=== PATIENT | male | born 1955 | race Caucasian/White ===

== ENCOUNTER 2020-06-27 06:46 | Day surgery (SDC) | payer MEDICARE, BC ==
[2020-06-27] MEDS ORDERED: Propofol 200 MG/20 ML SDV ONE (07:22)
[2020-06-27] MEDS ORDERED: fentaNYL 100 MCG/2 ML SDV ONE (07:22)
[2020-06-27] MEDS ORDERED: Midazolam 1 MG/ML 2 ML SDV ONE (07:22)
[2020-06-27] MEDS ORDERED: Dextrose 5%-Lactated Ringers 1,000 ML IV SCH (07:30)
[2020-06-27] MEDS ORDERED: Pantoprazole 40 MG Vial IVPUSH ONE (10:00)
[2020-06-27 10:57] VITALS: BP 121/66; PULSE 68
--- NOTE | 2020-07-06 11:29 | OR ---
DATE OF PROCEDURE: 06/27/2020 SURGEON: Alex Goldman MD PREOPERATIVE DIAGNOSES: Dysphagia and epigastric discomfort. POSTOPERATIVE DIAGNOSES: Dysphagia and epigastric discomfort associated with: 1. [place] stricture of esophagogastric junction with intact but loosened Darling fundoplication. 2. Diffuse gastritis and duodenitis. OPERATIVE PROCEDURE: Esophagogastroduodenoscopy with: 1. Antral biopsies for CLOtest (80849). 2. Dilation of esophageal stricture (95147). ANESTHESIA: IV sedation. INDICATIONS FOR PROCEDURE: A 65-year-old status post Darling fundoplication in 2001, presenting with some upper abdominal discomfort and dysphagia. Plan is to proceed with upper GI endoscopy with biopsies and/or dilation as indicated. Potential risks including bleeding and perforation were discussed, and the patient wishes to proceed. DETAILS OF PROCEDURE: The patient was taken to the operating room, placed in a left lateral decubitus position. IV sedation was administered, after which the upper GI endoscope was passed orally through the length of the esophagus into the stomach with retroflexion view of the fundus, thereafter through the pyloric channel to the junction of the third and fourth portions of the duodenum. Findings included normal hypopharynx, larynx, and upper esophageal sphincter. The esophageal body likewise was unremarkable and nondilated. At the EG junction, there was diffuse bland appearing ring of stricture. This was not tight enough as the scope could not easily pass through that area. Associated with this, there was an intact but somewhat loosened appearing Darling fundoplication effect. Within the stomach and duodenum to the junction of the duodenal bulb and more distal duodenum, there was diffuse gastritis and duodenitis. This appeared to probably be accounting for most of the patient's symptoms. At this point, biopsies were obtained from the antrum and sent for CLOtest for H pylori. A guidewire was then passed and placed into the stomach and gastroscope withdrawn. Over the guidewire which was left in place, a Savary dilator of 48-Spanish was then placed and held in position for 1 minute. The wire and dilator were then removed and gastroparesis was then placed back in the esophagus and the area of dilation was identified and confirmed to be satisfactory. Scope was then withdrawn and the procedure then concluded. Plan will be give the patient some Protonix 40 mg IV in the recovery room for treatment of the gastritis and duodenitis and then begin 40 mg p.o. daily. The patient has been taking quite a bit of Naprosyn and we will switch that over to Celebrex 200 mg daily, which should be somewhat less problematic with regard to his gastric and duodenal findings. We will see the patient back in 2 weeks for recheck. Alex Goldman MD /[id number]
== END 2020-06-27 11:05 | disposition home or self-care (01) ==
LOC: JP.SDS 06:46
PROVIDERS: ATTEND Surgery
DX: K95.09 Other complications of gastric band procedure (principal); K29.70 Gastritis, unspecified, without bleeding; K22.8 Other specified diseases of esophagus; K29.80 Duodenitis without bleeding; I10 Essential (primary) hypertension; K21.9 Gastro-esophageal reflux disease without esophagitis; G47.33 Obstructive sleep apnea (adult) (pediatric)
CPT/HCPCS: 43239; 43248; 87081; C9113; J2250; J2704; J3010; J7121

== ENCOUNTER 2020-08-17 08:22 | Inpatient (IN) | payer MEDICARE, BC ==
[~2020-08-17 08:22] MED LIST: Midazolam 1 MG/ML 2 ML SDV ONE; Propofol 200 MG/20 ML SDV ONE; fentaNYL 100 MCG/2 ML SDV ONE
[2020-08-17] MEDS ORDERED: Dextrose 5%-Lactated Ringers 1,000 ML IV SCH (09:15)
[2020-08-17] MEDS ORDERED: Glycopyrrolate 0.2 MG/ML 2 ML SDV IVPUSH ONE (10:00)
[2020-08-17] MEDS ORDERED: Iopamidol 612 MG/ML 500 ML Multipack Bottle IV ONE (10:07)
[2020-08-17] MEDS ORDERED: Sodium Chloride 0.9% 10 ML Syringe FLUSH ONE (10:07)
[2020-08-17] MEDS ORDERED: Sodium Chloride 0.9% 100 ML IV SCH (10:15)
--- NOTE | 2020-08-17 10:48 | CT ---
Abdomen Pelvis w Cont CLINICAL HISTORY: Ascites COMPARISON: 2013. TECHNIQUE: Axial tomographic images are obtained from the dome of the diaphragm to the pubic symphysis without IV contrast enhancement. No oral contrast was used. Auto dosage reduction and iterative reconstruction techniques employed. FINDINGS: There is a small right pleural effusion. There is minimal pleural fluid on the left. The liver is moderately heterogeneous. There is some lobulation of the margins. The gallbladder is mildly Gated, similar to prior study. The spleen has a normal size and shape. The pancreas contains multiple cystic masses in the 2 largest are in the head and body of the pancreas. The measure 4.8 x 6.5 x 6.3 cm the pancreatic head. This is loculated. The cystic mass in the body measures 4.5 x 3.8 x 5.9 cm. There is a smaller cystic focus in the pancreatic tail. There is moderate abdominal pelvic ascites. The adrenal glands appear normal bilaterally. The kidneys have a normal appearance. The ureters have a normal course and caliber. The bladder has a normal contour. There are surgical clips in the low pelvis likely related to previous prostate surgery. The aorta has a normal contour. There is no suspicious retroperitoneal adenopathy. IMPRESSION: Significant abdominal pelvic ascites Heterogeneous liver suggesting cirrhotic changes Multiple complex cystic masses involving the head body and tail of the pancreas. These may represent cysts or pseudocysts. Cystadenoma or adenocarcinoma is not excluded though felt less likely
--- NOTE | 2020-08-17 13:17 | PCM.HP.2 ---
H&P History of Present Illness - General Date of Service: 08/17/20 Admit Problem/Dx: Admission Diagnosis/Problem Admission Diagnosis/Problem Hepatic cirrhosis Source of Information: Patient, Family History Limitations: Reports: No Limitations - History of Present Illness Initial Comments - Free Text/Narative: Mr. Dubois presents to outpatient surgical for an EGD today. He has a history of dysphagia and had an EGD with diltation in June 2020. He fell a few weeks ago and was concerned that he may have 'torn something' which lead to his scheduled EGD today. He had two falls within about 2-3 days of each other. Each episode he notes that he does not remember the beginning of the fall, but saw the ground just before he hit. Since his first fall about 2 weeks ago, he has noted a significant increase in abdominal distention, pitting edema to bilateral lower extremities. He has had pain to his upper abdomen since the fall that he would rate a dull 8 at all times that intensifies with jolting movements. His bowel movements are radar mechanic in color and urine is nearly orange in color. He also notes that his urinary stream has slowed with increased frequency. In the last f ew days his notes that Mr. Dubois has slower mentation and it is more difficult for him to talk, taking longer to process and express himself. Today is the first time that he or his have noticed the jaundice. He notes an increase in shortness of breath due to the ascites and is now sleeping in recliner to relieve pressure from ascities. He also has a significant decrease in intake due to the pressure of the ascites. Up until a day or two after the initial fall, this patient was a daily drinker of approximately a pint per day of hard liquor mixed. Onset of Symptoms: Reports: Gradual Symptom Onset Date: 08/01/20 (approximate onset 2-3 weeks ago) Duration of Symptoms: Reports: Getting Worse Location: Reports: Abdomen Quality: Reports: Dull Severity: Severe Improves with: Reports: None Worsens with: Reports: Other, Movement Associated Symptoms: Reports: Confusion, Other Other HPI/Comments: night sweats Abdominal Pain Score (Numeric/FACES): 8 - Related Data Allergies/Adverse Reactions: Allergies Allergy/AdvReac Type Severity Reaction Status Date / Time megestrol acetate Allergy Other Verified 06/27/20 07:19 [From Bubbleball] Home Medications: Home Meds Metoprolol Tartrate 75 mg PO BID 08/17/13 [History] amLODIPine Besylate [Norvasc] 10 mg PO BID 08/17/13 [History] Aspirin [Aspirin EC] 325 mg PO DAILY 06/26/20 [History] Celecoxib [CeleBREX] 200 mg PO DAILY 08/15/20 [History] Magnesium Oxide [Magnesium] 400 mg PO DAILY 08/15/20 [History] Multivitamin [Multiple Vitamins] 1 tab PO DAILY 08/17/20 [History] Pantoprazole [ProTONIX] 40 mg PO DAILY 08/17/20 [History] Past Medical History HEENT History: Reports: Hard of Hearing, Impaired Vision Other HEENT History: wears glasses Cardiovascular History: Reports: Afib, Arrhythmia, Hypertension Respiratory History: Reports: None Gastrointestinal History: Reports: GERD, Hemorrhoids, Hiatal Hernia Genitourinary History: Reports: Other (See Below) Other Genitourinary History: prostate ca Musculoskeletal History: Reports: Arthritis, Fracture Neurological History: Reports: None Psychiatric History: Reports: None Endocrine/Metabolic History: Reports: None Hematologic History: Reports: None Immunologic History: Reports: None Oncologic (Cancer) History: Reports: Prostate (radical prostatectomy) Dermatologic History: Reports: None - Infectious Disease History Infectious Disease History: Reports: Chicken Pox, Measles, Mumps, Rubella - Past Surgical History HEENT Surgical History: Reports: Tonsillectomy Cardiovascular Surgical History: Reports: None Respiratory Surgical History: Reports: None GI Surgical History: Reports: EGD, Other (See Below) Other GI Surgeries/Procedures: Darling fundoplication 2001 Male Surgical History: Reports: Other (See Below) Other Male Surgeries/Procedures: radical prostectomy and lymph nodes Musculoskeletal Surgical History: Reports: None Oncologic Surgical History: Reports: Other (See Below) Other Oncologic Surgeries/Procedures: radical prostectectomy Dermatological Surgical History: Reports: None Social & Family History - Family History Family Medical History: Noncontributory - Tobacco Use Smoking Status *Q: Former Smoker Used Tobacco, but Quit: Yes Month/Year Tobacco Last Used: 1977 Second Hand Smoke Exposure: No - Caffeine Use Caffeine Use: Reports: None - Alcohol Use Days Per Week of Alcohol Use: 7 Number of Drinks Per Day: 5 (approximately 1 pint/day hard liqour) Total Drinks Per Week: 35 Alcohol Use Frequency: Daily Alcohol Use Comment: last drink about 2 weeks ago. - Recreational Drug Use Recreational Drug Use: No H&P Review of Systems - Review of Systems: Review Of Systems: See Below General: Reports: Night Sweats, Decreased Appetite. Denies: Fever, Chills, Malaise, Weakness, Fatigue, Diaphoresis HEENT: Denies: Dysphasia, Headaches, Hearing Changes, Rhinitis, Vertigo, Visual Changes Pulmonary: Reports: Shortness of Breath. Denies: Wheezing, Pleuritic Chest Pain, Cough, Sputum, Hemoptysis Cardiovascular: Reports: Edema, Other (see HPI). Denies: Palpitations, Dyspnea on Exertion, Orthopnea, PND, Lightheadedness, Syncope, Claudication, Blood Pressure Problem Gastrointestinal: Reports: Abdominal Pain, Decreased Appetite, Distension, Other (light colored stools). Denies: Black Stool, Bloody Stool, Constipation, Diarrhea, Difficulty Swallowing, Hematemesis, Hematochezia, Nausea, Vomiting Genitourinary: Reports: Frequency, Other (slower stream than normal). Denies: Dysuria, Burning, Pain, Urgency, Incontinence, Hematuria, Discharge, Retention, Flank Pain Musculoskeletal: Reports: No Symptoms Skin: Reports: Jaundice, Change in Color. Denies: Cyanosis, Mottled, Diaphoresis, Dryness, Bruising, Pruritis, Rash, Wound, Burn(s), Change in Hair/Nails, Lesions, Lumps, Urticaria Psychiatric: Denies: Confusion, Depression, Mood Lability, Anxiety, Agitation, Cravings, Hallucinations, Suicidal Ideation, Homicidal Ideation, Hallucinations (Auditory), Hallucinations (Visual) Neurological: Reports: Dizziness, Trouble Speaking, Change in Speech. Denies: Confusion, Headache, Numbness, Pre-Existing Deficit, Seizure, Syncope, Tingling, Tremors, Difficulty Walking, Weakness, Gait Disturbance Hematologic/Lymphatic: Denies: Anemia, Easy Bleeding, Easy Bruising, Swollen Glands Exam - Exam Exam: See Below - Vital Signs Vital Signs: Last Vital Signs Temp 97.7 F 08/17/20 08:55 Pulse 62 08/17/20 12:15 Resp 16 08/17/20 12:15 BP 102/65 08/17/20 12:15 Pulse Ox 99 08/17/20 12:15 Weight: 195 lb - Exam General: Alert, Oriented, Cooperative HEENT: Other (jaundice) Neck: Supple, Trachea Midline, +2 Carotid Pulse wo Bruit Lungs: Decreased Breath Sounds (decreased breath sounds to bases bilaterally). No: Crackles, Rales, Rhonchi, Rub, Stridor, Wheezing GI/Abdominal Exam: Normal Bowel Sounds, Distended, Rigid, Other (ascities) (Male) Exam: Deferred Rectal (Males) Exam: Deferred Back Exam: Normal Inspection Extremities: Pedal Edema, Other (bilateral lower extremity edema pitting. Edema up to thighs) Skin: Warm, Dry, Intact Neurological: Cranial Nerves Intact, Strength Equal Bilateral Neuro Extensive - Mental Status: Alert, Oriented x3, Normal Mood/Affect, Memory Intact, Slow Response to Commands Psychiatric: Alert, Normal Affect, Normal Mood - Patient Data Lab Results Last 24 hrs: Laboratory Results - last 24 hr 08/17/20 08/17/20 08/17/20 Range/Units 09:14 09:14 09:14 WBC 23.7 H (4.5-11.0) K/uL RBC 4.07 L (4.30-5.90) M/uL Hgb 14.0 (12.0-15.0) g/dL Hct 42.0 (40.0-54.0) % MCV 103 H (80-98) fL MCH 34 H (27-31) pg MCHC 33 (32-36) % Plt Count 409 H (150-400) K/uL PT (9.5-12.0) sec INR (0.80-1.20) Sodium 137 L (140-148) mmol/L Potassium 4.0 (3.6-5.2) mmol/L Chloride 101 (100-108) mmol/L Carbon Dioxide 24 (21-32) mmol/L Anion Gap 16.0 H (5.0-14.0) mmol/L BUN 55 H D (7-18) mg/dL Creatinine 1.7 H D (0.8-1.3) mg/dL Est Cr Clr Drug Dosing 40.50 mL/min Estimated GFR (MDRD) 41 L (>60) BUN/Creatinine Ratio Not Reportable Glucose 126 H (74-106) mg/dL Lactic Acid (0.4-2.0) mmol/L Calcium 8.2 L D (8.5-10.1) mg/dL Total Bilirubin 11.0 H (0.2-1.0) mg/dL AST 129 H (15-37) U/L ALT 57 (12-78) U/L Alkaline Phosphatase 183 H (46-116) U/L Ammonia (11-32) mmol/L C-Reactive Protein (0.0-0.3) mg/dL Total Protein 5.4 L (6.4-8.2) g/dL Albumin 1.8 L (3.4-5.0) g/dL Globulin 3.6 H (2.3-3.5) g/dL Albumin/Globulin Ratio 0.5 L (1.2-2.2) Amylase 28 (25-115) U/L Lipase 162 (73-393) U/L Urine Color (YELLOW) Urine Appearance (CLEAR) Urine pH (5.0-8.0) Ur Specific [place] (1.008-1.030) Urine Protein (NEGATIVE) mg/dL Urine Glucose (UA) (NEGATIVE) mg/dL Urine Ketones (NEGATIVE) mg/dL Urine Occult Blood (NEGATIVE) Urine Nitrite (NEGATIVE) Urine Bilirubin (NEGATIVE) Urine Urobilinogen (0.2-1.0) EU/dL Ur Leukocyte Esterase (NEGATIVE) Urine RBC (0-5) Urine WBC (0-5) Ur Epithelial Cells Amorphous Sediment Urine Bacteria Urine Mucus Urine Other 08/17/20 08/17/20 08/17/20 Range/Units 09:14 09:14 11:25 WBC (4.5-11.0) K/uL RBC (4.30-5.90) M/uL Hgb (12.0-15.0) g/dL Hct (40.0-54.0) % MCV (80-98) fL MCH (27-31) pg MCHC (32-36) % Plt Count (150-400) K/uL PT (9.5-12.0) sec INR (0.80-1.20) Sodium (140-148) mmol/L Potassium (3.6-5.2) mmol/L Chloride (100-108) mmol/L Carbon Dioxide (21-32) mmol/L Anion Gap (5.0-14.0) mmol/L BUN (7-18) mg/dL Creatinine (0.8-1.3) mg/dL Est Cr Clr Drug Dosing mL/min Estimated GFR (MDRD) (>60) BUN/Creatinine Ratio Glucose (74-106) mg/dL Lactic Acid 2.1 H (0.4-2.0) mmol/L Calcium (8.5-10.1) mg/dL Total Bilirubin (0.2-1.0) mg/dL AST (15-37) U/L ALT (12-78) U/L Alkaline Phosphatase (46-116) U/L Ammonia 13 (11-32) mmol/L C-Reactive Protein 10.52 H (0.0-0.3) mg/dL Total Protein (6.4-8.2) g/dL Albumin (3.4-5.0) g/dL Globulin (2.3-3.5) g/dL Albumin/Globulin Ratio (1.2-2.2) Amylase (25-115) U/L Lipase (73-393) U/L Urine Color (YELLOW) Urine Appearance (CLEAR) Urine pH (5.0-8.0) Ur Specific [place] (1.008-1.030) Urine Protein (NEGATIVE) mg/dL Urine Glucose (UA) (NEGATIVE) mg/dL Urine Ketones (NEGATIVE) mg/dL Urine Occult Blood (NEGATIVE) Urine Nitrite (NEGATIVE) Urine Bilirubin (NEGATIVE) Urine Urobilinogen (0.2-1.0) EU/dL Ur Leukocyte Esterase (NEGATIVE) Urine RBC (0-5) Urine WBC (0-5) Ur Epithelial Cells Amorphous Sediment Urine Bacteria Urine Mucus Urine Other 08/17/20 08/17/20 Range/Units 12:11 12:22 WBC (4.5-11.0) K/uL RBC (4.30-5.90) M/uL Hgb (12.0-15.0) g/dL Hct (40.0-54.0) % MCV (80-98) fL MCH (27-31) pg MCHC (32-36) % Plt Count (150-400) K/uL PT 49.4 H (9.5-12.0) sec INR 4.67 H* (0.80-1.20) Sodium (140-148) mmol/L Potassium (3.6-5.2) mmol/L Chloride (100-108) mmol/L Carbon Dioxide (21-32) mmol/L Anion Gap (5.0-14.0) mmol/L BUN (7-18) mg/dL Creatinine (0.8-1.3) mg/dL Est Cr Clr Drug Dosing mL/min Estimated GFR (MDRD) (>60) BUN/Creatinine Ratio Glucose (74-106) mg/dL Lactic Acid (0.4-2.0) mmol/L Calcium (8.5-10.1) mg/dL Total Bilirubin (0.2-1.0) mg/dL AST (15-37) U/L ALT (12-78) U/L Alkaline Phosphatase (46-116) U/L Ammonia (11-32) mmol/L C-Reactive Protein (0.0-0.3) mg/dL Total Protein (6.4-8.2) g/dL Albumin (3.4-5.0) g/dL Globulin (2.3-3.5) g/dL Albumin/Globulin Ratio (1.2-2.2) Amylase (25-115) U/L Lipase (73-393) U/L Urine Color [place] A (YELLOW) Urine Appearance Slightly cloudy A (CLEAR) Urine pH 6.0 (5.0-8.0) Ur Specific [place] 1.010 (1.008-1.030) Urine Protein Trace H (NEGATIVE) mg/dL Urine Glucose (UA) Negative (NEGATIVE) mg/dL Urine Ketones Negative (NEGATIVE) mg/dL Urine Occult Blood Trace-intact H (NEGATIVE) Urine Nitrite Negative (NEGATIVE) Urine Bilirubin Large H (NEGATIVE) Urine Urobilinogen 0.2 (0.2-1.0) EU/dL Ur Leukocyte Esterase Negative (NEGATIVE) Urine RBC Not seen (0-5) Urine WBC 5-10 H (0-5) Ur Epithelial Cells Rare Amorphous Sediment Moderate Urine Bacteria Few Urine Mucus Few Urine Other See note Result Diagrams: 08/17/20 09:14 08/17/20 09:14 Sepsis Event Note - Focused Exam Vital Signs: Vital Signs Temp Pulse Resp BP Pulse Ox 08/17/20 12:15 62 16 102/65 99 08/17/20 11:30 64 16 101/64 97 08/17/20 10:55 62 16 99/67 96 08/17/20 10:19 70 16 103/64 98 08/17/20 08:55 97.7 F 59 L 16 110/65 100 *Q Meaningful Use (ADM) - VTE *Q VTE Pharmacological Contraindications *Q: High INR Value - VTE Risk Assess *Q Each Risk Factor Represents 1 Point: Swollen Legs, Current, Obesity ( BMI > 25 kg/m2) Total Score 1 Point Risk Factors: 2 Each Risk Factor Represents 2 Points: Age 60 - 74 Years Total Score 2 Point Risk Factors: 2 Each Risk Factor Represents 3 Points: None Total Score 3 Point Risk Factors: 0 Each Risk Factor Represents 5 Points: None Total Score 5 Point Risk Factors: 0 Venous Thromboembolism Risk Factor Score *Q: 4 Problem List Initiated/Reviewed/Updated: Yes Orders Last 24hrs: Active Orders 24 hr Category Date Time Status Patient Status Manage Transfer [TRANSFER] Routine ADT 08/17/20 12:43 Active US Guidance Paracentesis NC [US] Routine Exams 08/17/20 12:53 Ordered Dextrose 5%-Lactated Ringers 1,000 ml Med 08/17/20 09:15 Active IV ASDIRECTED Resuscitation Status Routine Resus Stat 08/17/20 12:46 Ordered Medication Orders Dextrose/Lactated Ringer's (Dextrose 5%-Lactated Ringers) 1,000 mls @ 100 mls/hr IV ASDIRECTED CRYSTAL Last Admin: 08/17/20 09:47 Dose: 100 mls/hr Documented by: DEIDRA Assessment/Plan Comment:: HEPATIC CIRRHOSIS - has abdominal distension with apparent blood to ascites. Cirrhosis is suspected cause of ascites, however we do need to rule out possible blockage or infectious causes. His PT/INR are elevated - Vitamin K IV ordered for elevated PT/INR. Will reevaluate his PT/INR in the morning. - Diurese slowly to decrease ascites and peripheral edema, will hold off on paracentesis of large volumes due to kidney status at this time. - MRCP ordered, will do when kidney status improves - Albumin 25grams every 6 hours ACUTE ALCOHOLIC HEPATITIS - his DIOR score is >160, MELDNa score is 38 - prednisolone 40mg daily, start today ACUTE KIDNEY INJURY - possible hepatorenal syndrome - gentle IV fluids - diurese slowly - reevaluate labs in the morning - Stop the Celebrex as this LEUKOCYTOSIS - WBC ate 23.7 with current unknown etiology. - paracentesis culture pending - Urinalysis pending - Blood cultures pending - starting ceftriaxone 2grams IV every 24 hours pending results. CHRONIC ALCOHOL ABUSE - His last drink was about 2 weeks ago as reported by patient and his . Jacob and his are realistic and forthright about his drinking habits. In light of his current liver functions the need for total abstinence from alcohol was discussed and Mr. Dubois verbalizes understanding. -will watch for signs of alcohol withdrawal - Will consider CIWAA protocol if withdrawal symptoms become apparent. MAINTENANCE ISSUES DVT Prophylaxis - pharmacologic intervention contraindicated d/t elevated PT/INR GI Prophylaxis - Continue home PPI [place] - Not indicated at this time Nutrition - 2gm sodium diet Nicotine dependance - not required CODE STATUS - FULL CODE DISPOSITION - plan to discharge home with primary care provider f/u after discharge. PRIMARY CARE PROVIDER - Randolph Juárez [facility] - Mortality Measure Prognosis:: Good
[2020-08-17] MEDS ORDERED: Phytonadione 10 MG in Sodium Chloride 0.9% 50 ML IV ONE (14:30)
[2020-08-17] MEDS ORDERED: Ondansetron 4 MG/2 ML SDV IV PRN (14:40)
[2020-08-17] MEDS ORDERED: Sodium Chloride 0.9% 10 ML Syringe FLUSH PRN (14:40)
[2020-08-17] MEDS: Sodium Chloride 0.9% 1,000 ML IV SCH (16:35)
[2020-08-17] MEDS: cefTRIAXone 2 GM in Sodium Chloride 0.9% 50 ML IV SCH (17:43)
[2020-08-17] MEDS: Lactobacillus Rhamnosus GG (Probiotic) Cap PO SCH ×2 (17:48→21:08)
[2020-08-17] MEDS: prednisoLONE 15 MG/5 ML Soln UD Cup PO SCH (17:48)
[2020-08-17] MEDS: HYDROmorphone 0.5 MG/0.5 ML Syringe IVPUSH PRN (21:07)
[2020-08-17] MEDS: Metoprolol Tartrate 25 MG Tab PO SCH (21:08)
[2020-08-18] MEDS: Sodium Chloride 0.9% 1,000 ML IV SCH (03:43)
[2020-08-18] MEDS ORDERED: Pantoprazole 40 MG Delayed-Release Granules 1 Packet PO SCH (07:30)
[2020-08-18] MEDS: Pantoprazole 40 MG Tab.CR PO SCH (07:34)
[2020-08-18] MEDS: Lactobacillus Rhamnosus GG (Probiotic) Cap PO SCH ×2 (09:00→20:32)
[2020-08-18] MEDS: Magnesium Oxide 400 MG Tab PO SCH (09:00)
[2020-08-18] MEDS: Aspirin 325 MG Tab.EC PO SCH (09:01)
[2020-08-18] MEDS: Metoprolol Tartrate 25 MG Tab PO SCH ×2 (09:01→20:32)
[2020-08-18] MEDS: prednisoLONE 15 MG/5 ML Soln UD Cup PO SCH (09:01)
--- NOTE | 2020-08-18 12:47 | PCM.PN ---
- General Info Date of Service: 08/18/20 Admission Dx/Problem (Free Text): Admission Diagnosis/Problem Admission Diagnosis/Problem Hepatic cirrhosis Functional Status: Reports: Pain Controlled, Tolerating Diet, Ambulating, Urinating Pain Score: 4 (abdominal pain and fullness much improved) - Review of Systems General: Reports: No Symptoms. Denies: Fever, Weakness, Fatigue, Malaise, Chills, Night Sweats HEENT: Reports: No Symptoms. Denies: Dysphasia, Headaches, Sore Throat, Visual Changes Pulmonary: Reports: No Symptoms. Denies: Shortness of Breath, Cough, Sputum, Hemoptysis, Wheezing Cardiovascular: Reports: Edema. Denies: Chest Pain, Palpitations, Dyspnea on Exertion, Orthopnea, Lightheadedness Gastrointestinal: Reports: Abdominal Pain, Decreased Appetite. Denies: Constipation, Diarrhea, Difficulty Swallowing, Flatus, Hematochezia, Melena, Nausea, Vomiting Genitourinary: Denies: Dysuria, Frequency, Burning, Urgency, Incontinence, Hematuria, Retention, Flank Pain Musculoskeletal: Reports: No Symptoms. Denies: Back Pain, Leg Pain, Foot Pain Skin: Reports: Jaundice. Denies: Diaphoresis, Pruritis Neurological: Reports: No Symptoms. Denies: Confusion, Headache, Numbness, Syncope, Tingling, Tremors, Trouble Speaking, Difficulty Walking, Weakness, Gait Disturbance Psychiatric: Reports: No Symptoms - Patient Data Vitals - Most Recent: Last Vital Signs Temp 97.2 F 08/18/20 07:31 Pulse 60 08/18/20 09:01 Resp 16 08/18/20 07:31 BP 111/67 08/18/20 09:01 Pulse Ox 95 08/18/20 07:31 Weight - Most Recent: 195 lb 0.017 oz I&O - Last 24 Hours: Intake & Output 08/17/20 08/18/20 08/18/20 22:59 06:59 14:59 Intake Total 320 1514 Output Total 475 Balance -155 1514 Lab Results Last 24 Hours: Laboratory Results - last 24 hr 08/17/20 08/17/20 08/17/20 Range/Units 12:11 12:22 13:50 WBC (4.5-11.0) K/uL RBC (4.30-5.90) M/uL Hgb (12.0-15.0) g/dL Hct (40.0-54.0) % MCV (80-98) fL MCH (27-31) pg MCHC (32-36) % Plt Count (150-400) K/uL Neut % (Auto) (36-66) % Lymph % (Auto) (24-44) % Travis % (Auto) (2-6) % Eos % (Auto) (2-4) % Baso % (Auto) (0-1) % PT 49.4 H (9.5-12.0) sec INR 4.67 H* (0.80-1.20) Sodium (140-148) mmol/L Potassium (3.6-5.2) mmol/L Chloride (100-108) mmol/L Carbon Dioxide (21-32) mmol/L Anion Gap (5.0-14.0) mmol/L BUN (7-18) mg/dL Creatinine (0.8-1.3) mg/dL Est Cr Clr Drug Dosing mL/min Estimated GFR (MDRD) (>60) Glucose (74-106) mg/dL Calcium (8.5-10.1) mg/dL Total Bilirubin (0.2-1.0) mg/dL AST (15-37) U/L ALT (12-78) U/L Alkaline Phosphatase (46-116) U/L Total Protein (6.4-8.2) g/dL Albumin (3.4-5.0) g/dL Globulin (2.3-3.5) g/dL Albumin/Globulin Ratio (1.2-2.2) Urine Color [place] A (YELLOW) Urine Appearance Slightly cloudy A (CLEAR) Urine pH 6.0 (5.0-8.0) Ur Specific [place] 1.010 (1.008-1.030) Urine Protein Trace H (NEGATIVE) mg/dL Urine Glucose (UA) Negative (NEGATIVE) mg/dL Urine Ketones Negative (NEGATIVE) mg/dL Urine Occult Blood Trace-intact H (NEGATIVE) Urine Nitrite Negative (NEGATIVE) Urine Bilirubin Large H (NEGATIVE) Urine Urobilinogen 0.2 (0.2-1.0) EU/dL Ur Leukocyte Esterase Negative (NEGATIVE) Urine RBC Not seen (0-5) Urine WBC 5-10 H (0-5) Ur Epithelial Cells Rare Amorphous Sediment Moderate Urine Bacteria Few Urine Mucus Few Urine Other See note Fluid Type Peritoneal fluid Fluid pH Fluid Glucose 151 mg/dL Fluid Total Protein 2.1 g/dL Fluid LDH 272 IU/L 08/17/20 08/18/20 08/18/20 Range/Units 13:50 05:45 05:45 WBC 14.5 H (4.5-11.0) K/uL RBC 3.29 L (4.30-5.90) M/uL Hgb 11.2 L D (12.0-15.0) g/dL Hct 35.3 L (40.0-54.0) % MCV 107 H (80-98) fL MCH 34 H (27-31) pg MCHC 32 (32-36) % Plt Count 288 (150-400) K/uL Neut % (Auto) 93 H (36-66) % Lymph % (Auto) 3 L (24-44) % Travis % (Auto) 4 (2-6) % Eos % (Auto) 0 L (2-4) % Baso % (Auto) 0 (0-1) % PT 15.6 H (9.5-12.0) sec INR 1.44 H D (0.80-1.20) Sodium (140-148) mmol/L Potassium (3.6-5.2) mmol/L Chloride (100-108) mmol/L Carbon Dioxide (21-32) mmol/L Anion Gap (5.0-14.0) mmol/L BUN (7-18) mg/dL Creatinine (0.8-1.3) mg/dL Est Cr Clr Drug Dosing mL/min Estimated GFR (MDRD) (>60) Glucose (74-106) mg/dL Calcium (8.5-10.1) mg/dL Total Bilirubin (0.2-1.0) mg/dL AST (15-37) U/L ALT (12-78) U/L Alkaline Phosphatase (46-116) U/L Total Protein (6.4-8.2) g/dL Albumin (3.4-5.0) g/dL Globulin (2.3-3.5) g/dL Albumin/Globulin Ratio (1.2-2.2) Urine Color (YELLOW) Urine Appearance (CLEAR) Urine pH (5.0-8.0) Ur Specific [place] (1.008-1.030) Urine Protein (NEGATIVE) mg/dL Urine Glucose (UA) (NEGATIVE) mg/dL Urine Ketones (NEGATIVE) mg/dL Urine Occult Blood (NEGATIVE) Urine Nitrite (NEGATIVE) Urine Bilirubin (NEGATIVE) Urine Urobilinogen (0.2-1.0) EU/dL Ur Leukocyte Esterase (NEGATIVE) Urine RBC (0-5) Urine WBC (0-5) Ur Epithelial Cells Amorphous Sediment Urine Bacteria Urine Mucus Urine Other Fluid Type Peritoneal fluid Fluid pH 7.0 Fluid Glucose mg/dL Fluid Total Protein g/dL Fluid LDH IU/L 08/18/20 Range/Units 05:45 WBC (4.5-11.0) K/uL RBC (4.30-5.90) M/uL Hgb (12.0-15.0) g/dL Hct (40.0-54.0) % MCV (80-98) fL MCH (27-31) pg MCHC (32-36) % Plt Count (150-400) K/uL Neut % (Auto) (36-66) % Lymph % (Auto) (24-44) % Travis % (Auto) (2-6) % Eos % (Auto) (2-4) % Baso % (Auto) (0-1) % PT (9.5-12.0) sec INR (0.80-1.20) Sodium 140 (140-148) mmol/L Potassium 3.9 (3.6-5.2) mmol/L Chloride 105 (100-108) mmol/L Carbon Dioxide 26 (21-32) mmol/L Anion Gap 9.1 (5.0-14.0) mmol/L BUN 42 H (7-18) mg/dL Creatinine 1.1 (0.8-1.3) mg/dL Est Cr Clr Drug Dosing 62.59 mL/min Estimated GFR (MDRD) > 60 (>60) Glucose 166 H (74-106) mg/dL Calcium 8.0 L (8.5-10.1) mg/dL Total Bilirubin 11.3 H (0.2-1.0) mg/dL AST 91 H (15-37) U/L ALT 45 (12-78) U/L Alkaline Phosphatase 136 H (46-116) U/L Total Protein 5.3 L (6.4-8.2) g/dL Albumin 2.3 L (3.4-5.0) g/dL Globulin 3.0 (2.3-3.5) g/dL Albumin/Globulin Ratio 0.8 L (1.2-2.2) Urine Color (YELLOW) Urine Appearance (CLEAR) Urine pH (5.0-8.0) Ur Specific [place] (1.008-1.030) Urine Protein (NEGATIVE) mg/dL Urine Glucose (UA) (NEGATIVE) mg/dL Urine Ketones (NEGATIVE) mg/dL Urine Occult Blood (NEGATIVE) Urine Nitrite (NEGATIVE) Urine Bilirubin (NEGATIVE) Urine Urobilinogen (0.2-1.0) EU/dL Ur Leukocyte Esterase (NEGATIVE) Urine RBC (0-5) Urine WBC (0-5) Ur Epithelial Cells Amorphous Sediment Urine Bacteria Urine Mucus Urine Other Fluid Type Fluid pH Fluid Glucose mg/dL Fluid Total Protein g/dL Fluid LDH IU/L [place] Results Last 24 Hours: Microbiology 08/17/20 13:50 Gram Stain - Final Paracentesis Fluid Med Orders - Current: Current Medications Aspirin (Ecotrin) 325 mg PO DAILY [facility] [place] Last Admin: 08/18/20 09:01 Dose: 325 mg Documented by: Hydromorphone HCl (Dilaudid) 0.5 mg IVPUSH Q4H PRN PRN Reason: Pain Last Admin: 08/17/20 21:07 Dose: 0.5 mg Documented by: Sodium Chloride (Normal Saline) 1,000 mls @ 125 mls/hr IV ASDIRECTED [facility] [place] Last Admin: 08/18/20 03:43 Dose: 125 mls/hr Documented by: Ceftriaxone Sodium 2 gm/ (Sodium Chloride) 50 mls @ 100 mls/hr IV Q24H [facility] [place] Last Admin: 08/17/20 17:43 Dose: 100 mls/hr Documented by: Lactobacillus Rhamnosus (Culturelle) 1 cap PO BID [facility] [place] Last Admin: 08/18/20 09:00 Dose: 1 cap Documented by: Magnesium Oxide (Magnesium Oxide) 400 mg PO DAILY [facility] [place] Last Admin: 08/18/20 09:00 Dose: 400 mg Documented by: Melatonin (Melatonin) 9 mg PO BEDTIME PRN PRN Reason: Insomnia Metoprolol Tartrate (Lopressor) 75 mg PO BID [facility] [place] Last Admin: 08/18/20 09:01 Dose: 75 mg Documented by: Ondansetron HCl (Zofran) 4 mg IV Q4H PRN PRN Reason: Nausea/Vomiting Pantoprazole Sodium (Protonix) 40 mg PO DAILY@0730 [facility] [place] Last Admin: 08/18/20 07:34 Dose: 40 mg Documented by: Prednisolone (Orapred 15 Mg/5ml Soln) 40 mg PO DAILY [facility] [place] Last Admin: 08/18/20 09:01 Dose: 40 mg Documented by: Sodium Chloride (Saline Flush) 10 ml FLUSH ASDIRECTED PRN PRN Reason: Keep Vein Open Discontinued Medications Fentanyl (Sublimaze) Confirm Administered Dose 0 mcg .ROUTE .STK-MED ONE Stop: 08/17/20 07:42 Glycopyrrolate (Glycopyrrolate) 0.4 mg IVPUSH ONETIME ONE Stop: 08/17/20 10:01 Dextrose/Lactated Ringer's (Dextrose 5%-Lactated Ringers) 1,000 mls @ 100 mls/hr IV ASDIRECTED [facility] [place] Last Admin: 08/17/20 09:47 Dose: 100 mls/hr Documented by: Sodium Chloride (Normal Saline) 100 mls @ 3 mls/sec IV ASDIRECTED [facility] [place] Stop: 08/17/20 10:16 Phytonadione 10 mg/ Sodium (Chloride) 51 mls @ 100 mls/hr IV NOW ONE Stop: 08/17/20 15:00 Last Admin: 08/17/20 14:37 Dose: 100 mls/hr Documented by: Albumin Human (Albumin 25%) 25 gm in 100 mls @ 25 mls/hr IV Q6H [facility] [place] Stop: 08/18/20 09:59 Last Admin: 08/18/20 05:27 Dose: 25 mls/hr Documented by: Iopamidol (Isovue-300 (61%)) 134 ml IV ONETIME ONE Stop: 08/17/20 10:08 Midazolam HCl (Versed 1 Mg/Ml) Confirm Administered Dose 0 mg .ROUTE .STK-MED ONE Stop: 08/17/20 07:42 Propofol (Diprivan 20 Ml) Confirm Administered Dose 0 mg .ROUTE .STK-MED ONE Stop: 08/17/20 07:42 Sodium Chloride (Saline Flush) 10 ml FLUSH ONETIME ONE Stop: 08/17/20 10:08 - Exam General: Alert, Oriented, Cooperative, No Acute Distress HEENT: Pupils Equal, Pupils Reactive, Scleral Icterus Neck: Trachea Midline, No JVD, No Thyromegaly, +2 Carotid Pulse wo Bruit. No: Lymphadenopathy, Carotid Bruit, JVD, Thyromegaly Lungs: Clear to Auscultation, Normal Respiratory Effort, Decreased Breath Sounds (to bilateral bases) Cardiovascular: Regular Rate, Regular Rhythm, No Murmurs. No: Irregular Rhythm, Murmurs, Gallops, Rubs GI/Abdominal Exam: Normal Bowel Sounds, No Abnormal Bruit, Distended, Rigid, Tender, Other (positive for fluid wave, indicative of ascites.) (Male) Exam: Deferred Back Exam: Normal Inspection Extremities: Normal Range of Motion, Non-Tender (left leg is tender with pressure checking on edema.), Pedal Edema (edema continues up into thighs, however the edema is improving.) Skin: Warm, Dry, Intact, Other (jaundice) Neurological: No New Focal Deficit, Normal Speech (patient's speech patern has returned to normal baseline, he responds appropriately and does not need to search for responses. ), Normal Tone, Strength Equal Bilateral Psy/Mental Status: Alert, Normal Affect, Normal Mood Sepsis Event Note - Evaluation Sepsis Screening Result: No Definite Risk - Focused Exam Vital Signs: Vital Signs Temp Pulse Pulse Resp BP BP Pulse Ox 08/18/20 09:01 60 111/67 08/18/20 07:31 97.2 F 56 L 16 108/74 95 08/18/20 03:39 96.7 F L 53 L 18 114/73 100 - Problem List Review Problem List Initiated/Reviewed/Updated: Yes - My Orders Last 24 Hours: My Active Orders 08/19/20 05:00 CBC WITH AUTO DIFF [HEME] Routine COMPREHENSIVE METABOLIC PN,CMP [CHEM] Routine INR,PT,PROTHROMBIN TIME [COAG] Routine - Plan Plan:: HEPATIC CIRRHOSIS - has abdominal distension with apparent blood to ascites. Cirrhosis is suspected cause of ascites, however we do need to rule out possible blockage or infectious causes. His PT/INR are elevated - PT/INR improving, Will reevaluate his PT/INR in the morning. - Will hold off on paracentesis of large volumes due to kidney status at this time, will consider in the next day or two depending on kidney status - MRCP to be done today, pending results - Albumin 25grams every 12 hours ACUTE ALCOHOLIC HEPATITIS - his Maddrey score is 26 which is a significant improvement from admission. - continue prednisolone 40mg daily ACUTE KIDNEY INJURY - possible hepatorenal syndrome - saline lock IV - reevaluate labs in the morning - Celebrex DC, no NSAIDs LEUKOCYTOSIS - WBC at improving at 14.5 today with current unknown etiology. - paracentesis culture pending - Urinalysis pending - Blood cultures pending - continue ceftriaxone 2grams IV every 24 hours pending results. CHRONIC ALCOHOL ABUSE - He is not currently exhibiting withdrawal symptoms this visit. -will watch for signs of alcohol withdrawal -Will consider CIWAA protocol if withdrawal symptoms become apparent. MAINTENANCE ISSUES DVT Prophylaxis - pharmacologic intervention contraindicated d/t elevated PT/INR, start SCDs today. GI Prophylaxis - Continue home PPI Masterson - Not indicated at this time Nutrition - 2gm sodium diet Nicotine dependance - not required CODE STATUS - FULL CODE DISPOSITION - plan to discharge home with primary care provider f/u after discharge. PRIMARY CARE PROVIDER - Randolph Juárez NP
--- NOTE | 2020-08-18 14:28 | MR ---
Cholangiopancreatography CLINICAL HISTORY: Elevated bilirubin, pancreatic masses COMPARISON: CT abdomen 08/17/2020 TECHNIQUE: Multiple images of the biliary system were obtained. All images were obtained on a 1.5 Yom[employer] Siemens unit. FINDINGS: There is moderate breathing motion artifact. There is moderate diffuse ascites. Gallbladder has a normal contour. A common bile duct has a normal course and contour. Pancreatic duct is not visualized. There is a complex fluid-filled mass extending off the body of the pancreas described on CT. There is fluid level with internal debris or tissue. There is a similar complex mass in the head of the pancreas. This appears predominantly solid. IMPRESSION: Moderate ascites 2 large complex masses are identified in the head and body the pancreas. There is a fluid level or layering in the mid body mass.These could represent pseudocysts Pancreatic neoplasm is not excluded.
[2020-08-18] MEDS: HYDROmorphone 0.5 MG/0.5 ML Syringe IVPUSH PRN (17:42)
[2020-08-18] MEDS: cefTRIAXone 2 GM in Sodium Chloride 0.9% 50 ML IV SCH (18:03)
[2020-08-18] MEDS: Melatonin 3 MG Tab PO PRN (20:35)
--- NOTE | 2020-08-19 02:47 | PN ---
DATE OF SERVICE: 08/18/2020 SUBJECTIVE: Jacob is n.p.o. for an MRI today. Pain is managed with Dilaudid 0.5 mg IV every 4 hours. Labs today, white count is down to 14.5, hemoglobin is 11.2, PT 15.4, and INR 1.44. Total bilirubin is 11.3, and he reports weakness, tired when getting up. Denies any headache. Occasional dizziness. Feels unsteady. Neck negative. Heart, no chest pain. He does feel pressure under his ribs that increases when he takes a deep breath. Abdomen, no change. Continues to have ascites and pain with palpation in all 4 quadrants. Extremities revealed bilateral peripheral edema. Color, jaundice. Psychiatric, mood and affect quiet. OBJECTIVE: GENERAL: Jacob Dubois is a pleasant 65-year-old male. He is alert and orientated. VITAL SIGNS: TPR is 97.2, 56, 16, blood pressure 108/74. HEENT: Negative. NECK: Supple. HEART: Regular rate and rhythm. LUNGS: Clear. ABDOMEN: As above. EXTREMITIES: As above. ASSESSMENT: 1. Hepatic cirrhosis. 2. Acute alcoholic hepatitis. 3. Acute kidney injury. 4. Leukocytosis. 5. Chronic alcohol abuse. PLAN: 1. Continue cares with Greg Patel MD, hospitalist. 2. We will plan on paracentesis on Friday with Alex Goldman MD. 3. We will evaluate p.r.n. or in a.m. Tianna Keita PA-C /[id number]
[2020-08-19] MEDS: HYDROmorphone 0.5 MG/0.5 ML Syringe IVPUSH PRN ×4 (02:56→19:55)
[2020-08-19] MEDS: Pantoprazole 40 MG Tab.CR PO SCH (07:36)
[2020-08-19] MEDS: Lactobacillus Rhamnosus GG (Probiotic) Cap PO SCH ×2 (09:47→22:15)
[2020-08-19] MEDS: Aspirin 325 MG Tab.EC PO SCH (09:48)
[2020-08-19] MEDS: Metoprolol Tartrate 25 MG Tab PO SCH ×2 (09:49→22:14)
[2020-08-19] MEDS: Magnesium Oxide 400 MG Tab PO SCH (09:53)
[2020-08-19] MEDS: prednisoLONE 15 MG/5 ML Soln UD Cup PO SCH (09:54)
--- NOTE | 2020-08-19 10:50 | PN ---
DATE OF SERVICE: 08/19/2020 SUBJECTIVE: Jacob report he continues to have quite a bit of pain on a pain scale 1 to 10. He said it is an 8, sometimes a 9/10. He feels his abdomen is a little bit more distended today. Oral intake 543. Urine output is 645. Per nursing report, it is quite dark. Afebrile. Labs this morning; WBC 21.7, PT 15.4, and INR is 1.42. Potassium is 3.3 and bilirubin remains high at 11. OBJECTIVE: GENERAL: aJcob Dubois is a pleasant 65-year-old male. He is alert, orientated, talkative. VITAL SIGNS: TPR is 96.2, 54, 18; blood pressure 110/63. HEENT: Negative. NECK: Supple. HEART: Regular rate and rhythm. LUNGS: Clear. ABDOMEN: Appears to be more distended, increased ascites, firm. EXTREMITIES: Trace peripheral edema. NEUROLOGIC: Intact. PSYCHIATRIC: Mood and affect appropriate. ASSESSMENT: 1. Hepatic cirrhosis. 2. Acute alcoholic hepatitis. 3. Acute kidney injury. 4. Leukocytosis. 5. Chronic alcohol abuse. PLAN: Continue to monitor and plan paracentesis on Friday with Alex Goldman MD. Tianna Keita PA-C /[id number]
[2020-08-19] MEDS ORDERED: Potassium Chloride 20 MEQ Tab.ER PO ONE ×2 (13:04→17:00)
--- NOTE | 2020-08-19 13:07 | PCM.PN ---
- General Info Date of Service: 08/19/20 Subjective Update: Mr. Dubois has been stable over the last 24 hours. Continues to experience abdominal discomfort related to ascites. Renal function has essentially normalized and liver function is stable. INR is unchanged from yesterday. MRCP was obtained yesterday and showed no evidence of biliary obstruction but did document complex cysts in the pancreas consistent with pseudocysts. Functional Status: Reports: Tolerating Diet, Ambulating, Urinating - Review of Systems General: Reports: Weakness, Fatigue. Denies: Fever, Chills Pulmonary: Reports: No Symptoms Cardiovascular: Reports: No Symptoms Gastrointestinal: Reports: Abdominal Pain. Denies: Diarrhea, Difficulty Swallowing, Hematochezia, Melena, Nausea, Vomiting - Patient Data Vitals - Most Recent: Last Vital Signs Temp 97.4 F 08/19/20 11:49 Pulse 55 L 08/19/20 11:49 Resp 20 08/19/20 11:49 BP 112/68 08/19/20 11:49 Pulse Ox 93 L 08/19/20 11:49 Weight - Most Recent: 194 lb 9.6 oz I&O - Last 24 Hours: Intake & Output 08/18/20 08/19/20 08/19/20 22:59 06:59 14:59 Intake Total 110 320 Output Total 120 375 Balance -10 -55 Lab Results Last 24 Hours: Laboratory Results - last 24 hr 08/19/20 08/19/20 08/19/20 Range/Units 05:57 05:57 05:57 WBC 21.7 H (4.5-11.0) K/uL RBC 3.37 L (4.30-5.90) M/uL Hgb 11.5 L (12.0-15.0) g/dL Hct 36.4 L (40.0-54.0) % MCV 108 H (80-98) fL MCH 34 H (27-31) pg MCHC 32 (32-36) % Plt Count 304 (150-400) K/uL Neut % (Auto) 87 H (36-66) % Lymph % (Auto) 5 L (24-44) % [place] % (Auto) 8 H (2-6) % Eos % (Auto) 0 L (2-4) % Baso % (Auto) 0 (0-1) % PT 15.4 H (9.5-12.0) sec INR 1.42 H (0.80-1.20) Sodium 142 (140-148) mmol/L Potassium 3.3 L (3.6-5.2) mmol/L Chloride 106 (100-108) mmol/L Carbon Dioxide 24 (21-32) mmol/L Anion Gap 15.3 H (5.0-14.0) mmol/L BUN 34 H (7-18) mg/dL Creatinine 1.1 (0.8-1.3) mg/dL Est Cr Clr Drug Dosing 62.44 mL/min Estimated GFR (MDRD) > 60 (>60) Glucose 124 H (74-106) mg/dL Calcium 8.2 L (8.5-10.1) mg/dL Total Bilirubin 11.0 H (0.2-1.0) mg/dL AST 80 H (15-37) U/L ALT 49 (12-78) U/L Alkaline Phosphatase 133 H (46-116) U/L Total Protein 5.6 L (6.4-8.2) g/dL Albumin 2.8 L (3.4-5.0) g/dL Globulin 2.8 (2.3-3.5) g/dL Albumin/Globulin Ratio 1.0 L (1.2-2.2) [place] Results Last 24 Hours: Microbiology 08/17/20 13:50 Gram Stain - Final Paracentesis Fluid Body Fluid Culture - Preliminary NO GROWTH AFTER 1 DAY 08/17/20 20:10 Aerobic Blood Culture - Preliminary Blood - Arm, Left NO GROWTH AFTER 1 DAY Anaerobic Blood Culture - Preliminary NO GROWTH AFTER 1 DAY 08/17/20 20:05 Aerobic Blood Culture - Preliminary Blood - Arm, Left NO GROWTH AFTER 1 DAY Anaerobic Blood Culture - Preliminary NO GROWTH AFTER 1 DAY Med Orders - Current: Current Medications Aspirin (Ecotrin) 325 mg PO DAILY [facility] Last Admin: 08/19/20 09:48 Dose: 325 mg Documented by: Hydromorphone HCl (Dilaudid) 0.5 mg IVPUSH Q4H PRN PRN Reason: Pain Last Admin: 08/19/20 08:02 Dose: 0.5 mg Documented by: Ceftriaxone Sodium 2 gm/ (Sodium Chloride) 50 mls @ 100 mls/hr IV Q24H [facility] Last Admin: 08/18/20 18:03 Dose: 100 mls/hr Documented by: Albumin Human (Albumin 25%) 25 gm in 100 mls @ 25 mls/hr IV Q12H [facility] Last Admin: 08/19/20 02:53 Dose: 25 mls/hr Documented by: Lactobacillus Rhamnosus (Culturelle) 1 cap PO BID [facility] Last Admin: 08/19/20 09:47 Dose: 1 cap Documented by: Magnesium Oxide (Magnesium Oxide) 400 mg PO DAILY [facility] Last Admin: 08/19/20 09:53 Dose: 400 mg Documented by: Melatonin (Melatonin) 9 mg PO BEDTIME PRN PRN Reason: Insomnia Last Admin: 08/18/20 20:35 Dose: 9 mg Documented by: Metoprolol Tartrate (Lopressor) 75 mg PO BID [facility] Last Admin: 08/19/20 09:49 Dose: 75 mg Documented by: Ondansetron HCl (Zofran) 4 mg IV Q4H PRN PRN Reason: Nausea/Vomiting Pantoprazole Sodium (Protonix) 40 mg PO DAILY@0730 [facility] Last Admin: 08/19/20 07:36 Dose: 40 mg Documented by: Potassium Chloride (Klor-Con M20) 40 meq PO ONETIME ONE Stop: 08/19/20 13:05 Prednisolone (Orapred 15 Mg/5ml Soln) 40 mg PO DAILY [facility] Last Admin: 08/19/20 09:54 Dose: 40 mg Documented by: Sodium Chloride (Saline Flush) 10 ml FLUSH ASDIRECTED PRN PRN Reason: Keep Vein Open Discontinued Medications Fentanyl (Sublimaze) Confirm Administered Dose 0 mcg .ROUTE .STK-MED ONE Stop: 08/17/20 07:42 Glycopyrrolate (Glycopyrrolate) 0.4 mg IVPUSH ONETIME ONE Stop: 08/17/20 10:01 Last Admin: 08/18/20 19:15 Dose: Not Given Documented by: Dextrose/Lactated Ringer's (Dextrose 5%-Lactated Ringers) 1,000 mls @ 100 mls/hr IV ASDIRECTED [facility] Last Admin: 08/17/20 09:47 Dose: 100 mls/hr Documented by: Sodium Chloride (Normal Saline) 100 mls @ 3 mls/sec IV ASDIRECTED [facility] Stop: 08/17/20 10:16 Phytonadione 10 mg/ Sodium (Chloride) 51 mls @ 100 mls/hr IV NOW ONE Stop: 08/17/20 15:00 Last Admin: 08/17/20 14:37 Dose: 100 mls/hr Documented by: Sodium Chloride (Normal Saline) 1,000 mls @ 125 mls/hr IV ASDIRECTED [facility] Last Admin: 08/18/20 03:43 Dose: 125 mls/hr Documented by: Albumin Human (Albumin 25%) 25 gm in 100 mls @ 25 mls/hr IV Q6H [facility] Stop: 08/18/20 09:59 Last Admin: 08/18/20 05:27 Dose: 25 mls/hr Documented by: Iopamidol (Isovue-300 (61%)) 134 ml IV ONETIME ONE Stop: 08/17/20 10:08 Last Admin: 08/18/20 19:15 Dose: Not Given Documented by: Midazolam HCl (Versed 1 Mg/Ml) Confirm Administered Dose 0 mg .ROUTE .STK-MED ONE Stop: 08/17/20 07:42 Propofol (Diprivan 20 Ml) Confirm Administered Dose 0 mg .ROUTE .STK-MED ONE Stop: 08/17/20 07:42 Sodium Chloride (Saline Flush) 10 ml FLUSH ONETIME ONE Stop: 08/17/20 10:08 Last Admin: 08/18/20 19:14 Dose: Not Given Documented by: - Exam Quality Assessment: DVT Prophylaxis General: Alert, Oriented, Cooperative, Mild Distress Lungs: Clear to Auscultation, Normal Respiratory Effort Cardiovascular: Regular Rate, Regular Rhythm, No Murmurs GI/Abdominal Exam: Soft, No Organomegaly, Distended, Tender. No: Guarding, Rigid, Rebound Extremities: Non-Tender, Pedal Edema Skin: Warm, Dry, Intact, Other (Jaundice) Sepsis Event Note - Evaluation Sepsis Screening Result: Severe Sepsis Risk - Focused Exam Vital Signs: Vital Signs Temp Pulse Pulse Pulse Resp BP BP 08/19/20 11:49 97.4 F 55 L 20 112/68 08/19/20 09:49 64 115/75 08/19/20 07:56 96.2 F L 54 L 18 110/63 08/19/20 03:10 96.2 F L 61 18 131/79 Pulse Ox 08/19/20 11:49 93 L 08/19/20 09:49 08/19/20 07:56 10/03/20 03:10 98 - Problem List Review Problem List Initiated/Reviewed/Updated: Yes - My Orders Last 24 Hours: My Active Orders 08/19/20 10:43 Consult to Physician [CONS] Routine 08/19/20 10:44 Notify Provider Consults [RC] ASDIRECTED 08/19/20 13:04 Potassium Chloride [Klor-Con M20] 40 meq PO ONETIME ONE 08/19/20 17:00 Potassium Chloride [Klor-Con M20] 40 meq PO ONETIME ONE 08/20/20 05:00 CBC WITH AUTO DIFF [HEME] Timed COMPREHENSIVE METABOLIC PN,CMP [CHEM] Timed INR,PT,PROTHROMBIN TIME [COAG] Timed - Plan Plan:: ASSESSMENT AND PLAN HEPATIC CIRRHOSIS - has abdominal distension with ascites. Cirrhosis is leticia pected cause of ascites. MRCP obtained yesterday showing no evidence of significant obstruction -Bilirubin and INR stable over the last 24 hours -Consult Dr. Mahmood for large-volume paracentesis - Albumin 25grams every 12 hours ACUTE ALCOHOLIC HEPATITIS - his Maddrey score is 26 which is a significant improvement from admission. - continue prednisolone 40mg daily ACUTE KIDNEY INJURY -renal function has significantly improved from admission and appears to be close to baseline - saline lock IV - reevaluate labs in the morning - Celebrex DC, no NSAIDs SPONTANEOUS BACTERIAL PERITONITIS/LEUKOCYTOSIS -white blood cell count is increased from yesterday, likely secondary to glucocorticoid therapy. Diagnostic paracentesis performed on admission, cell count not available because specimen clotted. Presumed bacterial peritonitis given increase in pain and leukocytosis. - paracentesis culture pending - Urinalysis pending - Blood cultures pending - continue ceftriaxone 2grams IV every 24 hours pending results. PANCREATIC PSEUDOCYSTS-he likely has had acute and chronic pancreatitis. Lipase level was within normal range at the time of admission. -Plan for follow-up CT scan in 2 months to assess stability of pseudocyst. CHRONIC ALCOHOL ABUSE - He is not currently exhibiting withdrawal symptoms this visit. -will watch for signs of alcohol withdrawal -Will consider CIWAA protocol if withdrawal symptoms become apparent. MAINTENANCE ISSUES DVT Prophylaxis - pharmacologic intervention contraindicated d/t elevated PT/INR, SCDs GI Prophylaxis - Continue home PPI Masterson - Not indicated at this time Nutrition - 2gm sodium diet Nicotine dependance - not required CODE STATUS - FULL CODE DISPOSITION - plan to discharge home with primary care provider f/u after discharge. PRIMARY CARE PROVIDER - Randolph Juárez NP
[2020-08-19] MEDS: cefTRIAXone 2 GM in Sodium Chloride 0.9% 50 ML IV SCH (17:59)
[2020-08-19] MEDS: Melatonin 3 MG Tab PO PRN (22:15)
[2020-08-20] MEDS: HYDROmorphone 0.5 MG/0.5 ML Syringe IVPUSH PRN ×3 (02:03→17:45)
--- NOTE | 2020-08-20 08:30 | PN ---
DATE OF SERVICE: 08/20/2020 SUBJECTIVE: Jacob is n.p.o. He will be having paracentesis by Dr. Mahmood today. He continues to have pain 06/26. Bilirubin this morning was 10.4. OBJECTIVE: GENERAL: Jacob is a pleasant 65-year-old male. VITAL SIGNS: TPR is 98, 55, 18. Blood pressure 116/66. HEART: Regular rate and rhythm. LUNGS: Clear. ABDOMEN: Ascites. EXTREMITIES: 1+ peripheral edema. ASSESSMENT: 1. Hepatic cirrhosis. 2. Acute alcoholic hepatitis. 3. Acute kidney injury. 4. Leukocytosis. 5. Chronic alcohol abuse. PLAN: To proceed with paracentesis, Bang Mahmood MD. Orders to be written for Greg Patel MD and Bang Mahmood MD post procedure. We will evaluate p.r.n. or in a.m. Tianna Keita PA-C /[id number]
[2020-08-20] MEDS: Pantoprazole 40 MG Tab.CR PO SCH (08:31)
[2020-08-20] MEDS: Lactobacillus Rhamnosus GG (Probiotic) Cap PO SCH ×2 (09:50→20:40)
[2020-08-20] MEDS: Aspirin 325 MG Tab.EC PO SCH (09:51)
[2020-08-20] MEDS: Magnesium Oxide 400 MG Tab PO SCH (09:52)
[2020-08-20] MEDS: prednisoLONE 15 MG/5 ML Soln UD Cup PO SCH (09:53)
[2020-08-20] MEDS: Metoprolol Tartrate 25 MG Tab PO SCH ×2 (10:24→20:40)
--- NOTE | 2020-08-20 12:56 | PCM.PN ---
- General Info Date of Service: 08/20/20 Subjective Update: Mr. Dubois has remained stable over the last 24 hours. He continues to experience abdominal pain sensation of abdominal distention. Plan had been for large-volume paracentesis today, he was seen by Dr. Mahmood, abdominal ultrasound failed to show significant pocket of ascites for paracentesis. He reports that he has been having regular bowel movements and currently does not feel constipated. Appetite has improved somewhat but intake diminished because he feels full quickly. Functional Status: Reports: Ambulating, Urinating - Review of Systems General: Reports: Weakness, Fatigue. Denies: Fever, Chills Pulmonary: Reports: No Symptoms Cardiovascular: Reports: No Symptoms Gastrointestinal: Reports: Abdominal Pain, Decreased Appetite. Denies: Diarrhea, Difficulty Swallowing, Hematochezia, Melena, Nausea, Vomiting Genitourinary: Reports: No Symptoms - Patient Data Vitals - Most Recent: Last Vital Signs Temp 98 F 08/20/20 07:16 Pulse 62 08/20/20 10:24 Resp 18 08/20/20 07:16 BP 111/66 08/20/20 10:24 Pulse Ox 96 08/20/20 07:16 Weight - Most Recent: 197 lb 6.4 oz I&O - Last 24 Hours: Intake & Output 08/19/20 08/20/20 08/20/20 22:59 06:59 14:59 Intake Total 550 Output Total 700 500 400 Balance -150 -500 -400 Lab Results Last 24 Hours: Laboratory Results - last 24 hr 08/20/20 08/20/20 08/20/20 Range/Units 05:39 05:39 05:39 WBC 25.4 H (4.5-11.0) K/uL RBC 3.68 L (4.30-5.90) M/uL Hgb 12.3 (12.0-15.0) g/dL Hct 39.9 L (40.0-54.0) % MCV 108 H (80-98) fL MCH 33 H (27-31) pg MCHC 31 L (32-36) % Plt Count 305 (150-400) K/uL Neut % (Auto) 89 H (36-66) % Lymph % (Auto) 4 L (24-44) % [place] % (Auto) 7 H (2-6) % Eos % (Auto) 0 L (2-4) % Baso % (Auto) 0 (0-1) % PT 14.8 H (9.5-12.0) sec INR 1.37 H (0.80-1.20) Sodium 140 (140-148) mmol/L Potassium 4.5 (3.6-5.2) mmol/L Chloride 106 (100-108) mmol/L Carbon Dioxide 23 (21-32) mmol/L Anion Gap 11.4 (5.0-14.0) mmol/L BUN 28 H (7-18) mg/dL Creatinine 1.0 (0.8-1.3) mg/dL Est Cr Clr Drug Dosing 68.68 mL/min Estimated GFR (MDRD) > 60 (>60) Glucose 129 H (74-106) mg/dL Calcium 8.3 L (8.5-10.1) mg/dL Total Bilirubin 10.4 H (0.2-1.0) mg/dL AST 80 H (15-37) U/L ALT 49 (12-78) U/L Alkaline Phosphatase 140 H (46-116) U/L Total Protein 5.9 L (6.4-8.2) g/dL Albumin 3.1 L (3.4-5.0) g/dL Globulin 2.8 (2.3-3.5) g/dL Albumin/Globulin Ratio 1.1 L (1.2-2.2) [place] Results Last 24 Hours: Microbiology 08/17/20 13:50 Gram Stain - Final Paracentesis Fluid Body Fluid Culture - Preliminary NO GROWTH AFTER 2 DAYS 08/17/20 20:05 Aerobic Blood Culture - Preliminary Blood - Arm, Left NO GROWTH AFTER 2 DAYS Anaerobic Blood Culture - Preliminary NO GROWTH AFTER 2 DAYS 08/17/20 20:10 Aerobic Blood Culture - Preliminary Blood - Arm, Left NO GROWTH AFTER 2 DAYS Anaerobic Blood Culture - Preliminary NO GROWTH AFTER 2 DAYS Med Orders - Current: Current Medications Aspirin (Ecotrin) 325 mg PO DAILY [facility] Last Admin: 08/20/20 09:51 Dose: 325 mg Documented by: Furosemide (Lasix) 20 mg PO DAILY [facility] Hydromorphone HCl (Dilaudid) 0.5 mg IVPUSH Q4H PRN PRN Reason: Pain Last Admin: 08/20/20 12:31 Dose: 0.5 mg Documented by: Ceftriaxone Sodium 2 gm/ (Sodium Chloride) 50 mls @ 100 mls/hr IV Q24H [facility] Last Admin: 08/19/20 17:59 Dose: 100 mls/hr Documented by: Albumin Human (Albumin 25%) 25 gm in 100 mls @ 25 mls/hr IV Q12H [facility] Last Admin: 08/20/20 02:03 Dose: 25 mls/hr Documented by: Lactobacillus Rhamnosus (Culturelle) 1 cap PO BID [facility] Last Admin: 08/20/20 09:50 Dose: 1 cap Documented by: Magnesium Oxide (Magnesium Oxide) 400 mg PO DAILY [facility] Last Admin: 08/20/20 09:52 Dose: 400 mg Documented by: Melatonin (Melatonin) 9 mg PO BEDTIME PRN PRN Reason: Insomnia Last Admin: 08/19/20 22:15 Dose: 9 mg Documented by: Metoprolol Tartrate (Lopressor) 75 mg PO BID [facility] Last Admin: 08/20/20 10:24 Dose: 75 mg Documented by: Ondansetron HCl (Zofran) 4 mg IV Q4H PRN PRN Reason: Nausea/Vomiting Pantoprazole Sodium (Protonix) 40 mg PO DAILY@0730 [facility] Last Admin: 08/20/20 08:31 Dose: 40 mg Documented by: Prednisolone (Orapred 15 Mg/5ml Soln) 40 mg PO DAILY [facility] Last Admin: 08/20/20 09:53 Dose: 40 mg Documented by: Sodium Chloride (Saline Flush) 10 ml FLUSH ASDIRECTED PRN PRN Reason: Keep Vein Open Spironolactone (Aldactone) 25 mg PO BID [facility] Discontinued Medications Fentanyl (Sublimaze) Confirm Administered Dose 0 mcg .ROUTE .STK-MED ONE Stop: 08/17/20 07:42 Glycopyrrolate (Glycopyrrolate) 0.4 mg IVPUSH ONETIME ONE Stop: 08/17/20 10:01 Last Admin: 08/18/20 19:15 Dose: Not Given Documented by: Dextrose/Lactated Ringer's (Dextrose 5%-Lactated Ringers) 1,000 mls @ 100 mls/hr IV ASDIRECTED [facility] Last Admin: 08/17/20 09:47 Dose: 100 mls/hr Documented by: Sodium Chloride (Normal Saline) 100 mls @ 3 mls/sec IV ASDIRECTED [facility] Stop: 08/17/20 10:16 Phytonadione 10 mg/ Sodium (Chloride) 51 mls @ 100 mls/hr IV NOW ONE Stop: 08/17/20 15:00 Last Admin: 08/17/20 14:37 Dose: 100 mls/hr Documented by: Sodium Chloride (Normal Saline) 1,000 mls @ 125 mls/hr IV ASDIRECTED [facility] Last Admin: 08/18/20 03:43 Dose: 125 mls/hr Documented by: Albumin Human (Albumin 25%) 25 gm in 100 mls @ 25 mls/hr IV Q6H [facility] Stop: 08/18/20 09:59 Last Admin: 08/18/20 05:27 Dose: 25 mls/hr Documented by: Iopamidol (Isovue-300 (61%)) 134 ml IV ONETIME ONE Stop: 08/17/20 10:08 Last Admin: 08/18/20 19:15 Dose: Not Given Documented by: Midazolam HCl (Versed 1 Mg/Ml) Confirm Administered Dose 0 mg .ROUTE .STK-MED ONE Stop: 08/17/20 07:42 Potassium Chloride (Klor-Con M20) 40 meq PO ONETIME ONE Stop: 08/19/20 13:05 Last Admin: 08/19/20 14:17 Dose: 40 meq Documented by: Potassium Chloride (Klor-Con M20) 40 meq PO ONETIME ONE Stop: 08/19/20 17:01 Last Admin: 08/19/20 17:59 Dose: 40 meq Documented by: Propofol (Diprivan 20 Ml) Confirm Administered Dose 0 mg .ROUTE .STK-MED ONE Stop: 08/17/20 07:42 Sodium Chloride (Saline Flush) 10 ml FLUSH ONETIME ONE Stop: 08/17/20 10:08 Last Admin: 08/18/20 19:14 Dose: Not Given Documented by: - Exam Quality Assessment: DVT Prophylaxis General: Alert, Oriented, Cooperative, Mild Distress Lungs: Clear to Auscultation, Normal Respiratory Effort Cardiovascular: Regular Rate, Regular Rhythm, No Murmurs GI/Abdominal Exam: Soft, No Organomegaly, Distended, Tender. No: Guarding, R igid, Rebound Extremities: Non-Tender, Pedal Edema Sepsis Event Note - Evaluation Sepsis Screening Result: No Definite Risk - Focused Exam Vital Signs: Vital Signs Temp Pulse Pulse Resp BP BP BP 08/20/20 10:24 62 111/66 08/20/20 08:30 59 L 08/20/20 07:16 98 F 55 L 18 116/66 08/20/20 02:11 98.0 F 55 L 20 121/79 Pulse Ox 08/20/20 10:24 08/20/20 08:30 08/20/20 07:16 96 08/20/20 02:11 95 - Problem List Review Problem List Initiated/Reviewed/Updated: Yes - My Orders Last 24 Hours: My Active Orders 08/20/20 13:00 Furosemide [Lasix] 20 mg PO DAILY Spironolactone [Aldactone] 25 mg PO BID 08/21/20 05:00 CBC WITH AUTO DIFF [HEME] Timed COMPREHENSIVE METABOLIC PN,CMP [CHEM] Timed INR,PT,PROTHROMBIN TIME [COAG] Timed - Plan Plan:: ASSESSMENT AND PLAN HEPATIC CIRRHOSIS - has abdominal distension, thought to be secondary to asc ites. Ultrasound today showed no evidence of a significant pocket for large volume paracentesis. Cirrhosis is suspected cause of ascites. MRCP showed no evidence of significant obstruction -Follow up lab in a.m. -Furosemide 20 mg p.o. daily -Spironolactone 25 mg p.o. twice daily ACUTE ALCOHOLIC HEPATITIS -stable from admission, modest improvement in bilirubin - continue prednisolone 40mg daily ACUTE KIDNEY INJURY -resolved - saline lock IV - reevaluate labs in the morning -Hold Celebrex SPONTANEOUS BACTERIAL PERITONITIS/LEUKOCYTOSIS -white blood cell count is increased from yesterday, likely secondary to glucocorticoid therapy. Diagnostic paracentesis performed on admission, cell count not available because specimen clotted. Presumed bacterial peritonitis given increase in pain and leukocytosis. - paracentesis culture pending - Urinalysis pending - Blood cultures pending - continue ceftriaxone 2grams IV every 24 hours pending results. PANCREATIC PSEUDOCYSTS-he likely has had acute and chronic pancreatitis. Lipase level was within normal range at the time of admission. -Plan for follow-up CT scan in 2 months to assess stability of pseudocyst. CHRONIC ALCOHOL ABUSE - He is not currently exhibiting withdrawal symptoms this visit. -will watch for signs of alcohol withdrawal -Will consider CIWAA protocol if withdrawal symptoms become apparent. MAINTENANCE ISSUES DVT Prophylaxis - pharmacologic intervention contraindicated d/t elevated PT/INR, SCDs GI Prophylaxis - Continue home PPI Masterson - Not indicated at this time Nutrition - 2gm sodium diet Nicotine dependance - not required CODE STATUS - FULL CODE DISPOSITION - plan to discharge home with primary care provider f/u after discharge. PRIMARY CARE PROVIDER - Randolph Juárez NP
[2020-08-20] MEDS: Spironolactone 25 MG Tab PO SCH ×2 (13:27→20:40)
[2020-08-20] MEDS: Furosemide 20 MG Tab PO SCH (13:27)
[2020-08-20] MEDS: cefTRIAXone 2 GM in Sodium Chloride 0.9% 50 ML IV SCH (19:04)
[2020-08-20] MEDS: Melatonin 3 MG Tab PO PRN (20:40)
[2020-08-21] MEDS: HYDROmorphone 0.5 MG/0.5 ML Syringe IVPUSH PRN ×3 (01:01→21:13)
[2020-08-21] MEDS: Lactobacillus Rhamnosus GG (Probiotic) Cap PO SCH ×2 (08:04→20:28)
[2020-08-21] MEDS: Magnesium Oxide 400 MG Tab PO SCH (08:04)
[2020-08-21] MEDS: Aspirin 325 MG Tab.EC PO SCH (08:04)
[2020-08-21] MEDS: Spironolactone 25 MG Tab PO SCH ×2 (08:04→20:28)
[2020-08-21] MEDS: Furosemide 20 MG Tab PO SCH ×3 (08:04→15:03)
[2020-08-21] MEDS: Pantoprazole 40 MG Tab.CR PO SCH (08:04)
[2020-08-21] MEDS: Metoprolol Tartrate 25 MG Tab PO SCH ×2 (08:05→20:28)
[2020-08-21] MEDS: prednisoLONE 15 MG/5 ML Soln UD Cup PO SCH (08:07)
--- NOTE | 2020-08-21 10:56 | PCM.PN ---
- General Info Date of Service: 08/21/20 Subjective Update: There were no acute events overnight. Patient reports improvement in his abdominal pain. No significant nausea. Abdomen still feels distended. He feels bloated after eating anything. He is weak but has been up and moving around a little bit. Bilirubin stable. Kidney function stable and back to baseline. Still has lower extremity swelling. Early this afternoon the patient was noted to be in a rapid atrial fibrillation. He did receive a dose of IV d iltiazem but his heart rate remained elevated after slowing only temporarily. Functional Status: Reports: Pain Controlled, Tolerating Diet - Review of Systems General: Denies: Fever Gastrointestinal: Reports: Abdominal Pain, Flatus - Patient Data Vitals - Most Recent: Last Vital Signs Temp 36.3 C 08/21/20 07:00 Pulse 63 08/21/20 08:05 Resp 18 08/21/20 07:00 BP 116/73 08/21/20 08:05 Pulse Ox 97 08/21/20 07:00 Weight - Most Recent: 91.342 kg I&O - Last 24 Hours: Intake & Output 08/20/20 08/21/20 08/21/20 22:59 06:59 14:59 Intake Total 390 Output Total 650 400 Balance -260 -400 Lab Results Last 24 Hours: Laboratory Results - last 24 hr 08/21/20 08/21/20 08/21/20 Range/Units 05:57 05:57 05:57 WBC 24.9 H (4.5-11.0) K/uL RBC 3.65 L (4.30-5.90) M/uL Hgb 12.7 (12.0-15.0) g/dL Hct 39.3 L (40.0-54.0) % MCV 108 H (80-98) fL MCH 35 H (27-31) pg MCHC 32 (32-36) % Plt Count 288 (150-400) K/uL Neut % (Auto) 90 H (36-66) % Lymph % (Auto) 4 L (24-44) % [place] % (Auto) 6 (2-6) % Eos % (Auto) 0 L (2-4) % Baso % (Auto) 0 (0-1) % PT 14.7 H (9.5-12.0) sec INR 1.36 H (0.80-1.20) Sodium 140 (140-148) mmol/L Potassium 4.2 (3.6-5.2) mmol/L Chloride 107 (100-108) mmol/L Carbon Dioxide 23 (21-32) mmol/L Anion Gap 9.9 (5.0-14.0) mmol/L BUN 32 H (7-18) mg/dL Creatinine 1.0 (0.8-1.3) mg/dL Est Cr Clr Drug Dosing 68.68 mL/min Estimated GFR (MDRD) > 60 (>60) Glucose 138 H (74-106) mg/dL Calcium 8.8 (8.5-10.1) mg/dL Total Bilirubin 11.4 H (0.2-1.0) mg/dL AST 81 H (15-37) U/L ALT 56 (12-78) U/L Alkaline Phosphatase 154 H (46-116) U/L Total Protein 6.0 L (6.4-8.2) g/dL Albumin 3.1 L (3.4-5.0) g/dL Globulin 2.9 (2.3-3.5) g/dL Albumin/Globulin Ratio 1.1 L (1.2-2.2) [place] Results Last 24 Hours: Microbiology 08/17/20 13:50 Gram Stain - Final Paracentesis Fluid Body Fluid Culture - Preliminary NO GROWTH AFTER 3 DAYS 08/17/20 20:10 Aerobic Blood Culture - Preliminary Blood - Arm, Left NO GROWTH AFTER 3 DAYS Anaerobic Blood Culture - Preliminary NO GROWTH AFTER 3 DAYS 08/17/20 20:05 Aerobic Blood Culture - Preliminary Blood - Arm, Left NO GROWTH AFTER 3 DAYS Anaerobic Blood Culture - Preliminary NO GROWTH AFTER 3 DAYS Med Orders - Current: Current Medications Aspirin (Ecotrin) 325 mg PO DAILY [facility] Last Admin: 08/21/20 08:04 Dose: 325 mg Documented by: Furosemide (Lasix) 20 mg PO DAILY [facility] Last Admin: 08/21/20 08:04 Dose: 20 mg Documented by: Hydromorphone HCl (Dilaudid) 0.5 mg IVPUSH Q4H PRN PRN Reason: Pain Last Admin: 08/21/20 01:01 Dose: 0.5 mg Documented by: Ceftriaxone Sodium 2 gm/ (Sodium Chloride) 50 mls @ 100 mls/hr IV Q24H [facility] Last Admin: 08/20/20 19:04 Dose: 100 mls/hr Documented by: Albumin Human (Albumin 25%) 25 gm in 100 mls @ 25 mls/hr IV Q24H [facility] Last Admin: 08/20/20 21:12 Dose: Not Given Documented by: Lactobacillus Rhamnosus (Culturelle) 1 cap PO BID [facility] Last Admin: 08/21/20 08:04 Dose: 1 cap Documented by: Magnesium Oxide (Magnesium Oxide) 400 mg PO DAILY [facility] Last Admin: 08/21/20 08:04 Dose: 400 mg Documented by: Melatonin (Melatonin) 9 mg PO BEDTIME PRN PRN Reason: Insomnia Last Admin: 08/20/20 20:40 Dose: 9 mg Documented by: Metoprolol Tartrate (Lopressor) 75 mg PO BID [facility] Last Admin: 08/21/20 08:05 Dose: 75 mg Documented by: Ondansetron HCl (Zofran) 4 mg IV Q4H PRN PRN Reason: Nausea/Vomiting Pantoprazole Sodium (Protonix) 40 mg PO DAILY@0730 [facility] Last Admin: 08/21/20 08:04 Dose: 40 mg Documented by: Prednisolone (Orapred 15 Mg/5ml Soln) 40 mg PO DAILY [facility] Last Admin: 08/21/20 08:07 Dose: 40 mg Documented by: Sodium Chloride (Saline Flush) 10 ml FLUSH ASDIRECTED PRN PRN Reason: Keep Vein Open Spironolactone (Aldactone) 25 mg PO BID [facility] Last Admin: 08/21/20 08:04 Dose: 25 mg Documented by: Discontinued Medications Fentanyl (Sublimaze) Confirm Administered Dose 0 mcg .ROUTE .STK-MED ONE Stop: 08/17/20 07:42 Glycopyrrolate (Glycopyrrolate) 0.4 mg IVPUSH ONETIME ONE Stop: 08/17/20 10:01 Last Admin: 08/18/20 19:15 Dose: Not Given Documented by: Dextrose/Lactated Ringer's (Dextrose 5%-Lactated Ringers) 1,000 mls @ 100 mls/hr IV ASDIRECTED [facility] Last Admin: 08/17/20 09:47 Dose: 100 mls/hr Documented by: Sodium Chloride (Normal Saline) 100 mls @ 3 mls/sec IV ASDIRECTED [facility] Stop: 08/17/20 10:16 Phytonadione 10 mg/ Sodium (Chloride) 51 mls @ 100 mls/hr IV NOW ONE Stop: 08/17/20 15:00 Last Admin: 08/17/20 14:37 Dose: 100 mls/hr Documented by: Sodium Chloride (Normal Saline) 1,000 mls @ 125 mls/hr IV ASDIRECTED [facility] Last Admin: 08/18/20 03:43 Dose: 125 mls/hr Documented by: Albumin Human (Albumin 25%) 25 gm in 100 mls @ 25 mls/hr IV Q6H [facility] Stop: 08/18/20 09:59 Last Admin: 08/18/20 05:27 Dose: 25 mls/hr Documented by: Albumin Human (Albumin 25%) 25 gm in 100 mls @ 25 mls/hr IV Q12H [facility] Last Admin: 08/20/20 15:00 Dose: 25 mls/hr Documented by: Iopamidol (Isovue-300 (61%)) 134 ml IV ONETIME ONE Stop: 08/17/20 10:08 Last Admin: 08/18/20 19:15 Dose: Not Given Documented by: Midazolam HCl (Versed 1 Mg/Ml) Confirm Administered Dose 0 mg .ROUTE .STK-MED ONE Stop: 08/17/20 07:42 Potassium Chloride (Klor-Con M20) 40 meq PO ONETIME ONE Stop: 08/19/20 13:05 Last Admin: 08/19/20 14:17 Dose: 40 meq Documented by: Potassium Chloride (Klor-Con M20) 40 meq PO ONETIME ONE Stop: 08/19/20 17:01 Last Admin: 08/19/20 17:59 Dose: 40 meq Documented by: Propofol (Diprivan 20 Ml) Confirm Administered Dose 0 mg .ROUTE .STK-MED ONE Stop: 08/17/20 07:42 Sodium Chloride (Saline Flush) 10 ml FLUSH ONETIME ONE Stop: 08/17/20 10:08 Last Admin: 08/18/20 19:14 Dose: Not Given Documented by: - Exam Quality Assessment: No: Supplemental Oxygen General: Alert, Oriented, Cooperative, No Acute Distress Lungs: Normal Respiratory Effort. No: Wheezing Cardiovascular: Regular Rate, Regular Rhythm GI/Abdominal Exam: Distended, Tender. No: Soft (moderately firm ) Extremities: Pedal Edema. No: Increased Warmth Skin: Warm, Dry Psy/Mental Status: Alert, Normal Affect Sepsis Event Note - Evaluation Sepsis Screening Result: No Definite Risk - Focused Exam Vital Signs: Vital Signs Temp Pulse Pulse Resp BP BP Pulse Ox 08/21/20 08:05 63 116/73 08/21/20 07:00 36.3 C 58 L 18 116/73 97 08/21/20 04:48 36.6 C 60 18 138/75 97 - Problem List Review Problem List Initiated/Reviewed/Updated: Yes - Plan Plan:: ASSESSMENT AND PLAN - Atrial fibrillation with rapid ventricular response-sudden onset this afternoon. History of atrial fibrillation but none recently. Temporary slowing with diltiazem. I suspect some excess volume is driving the atrial fibrillation. No evidence for infection. -Transferred to the intensive care unit -Diltiazem infusion -Continue metoprolol -Cardiac monitoring HEPATIC CIRRHOSIS -ascites noted on both CAT scan and MRI testing but no large pocket identified with ultrasound. -Follow up lab in a.m. -Furosemide 20 mg twice daily (dose this afternoon will be IV) -Spironolactone 25 mg p.o. twice daily ACUTE ALCOHOLIC HEPATITIS -stable from admission and symptomatically better but not much change in laboratory studies. -continue prednisolone 40mg daily ACUTE KIDNEY INJURY -resolved -saline lock IV -Hold Celebrex SPONTANEOUS BACTERIAL PERITONITIS, SUSPECTED -white blood cell count remains elevated but probably related to steroids. Cultures have been negative from his diagnostic paracentesis. No fevers. -Follow-up cultures -Discontinue antibiotics PANCREATIC PSEUDOCYSTS-2 different complex cyst noted on the CT scan. He likely has had acute and chronic pancreatitis. Lipase level was within normal range at the time of admission. -Plan for follow-up CT scan in 2 months to assess stability of pseudocysts CHRONIC ALCOHOL ABUSE - no alcohol withdrawal so far. -will watch for signs of alcohol withdrawal -Will consider CIWAA protocol if withdrawal symptoms become apparent. MAINTENANCE ISSUES DVT Prophylaxis - SCDs, pharmacologic intervention contraindicated d/t elevated PT/INR GI Prophylaxis - PPI Nutrition - 2gm sodium diet DISPOSITION - plan to discharge home, possibly with home care Ruben Potter MD
--- NOTE | 2020-08-21 11:28 | PN ---
DATE OF SERVICE: 08/21/2020 SUBJECTIVE: Jacob reports that he walked quite a bit yesterday, so his pain did increase with walking. Vital signs have remained stable. He is afebrile. He did not have the paracentesis yesterday. His oral intake was 240. Urine output 1650. Labs this morning, white count is 24.9, hemoglobin 12.7, PT and INR were 14.7 and 1.36, bilirubin 11.4. REVIEW OF SYSTEMS: Remainder of review of systems negative for any pertinent positives and negatives. OBJECTIVE: GENERAL: Jacob Dubois is a pleasant 65-year-old male. He is alert and orientated. He does look like he is feeling better today. VITAL SIGNS: TPR is 97.4, 58, 18, blood pressure 116/73. HEENT: Negative. Eyes: Sclerae, less jaundice. NECK: Supple. HEART: Regular rate and rhythm. LUNGS: Clear. ABDOMEN: Remains to be firm, quite distended. EXTREMITIES: Trace to 1+ edema. ASSESSMENT: 1. Hepatic cirrhosis. 2. Acute alcoholic hepatitis. 3. Acute kidney injury. 4. Leukocytosis. 5. Chronic alcohol abuse. PLAN: 1. Dr. Alex Goldman and Dr. Greg Patel will consult regarding plan of care. 2. We will evaluate p.r.n. or in a.m. Tianna Keita PA-C /[phone]
[2020-08-21] MEDS ORDERED: Diltiazem 25 MG/5 ML SDV IVPUSH ONE (14:23)
[2020-08-21] MEDS ORDERED: Furosemide 20 MG/2 ML VIAL IVPUSH ONE (16:00)
--- NOTE | 2020-08-21 16:18 | PCM.PN ---
- General Info Date of Service: 08/21/20 Admission Dx/Problem (Free Text): Admission Diagnosis/Problem Admission Diagnosis/Problem Hepatic cirrhosis Subjective Update: Mr. Dubois is up 6.5 pounds since admission. He continues to have abdominal pain with a sensation of distension and fullness despite regular bowel movements. He continues with pedal edema to thighs and his abdomen is distended and firm. This afternoon he went into atrial fibrilation with rapid ventricular response after eating. Diltiazem IV push did not convert the afib. The plan had been to increase the oral Lasix to diurese. Instead we will administer the additional dose of Lasix IV push, transfer the patient to the ICU for administration of Diltiazem drip. Functional Status: Reports: Pain Controlled, Tolerating Diet, Ambulating, Urinating, New Symptoms (new afib with RVR when he can 'feel') - Review of Systems General: Reports: No Symptoms Pulmonary: Reports: Shortness of Breath (when reclined) Cardiovascular: Reports: Edema Gastrointestinal: Reports: Abdominal Pain, Decreased Appetite Skin: Reports: Jaundice Neurological: Reports: Confusion ( notes concern of patient getting a little slower mentally again today.) - Patient Data Vitals - Most Recent: Last Vital Signs Temp 98.4 F 08/21/20 14:07 Pulse 131 H 08/21/20 14:50 Resp 16 08/21/20 14:50 BP 103/74 08/21/20 14:50 Pulse Ox 94 L 08/21/20 14:50 Weight - Most Recent: 201 lb 6 oz I&O - Last 24 Hours: Intake & Output 08/21/20 08/21/20 08/21/20 06:59 14:59 22:59 Output Total 400 200 Balance -400 -200 Lab Results Last 24 Hours: Laboratory Results - last 24 hr 08/21/20 08/21/20 08/21/20 Range/Units 05:57 05:57 05:57 WBC 24.9 H (4.5-11.0) K/uL RBC 3.65 L (4.30-5.90) M/uL Hgb 12.7 (12.0-15.0) g/dL Hct 39.3 L (40.0-54.0) % MCV 108 H (80-98) fL MCH 35 H (27-31) pg MCHC 32 (32-36) % Plt Count 288 (150-400) K/uL Neut % (Auto) 90 H (36-66) % Lymph % (Auto) 4 L (24-44) % [place] % (Auto) 6 (2-6) % Eos % (Auto) 0 L (2-4) % Baso % (Auto) 0 (0-1) % PT 14.7 H (9.5-12.0) sec INR 1.36 H (0.80-1.20) Sodium 140 (140-148) mmol/L Potassium 4.2 (3.6-5.2) mmol/L Chloride 107 (100-108) mmol/L Carbon Dioxide 23 (21-32) mmol/L Anion Gap 9.9 (5.0-14.0) mmol/L BUN 32 H (7-18) mg/dL Creatinine 1.0 (0.8-1.3) mg/dL Est Cr Clr Drug Dosing 68.68 mL/min Estimated GFR (MDRD) > 60 (>60) Glucose 138 H (74-106) mg/dL Calcium 8.8 (8.5-10.1) mg/dL Magnesium (1.8-2.4) mg/dL Total Bilirubin 11.4 H (0.2-1.0) mg/dL AST 81 H (15-37) U/L ALT 56 (12-78) U/L Alkaline Phosphatase 154 H (46-116) U/L Total Protein 6.0 L (6.4-8.2) g/dL Albumin 3.1 L (3.4-5.0) g/dL Globulin 2.9 (2.3-3.5) g/dL Albumin/Globulin Ratio 1.1 L (1.2-2.2) 08/21/20 Range/Units 14:21 WBC (4.5-11.0) K/uL RBC (4.30-5.90) M/uL Hgb (12.0-15.0) g/dL Hct (40.0-54.0) % MCV (80-98) fL MCH (27-31) pg MCHC (32-36) % Plt Count (150-400) K/uL Neut % (Auto) (36-66) % Lymph % (Auto) (24-44) % [place] % (Auto) (2-6) % Eos % (Auto) (2-4) % Baso % (Auto) (0-1) % PT (9.5-12.0) sec INR (0.80-1.20) Sodium (140-148) mmol/L Potassium (3.6-5.2) mmol/L Chloride (100-108) mmol/L Carbon Dioxide (21-32) mmol/L Anion Gap (5.0-14.0) mmol/L BUN (7-18) mg/dL Creatinine (0.8-1.3) mg/dL Est Cr Clr Drug Dosing mL/min Estimated GFR (MDRD) (>60) Glucose (74-106) mg/dL Calcium (8.5-10.1) mg/dL Magnesium 2.2 (1.8-2.4) mg/dL Total Bilirubin (0.2-1.0) mg/dL AST (15-37) U/L ALT (12-78) U/L Alkaline Phosphatase (46-116) U/L Total Protein (6.4-8.2) g/dL Albumin (3.4-5.0) g/dL Globulin (2.3-3.5) g/dL Albumin/Globulin Ratio (1.2-2.2) [place] Results Last 24 Hours: Microbiology 08/17/20 13:50 Gram Stain - Final Paracentesis Fluid Body Fluid Culture - Preliminary NO GROWTH AFTER 3 DAYS 08/17/20 20:10 Aerobic Blood Culture - Preliminary Blood - Arm, Left NO GROWTH AFTER 3 DAYS Anaerobic Blood Culture - Preliminary NO GROWTH AFTER 3 DAYS 08/17/20 20:05 Aerobic Blood Culture - Preliminary Blood - Arm, Left NO GROWTH AFTER 3 DAYS Anaerobic Blood Culture - Preliminary NO GROWTH AFTER 3 DAYS Med Orders - Current: Current Medications Aspirin (Ecotrin) 325 mg PO DAILY [facility] Last Admin: 08/21/20 08:04 Dose: 325 mg Documented by: Furosemide (Lasix) 20 mg PO BIDDIURETIC [facility] Hydromorphone HCl (Dilaudid) 0.5 mg IVPUSH Q4H PRN PRN Reason: Pain Last Admin: 08/21/20 14:24 Dose: 0.5 mg Documented by: Diltiazem HCl 100 mg/ Sodium (Chloride) 100 mls @ 5 mls/hr IV TITRATE [facility]; Protocol Lactobacillus Rhamnosus (Culturelle) 1 cap PO BID [facility] Last Admin: 08/21/20 08:04 Dose: 1 cap Documented by: Magnesium Oxide (Magnesium Oxide) 400 mg PO DAILY [facility] Last Admin: 08/21/20 08:04 Dose: 400 mg Documented by: Melatonin (Melatonin) 9 mg PO BEDTIME PRN PRN Reason: Insomnia Last Admin: 08/20/20 20:40 Dose: 9 mg Documented by: Metoprolol Tartrate (Lopressor) 75 mg PO BID [facility] Last Admin: 08/21/20 08:05 Dose: 75 mg Documented by: Ondansetron HCl (Zofran) 4 mg IV Q4H PRN PRN Reason: Nausea/Vomiting Pantoprazole Sodium (Protonix) 40 mg PO DAILY@0730 [facility] Last Admin: 08/21/20 08:04 Dose: 40 mg Documented by: Prednisolone (Orapred 15 Mg/5ml Soln) 40 mg PO DAILY [facility] Last Admin: 08/21/20 08:07 Dose: 40 mg Documented by: Sodium Chloride (Saline Flush) 10 ml FLUSH ASDIRECTED PRN PRN Reason: Keep Vein Open Spironolactone (Aldactone) 25 mg PO BID [facility] Discontinued Medications Diltiazem HCl (Diltiazem) 15 mg IVPUSH ONETIME ONE Stop: 08/21/20 14:24 Last Admin: 08/21/20 14:31 Dose: 15 mg Documented by: Fentanyl (Sublimaze) Confirm Administered Dose 0 mcg .ROUTE .STK-MED ONE Stop: 08/17/20 07:42 Furosemide (Lasix) 20 mg PO DAILY [facility] Last Admin: 08/21/20 08:04 Dose: 20 mg Documented by: Furosemide (Lasix) 20 mg PO BIDDIURETIC [facility] Last Admin: 08/21/20 15:03 Dose: Not Given Documented by: Furosemide (Lasix) 20 mg IVPUSH ONETIME ONE Stop: 08/21/20 16:01 Glycopyrrolate (Glycopyrrolate) 0.4 mg IVPUSH ONETIME ONE Stop: 08/17/20 10:01 Last Admin: 08/18/20 19:15 Dose: Not Given Documented by: Dextrose/Lactated Ringer's (Dextrose 5%-Lactated Ringers) 1,000 mls @ 100 mls/hr IV ASDIRECTED [facility] Last Admin: 08/17/20 09:47 Dose: 100 mls/hr Documented by: Sodium Chloride (Normal Saline) 100 mls @ 3 mls/sec IV ASDIRECTED [facility] Stop: 08/17/20 10:16 Phytonadione 10 mg/ Sodium (Chloride) 51 mls @ 100 mls/hr IV NOW ONE Stop: 08/17/20 15:00 Last Admin: 08/17/20 14:37 Dose: 100 mls/hr Documented by: Sodium Chloride (Normal Saline) 1,000 mls @ 125 mls/hr IV ASDIRECTED [facility] Last Admin: 08/18/20 03:43 Dose: 125 mls/hr Documented by: Ceftriaxone Sodium 2 gm/ (Sodium Chloride) 50 mls @ 100 mls/hr IV Q24H [facility] Last Admin: 08/20/20 19:04 Dose: 100 mls/hr Documented by: Albumin Human (Albumin 25%) 25 gm in 100 mls @ 25 mls/hr IV Q6H [facility] Stop: 08/18/20 09:59 Last Admin: 08/18/20 05:27 Dose: 25 mls/hr Documented by: Albumin Human (Albumin 25%) 25 gm in 100 mls @ 25 mls/hr IV Q12H [facility] Last Admin: 08/20/20 15:00 Dose: 25 mls/hr Documented by: Albumin Human (Albumin 25%) 25 gm in 100 mls @ 25 mls/hr IV Q24H [facility] Last Admin: 08/20/20 21:12 Dose: Not Given Documented by: Iopamidol (Isovue-300 (61%)) 134 ml IV ONETIME ONE Stop: 08/17/20 10:08 Last Admin: 08/18/20 19:15 Dose: Not Given Documented by: Midazolam HCl (Versed 1 Mg/Ml) Confirm Administered Dose 0 mg .ROUTE .STK-MED ONE Stop: 08/17/20 07:42 Potassium Chloride (Klor-Con M20) 40 meq PO ONETIME ONE Stop: 08/19/20 13:05 Last Admin: 08/19/20 14:17 Dose: 40 meq Documented by: Potassium Chloride (Klor-Con M20) 40 meq PO ONETIME ONE Stop: 08/19/20 17:01 Last Admin: 08/19/20 17:59 Dose: 40 meq Documented by: Propofol (Diprivan 20 Ml) Confirm Administered Dose 0 mg .ROUTE .STK-MED ONE Stop: 08/17/20 07:42 Sodium Chloride (Saline Flush) 10 ml FLUSH ONETIME ONE Stop: 08/17/20 10:08 Last Admin: 08/18/20 19:14 Dose: Not Given Documented by: Spironolactone (Aldactone) 25 mg PO BID [facility] Last Admin: 08/21/20 08:04 Dose: 25 mg Documented by: - Exam HEENT: Scleral Icterus Neck: JVD Lungs: Clear to Auscultation, Decreased Breath Sounds (to right base.). No: Crackles, Rales, Rhonchi, Rub, Stridor, Wheezing Cardiovascular: No Murmurs, Irregular Rhythm, Tachycardia. No: Murmurs, Gallops, Rubs GI/Abdominal Exam: Normal Bowel Sounds, Distended, Rigid Extremities: Pedal Edema, Increased Warmth Sepsis Event Note - Evaluation Sepsis Screening Result: No Definite Risk - Focused Exam Vital Signs: Vital Signs Temp Pulse Pulse Resp BP BP Pulse Ox 08/21/20 14:50 131 H 16 103/74 94 L 08/21/20 14:45 139 H 16 101/78 93 L 08/21/20 14:40 150 H 18 152/138 H 94 L 08/21/20 14:34 157 H 18 139/101 H 95 08/21/20 14:07 98.4 F 141 H 18 105/59 L 91 L 08/21/20 10:51 98.9 F 57 L 18 106/74 93 L 08/21/20 08:05 63 116/73 08/21/20 07:00 97.4 F 58 L 18 116/73 97 08/21/20 04:48 97.9 F 60 18 138/75 97 - Problem List Review Problem List Initiated/Reviewed/Updated: Yes - My Orders Last 24 Hours: My Active Orders 08/21/20 21:00 Spironolactone [Aldactone] 25 mg PO BID 08/22/20 05:00 AMMONIA VENOUS [CHEM] Routine CBC WITH AUTO DIFF [HEME] Routine COMPREHENSIVE METABOLIC PN,CMP [CHEM] Routine - Plan Plan:: ASSESSMENT AND PLAN - HEPATIC CIRRHOSIS - has abdominal distension, thought to be secondary to ascites. Cirrhosis is suspected cause of ascites. MRCP showed no evidence of significant obstruction. Unable to drain fluid as no pocket found with ultrasound, will address pharmacologically. -Follow up lab in a.m. CBC, CMP, ammonia -Furosemide 20 mg p.o. increased to BID then changed to IV push dose now to decrease cardiovascular workload with Afib. -Spironolactone 25 mg p.o. twice daily ACUTE ALCOHOLIC HEPATITIS -stable from admission, modest improvement in bilirubin - continue prednisolone 40mg daily ACUTE KIDNEY INJURY -resolved - saline lock IV - reevaluate labs in the morning -Hold Celebrex SPONTANEOUS BACTERIAL PERITONITIS, SUSPECTED -white blood cell count is increased from yesterday, likely secondary to glucocorticoid therapy. Diagnostic paracentesis performed on admission had no growth. A cell count was not available because specimen clotted. Rule out bacterial peritonitis in light of the culture results. - paracentesis culture negative - Blood cultures negative - discontinue ceftriaxone 2grams IV PANCREATIC PSEUDOCYSTS-he likely has had acute and chronic pancreatitis. Lipase level was within normal range at the time of admission. -Plan for follow-up CT scan in 2 months to assess stability of pseudocyst. CHRONIC ALCOHOL ABUSE - no alcohol withdrawal so far. -will watch for signs of alcohol withdrawal -Will consider CIWAA protocol if withdrawal symptoms become apparent. -education provided regarding needing to abstain from alcohol permanently. ATRIAL FIBRILLATION WITH RAPID VENTRICULAR RESPONSE - He has a history of Afib with RVR, recurring this afternoon, likely due to fluid volume overload without evidence of infection. -Transfer to ICU -lasix IV -Diltiazem infusion per protocol -continuous cardiac monitoring -ICU standard of care -continue metoprolol -Labs in AM MAINTENANCE ISSUES DVT Prophylaxis - SCDs, pharmacologic intervention contraindicated d/t elevated PT/INR GI Prophylaxis - PPI Nutrition - 2gm sodium diet DISPOSITION - plan to discharge home with primary care provider f/u after discharge
[2020-08-21] MEDS: Diltiazem 100 MG in Sodium Chloride 0.9% 100 ML IV SCH (17:37)
[2020-08-21] MEDS ORDERED: Digoxin 500 MCG/2 ML Amp IVPUSH ONE (21:04)
[2020-08-21] MEDS: Melatonin 3 MG Tab PO PRN (21:13)
[2020-08-22] MEDS: Diltiazem 100 MG in Sodium Chloride 0.9% 100 ML IV SCH ×4 (00:27→20:53)
[2020-08-22] MEDS: HYDROmorphone 0.5 MG/0.5 ML Syringe IVPUSH PRN ×2 (03:10→20:10)
[2020-08-22] MEDS: Furosemide 20 MG Tab PO SCH ×2 (07:50→14:54)
[2020-08-22] MEDS: Pantoprazole 40 MG Tab.CR PO SCH (07:50)
[2020-08-22] MEDS: Aspirin 325 MG Tab.EC PO SCH (09:12)
[2020-08-22] MEDS: prednisoLONE 15 MG/5 ML Soln UD Cup PO SCH (09:12)
[2020-08-22] MEDS: Metoprolol Tartrate 50 MG Tab PO SCH ×2 (09:12→20:10)
[2020-08-22] MEDS: Spironolactone 25 MG Tab PO SCH ×2 (09:12→20:10)
[2020-08-22] MEDS: Magnesium Oxide 400 MG Tab PO SCH (09:12)
[2020-08-22] MEDS: Lactobacillus Rhamnosus GG (Probiotic) Cap PO SCH ×2 (09:12→20:11)
[2020-08-22] MEDS ORDERED: Digoxin 500 MCG/2 ML Amp IVPUSH ONE (10:02)
--- NOTE | 2020-08-22 10:04 | PCM.PN ---
- General Info Date of Service: 08/22/20 Subjective Update: No acute events overnight. Symptomatically he feels a little better today with less abdominal pain. He did have some pain overnight but this is much better this morning. He did have a bowel movement this morning. He has not had any fevers. No significant nausea. White blood cell count is higher today at more than 30,000. He is still in atrial fibrillation and rate control has improved but is still somewhat suboptimal despite metoprolol and diltiazem and digoxin. Ultrasound evaluation of his ascites revealed a large pocket that is amenable to paracentesis. Functional Status: Reports: Pain Controlled, Tolerating Diet - Review of Systems General: Denies: Fever Gastrointestinal: Reports: Abdominal Pain - Patient Data Vitals - Most Recent: Last Vital Signs Temp 36.3 C 08/22/20 08:00 Pulse 127 H 08/22/20 09:12 Resp 16 08/22/20 09:00 BP 116/84 08/22/20 09:12 Pulse Ox 97 08/22/20 09:00 Weight - Most Recent: 91.898 kg I&O - Last 24 Hours: Intake & Output 08/21/20 08/22/20 08/22/20 22:59 06:59 14:59 Intake Total 571 Output Total 450 950 175 Balance -450 379 -175 Lab Results Last 24 Hours: Laboratory Results - last 24 hr 08/21/20 08/22/20 08/22/20 Range/Units 14:21 04:40 04:40 WBC 34.7 H* (4.5-11.0) K/uL RBC 4.13 L (4.30-5.90) M/uL Hgb 14.0 (12.0-15.0) g/dL Hct 44.6 (40.0-54.0) % MCV 108 H (80-98) fL MCH 34 H (27-31) pg MCHC 31 L (32-36) % Plt Count 350 (150-400) K/uL Add Manual Diff Yes Neutrophils % (Manual) 83 H (36-66) % Band Neutrophils % 5 (5-11) % Lymphocytes % (Manual) 4 L (24-44) % Monocytes % (Manual) 7 H (2-6) % Eosinophils % (Manual) 1 L (2-4) % Target Cells Moderate H Sodium 140 (140-148) mmol/L Potassium 4.1 (3.6-5.2) mmol/L Chloride 106 (100-108) mmol/L Carbon Dioxide 25 (21-32) mmol/L Anion Gap 9.2 (5.0-14.0) mmol/L BUN 35 H (7-18) mg/dL Creatinine 1.0 (0.8-1.3) mg/dL Est Cr Clr Drug Dosing 68.68 mL/min Estimated GFR (MDRD) > 60 (>60) Glucose 133 H (74-106) mg/dL Calcium 8.6 (8.5-10.1) mg/dL Magnesium 2.2 (1.8-2.4) mg/dL Total Bilirubin 12.3 H (0.2-1.0) mg/dL AST 73 H (15-37) U/L ALT 51 (12-78) U/L Alkaline Phosphatase 174 H (46-116) U/L Ammonia (11-32) mmol/L Total Protein 5.7 L (6.4-8.2) g/dL Albumin 2.8 L (3.4-5.0) g/dL Globulin 2.9 (2.3-3.5) g/dL Albumin/Globulin Ratio 1.0 L (1.2-2.2) 08/22/20 Range/Units 04:40 WBC (4.5-11.0) K/uL RBC (4.30-5.90) M/uL Hgb (12.0-15.0) g/dL Hct (40.0-54.0) % MCV (80-98) fL MCH (27-31) pg MCHC (32-36) % Plt Count (150-400) K/uL Add Manual Diff Neutrophils % (Manual) (36-66) % Band Neutrophils % (5-11) % Lymphocytes % (Manual) (24-44) % Monocytes % (Manual) (2-6) % Eosinophils % (Manual) (2-4) % Target Cells Sodium (140-148) mmol/L Potassium (3.6-5.2) mmol/L Chloride (100-108) mmol/L Carbon Dioxide (21-32) mmol/L Anion Gap (5.0-14.0) mmol/L BUN (7-18) mg/dL Creatinine (0.8-1.3) mg/dL Est Cr Clr Drug Dosing mL/min Estimated GFR (MDRD) (>60) Glucose (74-106) mg/dL Calcium (8.5-10.1) mg/dL Magnesium (1.8-2.4) mg/dL Total Bilirubin (0.2-1.0) mg/dL AST (15-37) U/L ALT (12-78) U/L Alkaline Phosphatase (46-116) U/L Ammonia 22 (11-32) mmol/L Total Protein (6.4-8.2) g/dL Albumin (3.4-5.0) g/dL Globulin (2.3-3.5) g/dL Albumin/Globulin Ratio (1.2-2.2) [place] Results Last 24 Hours: Microbiology 08/17/20 13:50 Gram Stain - Final Paracentesis Fluid Body Fluid Culture - Preliminary NO GROWTH AFTER 3 DAYS 08/17/20 20:10 Aerobic Blood Culture - Preliminary Blood - Arm, Left NO GROWTH AFTER 4 DAYS Anaerobic Blood Culture - Preliminary NO GROWTH AFTER 4 DAYS 08/17/20 20:05 Aerobic Blood Culture - Preliminary Blood - Arm, Left NO GROWTH AFTER 4 DAYS Anaerobic Blood Culture - Preliminary NO GROWTH AFTER 4 DAYS Med Orders - Current: Current Medications Aspirin (Ecotrin) 325 mg PO DAILY [facility] Last Admin: 08/22/20 09:12 Dose: 325 mg Documented by: Digoxin (Lanoxin) 125 mcg IVPUSH ONETIME ONE Stop: 08/22/20 10:03 Furosemide (Lasix) 20 mg PO BIDDIURETIC [facility] Last Admin: 08/22/20 07:50 Dose: 20 mg Documented by: Hydromorphone HCl (Dilaudid) 0.5 mg IVPUSH Q4H PRN PRN Reason: Pain Last Admin: 08/22/20 03:10 Dose: 0.5 mg Documented by: Diltiazem HCl 100 mg/ Sodium (Chloride) 100 mls @ 5 mls/hr IV TITRATE [facility]; Protocol Last Admin: 08/22/20 07:08 Dose: 15 mg/hr, 15 mls/hr Documented by: Lactobacillus Rhamnosus (Culturelle) 1 cap PO BID [facility] Last Admin: 08/22/20 09:12 Dose: 1 cap Documented by: Magnesium Oxide (Magnesium Oxide) 400 mg PO DAILY [facility] Last Admin: 08/22/20 09:12 Dose: 400 mg Documented by: Melatonin (Melatonin) 9 mg PO BEDTIME PRN PRN Reason: Insomnia Last Admin: 08/21/20 21:13 Dose: 9 mg Documented by: Metoprolol Tartrate (Lopressor) 100 mg PO BID [facility] Last Admin: 08/22/20 09:12 Dose: 100 mg Documented by: Ondansetron HCl (Zofran) 4 mg IV Q4H PRN PRN Reason: Nausea/Vomiting Pantoprazole Sodium (Protonix) 40 mg PO DAILY@0730 [facility] Last Admin: 08/22/20 07:50 Dose: 40 mg Documented by: Prednisolone (Orapred 15 Mg/5ml Soln) 32 mg PO DAILY [facility] Sodium Chloride (Saline Flush) 10 ml FLUSH ASDIRECTED PRN PRN Reason: Keep Vein Open Spironolactone (Aldactone) 25 mg PO BID [facility] Last Admin: 08/22/20 09:12 Dose: 25 mg Documented by: Discontinued Medications Digoxin (Lanoxin) 250 mcg IVPUSH ONETIME ONE Stop: 08/21/20 21:05 Last Admin: 08/21/20 21:34 Dose: 250 mcg Documented by: Diltiazem HCl (Diltiazem) 15 mg IVPUSH ONETIME ONE Stop: 08/21/20 14:24 Last Admin: 08/21/20 14:31 Dose: 15 mg Documented by: Fentanyl (Sublimaze) Confirm Administered Dose 0 mcg .ROUTE .STK-MED ONE Stop: 08/17/20 07:42 Furosemide (Lasix) 20 mg PO DAILY [facility] Last Admin: 08/21/20 08:04 Dose: 20 mg Documented by: Furosemide (Lasix) 20 mg PO BIDDIURETIC [facility] Last Admin: 08/21/20 15:03 Dose: Not Given Documented by: Furosemide (Lasix) 20 mg IVPUSH ONETIME ONE Stop: 08/21/20 16:01 Last Admin: 08/21/20 17:27 Dose: 20 mg Documented by: Glycopyrrolate (Glycopyrrolate) 0.4 mg IVPUSH ONETIME ONE Stop: 08/17/20 10:01 Last Admin: 08/18/20 19:15 Dose: Not Given Documented by: Dextrose/Lactated Ringer's (Dextrose 5%-Lactated Ringers) 1,000 mls @ 100 mls/hr IV ASDIRECTED [facility] Last Admin: 08/17/20 09:47 Dose: 100 mls/hr Documented by: Sodium Chloride (Normal Saline) 100 mls @ 3 mls/sec IV ASDIRECTED [facility] Stop: 08/17/20 10:16 Phytonadione 10 mg/ Sodium (Chloride) 51 mls @ 100 mls/hr IV NOW ONE Stop: 08/17/20 15:00 Last Admin: 08/17/20 14:37 Dose: 100 mls/hr Documented by: Sodium Chloride (Normal Saline) 1,000 mls @ 125 mls/hr IV ASDIRECTED [facility] Last Admin: 08/18/20 03:43 Dose: 125 mls/hr Documented by: Ceftriaxone Sodium 2 gm/ (Sodium Chloride) 50 mls @ 100 mls/hr IV Q24H [facility] Last Admin: 08/20/20 19:04 Dose: 100 mls/hr Documented by: Albumin Human (Albumin 25%) 25 gm in 100 mls @ 25 mls/hr IV Q6H [facility] Stop: 08/18/20 09:59 Last Admin: 08/18/20 05:27 Dose: 25 mls/hr Documented by: Albumin Human (Albumin 25%) 25 gm in 100 mls @ 25 mls/hr IV Q12H [facility] Last Admin: 08/20/20 15:00 Dose: 25 mls/hr Documented by: Albumin Human (Albumin 25%) 25 gm in 100 mls @ 25 mls/hr IV Q24H [facility] Last Admin: 08/20/20 21:12 Dose: Not Given Documented by: Iopamidol (Isovue-300 (61%)) 134 ml IV ONETIME ONE Stop: 08/17/20 10:08 Last Admin: 08/18/20 19:15 Dose: Not Given Documented by: Metoprolol Tartrate (Lopressor) 75 mg PO BID [facility] Last Admin: 08/21/20 20:28 Dose: 75 mg Documented by: Midazolam HCl (Versed 1 Mg/Ml) Confirm Administered Dose 0 mg .ROUTE .STK-MED ONE Stop: 08/17/20 07:42 Potassium Chloride (Klor-Con M20) 40 meq PO ONETIME ONE Stop: 08/19/20 13:05 Last Admin: 10/03/20 14:17 Dose: 40 meq Documented by: Potassium Chloride (Klor-Con M20) 40 meq PO ONETIME ONE Stop: 08/19/20 17:01 Last Admin: 08/19/20 17:59 Dose: 40 meq Documented by: Prednisolone (Orapred 15 Mg/5ml Soln) 40 mg PO DAILY [facility] Last Admin: 08/22/20 09:12 Dose: 40 mg Documented by: Propofol (Diprivan 20 Ml) Confirm Administered Dose 0 mg .ROUTE .STK-MED ONE Stop: 08/17/20 07:42 Sodium Chloride (Saline Flush) 10 ml FLUSH ONETIME ONE Stop: 08/17/20 10:08 Last Admin: 08/18/20 19:14 Dose: Not Given Documented by: Spironolactone (Aldactone) 25 mg PO BID [facility] Last Admin: 08/21/20 08:04 Dose: 25 mg Documented by: - Exam Quality Assessment: No: Supplemental Oxygen General: Alert, Oriented, Cooperative, No Acute Distress HEENT: Scleral Icterus Lungs: Clear to Auscultation, Normal Respiratory Effort Cardiovascular: Irregular Rhythm, Tachycardia GI/Abdominal Exam: Distended, Tender, Abnormal Bowel Sounds (hypoactive ). No: Soft (firm) Extremities: Pedal Edema. No: Increased Warmth Skin: Warm, Dry Psy/Mental Status: Alert, Normal Affect Sepsis Event Note - Evaluation Sepsis Screening Result: Severe Sepsis Risk - Focused Exam Vital Signs: Vital Signs Temp Pulse Resp BP BP Pulse Ox 08/22/20 09:12 127 H 116/84 08/22/20 09:00 16 116/84 97 08/22/20 08:00 36.3 C 19 116/76 95 08/22/20 07:00 17 105/68 95 08/22/20 06:00 16 106/74 95 08/22/20 05:00 20 105/80 96 08/22/20 04:00 36.5 C 19 116/81 96 08/22/20 03:00 18 115/82 96 08/22/20 02:00 18 113/73 96 08/22/20 01:00 19 87/63 L 94 L 08/22/20 00:00 36.8 C 16 85/66 L 94 L 08/21/20 23:00 16 99/71 93 L - Problem List Review Problem List Initiated/Reviewed/Updated: Yes - My Orders Last 24 Hours: My Active Orders 08/21/20 14:24 Cardiac Monitoring [RC] CONTINUOUS 08/21/20 16:01 Transfer Patient (Change bed) [ADT] Routine 08/21/20 16:15 Diltiazem [Cardizem] 100 mg Sodium Chloride 0.9% [Normal Saline] 100 ml IV TITRATE 08/22/20 08:00 Furosemide [Lasix] 20 mg PO BIDDIURETIC 08/22/20 09:00 Metoprolol Tartrate [Lopressor] 100 mg PO BID 08/22/20 10:01 US Guidance Paracentesis NC [US] Routine 08/22/20 10:02 PT Evaluation and Treatment [CONS] Routine Digoxin [Lanoxin] 125 mcg IVPUSH ONETIME ONE 08/22/20 10:03 LIPASE [CHEM] Urgent 08/23/20 05:00 CBC W/O DIFF,HEMOGRAM [HEME] Timed (1) COMPREHENSIVE METABOLIC PN,CMP [CHEM] Timed 08/23/20 09:00 prednisoLONE [OraPred 15 MG/5ML Soln] 32 mg PO DAILY - Plan Plan:: ASSESSMENT AND PLAN - HEPATIC CIRRHOSIS -increasing distention and discomfort. Ultrasound did reveal a large pocket that is amenable to paracentesis. Initially there was some concern for SBP but initial cultures were unremarkable. He is not having fevers but white count is slightly higher again today. -Follow up lab in a.m. CBC, CMP, ammonia -Furosemide 20 mg p.o. twice daily -Spironolactone 25 mg p.o. twice daily -Paracentesis with Dr. Goldman this afternoon (diagnostic and therapeutic) ACUTE ALCOHOLIC HEPATITIS -stable from admission, modest improvement in bilirubin - continue prednisolone 32 mg daily ACUTE KIDNEY INJURY -resolved - saline lock IV - reevaluate labs in the morning -Hold Celebrex PANCREATIC PSEUDOCYSTS-he likely has had acute and chronic pancreatitis. Lipase level was within normal range at the time of admission. No fevers or strong suspicion for infection at this time. -Plan for follow-up CT scan in 2 months to assess stability of pseudocyst. CHRONIC ALCOHOL ABUSE - no alcohol withdrawal so far. -will watch for signs of alcohol withdrawal -Will consider [facility] protocol if withdrawal symptoms become apparent -education provided regarding needing to abstain from alcohol permanently ATRIAL FIBRILLATION WITH RAPID VENTRICULAR RESPONSE -still needed fib and rate control has improved but is still suboptimal. -Continue diltiazem infusion -continuous cardiac monitoring -Increase metoprolol to 100 mg twice a day -one-time dose of digoxin -Optimize electrolytes MAINTENANCE ISSUES DVT Prophylaxis - SCDs, pharmacologic intervention contraindicated d/t elevated PT/INR GI Prophylaxis - PPI Nutrition - 2gm sodium diet DISPOSITION - plan to discharge home with primary care provider f/u after dis charge Ruben Potter MD
[2020-08-22] MEDS ORDERED: LORazepam 2 MG/ML SDV IVPUSH ONE ×2 (12:18→15:00)
[2020-08-22] MEDS: Melatonin 3 MG Tab PO PRN (20:10)
[2020-08-23] MEDS: Diltiazem 100 MG in Sodium Chloride 0.9% 100 ML IV SCH (04:34)
[2020-08-23] MEDS ORDERED: Diltiazem 180 MG Cap.CD PO ONE (08:58)
[2020-08-23] MEDS ORDERED: prednisoLONE 15 MG/5 ML Soln UD Cup PO SCH (09:00)
[2020-08-23] MEDS: Furosemide 20 MG Tab PO SCH ×2 (09:15→14:22)
[2020-08-23] MEDS: Pantoprazole 40 MG Tab.CR PO SCH (09:15)
[2020-08-23] MEDS: Magnesium Oxide 400 MG Tab PO SCH (09:16)
[2020-08-23] MEDS: Lactobacillus Rhamnosus GG (Probiotic) Cap PO SCH (09:16)
[2020-08-23] MEDS: Metoprolol Tartrate 50 MG Tab PO SCH (09:16)
[2020-08-23] MEDS: Spironolactone 25 MG Tab PO SCH (09:16)
[2020-08-23] MEDS: Aspirin 325 MG Tab.EC PO SCH (09:16)
[2020-08-23 11:15] VITALS: PULSE 60
[2020-08-23 13:17] VITALS: BP 94/56
--- NOTE | 2020-08-23 13:26 | PCM.DCSUM1 ---
Discharge Summary - Hospital Course Brief History: 65-year-old male with history of alcohol dependence, paroxysmal atrial fibrillation and hypertension who presented with early satiety and the plan was to have an EGD. He was directly admitted after he was noted to be jaundiced and appeared quite ill. Diagnosis: Stroke: No - Discharge Data Discharge Date: 08/23/20 Discharge Disposition: Home, Self-Care 01 Condition: Good - Referral to Home Health Primary Care Physician: PCP None - Discharge Diagnosis/Problem(s) (1) Alcoholic hepatitis with ascites SNOMED Code(s): 3220685134001249 ICD Code: K70.11 - ALCOHOLIC HEPATITIS WITH ASCITES Status: Acute Current Visit: Yes (2) Acute kidney injury SNOMED Code(s): 09030432, 56640156 ICD Code: N17.9 - ACUTE KIDNEY FAILURE, UNSPECIFIED Status: Acute Current Visit: Yes (3) Hepatic cirrhosis SNOMED Code(s): 42529276 ICD Code: K74.60 - UNSPECIFIED CIRRHOSIS OF LIVER Status: Acute Current Visit: Yes Qualifiers: Hepatic cirrhosis type: alcoholic cirrhosis Ascites presence: with ascites Qualified Code(s): K70.31 - Alcoholic cirrhosis of liver with ascites (4) Hypokalemia SNOMED Code(s): 49921591 ICD Code: E87.6 - HYPOKALEMIA Status: Acute Current Visit: Yes (5) Atrial fibrillation with rapid ventricular response SNOMED Code(s): 131581617579249 ICD Code: I48.91 - UNSPECIFIED ATRIAL FIBRILLATION Status: Acute Current Visit: Yes (6) Alcohol dependence SNOMED Code(s): 86747750 ICD Code: F10.20 - ALCOHOL DEPENDENCE, UNCOMPLICATED Status: Chronic Current Visit: Yes Qualifiers: Substance use status: unspecified alcohol-induced disorder Qualified Code(s): F10.29 - Alcohol dependence with unspecified alcohol-induced disorder - Patient Summary/Data Consults: Consultations 08/19/20 10:43 Consult to Physician [CONS] Routine Consulting Provider: Bang Mahmood Call Completed to Consulting Physician: Yes Reason for Consult: Ascites, please see for large volume paracentesis 08/22/20 10:02 PT Evaluation and Treatment [CONS] Routine Please Evaluate and Treat. PT Reason for Consult: Strengthening This query below is only for informational purposes and is not editable. Admission Diagnosis/Problem: Hepatic cirrhosis Hospital Course: Orestes presented initially to the outpatient area for an EGD. He had been struggling with increasing abdominal distention and abdominal pain over the past few weeks. He did have a history of a stricture and an EGD was being considered to help evaluate this. On arrival to the outpatient area he was noted to be jaundiced and confused and very weak. 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 He was sent to the hospital for direct admission. He was noted to have a leukocytosis with a white blood cell count of 23,000 but no fever. His creatinine was 1.7 with a baseline of closer to 1. A diagnostic paracentesis was performed and empiric antibiotics for spontaneous bacterial peritonitis were initiated. He received some gentle fluids because of concern for intravascular volume depletion. His bilirubin was quite elevated at more than 11 and his INR was greater than 4. His initial Maddrey discriminant function was extremely elevated at more than 100. Empiric prednisolone was initiated as well. He received IV albumin. Over the next couple of days we did see some clinical improvement. He did not have any fevers and his cultures from the diagnostic paracentesis did not grow out any bacteria. His INR improved with some vitamin K but his bilirubin remained quite elevated. His kidney function steadily improved and returned to baseline. His strength seem to be improving. His mental status did seem to be improving though he was still a little bit lethargic. His ammonia level was normal. An MRCP was performed and showed the 2 cysts which are presumed to be a pseudocyst on the pancreas but no other concerning findings other than the ascites. After several days of negative cultures we elected to discontinue the antibiotics. We did not see any fevers. His bilirubin level has remained essentially stable throughout the course of the hospital stay. Clinically he has made a fair amount of improvement. On August 22 a repeat ultrasound of the abdomen did reveal a large pocket of fluid and a large volume paracentesis was completed with 4 L of fluid removed. An ultrasound had been done on August 20 but no pocket of fluid was identified at that time. Symptomatically felt much better after the fluid was removed with a significant improvement in his abdominal pain. Initial studies on the fluid did not reveal evidence for infection and he had a low white blood cell count and no organisms were seen. Cultures have been negative. On August 21 he went into atrial fibrillation with a rapid ventricular response. He did not respond to attempts to slow down his heart rate on the general floor so he was transferred to the intensive care unit and a diltiazem infusion was initiated. Initially we had some difficulty with rate control but eventually with increased metoprolol, maximum diltiazem and digoxin we were able to slow him down to an acceptable level. He did remain in atrial fibrillation until the morning of discharge when he converted to a normal sinus rhythm. He has been transitioned to oral medications and has remained in a sinus rhythm. At this point he is feeling fairly well. I believe he is safe for outpatient management. He is in a normal sinus rhythm and his vital signs have all been stable. His bilirubin has remained elevated at around 11. I stressed on multiple occasions the importance and absolute necessity of cessation from alcohol. I did raise my concern that if he drinks any alcohol that there is a high chance that he is going to damage his liver further and potentially from liver failure. I did offer him outpatient services such as Alcoholics [facility] nonym[facility] and outpatient counseling. He was not interested in these at this time and thinks that he can do it on his own. He reports previous periods of sobriety. We have been managing his ascites and edema with twice daily furosemide and spironolactone. We will manage his atrial fibrillation with a combination of metoprolol and diltiazem. He is going to be on prednisolone for 3 more weeks and will complete 28 days of steroid therapy. He will have close follow-up with his primary care and would benefit from recheck of his white count as well as his bilirubin. Referral to gastroenterology could be considered. Clinically he seems to be doing okay but with his persistent elevation of the bilirubin he has not out of the thomas as far as potential for his liver to fail. - Patient Instructions Diet: Low Sodium Activity: As Tolerated Showering/Bathing: May Shower Notify Provider of: Fever, Increased Pain, Nausea and/or Vomiting Other/Special Instructions: 1. You were in the hospital for management of alcoholic hepatitis and cirrhosis (permanent scarring of your liver) related to long-term alcohol use. Your condition has stabilized with care is provided in the hospital. You do still have an elevation of the bilirubin but your other laboratory values are improving. Symptomatically things seem to be improving. You did require a large volume paracentesis to remove fluid from your abdomen. There is no evidence for infection at this time. Because of the severity of your alcoholic hepatitis (inflammation of your liver) I recommend that you take prednisolone 30 mg once daily for 21 more days. This medication helps to reduce the inflammation in the liver and will hopefully help the liver heal up and avoid liver failure. It is extremely important that you do not consume any alcohol from this point forward. Any alcohol consumption would very likely lead to complete liver failure and . You may safely use acetaminophen but I would recommend that you keep your total daily dose below 2000 mg. For example, you could take 3 doses of 650 mg over the course of 24 hours. 2. During the hospital stay you had an episode of atrial fibrillation with a rapid ventricular response. Your heart is now back in a sinus rhythm. I recommend that you continue taking the metoprolol at your previous dose of 75 mg twice daily. I recommend that you stop taking the amlodipine and that we replace this with diltiazem 180 mg taken once daily. This medication will help to keep your heart in a normal rhythm and if you do return to atrial fibrillation it will help control the rate. 3. Medication changes: --stop taking amlodipine -this me dication has been replaced by diltiazem. --start taking diltiazem -this medication helps to slow down your heart rate as well as lower your blood pressure. --start taking furosemide - this is a diuretic use to help reduce the swelling of your legs as well as reduced fluid in your abdomen. --start taking spironolactone - this is a diuretic use to help reduce the swelling of your legs as well as reduced fluid in your abdomen. --start taking prednisolone - this is an anti-inflammatory medication use to help reduce the swelling and inflammation of your liver. 4. There are no activity restrictions but you will likely be weak following your prolonged hospital stay. I would recommend that you slowly increase your activity towards normal. If you are fatigued or become short of breath you should take a break and return to activity after you have rested. 5. Follow up with your primary care provider as scheduled next week. You should have blood work to check a CBC and CMP at that time. This will recheck your white blood cell count as well as your kidney and liver function. - Discharge Plan *PRESCRIPTION DRUG MONITORING PROGRAM REVIEWED*: Not Applicable *COPY OF PRESCRIPTION DRUG MONITORING REPORT IN PATIENT JHONY: Not Applicable Prescriptions/Med Rec: Spironolactone [Aldactone] 25 mg PO BID #60 tablet Diltiazem HCl [Diltiazem 24Hr Cd] 180 mg PO DAILY #30 cap.er.24h Furosemide [Lasix] 20 mg PO BIDDIURETIC #60 tablet prednisoLONE [Prednisolone] 30 mg PO DAILY #210 ml Home Medications: Home Meds Metoprolol Tartrate 75 mg PO BID 08/17/13 [History] Aspirin [Aspirin EC] 325 mg PO DAILY 06/26/20 [History] Celecoxib [CeleBREX] 200 mg PO DAILY 08/15/20 [History] Magnesium Oxide [Magnesium] 400 mg PO DAILY 08/15/20 [History] Multivitamin [Multiple Vitamins] 1 tab PO DAILY 08/17/20 [History] Pantoprazole [ProTONIX] 40 mg PO DAILY 08/17/20 [History] Diltiazem HCl [Diltiazem 24Hr Cd] 180 mg PO DAILY #30 cap.er.24h 08/23/20 [Rx] Furosemide [Lasix] 20 mg PO BIDDIURETIC #60 tablet 08/23/20 [Rx] Spironolactone [Aldactone] 25 mg PO BID #60 tablet 08/23/20 [Rx] prednisoLONE [Prednisolone] 30 mg PO DAILY #210 ml 08/23/20 [Rx] Oxygen Therapy Mode: Room Air Patient Handouts: Alcoholic Liver Disease, Cirrhosis, Prednisolone oral suspension Referrals: Randolph Juárez [employer]PERATOR HELPER [Nurse Practitioner] - 08/29/20 1:00 pm (Please arrive 15 minutes early to register for your appointment.) - Discharge Summary/Plan Comment DC Time >30 min.: Yes (45-extensive counseling about med changes and sobriety ) - Patient Data Vitals - Most Recent: Last Vital Signs Temp 37.2 C 08/23/20 07:00 Pulse 60 08/23/20 11:00 Resp 17 08/23/20 13:00 BP 94/56 L 08/23/20 13:00 Pulse Ox 96 08/23/20 08:00 Weight - Most Recent: 88.904 kg I&O - Last 24 hours: Intake & Output 08/22/20 08/23/20 08/23/20 22:59 06:59 14:59 Intake Total 240 1376 Balance 240 1376 Lab Results - Last 24 hrs: Laboratory Results - last 24 hr 08/22/20 08/22/20 08/22/20 Range/Units 16:11 16:11 16:11 Lactate Dehydrogenase 87 (85-227) U/L Fluid Type Oth Oth Fluid pH 7 Fluid WBC /ul Fluid RBC /ul Fluid Diff Comment Fluid Mononuclear Cell % Fl Polymorphonucl Cell % Fluid Glucose 196 mg/dL Fluid Total Protein 2.5 g/dL Fluid Tot Bilirubin 5.38 mg/dL 08/22/20 Range/Units 16:11 Lactate Dehydrogenase (85-227) U/L Fluid Type Oth Fluid pH Fluid WBC 45 /ul Fluid RBC 3447 /ul Fluid Diff Comment Peritoneal Fluid Mononuclear Cell 83 % Fl Polymorphonucl Cell 17 % Fluid Glucose mg/dL Fluid Total Protein g/dL Fluid Tot Bilirubin mg/dL BLAIR Results - Last 24 hrs: Microbiology 08/17/20 13:50 Gram Stain - Final Paracentesis Fluid Body Fluid Culture - Final NO GROWTH AFTER 3 DAYS 08/17/20 20:10 Aerobic Blood Culture - Final Blood - Arm, Left NO GROWTH AFTER 5 DAYS Anaerobic Blood Culture - Final NO GROWTH AFTER 5 DAYS 08/17/20 20:05 Aerobic Blood Culture - Final Blood - Arm, Left NO GROWTH AFTER 5 DAYS Anaerobic Blood Culture - Final NO GROWTH AFTER 5 DAYS 08/22/20 15:47 Gram Stain - Final Paracentesis Fluid Med Orders - Current: Current Medications Aspirin (Ecotrin) 325 mg PO DAILY [facility] Last Admin: 08/23/20 09:16 Dose: 325 mg Documented by: Furosemide (Lasix) 20 mg PO BIDDIURETIC [facility] Last Admin: 08/23/20 09:15 Dose: 20 mg Documented by: Hydromorphone HCl (Dilaudid) 0.5 mg IVPUSH Q4H PRN PRN Reason: Pain Last Admin: 08/22/20 20:10 Dose: 0.5 mg Documented by: Lactobacillus Rhamnosus (Culturelle) 1 cap PO BID [facility] Last Admin: 08/23/20 09:16 Dose: 1 cap Documented by: Magnesium Oxide (Magnesium Oxide) 400 mg PO DAILY [facility] Last Admin: 08/23/20 09:16 Dose: 400 mg Documented by: Melatonin (Melatonin) 9 mg PO BEDTIME PRN PRN Reason: Insomnia Last Admin: 08/22/20 20:10 Dose: 9 mg Documented by: Metoprolol Tartrate (Lopressor) 100 mg PO BID [facility] Last Admin: 08/23/20 09:16 Dose: 100 mg Documented by: Ondansetron HCl (Zofran) 4 mg IV Q4H PRN PRN Reason: Nausea/Vomiting Pantoprazole Sodium (Protonix) 40 mg PO DAILY@0730 [facility] Last Admin: 08/23/20 09:15 Dose: 40 mg Documented by: Prednisolone (Orapred 15 Mg/5ml Soln) 32 mg PO DAILY [facility] Last Admin: 08/23/20 09:17 Dose: 32 mg Documented by: Sodium Chloride (Saline Flush) 10 ml FLUSH ASDIRECTED PRN PRN Reason: Keep Vein Open Spironolactone (Aldactone) 25 mg PO BID [facility] Last Admin: 08/23/20 09:16 Dose: 25 mg Documented by: Discontinued Medications Digoxin (Lanoxin) 250 mcg IVPUSH ONETIME ONE Stop: 08/21/20 21:05 Last Admin: 08/21/20 21:34 Dose: 250 mcg Documented by: Digoxin (Lanoxin) 125 mcg IVPUSH ONETIME ONE Stop: 08/22/20 10:03 Last Admin: 08/22/20 11:05 Dose: 125 mcg Documented by: Diltiazem HCl (Diltiazem) 15 mg IVPUSH ONETIME ONE Stop: 08/21/20 14:24 Last Admin: 08/21/20 14:31 Dose: 15 mg Documented by: Diltiazem HCl (Cardizem Cd) 360 mg PO ONETIME ONE Stop: 08/23/20 08:59 Last Admin: 08/23/20 09:15 Dose: 360 mg Documented by: Fentanyl (Sublimaze) Confirm Administered Dose 0 mcg .ROUTE .STK-MED ONE Stop: 08/17/20 07:42 Furosemide (Lasix) 20 mg PO DAILY [facility] Last Admin: 08/21/20 08:04 Dose: 20 mg Documented by: Furosemide (Lasix) 20 mg PO BIDDIURETIC [facility] Last Admin: 08/21/20 15:03 Dose: Not Given Documented by: Furosemide (Lasix) 20 mg IVPUSH ONETIME ONE Stop: 08/21/20 16:01 Last Admin: 08/21/20 17:27 Dose: 20 mg Documented by: Glycopyrrolate (Glycopyrrolate) 0.4 mg IVPUSH ONETIME ONE Stop: 08/17/20 10:01 Last Admin: 08/18/20 19:15 Dose: Not Given Documented by: Dextrose/Lactated Ringer's (Dextrose 5%-Lactated Ringers) 1,000 mls @ 100 mls/hr IV ASDIRECTED [facility] Last Admin: 08/17/20 09:47 Dose: 100 mls/hr Documented by: Sodium Chloride (Normal Saline) 100 mls @ 3 mls/sec IV ASDIRECTED [facility] Stop: 08/17/20 10:16 Phytonadione 10 mg/ Sodium (Chloride) 51 mls @ 100 mls/hr IV NOW ONE Stop: 08/17/20 15:00 Last Admin: 08/17/20 14:37 Dose: 100 mls/hr Documented by: Sodium Chloride (Normal Saline) 1,000 mls @ 125 mls/hr IV ASDIRECTED [facility] Last Admin: 08/18/20 03:43 Dose: 125 mls/hr Documented by: Ceftriaxone Sodium 2 gm/ (Sodium Chloride) 50 mls @ 100 mls/hr IV Q24H [facility] Last Admin: 08/20/20 19:04 Dose: 100 mls/hr Documented by: Albumin Human (Albumin 25%) 25 gm in 100 mls @ 25 mls/hr IV Q6H [facility] Stop: 08/18/20 09:59 Last Admin: 08/18/20 05:27 Dose: 25 mls/hr Documented by: Albumin Human (Albumin 25%) 25 gm in 100 mls @ 25 mls/hr IV Q12H [facility] Last Admin: 08/20/20 15:00 Dose: 25 mls/hr Documented by: Albumin Human (Albumin 25%) 25 gm in 100 mls @ 25 mls/hr IV Q24H [facility] Last Admin: 08/20/20 21:12 Dose: Not Given Documented by: Diltiazem HCl 100 mg/ Sodium (Chloride) 100 mls @ 5 mls/hr IV TITRATE [facility]; Protocol Stop: 08/23/20 10:15 Last Admin: 08/23/20 04:34 Dose: 15 mg/hr, 15 mls/hr Documented by: Iopamidol (Isovue-300 (61%)) 134 ml IV ONETIME ONE Stop: 08/17/20 10:08 Last Admin: 08/18/20 19:15 Dose: Not Given Documented by: Lorazepam (Ativan) 0.5 mg IVPUSH ONETIME ONE Stop: 08/22/20 12:19 Last Admin: 08/22/20 14:54 Dose: Not Given Documented by: Lorazepam (Ativan) 0.5 mg IVPUSH ONETIME ONE Stop: 08/22/20 15:01 Last Admin: 08/22/20 14:54 Dose: 0.5 mg Documented by: Metoprolol Tartrate (Lopressor) 75 mg PO BID [facility] Last Admin: 08/21/20 20:28 Dose: 75 mg Documented by: Midazolam HCl (Versed 1 Mg/Ml) Confirm Administered Dose 0 mg .ROUTE .STK-MED ONE Stop: 08/17/20 07:42 Potassium Chloride (Klor-Con M20) 40 meq PO ONETIME ONE Stop: 08/19/20 13:05 Last Admin: 08/19/20 14:17 Dose: 40 meq Documented by: Potassium Chloride (Klor-Con M20) 40 meq PO ONETIME ONE Stop: 08/19/20 17:01 Last Admin: 08/19/20 17:59 Dose: 40 meq Documented by: Prednisolone (Orapred 15 Mg/5ml Soln) 40 mg PO DAILY [facility] Last Admin: 08/22/20 09:12 Dose: 40 mg Documented by: Propofol (Diprivan 20 Ml) Confirm Administered Dose 0 mg .ROUTE .STK-MED ONE Stop: 08/17/20 07:42 Sodium Chloride (Saline Flush) 10 ml FLUSH ONETIME ONE Stop: 08/17/20 10:08 Last Admin: 08/18/20 19:14 Dose: Not Given Documented by: Spironolactone (Aldactone) 25 mg PO BID [facility] Last Admin: 08/21/20 08:04 Dose: 25 mg Documented by: - Exam Quality Assessment: Denies: Supplemental Oxygen General: Reports: Alert, Oriented, Cooperative, No Acute Distress HEENT: Reports: Scleral Icterus Lungs: Reports: Normal Respiratory Effort Cardiovascular: Reports: Regular Rate, Regular Rhythm GI/Abdominal Exam: Soft, No Distention. No: Tender Extremities: Pedal Edema Psy/Mental Status: Reports: Alert, Normal Affect *Q Meaningful Use (DIS) - VTE *Q VTE Pharmacological Contraindications *Q: High INR Value
--- NOTE | 2020-08-25 15:15 | OR ---
DATE OF PROCEDURE: 08/22/2020 SURGEON: Alex Goldman MD PREOPERATIVE DIAGNOSIS: Tense ascites secondary to hepatic cirrhosis. POSTOPERATIVE DIAGNOSIS: Tense ascites secondary to hepatic cirrhosis. OPERATIVE PROCEDURE: Ultrasound-guided paracentesis (78642). ANESTHESIA: Local. INDICATIONS FOR PROCEDURE: A 65-year-old suffering from progressively worsening hepatic cirrhosis and now tense ascites. Plan is to proceed with a paracentesis. The potential risks including bleeding, infection, injury to the underlying viscera were reviewed, and the patient wishes to proceed. DETAILS OF PROCEDURE: The patient was placed in the ICU bed and a location for the paracentesis was identified in the right subcostal area. The area was then prepped and draped, anesthetized with 1% lidocaine, and a paracentesis catheter placed without difficulty. 4 L of bile-stained preperitoneal fluid was evacuated. This was sent for full workup, and at that point, the catheter was withdrawn 2-0 Prolene stitch was placed along the catheter which was after it was removed to prevent postprocedure leakage. The patient tolerated the procedure well. Alex Goldman MD /[id number]
--- NOTE | 2020-10-01 13:35 | OR ---
DATE OF PROCEDURE: 08/17/2020 SURGEON: Alxe Goldman MD PREOPERATIVE DIAGNOSES: Tense ascites with worsening hepatic cirrhosis. POSTOPERATIVE DIAGNOSES: Tense ascites with worsening hepatic cirrhosis. OPERATIVE PROCEDURE: Ultrasound-guided paracentesis. INDICATIONS FOR PROCEDURE: This is a 65-year-old male presenting for an upper endoscopy for evaluation of some worsening GI symptoms. He is noted to be markedly jaundiced and has tense ascites today, and it is felt at this point, he needs to be admitted for further evaluation of those issues. After discussion of the patient with Dr. Patel, the plan will be to proceed with a paracentesis to obtain some cultures of the peritoneal fluid in the event that the patient has some ongoing underlying sepsis. Potential risks were reviewed with the patient and , and they wished to proceed. DETAILS OF PROCEDURE: In the ACU procedure room, the right subcostal area was interrogated with ultrasound and location marked for paracentesis. That area was anesthetized with 1% lidocaine, and the paracentesis catheter placed. Only about 500 mL of fluid was removed so as to avoid worsening of his renal function. Two sets of blood cultures were obtained from the paracentesis fluid, as well as routine Gram stain, C and S of the peritoneal fluid as well. Suture was applied at the paracentesis site and catheter removed. The patient tolerated the procedure well. Alex Goldman MD /[id number]
--- NOTE | 2020-10-15 12:51 | OR ---
DATE OF PROCEDURE: 08/20/2020 SURGEON: Bang Mahmood MD PROCEDURE: Paracentesis. FINDINGS: Approximately 900 mL of straw-colored fluid. COMPLICATIONS: None. HANDLE BENDER: None. ANESTHESIA: Local. RISKS: Risks, benefits, alternatives, and limitations including, but not limited to infection, bleeding, and injury to abdominal structures were explained to the patient who wished to proceed. PREOPERATIVE DIAGNOSIS: Alcoholic hepatitis. POSTOPERATIVE DIAGNOSIS: Alcoholic hepatitis. PROCEDURE IN DETAIL: The patient was placed in supine position. The area on the left side had been marked with ultrasound by the cogeneration technician. He was prepped and draped. A single bonifacio was created in the skin after anesthetized with lidocaine. The sheath was introduced as the needle was withdrawn. Approximately 1000 mL of fluid was removed. This was sent for culture and other evaluations. Dressing was applied. The patient tolerated the procedure well. Bang Mahmood MD /[id number]
== END 2020-08-23 14:50 | disposition home or self-care (01) | DRG 432 ==
LOC: JP.SDS 08:22 → JP.MS 12:43 → JP.ICU 08-21 17:15
PROVIDERS: ADMIT Hospitalist; ATTEND Internal Medicine
PROC: 0W9G3ZX Drainage of Peritoneal Cavity, Percutaneous Approach, Diagnostic (ICD-10-PCS; principal; 2020-08-22)
DX: K70.31 Alcoholic cirrhosis of liver with ascites (principal); K65.9 Peritonitis, unspecified; N17.9 Acute kidney failure, unspecified; F10.288 Alcohol dependence with other alcohol-induced disorder; K86.3 Pseudocyst of pancreas; K70.11 Alcoholic hepatitis with ascites; E87.6 Hypokalemia; I48.91 Unspecified atrial fibrillation; B96.89 Other specified bacterial agents as the cause of diseases classified elsewhere; H91.90 Unspecified hearing loss, unspecified ear; H54.7 Unspecified visual loss; I10 Essential (primary) hypertension; K21.9 Gastro-esophageal reflux disease without esophagitis; K44.9 Diaphragmatic hernia without obstruction or gangrene; M19.90 Unspecified osteoarthritis, unspecified site; Z87.891 Personal history of nicotine dependence; Z88.8 Allergy status to other drugs, medicaments and biological substances; Z79.82 Long term (current) use of aspirin; Z79.899 Other long term (current) drug therapy; Z85.46 Personal history of malignant neoplasm of prostate; Z98.890 Other specified postprocedural states; R10.9 Unspecified abdominal pain
CPT/HCPCS: 36415; 74177 ×2; 80053; 81001; 82140; 82150; 83605; 83690; 85027; 85610; 86140; J7121; 74181; 74181-26; 82945; 83615; 83735; 83986; 84157; 85025; 86316; 87015; 87040; 87070; 87102; 87116; 87205; 87206; 88112; 88305; 89050; 97161-GP; 99232; 99239; A9270-GY; J0696; J1160; J1170; J1940; J2060; J2250; J2704; J3010; J3430; J3490; J7030; J7050; P9047

== ENCOUNTER 2020-09-05 16:21 | Inpatient (IN) | payer MEDICARE, BC ==
[2020-09-05] MEDS ORDERED: Ondansetron 4 MG Tab.DIS PO PRN (16:54)
[2020-09-05] MEDS ORDERED: LORazepam 2 MG/ML SDV IVPUSH PRN (16:54)
[2020-09-05] MEDS ORDERED: Acetaminophen 325 MG Tab PO PRN (16:54)
[2020-09-05] MEDS ORDERED: Ondansetron 4 MG/2 ML SDV IV PRN (16:54)
--- NOTE | 2020-09-05 17:01 | PCM.HP.2 ---
H&P History of Present Illness - General Date of Service: 09/05/20 Admit Problem/Dx: Admission Diagnosis/Problem Admission Diagnosis/Problem Alcoholic hepatitis with ascites Source of Information: Patient, Family, Provider History Limitations: Reports: No Limitations - History of Present Illness Initial Comments - Free Text/Narative: CC: My fluid has built up again HPI: Jacob initially presented to the clinic for follow-up of his liver disease. There was concerns about hypotension, his reaccumulation of ascites as well as profound weakness that prompted a direct admission. Orestes reports that initially after his most recent hospital discharge she was feeling somewhat better. Over the past 4 days or so he has had a steady decline. He has lost his appetite as well as his strength. He has had very poor oral intake. He has had increasing abdominal pain as well as abdominal distention. He describes 2 different types of abdominal pain. One is a severe pain in the epigastric area that happens after he tries to eat or drink anything more than just a very small quantity. This pain does not radiate. It last for several minutes after trying to swallow and then slowly dissipates. The pain is not there if he is fasting. He also describes a moderate 6-7 out of 10 pain that radiates throughout his abdomen. This is a constant dull ache that he describes as a chronic pain. This started about 4 days ago and has been slowly worsening. He has not taken anything at home to try to make it better. Laying down does seem to help a little bit. Any sort of movement makes the pain worse. He does not think he has had any fevers but did feel warm 1 day. He has nausea but has not had any vomiting. He does not feel short of breath. He has been having bowel movements. His urine is orange but he does not have dysuria. He says he has been taking his diuretics and steroids as prescribed. Work-up in the clinic revealed persistent leukocytosis with a white blood cell count of 27,000. Bilirubin is still elevated at 13 but this is a little better than a week ago. His creatinine was up to 1.7 with a baseline of about 1.3. His blood pressures in the clinic were in the 80s systolic. He was weak and confused so he was sent for admission. With the hypotension he was admitted to the intensive care unit. Back Pain Score (Numeric/FACES): 7 - Related Data Allergies/Adverse Reactions: Allergies Allergy/AdvReac Type Severity Reaction Status Date / Time megestrol acetate Allergy Mild Other Verified 09/05/20 16:53 [From [employer] Home Medications: Home Meds Metoprolol Tartrate 75 mg PO BID 08/17/13 [History] Aspirin [Aspirin EC] 325 mg PO DAILY 06/26/20 [History] Magnesium Oxide [Magnesium] 400 mg PO DAILY 08/15/20 [History] Multivitamin [Multiple Vitamins] 1 tab PO DAILY 08/17/20 [History] Pantoprazole [ProTONIX] 40 mg PO DAILY 08/17/20 [History] Diltiazem HCl [Diltiazem 24Hr Cd] 180 mg PO DAILY #30 cap.er.24h 08/23/20 [Rx] Furosemide [Lasix] 20 mg PO BIDDIURETIC #60 tablet 08/23/20 [Rx] Spironolactone [Aldactone] 25 mg PO BID #60 tablet 08/23/20 [Rx] prednisoLONE [Prednisolone] 30 mg PO DAILY #210 ml 08/23/20 [Rx] Past Medical History HEENT History: Reports: Hard of Hearing, Impaired Vision Other HEENT History: wears glasses Cardiovascular History: Reports: Afib, Arrhythmia, Hypertension Respiratory History: Reports: None Gastrointestinal History: Reports: GERD, Hemorrhoids, Hiatal Hernia Genitourinary History: Reports: Other (See Below) Other Genitourinary History: prostate ca Musculoskeletal History: Reports: Arthritis, Fracture Neurological History: Reports: None Psychiatric History: Reports: None Endocrine/Metabolic History: Reports: None Hematologic History: Reports: None Immunologic History: Reports: None Oncologic (Cancer) History: Reports: Prostate (radical prostatectomy) Dermatologic History: Reports: None - Infectious Disease History Infectious Disease History: Reports: Chicken Pox, Measles, Mumps, Rubella - Past Surgical History HEENT Surgical History: Reports: Tonsillectomy Cardiovascular Surgical History: Reports: None Respiratory Surgical History: Reports: None GI Surgical History: Reports: EGD, Other (See Below) Other GI Surgeries/Procedures: Darling fundoplication 2002 Male Surgical History: Reports: Other (See Below) Other Male Surgeries/Procedures: radical prostectomy and lymph nodes Musculoskeletal Surgical History: Reports: None Oncologic Surgical History: Reports: Other (See Below) Other Oncologic Surgeries/Procedures: radical prostectectomy Dermatological Surgical History: Reports: None Social & Family History - Family History Family Medical History: Noncontributory - Tobacco Use Tobacco Use Within Last Twelve Months: No - Caffeine Use Caffeine Use: Reports: None - Alcohol Use Alcohol Use History: Yes Alcohol Use in Last Twelve Months: Yes Alcohol Use Frequency: Daily H&P Review of Systems - Review of Systems: Review Of Systems: See Below Free Text/Narrative: A complete 12 point review of systems was obtained. Pertinent positives and negatives are noted in the history of present illness. All other systems were reviewed and were negative except as noted. Exam - Exam Exam: See Below - Vital Signs Vital Signs: Last Vital Signs Temp 36.4 C 09/05/20 16:35 Pulse 67 09/05/20 16:35 Resp 20 09/05/20 16:35 BP 112/62 09/05/20 16:35 Pulse Ox 98 09/05/20 16:35 - Exam Quality Assessment: No: Supplemental Oxygen General: Alert, Oriented, Cooperative. No: Mild Distress HEENT: Scleral Icterus. No: Mucosa Moist & [place] (dry) Neck: Supple, Trachea Midline. No: Lymphadenopathy Lungs: Clear to Auscultation, Normal Respiratory Effort Cardiovascular: Regular Rate, Regular Rhythm. No: Systolic Murmur GI/Abdominal Exam: Normal Bowel Sounds, Distended, Tender (Moderate diffuse), Hepatomegaly. No: Soft Extremities: Pedal Edema (Left leg all the way up to the groin. Right leg only to mid bryant). No: Increased Warmth Skin: Warm, Dry Neuro Extensive - Mental Status: Alert, Oriented x3, Nl Response to Commands Neuro Extensive - Motor, Sensory, Reflexes: No: Dysarthria, Abnormal Motor, Tremor Psychiatric: Alert, Normal Affect - Patient Data Lab Results Last 24 hrs: Creatinine 1.7 Potassium 4.6 White blood cell count 27,000 Imaging Impressions Last 24 hrs: CT scan of the abdomen and pelvis-images personally reviewed-there is moderate ascites. There is evidence for persistent lesions in the head and the body of the pancreas. These appear to be cystic masses that are most likely pancreatic pseudocyst. No evidence for necrosis at this time. No other acute findings. No evidence for bowel obstruction. No evidence for pancreatitis. Sepsis Event Note - Focused Exam Vital Signs: Vital Signs Temp Pulse Resp BP Pulse Ox 09/05/20 16:35 36.4 C 67 20 112/62 98 *Q Meaningful Use (ADM) - VTE Risk Assess *Q Each Risk Factor Represents 1 Point: Swollen Legs, Current, Obesity ( BMI > 25 kg/m2) Total Score 1 Point Risk Factors: 2 Each Risk Factor Represents 2 Points: Age 60 - 74 Years, Malignancy (present or previous) Total Score 2 Point Risk Factors: 4 Each Risk Factor Represents 3 Points: None Total Score 3 Point Risk Factors: 0 Each Risk Factor Represents 5 Points: None Total Score 5 Point Risk Factors: 0 Venous Thromboembolism Risk Factor Score *Q: 6 - Problem List (1) Abdominal pain, acute, generalized SNOMED Code(s): 266180179, 619046394 ICD Code: R10.84 - GENERALIZED ABDOMINAL PAIN Status: Acute Current Visit: Yes (2) Stage III chronic kidney disease SNOMED Code(s): 388310063 ICD Code: N18.30 - CHRONIC KIDNEY DISEASE, STAGE 3 UNSPECIFIED Status: Acute Current Visit: Yes (3) Alcoholic hepatitis with ascites SNOMED Code(s): 7762034085267996 ICD Code: K70.11 - ALCOHOLIC HEPATITIS WITH ASCITES Status: Acute Current Visit: No (4) Hepatic cirrhosis SNOMED Code(s): 95413226 ICD Code: K74.60 - UNSPECIFIED CIRRHOSIS OF LIVER Status: Acute Current Visit: No Qualifiers: Hepatic cirrhosis type: alcoholic cirrhosis Ascites presence: with ascites Qualified Code(s): K70.31 - Alcoholic cirrhosis of liver with ascites Problem List Initiated/Reviewed/Updated: Yes Orders Last 24hrs: Active Orders 24 hr Category Date Time Status Patient Status [ADT] Routine ADT 09/05/20 16:54 Ordered Blood Glucose Check, Bedside [RC] QIDACANDBED Care 09/05/20 16:54 Ordered Cardiac Monitoring [RC] CONTINUOUS Care 09/05/20 16:55 Ordered Communication Order [RC] PRN Care 09/05/20 16:54 Ordered Communication Order [RC] PRN Care 09/05/20 16:54 Ordered Diabetes Education [RC] Click to Edit Care 09/05/20 16:54 Ordered Height and Weight [RC] DAILY Care 09/05/20 16:54 Ordered Intake and Output [RC] QSHIFT Care 09/05/20 16:54 Ordered Notify Provider Vital Signs [RC] ASDIRECTED Care 09/05/20 16:54 Ordered Notify Provider [RC] PRN Care 09/05/20 16:57 Ordered Oxygen Therapy [RC] PRN Care 09/05/20 16:54 Ordered Pulse Oximetry [RC] CONTINUOUS Care 09/05/20 16:55 Ordered Up With Assistance [RC] ASDIRECTED Care 09/05/20 16:54 Ordered VTE/DVT Education [RC] Per Unit Routine Care 09/05/20 16:54 Ordered Vital Signs [RC] Q2HR Care 09/05/20 16:54 Ordered Nothing per Oral Now Diet [DIET] Diet 09/05/20 Dinner Ordered Abdomen Pelvis wo Cont [CT] Routine Exams 09/05/20 16:59 Ordered AMMONIA VENOUS [CHEM] Urgent Lab 09/05/20 16:58 Ordered C-REACTIVE PROTEIN [CHEM] Urgent Lab 09/05/20 16:54 Ordered CULTURE BLOOD [BC] Urgent Lab 09/05/20 16:57 Ordered CULTURE BLOOD [BC] Urgent Lab 09/05/20 16:57 Ordered INR,PT,PROTHROMBIN TIME [COAG] Urgent Lab 09/05/20 16:58 Ordered LIPASE [CHEM] Urgent Lab 09/05/20 17:00 Ordered MAGNESIUM [CHEM] Urgent Lab 09/05/20 16:58 Ordered PROCALCITONIN [CHEM] Urgent Lab 09/05/20 16:58 Ordered UA W/MICROSCOPIC [URIN] Routine Lab 09/05/20 17:00 Ordered Acetaminophen [TylenoL] Med 09/05/20 16:54 Ordered 650 mg PO Q4H PRN Cefepime [Maxipime] 1 gm Med 09/05/20 17:00 Ordered Sodium Chloride 0.9% [Normal Saline] 50 ml IV Q8H Insulin Lispro [HumaLOG] Med 09/05/20 17:00 Ordered See Protocol SUBCUT QIDACANDBED LORazepam [Ativan] Med 09/05/20 16:54 Ordered 0.5 mg IVPUSH Q4H PRN Lactobacillus Rhamnosus GG [Culturelle] Med 09/05/20 21:00 Ordered 1 cap PO BID Melatonin Med 09/05/20 21:00 Ordered 9 mg PO BEDTIME Morphine Med 09/05/20 16:54 Ordered 2 mg IVPUSH Q2H PRN Ondansetron [Zofran ODT] Med 09/05/20 16:54 Ordered 4 mg PO Q6H PRN Ondansetron [Zofran] Med 09/05/20 16:54 Ordered 4 mg IV Q6H PRN Pantoprazole [ProTONIX IV] Med 09/05/20 17:00 Ordered 40 mg IV Q12H Sodium Chloride 0.9% [Normal Saline] 1,000 ml Med 09/05/20 17:00 Ordered IV ASDIRECTED Antiembolic Hose [OM.PC] Routine Oth 09/05/20 16:56 Ordered Blood Culture x2 Reflex Set [OM.PC] Urgent Oth 09/05/20 16:57 Ordered Resuscitation Status Routine Resus Stat 09/05/20 16:54 Ordered Medication Orders Acetaminophen (Tylenol) 650 mg PO Q4H PRN PRN Reason: Pain (Mild 1-3)/fever Sodium Chloride (Normal Saline) 1,000 mls @ 75 mls/hr IV ASDIRECTED CRYSTAL Cefepime HCl 1 gm/ Sodium (Chloride) 50 mls @ 100 mls/hr IV Q8H CRYSTAL Insulin Human Lispro (Humalog) 0 unit SUBCUT QIDACANDBED CRYSTAL; Protocol Lactobacillus Rhamnosus (Culturelle) 1 cap PO BID CRYSTAL Lorazepam (Ativan) 0.5 mg IVPUSH Q4H PRN PRN Reason: Nausea/Vomiting Melatonin (Melatonin) 9 mg PO BEDTIME CRYSTAL Morphine Sulfate (Morphine) 2 mg IVPUSH Q2H PRN PRN Reason: Pain (severe 7-10) Ondansetron HCl (Zofran Odt) 4 mg PO Q6H PRN PRN Reason: Nausea able to take PO Ondansetron HCl (Zofran) 4 mg IV Q6H PRN PRN Reason: Nausea/Vomiting Pantoprazole Sodium (Protonix Iv) 40 mg IV Q12H [facility] Assessment/Plan Comment:: ASSESSMENT AND PLAN - Alcoholic hepatitis with ascites-he does have increasing abdominal pain and distention over the past few days after doing well for a short while after his most recent hospital stay. There is concern for underlying infection with SBP versus infected pseudocyst the most likely causes. White count remains elevated. Procalcitonin is elevated moderately. Not currently febrile. Bilirubin is stable but not dramatically improved despite outpatient steroids. Travis DF is currently 29. MELD-Na is 29. He has a high risk (20%) of mortality based on this calculation. CT scan showed some ascites as well as probable pancreatic pseudocysts which were known. -Gentle fluids for hydration -Albumin every 6 hours -Symptomatic management of pain -Cefepime for empiric antibiotic coverage -Diagnostic and therapeutic paracentesis in the morning with Dr. Goldman -Evaluation of paracentesis fluid in the morning -Follow-up blood cultures -Hold prednisolone at this time -Gastroenterology consultation in the morning Postprandial and generalized abdominal pain-seem to be 2 different components. Postprandial pain may be related to significant ascites versus infection versus his pseudocysts. Generalized pain I suppose could be related to the same but seem to be [address] scan did show the pseudocyst but no other acute issues. -Paracentesis in the morning -Consider EGD if postprandial pain is not improving -Consult with gastroenterology regarding the pseudocysts Stage III chronic kidney disease-creatinine slightly higher than baseline. Probably related to intravascular volume depletion. -Gentle fluids as above along with albumin -Hold diuretics Hepatic cirrhosis-secondary to longstanding alcohol use. He does have some weakness and confusion but his ammonia level was normal. Maintenance issues - - DVT prophylaxis -mechanical - GI prophylaxis -PPI - Nutrition -nothing by mouth - Masterson catheter -not indicated CODE STATUS -full code Admission justification -this patient will be admitted for inpatient services and is medically appropriate meeting medical necessity for inpatient admission as outlined in my documentation. I reasonably expect the patient will require inpatient services that span a period time over 2 midnights. I reasonably expect this patient to be discharged or transferred within 96 hours [facility]. Disposition - I would anticipate discharge home unless he requires transfer to a higher level of care Primary care physician -Randolph Potter M.D. - Mortality Measure Prognosis:: Poor
[2020-09-05] MEDS: Insulin Lispro 100 Unit/ML 3 ML KwikPen SUBCUT SCH ×2 (17:39→20:29)
[2020-09-05] MEDS: Sodium Chloride 0.9% 1,000 ML IV SCH (17:48)
[2020-09-05] MEDS: Cefepime 1 GM in Sodium Chloride 0.9% 50 ML IV SCH (17:51)
[2020-09-05] MEDS: Pantoprazole 40 MG Vial IV SCH (17:56)
[2020-09-05] MEDS: Morphine 2 MG/ML SYRINGE IVPUSH PRN ×2 (18:06→21:25)
--- NOTE | 2020-09-05 18:42 | CRLCT ---
INDICATION: Generalized abdominal pain, leukocytosis, ascites TECHNIQUE: CT Abdomen and pelvis without i.v. contrast. Coronal and sagittal reformats were obtained. COMPARISON: 08/17/2020 FINDINGS: Lower chest: Small right pleural effusion is present with minimal bibasilar atelectasis, unchanged from prior exam. Liver: Patchy areas of decreased density are present within the right lobe of the liver, likely due to inhomogeneous fatty infiltration. Spleen: Unremarkable. Pancreas: There is a low-density lesion within the pancreatic head measuring 3.6 x 2.1 cm and a 2nd lesion in the pancreatic body measuring 3.5 x 2.8 cm, extending into the lesser sac. Gallbladder: Unremarkable. Kidney: Two nonobstructing punctate stones are present in the lower pole of the right kidney. There is a punctate cortical dystrophic calcification in the left renal midzone. Adrenal: Unremarkable. Bowel: Mild diverticulosis and gaseous distention of the sigmoid colon is seen. The appendix cannot be identified. Vascular: Unremarkable. Lymph: Mild stable left inguinal adenopathy is seen within nodes measuring up to 1 cm. Calcified gastrohepatic lymph nodes present without interval change. Peritoneum: Unremarkable. No pneumoperitoneum is seen. Moderate abdominal ascites is present without interval change. Pelvis: The patient is status post prostatectomy. Soft tissue: Unremarkable. Bone: Compression deformity in the central superior endplate of L4 is noted without interval change. IMPRESSION: 1. There is a low-density lesion within the pancreatic head measuring 3.6 x 2.1 cm and a 2nd lesion in the pancreatic body measuring 3.5 x 2.8 cm, extending into the lesser sac. The lesion in the pancreatic head has decreased in size since prior examination. Clinical correlation is recommended to exclude pancreatic pseudocyst. Dictated by Cole Almazan MD @ 09/05/2020 6:40:57 PM Please note that all CT scans at this facility use dose modulation, iterative reconstruction, and/or weight-based dosing when appropriate to reduce radiation dose to as low as reasonably achievable. Dictated by: Cole Almazan MD @ 09/05/2020 18:41:24 (Electronically Signed)
[2020-09-05] MEDS: Melatonin 3 MG Tab PO SCH (20:31)
[2020-09-05] MEDS: Lactobacillus Rhamnosus GG (Probiotic) Cap PO SCH (20:31)
[2020-09-06] MEDS: Cefepime 1 GM in Sodium Chloride 0.9% 50 ML IV SCH ×3 (00:06→17:09)
[2020-09-06] MEDS: Morphine 2 MG/ML SYRINGE IVPUSH PRN ×2 (04:05→23:18)
[2020-09-06] MEDS: Pantoprazole 40 MG Vial IV SCH (05:29)
[2020-09-06] MEDS: Sodium Chloride 0.9% 1,000 ML IV SCH (07:15)
--- NOTE | 2020-09-06 09:15 | PCM.PN ---
- General Info Date of Service: 09/06/20 Subjective Update: No acute events overnight. He did have a paracentesis this morning with removal of about 3 L of fluid. His abdominal pain is much better after the fluid was removed. No nausea at this time. He did not have any fevers overnight. Blood pressures have improved with the fluids and albumin. His bilirubin is now down to 9. His white blood cell count is down to around 18,000. No complaints of shortness of breath. No evidence for confusion. Functional Status: Reports: Pain Controlled - Review of Systems General: Denies: Fever Gastrointestinal: Reports: Abdominal Pain - Patient Data Vitals - Most Recent: Last Vital Signs Temp 36.2 C 09/06/20 07:54 Pulse 72 09/06/20 07:54 Resp 11 L 09/06/20 07:54 BP 98/55 L 09/06/20 07:54 Pulse Ox 97 09/06/20 07:54 Weight - Most Recent: 81.102 kg I&O - Last 24 Hours: Intake & Output 09/05/20 09/06/20 09/06/20 22:59 06:59 14:59 Intake Total 150 1054 Output Total 250 700 Balance -100 -700 1054 Lab Results Last 24 Hours: Laboratory Results - last 24 hr 09/05/20 09/05/20 09/05/20 Range/Units 17:10 17:10 17:10 WBC (4.5-11.0) K/uL RBC (4.30-5.90) M/uL Hgb (12.0-15.0) g/dL Hct (40.0-54.0) % MCV (80-98) fL MCH (27-31) pg MCHC (32-36) % Plt Count (150-400) K/uL PT 15.4 H (9.5-12.0) sec INR 1.42 H (0.80-1.20) Sodium (140-148) mmol/L Potassium (3.6-5.2) mmol/L Chloride (100-108) mmol/L Carbon Dioxide (21-32) mmol/L Anion Gap (5.0-14.0) mmol/L BUN (7-18) mg/dL Creatinine (0.8-1.3) mg/dL Est Cr Clr Drug Dosing mL/min Estimated GFR (MDRD) (>60) Glucose (74-106) mg/dL Calcium (8.5-10.1) mg/dL Magnesium 2.4 (1.8-2.4) mg/dL Total Bilirubin (0.2-1.0) mg/dL AST (15-37) U/L ALT (12-78) U/L Alkaline Phosphatase (46-116) U/L Ammonia (11-32) mmol/L C-Reactive Protein 5.21 H (0.0-0.3) mg/dL Total Protein (6.4-8.2) g/dL Albumin (3.4-5.0) g/dL Globulin (2.3-3.5) g/dL Albumin/Globulin Ratio (1.2-2.2) Lipase (73-393) U/L Procalcitonin ng/mL Urine Color (YELLOW) Urine Appearance (CLEAR) Urine pH (5.0-8.0) Ur Specific Chilo (1.008-1.030) Urine Protein (NEGATIVE) mg/dL Urine Glucose (UA) (NEGATIVE) mg/dL Urine Ketones (NEGATIVE) mg/dL Urine Occult Blood (NEGATIVE) Urine Nitrite (NEGATIVE) Urine Bilirubin (NEGATIVE) Urine Urobilinogen (0.2-1.0) EU/dL Ur Leukocyte Esterase (NEGATIVE) Urine RBC (0-5) Urine WBC (0-5) Ur Epithelial Cells Amorphous Sediment Urine Bacteria Urine Mucus 09/05/20 09/05/20 09/05/20 Range/Units 17:10 17:10 17:10 WBC (4.5-11.0) K/uL RBC (4.30-5.90) M/uL Hgb (12.0-15.0) g/dL Hct (40.0-54.0) % MCV (80-98) fL MCH (27-31) pg MCHC (32-36) % Plt Count (150-400) K/uL PT (9.5-12.0) sec INR (0.80-1.20) Sodium (140-148) mmol/L Potassium (3.6-5.2) mmol/L Chloride (100-108) mmol/L Carbon Dioxide (21-32) mmol/L Anion Gap (5.0-14.0) mmol/L BUN (7-18) mg/dL Creatinine (0.8-1.3) mg/dL Est Cr Clr Drug Dosing mL/min Estimated GFR (MDRD) (>60) Glucose (74-106) mg/dL Calcium (8.5-10.1) mg/dL Magnesium (1.8-2.4) mg/dL Total Bilirubin (0.2-1.0) mg/dL AST (15-37) U/L ALT (12-78) U/L Alkaline Phosphatase (46-116) U/L Ammonia 10 L (11-32) mmol/L C-Reactive Protein (0.0-0.3) mg/dL Total Protein (6.4-8.2) g/dL Albumin (3.4-5.0) g/dL Globulin (2.3-3.5) g/dL Albumin/Globulin Ratio (1.2-2.2) Lipase 86 (73-393) U/L Procalcitonin 1.66 ng/mL Urine Color (YELLOW) Urine Appearance (CLEAR) Urine pH (5.0-8.0) Ur Specific Chilo (1.008-1.030) Urine Protein (NEGATIVE) mg/dL Urine Glucose (UA) (NEGATIVE) mg/dL Urine Ketones (NEGATIVE) mg/dL Urine Occult Blood (NEGATIVE) Urine Nitrite (NEGATIVE) Urine Bilirubin (NEGATIVE) Urine Urobilinogen (0.2-1.0) EU/dL Ur Leukocyte Esterase (NEGATIVE) Urine RBC (0-5) Urine WBC (0-5) Ur Epithelial Cells Amorphous Sediment Urine Bacteria Urine Mucus 09/05/20 09/06/20 09/06/20 Range/Units 18:40 04:45 04:45 WBC 18.7 H (4.5-11.0) K/uL RBC 3.20 L (4.30-5.90) M/uL Hgb 11.1 L D (12.0-15.0) g/dL Hct 34.2 L (40.0-54.0) % MCV 107 H (80-98) fL MCH 35 H (27-31) pg MCHC 33 (32-36) % Plt Count 236 (150-400) K/uL PT (9.5-12.0) sec INR (0.80-1.20) Sodium 139 L (140-148) mmol/L Potassium 4.4 (3.6-5.2) mmol/L Chloride 106 (100-108) mmol/L Carbon Dioxide 22 (21-32) mmol/L Anion Gap 15.4 H (5.0-14.0) mmol/L BUN 54 H D (7-18) mg/dL Creatinine 1.6 H D (0.8-1.3) mg/dL Est Cr Clr Drug Dosing 42.29 mL/min Estimated GFR (MDRD) 44 L (>60) Glucose 117 H (74-106) mg/dL Calcium 8.1 L (8.5-10.1) mg/dL Magnesium (1.8-2.4) mg/dL Total Bilirubin 9.7 H (0.2-1.0) mg/dL AST 59 H (15-37) U/L ALT 54 (12-78) U/L Alkaline Phosphatase 141 H (46-116) U/L Ammonia (11-32) mmol/L C-Reactive Protein (0.0-0.3) mg/dL Total Protein 4.8 L (6.4-8.2) g/dL Albumin 2.5 L (3.4-5.0) g/dL Globulin 2.3 (2.3-3.5) g/dL Albumin/Globulin Ratio 1.1 L (1.2-2.2) Lipase (73-393) U/L Procalcitonin ng/mL Urine Color Evans A (YELLOW) Urine Appearance Clear (CLEAR) Urine pH 5.5 (5.0-8.0) Ur Specific Chilo 1.025 (1.008-1.030) Urine Protein Trace H (NEGATIVE) mg/dL Urine Glucose (UA) Negative (NEGATIVE) mg/dL Urine Ketones Negative (NEGATIVE) mg/dL Urine Occult Blood Negative (NEGATIVE) Urine Nitrite Negative (NEGATIVE) Urine Bilirubin Moderate H (NEGATIVE) Urine Urobilinogen 0.2 (0.2-1.0) EU/dL Ur Leukocyte Esterase Negative (NEGATIVE) Urine RBC Not seen (0-5) Urine WBC Not seen (0-5) Ur Epithelial Cells Rare Amorphous Sediment Many Urine Bacteria Not seen Urine Mucus Not seen Med Orders - Current: Current Medications Acetaminophen (Tylenol) 650 mg PO Q4H PRN PRN Reason: Pain (Mild 1-3)/fever Aspirin (Ecotrin) 325 mg PO DAILY [facility] Diltiazem HCl (Cardizem Cd) 180 mg PO DAILY COUNTS INCLUDE 234 BEDS AT THE [facility] Cefepime HCl 1 gm/ Sodium (Chloride) 50 mls @ 100 mls/hr IV Q8H COUNTS INCLUDE 234 BEDS AT THE [facility] Last Admin: 09/06/20 00:06 Dose: 100 mls/hr Documented by: Albumin Human (Albumin 25%) 25 gm in 100 mls @ 25 mls/hr IV Q6H COUNTS INCLUDE 234 BEDS AT THE [facility] Stop: 09/06/20 15:59 Last Admin: 09/06/20 05:50 Dose: 25 mls/hr Documented by: Influenza Virus Vaccine (Fluzone High-Dose Quad ) 240 mcg IM .ONCE ONE Stop: 09/07/20 09:01 Insulin Human Lispro (Humalog) 0 unit SUBCUT QIDACANDBED COUNTS INCLUDE 234 BEDS AT THE [facility]; Protocol Last Admin: 09/05/20 20:29 Dose: 2 units Documented by: Lactobacillus Rhamnosus (Culturelle) 1 cap PO BID COUNTS INCLUDE 234 BEDS AT THE [facility] Last Admin: 09/05/20 20:31 Dose: 1 cap Documented by: Lorazepam (Ativan) 0.5 mg IVPUSH Q4H PRN PRN Reason: Nausea/Vomiting Melatonin (Melatonin) 9 mg PO BEDTIME COUNTS INCLUDE 234 BEDS AT THE [facility] Last Admin: 09/05/20 20:31 Dose: 9 mg Documented by: Metoprolol Tartrate (Lopressor) 75 mg PO BID COUNTS INCLUDE 234 BEDS AT THE [facility] Morphine Sulfate (Morphine) 2 mg IVPUSH Q2H PRN PRN Reason: Pain (severe 7-10) Last Admin: 09/06/20 04:05 Dose: 2 mg Documented by: Morphine Sulfate (Morphine) 15 mg PO Q4H PRN PRN Reason: Pain (moderate 4-6) Non-Formulary Medication (Prednisolone [Prednisolone]) 15 mg PO DAILY COUNTS INCLUDE 234 BEDS AT THE [facility] Ondansetron HCl (Zofran Odt) 4 mg PO Q6H PRN PRN Reason: Nausea able to take PO Ondansetron HCl (Zofran) 4 mg IV Q6H PRN PRN Reason: Nausea/Vomiting Pantoprazole Sodium (Protonix) 40 mg PO BIDAC COUNTS INCLUDE 234 BEDS AT THE [facility] Discontinued Medications Sodium Chloride (Normal Saline) 1,000 mls @ 75 mls/hr IV ASDIRECTED COUNTS INCLUDE 234 BEDS AT THE [facility] Last Admin: 09/06/20 07:15 Dose: 75 mls/hr Documented by: Pantoprazole Sodium (Protonix Iv) 40 mg IV Q12H COUNTS INCLUDE 234 BEDS AT THE [facility] Last Admin: 09/06/20 05:29 Dose: 40 mg Documented by: - Exam Quality Assessment: No: Supplemental Oxygen General: Alert, Oriented, Cooperative, No Acute Distress HEENT: Scleral Icterus Lungs: Clear to Auscultation, Normal Respiratory Effort, Decreased Breath Sounds (mild right lung base ) Cardiovascular: Irregular Rhythm, Tachycardia GI/Abdominal Exam: Normal Bowel Sounds, Soft, Non-Tender, No Distention, Hepatomegaly Extremities: Pedal Edema (trace bilateral lower leg edema ). No: Increased Warmth Skin: Warm, Dry Psy/Mental Status: Alert, Normal Affect Sepsis Event Note - Evaluation Sepsis Screening Result: No Definite Risk - Focused Exam Vital Signs: Vital Signs Temp Pulse Pulse Resp BP BP Pulse Ox 09/06/20 07:54 36.2 C 72 11 L 98/55 L 97 09/06/20 06:00 70 13 115/53 L 96 09/06/20 04:00 35.9 C L 69 11 L 104/62 94 L 09/06/20 02:00 66 12 106/56 L 96 09/06/20 00:00 57 L 59 L 12 98/61 98/61 96 09/05/20 22:00 60 11 L 95/55 L 96 09/05/20 21:47 96 - Problem List & Annotations (1) Abdominal pain, acute, generalized SNOMED Code(s): 371600076, 023315799 Code(s): R10.84 - GENERALIZED ABDOMINAL PAIN Status: Acute Current Visit: Yes (2) Stage III chronic kidney disease SNOMED Code(s): 440478632 Code(s): N18.30 - CHRONIC KIDNEY DISEASE, STAGE 3 UNSPECIFIED Status: Acute Current Visit: Yes (3) Alcoholic hepatitis with ascites SNOMED Code(s): 9910626332488518 Code(s): K70.11 - ALCOHOLIC HEPATITIS WITH ASCITES Status: Acute Current Visit: No (4) Hepatic cirrhosis SNOMED Code(s): 87932159 Code(s): K74.60 - UNSPECIFIED CIRRHOSIS OF LIVER Status: Acute Current Visit: No Qualifiers: Hepatic cirrhosis type: alcoholic cirrhosis Ascites presence: with ascites Qualified Code(s): K70.31 - Alcoholic cirrhosis of liver with ascites - Problem List Review Problem List Initiated/Reviewed/Updated: Yes - My Orders Last 24 Hours: My Active Orders 09/05/20 16:54 Patient Status [ADT] Routine Blood Glucose Check, Bedside [RC] QIDACANDBED Communication Order [RC] PRN Communication Order [RC] PRN Diabetes Education [RC] Click to Edit Height and Weight [RC] DAILY Intake and Output [RC] Q12H Notify Provider Vital Signs [RC] ASDIRECTED Oxygen Therapy [RC] PRN Up With Assistance [RC] ASDIRECTED VTE/DVT Education [RC] Per Unit Routine Vital Signs [RC] Q2HR Acetaminophen [TylenoL] 650 mg PO Q4H PRN LORazepam [Ativan] 0.5 mg IVPUSH Q4H PRN Morphine 2 mg IVPUSH Q2H PRN Ondansetron [Zofran ODT] 4 mg PO Q6H PRN Ondansetron [Zofran] 4 mg IV Q6H PRN Resuscitation Status Routine 09/05/20 16:55 Cardiac Monitoring [RC] CONTINUOUS Pulse Oximetry [RC] CONTINUOUS 09/05/20 16:56 Antiembolic Hose [OM.PC] Routine 09/05/20 16:57 Notify Provider [RC] PRN Blood Culture x2 Reflex Set [OM.PC] Urgent 09/05/20 17:00 Cefepime [Maxipime] 1 gm Sodium Chloride 0.9% [Normal Saline] 50 ml IV Q8H Insulin Lispro [HumaLOG] See Protocol SUBCUT QIDACANDBED 09/05/20 17:09 Influenza Vaccine Charge [RC] .DISCHARGE 09/05/20 17:10 CULTURE BLOOD [BC] Urgent 09/05/20 17:20 CULTURE BLOOD [BC] Urgent 09/05/20 18:00 Albumin Human [Albumin 25%] 25 gm in 100 ml IV Q6H 09/05/20 18:22 Notify Provider Consults [RC] ASDIRECTED Consult to Physician [CONS] Routine 09/05/20 21:00 Lactobacillus Rhamnosus GG [Culturelle] 1 cap PO BID Melatonin 9 mg PO BEDTIME 09/06/20 06:00 US Guidance Paracentesis NC [US] Routine 09/06/20 Breakfast Low Sodium [Sodium Restricted Diet] [DIET] 09/06/20 09:11 Morphine 15 mg PO Q4H PRN Convert IV to Saline Lock [OM.PC] Routine 09/06/20 09:15 Aspirin [Ecotrin] 325 mg PO DAILY Diltiazem [Cardizem CD] 180 mg PO DAILY Metoprolol Tartrate [Lopressor] 75 mg PO BID prednisoLONE [Prednisolone] 15 mg PO DAILY 09/06/20 16:30 Pantoprazole [ProTONIX] 40 mg PO BIDAC 09/07/20 05:00 CBC W/O DIFF,HEMOGRAM [HEME] Timed (1) COMPREHENSIVE METABOLIC PN,CMP [CHEM] Timed 09/07/20 09:00 FLU Vacc [id number](65YR UP)/PF [Fluzone High-Dose Quad ] 240 mcg IM .ONCE ONE - Plan Plan:: ASSESSMENT AND PLAN - Alcoholic hepatitis with ascites-bilirubin has improved since yesterday and white blood cell count is now trending down. Feeling better after paracentesis. Lower extremity edema is better today. -Saline lock IV -Albumin every 6 hours for 1 more dose -Symptomatic management of pain -Start to taper prednisolone -Gastroenterology consultation today Postprandial and generalized abdominal pain-seem to be 2 different components. Generalized pain is much better today. He has not yet had anything to eat. His white count is better and his pain is better with antibiotics so this could be peritonitis versus possibly an infected pseudocyst or pseudocyst. -Continue cefepime -Follow-up cultures -Pain control -Consider EGD if postprandial pain is not improving -Consult with gastroenterology regarding the pseudocysts Stage III chronic kidney disease-creatinine slightly better today with hydration. -Gentle fluids as above along with albumin -Hold diuretics, plan to restart tomorrow Hepatic cirrhosis-secondary to longstanding alcohol use. Still little weak but mental status seems much better today. Maintenance issues - - DVT prophylaxis -mechanical - GI prophylaxis -PPI - Nutrition -low-sodium Disposition - I would anticipate discharge home unless he requires transfer to a higher level of care Primary care physician -Randolph Potter M.D.
[2020-09-06] MEDS: Insulin Lispro 100 Unit/ML 3 ML KwikPen SUBCUT SCH ×4 (09:28→21:16)
[2020-09-06] MEDS: prednisoLONE 15 MG/5 ML Soln UD Cup PO SCH (09:40)
[2020-09-06] MEDS: Aspirin 325 MG Tab.EC PO SCH (09:40)
[2020-09-06] MEDS: Metoprolol Tartrate 25 MG Tab PO SCH ×2 (09:40→21:17)
[2020-09-06] MEDS: Lactobacillus Rhamnosus GG (Probiotic) Cap PO SCH ×2 (09:41→21:17)
[2020-09-06] MEDS: Diltiazem 180 MG Cap.CD PO SCH (09:41)
[2020-09-06] MEDS: Pantoprazole 40 MG Tab.CR PO SCH (17:15)
[2020-09-06] MEDS: Melatonin 3 MG Tab PO SCH (21:17)
[2020-09-07] MEDS: Cefepime 1 GM in Sodium Chloride 0.9% 50 ML IV SCH ×3 (00:53→18:10)
[2020-09-07] MEDS: Morphine 2 MG/ML SYRINGE IVPUSH PRN ×3 (01:35→23:28)
[2020-09-07] MEDS: Metoprolol Tartrate 25 MG Tab PO SCH ×2 (08:05→21:12)
[2020-09-07] MEDS: Diltiazem 180 MG Cap.CD PO SCH (08:05)
[2020-09-07] MEDS: Lactobacillus Rhamnosus GG (Probiotic) Cap PO SCH ×2 (08:05→21:12)
[2020-09-07] MEDS: prednisoLONE 15 MG/5 ML Soln UD Cup PO SCH (08:06)
[2020-09-07] MEDS: Pantoprazole 40 MG Tab.CR PO SCH ×2 (08:06→18:07)
[2020-09-07] MEDS: Aspirin 325 MG Tab.EC PO SCH (08:06)
[2020-09-07] MEDS: Insulin Lispro 100 Unit/ML 3 ML KwikPen SUBCUT SCH ×4 (08:08→21:08)
[2020-09-07] MEDS ORDERED: FLU Vacc QV2020-21(65YR UP)/PF 240 MCG/0.7 ML Syringe IM ONE (09:00)
[2020-09-07] MEDS ORDERED: Diltiazem 120 MG Cap.CD PO ONE (09:42)
--- NOTE | 2020-09-07 09:45 | PCM.PN ---
- General Info Date of Service: 09/07/20 Subjective Update: No acute events overnight. Patient remains in atrial fibrillation with slightly suboptimal rate control. No palpitations. No shortness of breath. Abdominal pain is only mild today. No post prandial pain like he had been experiencing. Cultures are all negative so far. White blood cell count is stable since admission. Bilirubin is 2 points better than admission. No nausea. Functional Status: Reports: Pain Controlled, Tolerating Diet - Review of Systems General: Denies: Fever Cardiovascular: Reports: Edema (much improved) Gastrointestinal: Reports: Abdominal Pain (mild) - Patient Data Vitals - Most Recent: Last Vital Signs Temp 36.1 C 09/07/20 08:00 Pulse 120 H 09/07/20 08:05 Resp 17 09/07/20 08:00 BP 100/67 09/07/20 08:05 Pulse Ox 97 09/07/20 08:00 Weight - Most Recent: 81.102 kg I&O - Last 24 Hours: Intake & Output 09/06/20 09/07/20 09/07/20 22:59 06:59 14:59 Intake Total 630 290 Output Total 865 600 Balance -235 -310 Lab Results Last 24 Hours: Laboratory Results - last 24 hr 09/07/20 09/07/20 Range/Units 05:12 05:12 WBC 27.3 H (4.5-11.0) K/uL RBC 3.83 L (4.30-5.90) M/uL Hgb 13.4 D (12.0-15.0) g/dL Hct 40.1 (40.0-54.0) % MCV 105 H (80-98) fL MCH 35 H (27-31) pg MCHC 33 (32-36) % Plt Count 275 (150-400) K/uL Sodium 141 (140-148) mmol/L Potassium 4.1 (3.6-5.2) mmol/L Chloride 107 (100-108) mmol/L Carbon Dioxide 21 (21-32) mmol/L Anion Gap 13.5 (5.0-14.0) mmol/L BUN 39 H (7-18) mg/dL Creatinine 1.4 H (0.8-1.3) mg/dL Est Cr Clr Drug Dosing 48.39 mL/min Estimated GFR (MDRD) 51 L (>60) Glucose 141 H (74-106) mg/dL Calcium 8.5 (8.5-10.1) mg/dL Total Bilirubin 11.7 H (0.2-1.0) mg/dL AST 76 H (15-37) U/L ALT 67 (12-78) U/L Alkaline Phosphatase 161 H (46-116) U/L Total Protein 5.3 L (6.4-8.2) g/dL Albumin 2.8 L (3.4-5.0) g/dL Globulin 2.5 (2.3-3.5) g/dL Albumin/Globulin Ratio 1.1 L (1.2-2.2) [place] Results Last 24 Hours: Microbiology 09/06/20 07:19 Gram Stain - Final Ascities Fluid Body Fluid Culture - Preliminary NO GROWTH AFTER 1 DAY 09/05/20 17:10 Aerobic Blood Culture - Preliminary Blood - Arm, Left NO GROWTH AFTER 1 DAY Anaerobic Blood Culture - Preliminary NO GROWTH AFTER 1 DAY 09/05/20 17:20 Aerobic Blood Culture - Preliminary Blood - Arm, Left NO GROWTH AFTER 1 DAY Anaerobic Blood Culture - Preliminary NO GROWTH AFTER 1 DAY Med Orders - Current: Current Medications Acetaminophen (Tylenol) 650 mg PO Q4H PRN PRN Reason: Pain (Mild 1-3)/fever Aspirin (Ecotrin) 325 mg PO DAILY [facility] Last Admin: 09/07/20 08:06 Dose: 325 mg Documented by: Diltiazem HCl (Cardizem Cd) 180 mg PO DAILY [facility] Last Admin: 09/07/20 08:05 Dose: 180 mg Documented by: Diltiazem HCl (Cardizem Cd) 120 mg PO ONETIME ONE Stop: 09/07/20 09:43 Cefepime HCl 1 gm/ Sodium (Chloride) 50 mls @ 100 mls/hr IV Q8H [facility] Last Admin: 09/07/20 08:06 Dose: 100 mls/hr Documented by: Insulin Human Lispro (Humalog) 0 unit SUBCUT QIDACANDBED [facility]; Protocol Last Admin: 09/07/20 08:08 Dose: Not Given Documented by: Lactobacillus Rhamnosus (Culturelle) 1 cap PO BID [facility] Last Admin: 09/07/20 08:05 Dose: 1 cap Documented by: Lorazepam (Ativan) 0.5 mg IVPUSH Q4H PRN PRN Reason: Nausea/Vomiting Melatonin (Melatonin) 9 mg PO BEDTIME [facility] Last Admin: 09/06/20 21:17 Dose: 9 mg Documented by: Metoprolol Tartrate (Lopressor) 75 mg PO BID [facility] Last Admin: 09/07/20 08:05 Dose: 75 mg Documented by: Morphine Sulfate (Morphine) 2 mg IVPUSH Q2H PRN PRN Reason: Pain (severe 7-10) Last Admin: 09/07/20 01:35 Dose: 2 mg Documented by: Morphine Sulfate (Morphine) 15 mg PO Q4H PRN PRN Reason: Pain (moderate 4-6) Ondansetron HCl (Zofran Odt) 4 mg PO Q6H PRN PRN Reason: Nausea able to take PO Ondansetron HCl (Zofran) 4 mg IV Q6H PRN PRN Reason: Nausea/Vomiting Pantoprazole Sodium (Protonix) 40 mg PO BIDAC [facility] Last Admin: 09/07/20 08:06 Dose: 40 mg Documented by: Prednisolone (Orapred 15 Mg/5ml Soln) 15 mg PO DAILY [facility] Last Admin: 09/07/20 08:06 Dose: 15 mg Documented by: Discontinued Medications Sodium Chloride (Normal Saline) 1,000 mls @ 75 mls/hr IV ASDIRECTED [facility] Last Admin: 09/06/20 07:15 Dose: 75 mls/hr Documented by: Albumin Human (Albumin 25%) 25 gm in 100 mls @ 25 mls/hr IV Q6H [facility] Stop: 09/06/20 15:59 Last Admin: 09/06/20 11:49 Dose: 25 mls/hr Documented by: Influenza Virus Vaccine (Fluzone High-Dose Quad ) 240 mcg IM .ONCE ONE Stop: 09/07/20 09:01 Pantoprazole Sodium (Protonix Iv) 40 mg IV Q12H [facility] Last Admin: 09/06/20 05:29 Dose: 40 mg Documented by: - Exam Quality Assessment: No: Supplemental Oxygen General: Alert, Oriented, Cooperative, No Acute Distress Lungs: Clear to Auscultation, Normal Respiratory Effort Cardiovascular: Irregular Rhythm, Tachycardia GI/Abdominal Exam: Normal Bowel Sounds, Soft, Distended, Tender (mild epigastric ) Extremities: Pedal Edema (trace right ankle, mild/mod left ankle ) Skin: Warm, Dry Psy/Mental Status: Alert, Normal Affect Sepsis Event Note - Evaluation Sepsis Screening Result: Sepsis Risk - Focused Exam Vital Signs: Vital Signs Temp Pulse Pulse Resp BP BP Pulse Ox 09/07/20 08:05 120 H 100/67 09/07/20 08:00 36.1 C 17 100/67 97 09/07/20 06:00 116 H 15 111/72 96 09/07/20 04:00 36.7 C 118 H 13 107/67 96 09/07/20 02:00 117 H 12 98/66 95 09/07/20 00:00 36.9 C 115 H 13 87/67 L 95 09/06/20 22:00 107 H 14 99/69 95 - Problem List & Annotations (1) Abdominal pain, acute, generalized SNOMED Code(s): 940615728, 939488004 Code(s): R10.84 - GENERALIZED ABDOMINAL PAIN Status: Acute Current Visit: Yes (2) Stage III chronic kidney disease SNOMED Code(s): 615624271 Code(s): N18.30 - CHRONIC KIDNEY DISEASE, STAGE 3 UNSPECIFIED Status: Acute Current Visit: Yes Qualifiers: Chronic kidney disease stage 3 subtype: stage 3a (GFR 45-59) Qualified Code(s): N18.31 - Chronic kidney disease, stage 3a (3) Alcoholic hepatitis with ascites SNOMED Code(s): 6074987415425649 Code(s): K70.11 - ALCOHOLIC HEPATITIS WITH ASCITES Status: Acute Current Visit: No (4) Hepatic cirrhosis SNOMED Code(s): 70968537 Code(s): K74.60 - UNSPECIFIED CIRRHOSIS OF LIVER Status: Acute Current Visit: No Qualifiers: Hepatic cirrhosis type: alcoholic cirrhosis Ascites presence: with ascites Qualified Code(s): K70.31 - Alcoholic cirrhosis of liver with ascites - Problem List Review Problem List Initiated/Reviewed/Updated: Yes - My Orders Last 24 Hours: My Active Orders 09/06/20 09:11 Morphine 15 mg PO Q4H PRN Convert IV to Saline Lock [OM.PC] Routine 09/06/20 09:15 Aspirin [Ecotrin] 325 mg PO DAILY Diltiazem [Cardizem CD] 180 mg PO DAILY Metoprolol Tartrate [Lopressor] 75 mg PO BID 09/06/20 09:30 prednisoLONE [OraPred 15 MG/5ML Soln] 15 mg PO DAILY 09/06/20 16:30 Pantoprazole [ProTONIX] 40 mg PO BIDAC 09/07/20 09:42 Diltiazem [Cardizem CD] 120 mg PO ONETIME ONE 09/07/20 09:43 HEMATOPATH CONSULTATION, SMEAR Routine 09/08/20 05:00 CBC W/O DIFF,HEMOGRAM [HEME] Timed (1) COMPREHENSIVE METABOLIC PN,CMP [CHEM] Timed MAGNESIUM [CHEM] Timed - Plan Plan:: ASSESSMENT AND PLAN - Alcoholic hepatitis with ascites-bilirubin has improved since since admission. Symptomatically feeling better. Seems to be tolerating the taper of his steroids so far. -Saline lock IV -Symptomatic management of pain and/or nausea -Continue to taper prednisolone -Absolute abstinence from alcohol Postprandial and generalized abdominal pain-seem to be 2 different components. Generalized pain is much better again today. No postprandial abdominal pain. Cultures negative so far. Differential for pain includes infected pseudocyst versus bacterial peritonitis. -Continue cefepime today, anticipate transition to oral medications tomorrow -Follow-up cultures -Pain control Stage III chronic kidney disease-creatinine slightly better again today -Restart diuretics tomorrow morning Hepatic cirrhosis-secondary to longstanding alcohol use. Complicated by coagulopathy and ascites. Maintenance issues - - DVT prophylaxis -mechanical - GI prophylaxis -PPI - Nutrition -low-sodium Disposition - I would anticipate discharge home unless he requires transfer to a higher level of care Primary care physician -Randolph Potter M.D.
[2020-09-07] MEDS: Melatonin 3 MG Tab PO SCH (21:12)
[2020-09-08] MEDS: Cefepime 1 GM in Sodium Chloride 0.9% 50 ML IV SCH ×2 (01:06→08:35)
[2020-09-08] MEDS: Pantoprazole 40 MG Tab.CR PO SCH ×2 (07:48→16:17)
[2020-09-08] MEDS: Insulin Lispro 100 Unit/ML 3 ML KwikPen SUBCUT SCH ×4 (07:49→20:06)
[2020-09-08] MEDS: Spironolactone 25 MG Tab PO SCH ×2 (08:01→13:41)
[2020-09-08] MEDS: Furosemide 20 MG Tab PO SCH ×2 (08:01→13:41)
[2020-09-08] MEDS: Diltiazem 180 MG Cap.CD PO SCH (08:01)
[2020-09-08] MEDS: Aspirin 325 MG Tab.EC PO SCH (08:01)
[2020-09-08] MEDS: Metoprolol Tartrate 25 MG Tab PO SCH ×2 (08:01→21:06)
[2020-09-08] MEDS: Lactobacillus Rhamnosus GG (Probiotic) Cap PO SCH ×2 (08:01→21:06)
[2020-09-08] MEDS: prednisoLONE 15 MG/5 ML Soln UD Cup PO SCH (08:03)
--- NOTE | 2020-09-08 08:51 | PCM.PN ---
- General Info Date of Service: 09/08/20 Subjective Update: No acute events overnight. He did convert to a normal sinus rhythm overnight but then went back into atrial fibrillation this morning. He is asymptomatic with the atrial fibrillation. Abdominal pain is pretty good today but still having some epigastric pain. He did have an episode of difficulty swallowing liquids this morning but later was able to eat a normal breakfast without difficulty. Bilirubin is essentially stable. White count is a little better today. Cultures from the paracentesis are all negative. Functional Status: Reports: Pain Controlled, Tolerating Diet - Review of Systems General: Denies: Fever Gastrointestinal: Reports: Abdominal Pain, Difficulty Swallowing - Patient Data Vitals - Most Recent: Last Vital Signs Temp 36.4 C 09/08/20 08:00 Pulse 68 09/08/20 08:01 Resp 17 09/08/20 08:00 BP 92/59 L 09/08/20 08:01 Pulse Ox 98 09/08/20 08:00 Weight - Most Recent: 81.102 kg I&O - Last 24 Hours: Intake & Output 09/07/20 09/08/20 09/08/20 22:59 06:59 14:59 Intake Total 500 240 Output Total 700 Balance -200 240 Lab Results Last 24 Hours: Laboratory Results - last 24 hr 09/08/20 09/08/20 Range/Units 05:51 05:51 WBC 24.3 H (4.5-11.0) K/uL RBC 3.91 L (4.30-5.90) M/uL Hgb 13.4 (12.0-15.0) g/dL Hct 41.8 (40.0-54.0) % MCV 107 H (80-98) fL MCH 34 H (27-31) pg MCHC 32 (32-36) % Plt Count 245 (150-400) K/uL Sodium 137 L (140-148) mmol/L Potassium 4.1 (3.6-5.2) mmol/L Chloride 104 (100-108) mmol/L Carbon Dioxide 21 (21-32) mmol/L Anion Gap 16.1 H (5.0-14.0) mmol/L BUN 35 H (7-18) mg/dL Creatinine 1.4 H (0.8-1.3) mg/dL Est Cr Clr Drug Dosing 48.39 mL/min Estimated GFR (MDRD) 51 L (>60) Glucose 130 H (74-106) mg/dL Calcium 8.3 L (8.5-10.1) mg/dL Magnesium 2.1 (1.8-2.4) mg/dL Total Bilirubin 12.0 H (0.2-1.0) mg/dL AST 65 H (15-37) U/L ALT 68 (12-78) U/L Alkaline Phosphatase 162 H (46-116) U/L Total Protein 5.1 L (6.4-8.2) g/dL Albumin 2.4 L (3.4-5.0) g/dL Globulin 2.7 (2.3-3.5) g/dL Albumin/Globulin Ratio 0.9 L (1.2-2.2) [facility] Results Last 24 Hours: Microbiology 09/06/20 07:19 Gram Stain - Final Ascities Fluid Body Fluid Culture - Preliminary NO GROWTH AFTER 2 DAYS 09/05/20 17:10 Aerobic Blood Culture - Preliminary Blood - Arm, Left NO GROWTH AFTER 2 DAYS Anaerobic Blood Culture - Preliminary NO GROWTH AFTER 2 DAYS 09/05/20 17:20 Aerobic Blood Culture - Preliminary Blood - Arm, Left NO GROWTH AFTER 2 DAYS Anaerobic Blood Culture - Preliminary NO GROWTH AFTER 2 DAYS Med Orders - Current: Current Medications Acetaminophen (Tylenol) 650 mg PO Q4H PRN PRN Reason: Pain (Mild 1-3)/fever Aspirin (Ecotrin) 325 mg PO DAILY [facility] Last Admin: 09/08/20 08:01 Dose: 325 mg Documented by: Ciprofloxacin (Ciprofloxacin Hcl) 500 mg PO BID [facility] Furosemide (Lasix) 20 mg PO BIDDIURETIC [facility] Last Admin: 09/08/20 08:01 Dose: 20 mg Documented by: Cefepime HCl 1 gm/ Sodium (Chloride) 50 mls @ 100 mls/hr IV Q8H [facility] Stop: 09/08/20 10:00 Last Admin: 09/08/20 08:35 Dose: 100 mls/hr Documented by: Insulin Human Lispro (Humalog) 0 unit SUBCUT QIDACANDBED [facility]; Protocol Last Admin: 09/08/20 07:49 Dose: 2 units Documented by: Lactobacillus Rhamnosus (Culturelle) 1 cap PO BID [facility] Last Admin: 09/08/20 08:01 Dose: 1 cap Documented by: Lorazepam (Ativan) 0.5 mg IVPUSH Q4H PRN PRN Reason: Nausea/Vomiting Melatonin (Melatonin) 9 mg PO BEDTIME [facility] Last Admin: 09/07/20 21:12 Dose: 9 mg Documented by: Metoprolol Tartrate (Lopressor) 75 mg PO BID [facility] Last Admin: 09/08/20 08:01 Dose: 75 mg Documented by: Metronidazole (Metronidazole) 500 mg PO Q8H [facility] Morphine Sulfate (Morphine) 2 mg IVPUSH Q2H PRN PRN Reason: Pain (severe 7-10) Last Admin: 09/07/20 23:28 Dose: 2 mg Documented by: Morphine Sulfate (Morphine) 15 mg PO Q4H PRN PRN Reason: Pain (moderate 4-6) Ondansetron HCl (Zofran Odt) 4 mg PO Q6H PRN PRN Reason: Nausea able to take PO Ondansetron HCl (Zofran) 4 mg IV Q6H PRN PRN Reason: Nausea/Vomiting Pantoprazole Sodium (Protonix) 40 mg PO BIDAC [facility] Last Admin: 09/08/20 07:48 Dose: 40 mg Documented by: Prednisolone (Orapred 15 Mg/5ml Soln) 15 mg PO DAILY [facility] Last Admin: 09/08/20 08:03 Dose: 15 mg Documented by: Spironolactone (Aldactone) 25 mg PO BIDDIURETIC [facility] Last Admin: 09/08/20 08:01 Dose: 25 mg Documented by: Discontinued Medications Diltiazem HCl (Cardizem Cd) 180 mg PO DAILY [facility] Last Admin: 09/08/20 08:01 Dose: 180 mg Documented by: Diltiazem HCl (Cardizem Cd) 120 mg PO ONETIME ONE Stop: 09/07/20 09:43 Last Admin: 09/07/20 10:27 Dose: 120 mg Documented by: Sodium Chloride (Normal Saline) 1,000 mls @ 75 mls/hr IV ASDIRECTED [facility] Last Admin: 09/06/20 07:15 Dose: 75 mls/hr Documented by: Albumin Human (Albumin 25%) 25 gm in 100 mls @ 25 mls/hr IV Q6H [facility] Stop: 09/06/20 15:59 Last Admin: 09/06/20 11:49 Dose: 25 mls/hr Documented by: Influenza Virus Vaccine (Fluzone High-Dose Quad ) 240 mcg IM .ONCE ONE Stop: 09/07/20 09:01 Last Admin: 09/07/20 10:51 Dose: 240 mcg Documented by: Pantoprazole Sodium (Protonix Iv) 40 mg IV Q12H [facility] Last Admin: 09/06/20 05:29 Dose: 40 mg Documented by: - Exam Quality Assessment: No: Supplemental Oxygen General: Alert, Oriented, Cooperative, No Acute Distress HEENT: Scleral Icterus Lungs: Normal Respiratory Effort. No: Wheezing Cardiovascular: Regular Rate, Regular Rhythm GI/Abdominal Exam: Soft, Distended Extremities: Pedal Edema (mild bilateral ankle edema ). No: Increased Warmth Skin: Warm, Dry Psy/Mental Status: Alert, Normal Affect Sepsis Event Note - Evaluation Sepsis Screening Result: No Definite Risk - Focused Exam Vital Signs: Vital Signs Temp Pulse Pulse Resp BP BP Pulse Ox 09/08/20 08:01 68 92/59 L 09/08/20 08:00 36.4 C 17 92/59 L 98 09/08/20 06:00 62 14 95/59 L 97 09/08/20 04:00 36.2 C 59 L 13 83/53 L 95 09/08/20 02:00 56 L 13 92/51 L 94 L 09/08/20 01:09 36.0 C L 09/08/20 00:00 56 L 12 84/48 L 97 09/07/20 22:00 60 15 96/60 99 09/07/20 21:12 69 99/61 - Problem List & Annotations (1) Abdominal pain, acute, generalized SNOMED Code(s): 479781698, 329388625 Code(s): R10.84 - GENERALIZED ABDOMINAL PAIN Status: Acute Current Visit: Yes (2) Stage III chronic kidney disease SNOMED Code(s): 230910631 Code(s): N18.30 - CHRONIC KIDNEY DISEASE, STAGE 3 UNSPECIFIED Status: Acute Current Visit: Yes Qualifiers: Chronic kidney disease stage 3 subtype: stage 3a (GFR 45-59) Qualified Code(s): N18.31 - Chronic kidney disease, stage 3a (3) Alcoholic hepatitis with ascites SNOMED Code(s): 7139950955322307 Code(s): K70.11 - ALCOHOLIC HEPATITIS WITH ASCITES Status: Acute Current Visit: No (4) Hepatic cirrhosis SNOMED Code(s): 80454994 Code(s): K74.60 - UNSPECIFIED CIRRHOSIS OF LIVER Status: Acute Current Visit: No Qualifiers: Hepatic cirrhosis type: alcoholic cirrhosis Ascites presence: with ascites Qualified Code(s): K70.31 - Alcoholic cirrhosis of liver with ascites - Problem List Review Problem List Initiated/Reviewed/Updated: Yes - My Orders Last 24 Hours: My Active Orders 09/07/20 09:52 HEMATOPATH CONSULTATION, SMEAR Routine 09/08/20 08:00 Furosemide [Lasix] 20 mg PO BIDDIURETIC Spironolactone [Aldactone] 25 mg PO BIDDIURETIC 09/08/20 08:49 PT Evaluation and Treatment [CONS] Routine 09/08/20 14:00 metroNIDAZOLE 500 mg PO Q8H 09/08/20 Dinner NPO After Midnight [Nothing per Oral After Midnight Diet] [DIET] 09/08/20 21:00 Ciprofloxacin [Ciprofloxacin HCl] 500 mg PO BID 09/09/20 05:00 CBC W/O DIFF,HEMOGRAM [HEME] Timed (1) COMPREHENSIVE METABOLIC PN,CMP [CHEM] Timed MAGNESIUM [CHEM] Timed 09/09/20 09:00 Diltiazem [Cardizem CD] 240 mg PO DAILY - Plan Plan:: ASSESSMENT AND PLAN - Alcoholic hepatitis with ascites-bilirubin stable. Symptomatically feeling better. Seems to be tolerating the taper of his steroids so far. -Saline lock IV -Symptomatic management of pain and/or nausea -Continue to taper prednisolone -Absolute abstinence from alcohol Postprandial and generalized abdominal pain-seem to be 2 different components. Generalized pain is much better again today. Mild postprandial abdominal pain and also some difficulty with swallowing. Cultures are negative. -EGD in the morning -Transition to ciprofloxacin and metronidazole -Follow-up cultures -Pain control Stage III chronic kidney disease-creatinine stable. -Continue diuretics Hepatic cirrhosis-secondary to longstanding alcohol use. Complicated by coagu lopathy and ascites. Volume status appears appropriate at this time and no significant lower extremity edema. Maintenance issues - - DVT prophylaxis -mechanical - GI prophylaxis -PPI - Nutrition -low-sodium, nothing by mouth after midnight Disposition - I would anticipate discharge home unless he requires transfer to a higher level of care Primary care physician -Randolph Potter M.D.
[2020-09-08] MEDS: metroNIDAZOLE 250 MG Tab PO SCH ×2 (13:42→21:07)
[2020-09-08 17:08] LABS: BASOS 0 % (Not Estab.); EOS 2 % (Not Estab.); EOS (ABSOLUTE) 0.6 x10E3/uL (0.0-0.4); HEMOGLOBIN 13.3 g/dL (13.0-17.7); IMMATURE GRANS (ABS) 0.3 x10E3/uL (0.0-0.1); IMMATURE GRANULOCYTES 1 % (Not Estab.); LYMPHS 5 % (Not Estab.); LYMPHS (ABSOLUTE) 1.4 x10E3/uL (0.7-3.1); MCH 35.6 pg (26.6-33.0); MCV 102 fL (79-97); MONOCYTES 6 % (Not Estab.); MONOCYTES(ABSOLUTE) 1.6 x10E3/uL (0.1-0.9); NEUTROPHILS 86 % (Not Estab.); NEUTROPHILS (ABSOLUTE) 22.3 x10E3/uL (1.4-7.0); PLATELETS 253 x10E3/uL (150-450); PLTS Appear normal. (.); RBC 3.74 x10E6/uL (4.14-5.80); RDW 13.4 % (11.6-15.4); WBC 26.3 x10E3/uL (3.4-10.8)
[2020-09-08] MEDS: Morphine 2 MG/ML SYRINGE IVPUSH PRN ×2 (20:08→22:25)
[2020-09-08] MEDS: Ciprofloxacin 500 MG Tab PO SCH (21:06)
[2020-09-08] MEDS: Melatonin 3 MG Tab PO SCH (21:06)
[2020-09-09] MEDS: Morphine 2 MG/ML SYRINGE IVPUSH PRN ×2 (00:26→21:09)
[2020-09-09] MEDS: metroNIDAZOLE 250 MG Tab PO SCH ×3 (05:49→21:09)
[2020-09-09] MEDS ORDERED: fentaNYL 100 MCG/2 ML SDV ONE (07:20)
[2020-09-09] MEDS ORDERED: Propofol 200 MG/20 ML SDV ONE (07:20)
[2020-09-09] MEDS: Insulin Lispro 100 Unit/ML 3 ML KwikPen SUBCUT SCH ×4 (08:22→20:26)
[2020-09-09] MEDS: Pantoprazole 40 MG Tab.CR PO SCH ×2 (09:06→16:27)
[2020-09-09] MEDS: Spironolactone 25 MG Tab PO SCH ×2 (09:07→14:32)
[2020-09-09] MEDS: Furosemide 20 MG Tab PO SCH ×2 (09:07→14:32)
[2020-09-09] MEDS: Diltiazem 120 MG Cap.CD PO SCH (09:08)
[2020-09-09] MEDS: Ciprofloxacin 500 MG Tab PO SCH ×2 (09:09→20:16)
[2020-09-09] MEDS: Lactobacillus Rhamnosus GG (Probiotic) Cap PO SCH ×2 (09:09→20:16)
[2020-09-09] MEDS: Aspirin 325 MG Tab.EC PO SCH (09:09)
[2020-09-09] MEDS: prednisoLONE 15 MG/5 ML Soln UD Cup PO SCH (09:10)
[2020-09-09] MEDS: Metoprolol Tartrate 25 MG Tab PO SCH ×2 (09:11→20:16)
[2020-09-09] MEDS: Azithromycin 250 MG Tab PO SCH (10:43)
--- NOTE | 2020-09-09 15:52 | PCM.PN ---
- General Info Date of Service: 09/09/20 Subjective Update: No acute issues overnight. Still in atrial fibrillation with borderline rate control. No significant abdominal pain. No nausea. No fevers. White count is slightly better. Bilirubin slightly better today. He did have an EGD this morning that showed a bezoar which was pushed into the intestine. Overall feeling pretty well. Functional Status: Reports: Pain Controlled, Tolerating Diet - Patient Data Vitals - Most Recent: Last Vital Signs Temp 37.0 C 09/09/20 08:00 Pulse 80 09/09/20 14:00 Resp 13 09/09/20 14:00 BP 83/54 L 09/09/20 14:00 Pulse Ox 96 09/09/20 14:00 Weight - Most Recent: 78.562 kg Lab Results Last 24 Hours: Laboratory Results - last 24 hr 09/07/20 09/09/20 09/09/20 Range/Units 09:52 04:30 04:40 WBC 23.3 H (4.5-11.0) K/uL WBC (Send Out) 26.3 H (3.4-10.8) x10E3/uL RBC 3.98 L (4.30-5.90) M/uL RBC (Send Out) 3.74 L (4.14-5.80) x10E6/uL Hgb 13.5 (12.0-15.0) g/dL Hgb (Send Out) 13.3 (13.0-17.7) g/dL Hct 42.7 (40.0-54.0) % Hct (Send Out) 38.0 (37.5-51.0) % MCV 107 H (80-98) fL MCV (Send Out) 102 H (79-97) fL MCH 34 H (27-31) pg MCH (Send Out) 35.6 H (26.6-33.0) pg MCHC 32 (32-36) % MCHC (Send Out) 35.0 (31.5-35.7) g/dL Red Cell Dist (Send Out) 13.4 (11.6-15.4) % Plt Count 237 (150-400) K/uL Plt Count (Send Out) 253 (150-450) x10E3/uL Diff Scan Comment H (.) Immature Gran % 1 (Not Estab.) % Neutrophils % Send Out 86 (Not Estab.) % Lymphocytes % (Send Out) 5 (Not Estab.) % Monocytes % (Send Out) 6 (Not Estab.) % Eosinophils % Send Out 2 (Not Estab.) % Basophils % (Send Out) 0 (Not Estab.) % Immature Gran # 0.3 H (0.0-0.1) x10E3/uL Neutrophils # (Send Out) 22.3 H (1.4-7.0) x10E3/uL Lymphocytes # (Send Out) 1.4 (0.7-3.1) x10E3/uL Monocytes #(Send Out) 1.6 H (0.1-0.9) x10E3/uL Eosinophils # Send Out 0.6 H (0.0-0.4) x10E3/uL Basophils # (Send Out) 0.0 (0.0-0.2) x10E3/uL Nucleated RBCs Send Out TNP Immature Cells Send Out TNP Platelet Morphology Appear normal. (.) RBC Morphology Comment H (.) Peripher Smr Path Cons TNP Smear Path Review Comment (.) Hematology Comments TNP Sodium (140-148) mmol/L Potassium (3.6-5.2) mmol/L Chloride (100-108) mmol/L Carbon Dioxide (21-32) mmol/L Anion Gap (5.0-14.0) mmol/L BUN (7-18) mg/dL Creatinine (0.8-1.3) mg/dL Est Cr Clr Drug Dosing mL/min Estimated GFR (MDRD) (>60) Glucose (74-106) mg/dL Calcium (8.5-10.1) mg/dL Magnesium (1.8-2.4) mg/dL Total Bilirubin (0.2-1.0) mg/dL AST (15-37) U/L ALT (12-78) U/L Alkaline Phosphatase (46-116) U/L Total Protein (6.4-8.2) g/dL Albumin (3.4-5.0) g/dL Globulin (2.3-3.5) g/dL Albumin/Globulin Ratio (1.2-2.2) SARS-CoV-2 RNA ([facility]) Negative (NEGATIVE) 09/09/20 Range/Units 04:40 WBC (4.5-11.0) K/uL WBC (Send Out) (3.4-10.8) x10E3/uL RBC (4.30-5.90) M/uL RBC (Send Out) (4.14-5.80) x10E6/uL Hgb (12.0-15.0) g/dL Hgb (Send Out) (13.0-17.7) g/dL Hct (40.0-54.0) % Hct (Send Out) (37.5-51.0) % MCV (80-98) fL MCV (Send Out) (79-97) fL MCH (27-31) pg MCH (Send Out) (26.6-33.0) pg MCHC (32-36) % MCHC (Send Out) (31.5-35.7) g/dL Red Cell Dist (Send Out) (11.6-15.4) % Plt Count (150-400) K/uL Plt Count (Send Out) (150-450) x10E3/uL Diff Scan (.) Immature Gran % (Not Estab.) % Neutrophils % Send Out (Not Estab.) % Lymphocytes % (Send Out) (Not Estab.) % Monocytes % (Send Out) (Not Estab.) % Eosinophils % Send Out (Not Estab.) % Basophils % (Send Out) (Not Estab.) % Immature Gran # (0.0-0.1) x10E3/uL Neutrophils # (Send Out) (1.4-7.0) x10E3/uL Lymphocytes # (Send Out) (0.7-3.1) x10E3/uL Monocytes #(Send Out) (0.1-0.9) x10E3/uL Eosinophils # Send Out (0.0-0.4) x10E3/uL Basophils # (Send Out) (0.0-0.2) x10E3/uL Nucleated RBCs Send Out Immature Cells Send Out Platelet Morphology (.) RBC Morphology (.) Peripher Smr Path Cons Smear Path Review (.) Hematology Comments Sodium 137 L (140-148) mmol/L Potassium 4.1 (3.6-5.2) mmol/L Chloride 103 (100-108) mmol/L Carbon Dioxide 19 L (21-32) mmol/L Anion Gap 19.1 H (5.0-14.0) mmol/L BUN 37 H (7-18) mg/dL Creatinine 1.6 H (0.8-1.3) mg/dL Est Cr Clr Drug Dosing 42.34 mL/min Estimated GFR (MDRD) 44 L (>60) Glucose 112 H (74-106) mg/dL Calcium 8.1 L (8.5-10.1) mg/dL Magnesium 2.0 (1.8-2.4) mg/dL Total Bilirubin 11.1 H (0.2-1.0) mg/dL AST 65 H (15-37) U/L ALT 66 (12-78) U/L Alkaline Phosphatase 169 H (46-116) U/L Total Protein 5.0 L (6.4-8.2) g/dL Albumin 2.2 L (3.4-5.0) g/dL Globulin 2.8 (2.3-3.5) g/dL Albumin/Globulin Ratio 0.8 L (1.2-2.2) SARS-CoV-2 RNA ([facility]) (NEGATIVE) [facility] Results Last 24 Hours: Microbiology 09/06/20 07:19 Gram Stain - Final Ascities Fluid Body Fluid Culture - Preliminary NO GROWTH AFTER 3 DAYS 09/05/20 17:10 Aerobic Blood Culture - Preliminary Blood - Arm, Left NO GROWTH AFTER 3 DAYS Anaerobic Blood Culture - Preliminary NO GROWTH AFTER 3 DAYS 09/05/20 17:20 Aerobic Blood Culture - Preliminary Blood - Arm, Left NO GROWTH AFTER 3 DAYS Anaerobic Blood Culture - Preliminary NO GROWTH AFTER 3 DAYS Med Orders - Current: Current Medications Acetaminophen (Tylenol) 650 mg PO Q4H PRN PRN Reason: Pain (Mild 1-3)/fever Aspirin (Ecotrin) 325 mg PO DAILY [facility] Last Admin: 09/09/20 09:09 Dose: 325 mg Documented by: Azithromycin (Zithromax) 125 mg PO DAILY [facility] Last Admin: 09/09/20 10:43 Dose: 125 mg Documented by: Ciprofloxacin (Ciprofloxacin Hcl) 500 mg PO BID [facility] Last Admin: 09/09/20 09:09 Dose: 500 mg Documented by: Diltiazem HCl (Cardizem Cd) 240 mg PO DAILY [facility] Last Admin: 09/09/20 09:08 Dose: 240 mg Documented by: Furosemide (Lasix) 20 mg PO BIDDIURETIC [facility] Last Admin: 09/09/20 14:32 Dose: 20 mg Documented by: Insulin Human Lispro (Humalog) 0 unit SUBCUT QIDACANDBED [facility]; Protocol Last Admin: 09/09/20 10:51 Dose: Not Given Documented by: Lactobacillus Rhamnosus (Culturelle) 1 cap PO BID [facility] Last Admin: 09/09/20 09:09 Dose: 1 cap Documented by: Lorazepam (Ativan) 0.5 mg IVPUSH Q4H PRN PRN Reason: Nausea/Vomiting Melatonin (Melatonin) 9 mg PO BEDTIME [facility] Last Admin: 09/08/20 21:06 Dose: 9 mg Documented by: Metoprolol Tartrate (Lopressor) 75 mg PO BID [facility] Last Admin: 09/09/20 09:11 Dose: 75 mg Documented by: Metronidazole (Metronidazole) 500 mg PO Q8H [facility] Last Admin: 09/09/20 14:32 Dose: 500 mg Documented by: Morphine Sulfate (Morphine) 2 mg IVPUSH Q2H PRN PRN Reason: Pain (severe 7-10) Last Admin: 09/09/20 00:26 Dose: 2 mg Documented by: Morphine Sulfate (Morphine) 15 mg PO Q4H PRN PRN Reason: Pain (moderate 4-6) Ondansetron HCl (Zofran Odt) 4 mg PO Q6H PRN PRN Reason: Nausea able to take PO Ondansetron HCl (Zofran) 4 mg IV Q6H PRN PRN Reason: Nausea/Vomiting Pantoprazole Sodium (Protonix) 40 mg PO BIDAC [facility] Last Admin: 09/09/20 09:06 Dose: 40 mg Documented by: Prednisolone (Orapred 15 Mg/5ml Soln) 15 mg PO DAILY [facility] Last Admin: 09/09/20 09:10 Dose: 15 mg Documented by: Spironolactone (Aldactone) 25 mg PO BIDDIURETIC [facility] Last Admin: 09/09/20 14:32 Dose: 25 mg Documented by: Discontinued Medications Diltiazem HCl (Cardizem Cd) 180 mg PO DAILY [facility] Last Admin: 09/08/20 08:01 Dose: 180 mg Documented by: Diltiazem HCl (Cardizem Cd) 120 mg PO ONETIME ONE Stop: 09/07/20 09:43 Last Admin: 09/07/20 10:27 Dose: 120 mg Documented by: Fentanyl (Sublimaze) Confirm Administered Dose 100 mcg .ROUTE .STK-MED ONE Stop: 09/09/20 07:21 Sodium Chloride (Normal Saline) 1,000 mls @ 75 mls/hr IV ASDIRECTED [facility] Last Admin: 09/06/20 07:15 Dose: 75 mls/hr Documented by: Cefepime HCl 1 gm/ Sodium (Chloride) 50 mls @ 100 mls/hr IV Q8H [facility] Stop: 09/08/20 10:00 Last Admin: 09/08/20 08:35 Dose: 100 mls/hr Documented by: Albumin Human (Albumin 25%) 25 gm in 100 mls @ 25 mls/hr IV Q6H [facility] Stop: 09/06/20 15:59 Last Admin: 09/06/20 11:49 Dose: 25 mls/hr Documented by: Influenza Virus Vaccine (Fluzone High-Dose Quad ) 240 mcg IM .ONCE [facility] Stop: 09/07/20 09:01 Last Admin: 09/07/20 10:51 Dose: 240 mcg Documented by: Pantoprazole Sodium (Protonix Iv) 40 mg IV Q12H [facility] Last Admin: 09/06/20 05:29 Dose: 40 mg Documented by: Propofol (Diprivan 20 Ml) Confirm Administered Dose 200 mg .ROUTE .STK-MED ONE Stop: 09/09/20 07:21 - Exam Quality Assessment: No: Supplemental Oxygen General: Alert, Oriented, Cooperative, No Acute Distress HEENT: Scleral Icterus Lungs: Normal Respiratory Effort Cardiovascular: Irregular Rhythm, Tachycardia GI/Abdominal Exam: Soft, Distended Extremities: Pedal Edema. No: Increased Warmth Skin: Warm, Dry Psy/Mental Status: Alert, Normal Affect Sepsis Event Note - Evaluation Sepsis Screening Result: No Definite Risk - Focused Exam Vital Signs: Vital Signs Temp Temp Pulse Pulse Resp BP BP 09/09/20 14:00 80 13 09/09/20 12:00 120 H 15 09/09/20 10:00 125 H 09/09/20 09:11 129 H 90/71 09/09/20 09:08 126 H 90/71 09/09/20 08:00 37.0 C 136 H 18 90/71 09/09/20 07:50 36.5 C 130 H 14 09/09/20 07:45 132 H 14 09/09/20 07:40 119 H 12 09/09/20 07:35 120 H 12 09/09/20 07:30 36.6 C 131 H 12 09/09/20 06:00 129 H 14 90/61 09/09/20 04:00 36.7 C 141 H 14 93/64 BP Pulse Ox 09/09/20 14:00 83/54 L 96 09/09/20 12:00 77/52 L 96 09/09/20 10:00 98/60 09/09/20 09:11 09/09/20 09:08 09/09/20 08:00 96 09/09/20 07:50 75/53 L 95 09/09/20 07:45 60/41 L 96 09/09/20 07:40 61/41 L 96 09/09/20 07:35 62/44 L 96 09/09/20 07:30 70/42 L 96 09/09/20 06:00 97 09/09/20 04:00 99 - Problem List & Annotations (1) Abdominal pain, acute, generalized SNOMED Code(s): 193397862, 478646596 Code(s): R10.84 - GENERALIZED ABDOMINAL PAIN Status: Acute Current Visit: Yes (2) Stage III chronic kidney disease SNOMED Code(s): 789441897 Code(s): N18.30 - CHRONIC KIDNEY DISEASE, STAGE 3 UNSPECIFIED Status: Acute Current Visit: Yes Qualifiers: Chronic kidney disease stage 3 subtype: stage 3a (GFR 45-59) Qualified Code(s): N18.31 - Chronic kidney disease, stage 3a (3) Alcoholic hepatitis with ascites SNOMED Code(s): 2093249622043064 Code(s): K70.11 - ALCOHOLIC HEPATITIS WITH ASCITES Status: Acute Current Visit: No (4) Hepatic cirrhosis SNOMED Code(s): 37573997 Code(s): K74.60 - UNSPECIFIED CIRRHOSIS OF LIVER Status: Acute Current Visit: No Qualifiers: Hepatic cirrhosis type: alcoholic cirrhosis Ascites presence: with ascites Qualified Code(s): K70.31 - Alcoholic cirrhosis of liver with ascites - Problem List Review Problem List Initiated/Reviewed/Updated: Yes - My Orders Last 24 Hours: My Active Orders 09/08/20 21:00 Ciprofloxacin [Ciprofloxacin HCl] 500 mg PO BID 09/09/20 09:00 Diltiazem [Cardizem CD] 240 mg PO DAILY 09/10/20 05:00 CBC W/O DIFF,HEMOGRAM [HEME] Timed (1) COMPREHENSIVE METABOLIC PN,CMP [CHEM] Timed - Plan Plan:: ASSESSMENT AND PLAN - Alcoholic hepatitis with ascites-bilirubin stable to slightly improved. Symptomatically he is slowly improving. Tolerating steroid taper. -Saline lock IV -Symptomatic management of pain and/or nausea -Continue to taper prednisolone -Absolute abstinence from alcohol Postprandial and generalized abdominal pain-seem to be 2 different components. Generalized pain resolved after paracentesis. EGD today revealed a gastric bezoar. This was pushed into the stomach. No fevers. -Low residue diet -Continue ciprofloxacin and metronidazole -Follow-up cultures -Pain control Atrial fibrillation with rapid ventricular response-he has been in and out of atrial fibrillation/flutter. He has been in the dysrhythmia for the past 24 ho urs. No symptoms. -Increase diltiazem to 240 mg today -Continue metoprolol -Hold diuretics with lower blood pressures Stage III chronic kidney disease-creatinine stable. -Continue diuretics Hepatic cirrhosis-secondary to longstanding alcohol use. Complicated by coagulopathy and ascites. Volume status appears appropriate at this time and only minimal lower extremity edema. -Holding diuretics with low normal blood pressures. Maintenance issues - - DVT prophylaxis -mechanical - GI prophylaxis -PPI - Nutrition -low residue Disposition - I would anticipate discharge home in the next couple of days Primary care physician -Randolph Potter M.D.
[2020-09-09] MEDS: Melatonin 3 MG Tab PO SCH (20:16)
[2020-09-10] MEDS: metroNIDAZOLE 250 MG Tab PO SCH (06:15)
[2020-09-10] MEDS: Insulin Lispro 100 Unit/ML 3 ML KwikPen SUBCUT SCH ×4 (09:16→20:19)
[2020-09-10] MEDS: Lactobacillus Rhamnosus GG (Probiotic) Cap PO SCH ×2 (09:19→20:21)
[2020-09-10] MEDS: Ciprofloxacin 500 MG Tab PO SCH (09:19)
[2020-09-10] MEDS: prednisoLONE 15 MG/5 ML Soln UD Cup PO SCH (09:19)
[2020-09-10] MEDS: Diltiazem 120 MG Cap.CD PO SCH (09:20)
[2020-09-10] MEDS: Pantoprazole 40 MG Tab.CR PO SCH ×2 (09:20→17:10)
[2020-09-10] MEDS: Azithromycin 250 MG Tab PO SCH (09:21)
[2020-09-10] MEDS: Metoprolol Tartrate 25 MG Tab PO SCH ×2 (09:21→20:21)
[2020-09-10] MEDS: Aspirin 325 MG Tab.EC PO SCH (09:21)
--- NOTE | 2020-09-10 10:16 | PCM.PN ---
- General Info Date of Service: 09/10/20 Subjective Update: No acute events overnight. No significant abdominal pain. No fevers. Patient has not had a bowel movement in several days. He feels that his abdomen is a little more distended than it has been. He has been urinating normally. Bilirubin and white count are stable from yesterday. Minimal lower extremity edema. All of his cultures are still negative. Functional Status: Reports: Pain Controlled, Tolerating Diet - Review of Systems General: Denies: Fever - Patient Data Vitals - Most Recent: Last Vital Signs Temp 36.2 C 09/10/20 08:00 Pulse 71 09/10/20 09:21 Resp 14 09/10/20 08:00 BP 85/51 L 09/10/20 09:21 Pulse Ox 98 09/10/20 08:00 Weight - Most Recent: 78.562 kg I&O - Last 24 Hours: Intake & Output 09/09/20 09/10/20 09/10/20 22:59 06:59 14:59 Intake Total 1000 Output Total 300 Balance 700 Lab Results Last 24 Hours: Laboratory Results - last 24 hr 09/10/20 09/10/20 Range/Units 04:20 04:20 WBC 25.3 H (4.5-11.0) K/uL RBC 3.74 L (4.30-5.90) M/uL Hgb 13.1 (12.0-15.0) g/dL Hct 39.1 L (40.0-54.0) % MCV 105 H (80-98) fL MCH 35 H (27-31) pg MCHC 34 (32-36) % Plt Count 245 (150-400) K/uL Sodium 135 L (140-148) mmol/L Potassium 4.1 (3.6-5.2) mmol/L Chloride 104 (100-108) mmol/L Carbon Dioxide 18 L (21-32) mmol/L Anion Gap 17.1 H (5.0-14.0) mmol/L BUN 45 H (7-18) mg/dL Creatinine 2.0 H (0.8-1.3) mg/dL Est Cr Clr Drug Dosing 33.87 mL/min Estimated GFR (MDRD) 34 L (>60) Glucose 143 H (74-106) mg/dL Calcium 7.9 L (8.5-10.1) mg/dL Total Bilirubin 11.9 H (0.2-1.0) mg/dL AST 51 H (15-37) U/L ALT 66 (12-78) U/L Alkaline Phosphatase 157 H (46-116) U/L Total Protein 4.6 L (6.4-8.2) g/dL Albumin 2.1 L (3.4-5.0) g/dL Globulin 2.5 (2.3-3.5) g/dL Albumin/Globulin Ratio 0.8 L (1.2-2.2) [facility] Results Last 24 Hours: Microbiology 09/09/20 07:29 CLOtest - Final Stomach NEGATIVE CLOTEST REFERENCE RANGE: NEGATIVE 09/05/20 17:20 Aerobic Blood Culture - Preliminary Blood - Arm, Left NO GROWTH AFTER 4 DAYS Anaerobic Blood Culture - Preliminary NO GROWTH AFTER 4 DAYS 09/05/20 17:10 Aerobic Blood Culture - Preliminary Blood - Arm, Left NO GROWTH AFTER 4 DAYS Anaerobic Blood Culture - Preliminary NO GROWTH AFTER 4 DAYS 09/06/20 07:19 Gram Stain - Final Ascities Fluid Body Fluid Culture - Preliminary NO GROWTH AFTER 3 DAYS Med Orders - Current: Current Medications Acetaminophen (Tylenol) 650 mg PO Q4H PRN PRN Reason: Pain (Mild 1-3)/fever Aspirin (Ecotrin) 325 mg PO DAILY [facility] [place] Last Admin: 09/10/20 09:21 Dose: 325 mg Documented by: Azithromycin (Zithromax) 125 mg PO DAILY [facility] [place] Last Admin: 09/10/20 09:21 Dose: 125 mg Documented by: Diltiazem HCl (Cardizem Cd) 240 mg PO DAILY [facility] [place] Last Admin: 09/10/20 09:20 Dose: 240 mg Documented by: Insulin Human Lispro (Humalog) 0 unit SUBCUT QIDACANDBED [facility] [place]; Protocol Last Admin: 09/10/20 09:16 Dose: Not Given Documented by: Lactobacillus Rhamnosus (Culturelle) 1 cap PO BID [facility] [place] Last Admin: 09/10/20 09:19 Dose: 1 cap Documented by: Lorazepam (Ativan) 0.5 mg IVPUSH Q4H PRN PRN Reason: Nausea/Vomiting Melatonin (Melatonin) 9 mg PO BEDTIME [facility] [place] Last Admin: 09/09/20 20:16 Dose: 9 mg Documented by: Metoprolol Tartrate (Lopressor) 75 mg PO BID [facility] [place] Last Admin: 09/10/20 09:21 Dose: 75 mg Documented by: Morphine Sulfate (Morphine) 2 mg IVPUSH Q2H PRN PRN Reason: Pain (severe 7-10) Last Admin: 09/09/20 21:09 Dose: 2 mg Documented by: Morphine Sulfate (Morphine) 15 mg PO Q4H PRN PRN Reason: Pain (moderate 4-6) Ondansetron HCl (Zofran Odt) 4 mg PO Q6H PRN PRN Reason: Nausea able to take PO Ondansetron HCl (Zofran) 4 mg IV Q6H PRN PRN Reason: Nausea/Vomiting Pantoprazole Sodium (Protonix) 40 mg PO BIDAC [facility] [place] Last Admin: 09/10/20 09:20 Dose: 40 mg Documented by: Discontinued Medications Ciprofloxacin (Ciprofloxacin Hcl) 500 mg PO BID [facility] [place] Last Admin: 09/10/20 09:19 Dose: 500 mg Documented by: Diltiazem HCl (Cardizem Cd) 180 mg PO DAILY [facility] [place] Last Admin: 09/08/20 08:01 Dose: 180 mg Documented by: Diltiazem HCl (Cardizem Cd) 120 mg PO ONETIME ONE Stop: 09/07/20 09:43 Last Admin: 09/07/20 10:27 Dose: 120 mg Documented by: Fentanyl (Sublimaze) Confirm Administered Dose 100 mcg .ROUTE .STK-MED ONE Stop: 09/09/20 07:21 Furosemide (Lasix) 20 mg PO BIDDIURETIC [facility] [place] Last Admin: 09/09/20 14:32 Dose: 20 mg Documented by: Sodium Chloride (Normal Saline) 1,000 mls @ 75 mls/hr IV ASDIRECTED [facility] [place] Last Admin: 09/06/20 07:15 Dose: 75 mls/hr Documented by: Cefepime HCl 1 gm/ Sodium (Chloride) 50 mls @ 100 mls/hr IV Q8H [facility] [place] Stop: 09/08/20 10:00 Last Admin: 09/08/20 08:35 Dose: 100 mls/hr Documented by: Albumin Human (Albumin 25%) 25 gm in 100 mls @ 25 mls/hr IV Q6H [facility] [place] Stop: 09/06/20 15:59 Last Admin: 09/06/20 11:49 Dose: 25 mls/hr Documented by: Influenza Virus Vaccine (Fluzone High-Dose Quad ) 240 mcg IM .ONCE ONE Stop: 09/07/20 09:01 Last Admin: 09/07/20 10:51 Dose: 240 mcg Documented by: Metronidazole (Metronidazole) 500 mg PO Q8H [facility] [place] Last Admin: 09/10/20 06:15 Dose: 500 mg Documented by: Pantoprazole Sodium (Protonix Iv) 40 mg IV Q12H [facility] [place] Last Admin: 09/06/20 05:29 Dose: 40 mg Documented by: Prednisolone (Orapred 15 Mg/5ml Soln) 15 mg PO DAILY [facility] [place] Last Admin: 09/10/20 09:19 Dose: 15 mg Documented by: Propofol (Diprivan 20 Ml) Confirm Administered Dose 200 mg .ROUTE .STK-MED ONE Stop: 09/09/20 07:21 Spironolactone (Aldactone) 25 mg PO BIDDIURETIC [facility] [place] Last Admin: 09/09/20 14:32 Dose: 25 mg Documented by: - Exam Quality Assessment: No: Supplemental Oxygen General: Alert, Oriented, Cooperative, No Acute Distress Lungs: Normal Respiratory Effort. No: Wheezing Cardiovascular: Regular Rate, Regular Rhythm GI/Abdominal Exam: Soft, Non-Tender (epigastric ), Distended Extremities: Pedal Edema (L>R). No: Increased Warmth Skin: Warm, Dry Psy/Mental Status: Alert, Normal Affect Sepsis Event Note - Evaluation Sepsis Screening Result: No Definite Risk - Focused Exam Vital Signs: Vital Signs Temp Temp Pulse Pulse Resp BP BP 09/10/20 09:21 71 85/51 L 09/10/20 09:20 70 85/51 L 09/10/20 08:00 36.2 C 70 14 89/51 L 09/10/20 06:00 65 14 93/54 L 09/10/20 04:00 36.5 C 138 H 14 101/62 09/10/20 03:03 130 H 15 94/64 09/10/20 02:00 127 H 17 83/59 L 09/10/20 00:40 108 H 12 82/46 L 09/09/20 23:10 36.6 C 99 11 L 78/53 L Pulse Ox 09/10/20 09:21 09/10/20 09:20 09/10/20 08:00 98 09/10/20 06:00 97 09/10/20 04:00 98 09/10/20 03:03 98 09/10/20 02:00 97 09/10/20 00:40 99 09/09/20 23:10 97 - Problem List & Annotations (1) Abdominal pain, acute, generalized SNOMED Code(s): 830723505, 154864228 Code(s): R10.84 - GENERALIZED ABDOMINAL PAIN Status: Acute Current Visit: Yes (2) Stage III chronic kidney disease SNOMED Code(s): 475379273 Code(s): N18.30 - CHRONIC KIDNEY DISEASE, STAGE 3 UNSPECIFIED Status: Acute Current Visit: Yes Qualifiers: Chronic kidney disease stage 3 subtype: stage 3a (GFR 45-59) Qualified Code(s): N18.31 - Chronic kidney disease, stage 3a (3) Alcoholic hepatitis with ascites SNOMED Code(s): 9691697267867066 Code(s): K70.11 - ALCOHOLIC HEPATITIS WITH ASCITES Status: Acute Current Visit: No (4) Hepatic cirrhosis SNOMED Code(s): 85889782 Code(s): K74.60 - UNSPECIFIED CIRRHOSIS OF LIVER Status: Acute Current Visit: No Qualifiers: Hepatic cirrhosis type: alcoholic cirrhosis Ascites presence: with ascites Qualified Code(s): K70.31 - Alcoholic cirrhosis of liver with ascites - Problem List Review Problem List Initiated/Reviewed/Updated: Yes - My Orders Last 24 Hours: My Active Orders 09/10/20 10:14 Lactulose [Chronulac] 10 gm PO ONETIME ONE 09/10/20 10:15 Albumin Human [Albumin 25%] 25 gm in 100 ml IV Q8H 09/11/20 05:00 CBC W/O DIFF,HEMOGRAM [HEME] Timed (1) COMPREHENSIVE METABOLIC PN,CMP [CHEM] Timed INR,PT,PROTHROMBIN TIME [COAG] Timed - Plan Plan:: ASSESSMENT AND PLAN - Alcoholic hepatitis with ascites-bilirubin stable but not improving much. Symptomatically he is slowly improving. Tolerating steroid taper. -Saline lock IV -Symptomatic management of pain and/or nausea -Discontinue steroids with no significant improvement after more than 2 weeks -Absolute abstinence from alcohol Postprandial and generalized abdominal pain-seemed to be 2 different components. Generalized pain resolved after paracentesis. EGD 09/09 revealed a gastric bezoar That was pushed into the stomach. No fevers. No strong evidence to support active infection -Low residue diet -Discontinue antibiotics -Follow-up cultures -Pain control Atrial fibrillation with rapid ventricular response-he is now back in a sinus rhythm with a normal rate. -Increase diltiazem to 240 mg -Continue metoprolol -Hold diuretics with lower blood pressures Stage III chronic kidney disease-creatinine slowly rising over the past 2 days. -Hold diuretics -Albumin as below Hepatic cirrhosis-secondary to longstanding alcohol use. Complicated by coagulopathy and ascites. Volume status appears appropriate at this time and only minimal lower extremity edema. -Albumin every 8 hours for 3 doses and reassess tomorrow -Holding diuretics with low normal blood pressures. Maintenance issues - - DVT prophylaxis -mechanical - GI prophylaxis -PPI - Nutrition -low residue Disposition - I would anticipate discharge home in the next couple of days Primary care physician -Randolph Potter M.D.
[2020-09-10] MEDS ORDERED: Lactulose Soln 10 GM/15 ML 15 ML UD Cup PO ONE (10:45)
--- NOTE | 2020-09-10 11:22 | PN ---
DATE OF SERVICE: 09/09/2020 The patient has been afebrile with stable vital signs. Feeling a little bit full again and may need a paracentesis in the next day or two. Otherwise, the patient underwent an upper endoscopy for some dysphagia and dyspepsia. He was found to have some moderate-sized esophageal varices as expected with minimal esophageal inflammation and no stricturing. Did have a quite large gastric bezoar. We will put him on a low-residue diet and begin some Zithromax to help with that. Otherwise, continue management with Dr. Potter. Of note, on one of the recent paracentesis, an alpha-fetoprotein level was drawn on the peritoneal fluid which was mildly elevated and put him at statistically somewhat higher risk for hepatocellular carcinoma. Recent imaging has not shown any evidence of that, but subsequent paracentesis will probably begin getting routine fetoprotein levels along with cytology. Alex Goldman MD /[id number]
[2020-09-10] MEDS: Melatonin 3 MG Tab PO SCH (20:21)
[2020-09-10] MEDS: Morphine 2 MG/ML SYRINGE IVPUSH PRN ×2 (20:42→22:58)
[2020-09-11] MEDS: Pantoprazole 40 MG Tab.CR PO SCH ×2 (07:44→16:18)
[2020-09-11] MEDS: Insulin Lispro 100 Unit/ML 3 ML KwikPen SUBCUT SCH ×4 (07:45→20:09)
[2020-09-11] MEDS: Lactobacillus Rhamnosus GG (Probiotic) Cap PO SCH ×2 (09:37→21:16)
[2020-09-11] MEDS: Azithromycin 250 MG Tab PO SCH (09:37)
[2020-09-11] MEDS: Aspirin 325 MG Tab.EC PO SCH (09:37)
[2020-09-11] MEDS: Norepinephrine 4 MG in Dextrose 5% in Water 246 ML IV SCH ×2 (10:16)
[2020-09-11] MEDS: Metoprolol Tartrate 25 MG Tab PO SCH ×2 (10:17→21:16)
[2020-09-11] MEDS: Morphine 15 MG Tab PO PRN (11:32)
--- NOTE | 2020-09-11 12:30 | PCM.PN ---
- General Info Date of Service: 09/11/20 Subjective Update: Mr. Berg has experienced a further increase in his creatinine over the last 24 hours. He reports that he feels somewhat better today with more energy and strength. He was able to sleep fairly well last night. Pressures were noted to be low during the night and he has been given an additional dose of albumin this morning and will be started on norepinephrine because of his progressive renal failure and hypotension. Functional Status: Reports: Tolerating Diet, Ambulating, Urinating - Review of Systems General: Reports: Weakness, Fatigue. Denies: Fever, Chills Pulmonary: Reports: No Symptoms Cardiovascular: Reports: No Symptoms Gastrointestinal: Reports: No Symptoms - Patient Data Vitals - Most Recent: Last Vital Signs Temp 95.6 F L 09/11/20 07:53 Pulse 54 L 09/11/20 11:06 Resp 12 09/11/20 10:00 BP 91/53 L 09/11/20 11:06 Pulse Ox 98 09/11/20 10:00 Weight - Most Recent: 179 lb 4.8 oz I&O - Last 24 Hours: Intake & Output 09/10/20 09/11/20 09/11/20 22:59 06:59 14:59 Intake Total 100 320 Output Total 75 Balance 25 320 Lab Results Last 24 Hours: Laboratory Results - last 24 hr 09/11/20 09/11/20 09/11/20 Range/Units 04:20 04:20 04:20 WBC 18.6 H (4.5-11.0) K/uL RBC 3.01 L (4.30-5.90) M/uL Hgb 10.4 L D (12.0-15.0) g/dL Hct 32.4 L (40.0-54.0) % MCV 108 H (80-98) fL MCH 35 H (27-31) pg MCHC 32 (32-36) % Plt Count 183 (150-400) K/uL PT 19.1 H (9.5-12.0) sec INR 1.77 H (0.80-1.20) Sodium 132 L (140-148) mmol/L Potassium 4.4 (3.6-5.2) mmol/L Chloride 102 (100-108) mmol/L Carbon Dioxide 19 L (21-32) mmol/L Anion Gap 15.4 H (5.0-14.0) mmol/L BUN 55 H (7-18) mg/dL Creatinine 2.3 H (0.8-1.3) mg/dL Est Cr Clr Drug Dosing 29.45 mL/min Estimated GFR (MDRD) 29 L (>60) Glucose 131 H (74-106) mg/dL Calcium 8.0 L (8.5-10.1) mg/dL Total Bilirubin 11.2 H (0.2-1.0) mg/dL AST 40 H (15-37) U/L ALT 52 (12-78) U/L Alkaline Phosphatase 124 H (46-116) U/L Total Protein 4.7 L (6.4-8.2) g/dL Albumin 2.7 L (3.4-5.0) g/dL Globulin 2.0 L (2.3-3.5) g/dL Albumin/Globulin Ratio 1.4 (1.2-2.2) [place] Results Last 24 Hours: Microbiology 09/05/20 17:20 Aerobic Blood Culture - Final Blood - Arm, Left NO GROWTH AFTER 5 DAYS Anaerobic Blood Culture - Final NO GROWTH AFTER 5 DAYS 09/05/20 17:10 Aerobic Blood Culture - Final Blood - Arm, Left NO GROWTH AFTER 5 DAYS Anaerobic Blood Culture - Final NO GROWTH AFTER 5 DAYS 09/09/20 07:29 CLOtest - Final Stomach NEGATIVE CLOTEST REFERENCE RANGE: NEGATIVE Med Orders - Current: Current Medications Acetaminophen (Tylenol) 650 mg PO Q4H PRN PRN Reason: Pain (Mild 1-3)/fever Aspirin (Ecotrin) 325 mg PO DAILY [facility] Last Admin: 09/11/20 09:37 Dose: 325 mg Documented by: Azithromycin (Zithromax) 125 mg PO DAILY [facility] Last Admin: 09/11/20 09:37 Dose: 125 mg Documented by: Albumin Human (Albumin 25%) 25 gm in 100 mls @ 25 mls/hr IV ONETIME ONE Stop: 09/11/20 12:59 Last Admin: 09/11/20 09:34 Dose: 25 mls/hr Documented by: Norepinephrine Bitartrate 4 mg (/ Dextrose/Water) 250 mls @ 7.5 mls/hr IV TITRATE [facility]; Protocol Last Titration: 09/11/20 10:34 Dose: 3 mcg/min, 11.25 mls/hr Documented by: Albumin Human (Albumin 25%) 25 gm in 100 mls @ 25 mls/hr IV Q8H [facility] Stop: 09/13/20 11:59 Insulin Human Lispro (Humalog) 0 unit SUBCUT QIDACANDBED [facility]; Protocol Last Admin: 09/11/20 11:32 Dose: 2 units Documented by: Lactobacillus Rhamnosus (Culturelle) 1 cap PO BID [facility] Last Admin: 09/11/20 09:37 Dose: 1 cap Documented by: Lorazepam (Ativan) 0.5 mg IVPUSH Q4H PRN PRN Reason: Nausea/Vomiting Melatonin (Melatonin) 9 mg PO BEDTIME [facility] Last Admin: 09/10/20 20:21 Dose: 9 mg Documented by: Metoprolol Tartrate (Lopressor) 75 mg PO BID [facility] Last Admin: 09/11/20 10:17 Dose: 75 mg Documented by: Morphine Sulfate (Morphine) 2 mg IVPUSH Q2H PRN PRN Reason: Pain (severe 7-10) Last Admin: 09/10/20 22:58 Dose: 2 mg Documented by: Morphine Sulfate (Morphine) 15 mg PO Q4H PRN PRN Reason: Pain (moderate 4-6) Last Admin: 09/11/20 11:32 Dose: 15 mg Documented by: Ondansetron HCl (Zofran Odt) 4 mg PO Q6H PRN PRN Reason: Nausea able to take PO Ondansetron HCl (Zofran) 4 mg IV Q6H PRN PRN Reason: Nausea/Vomiting [facility] Admin: 09/11/20 07:44 Dose: 40 mg Documented by: Discontinued Medications Ciprofloxacin (Ciprofloxacin Hcl) 500 mg PO BID [facility] Last Admin: 09/10/20 09:19 Dose: 500 mg Documented by: Diltiazem HCl (Cardizem Cd) 180 mg PO DAILY [facility] Last Admin: 09/08/20 08:01 Dose: 180 mg Documented by: Diltiazem HCl (Cardizem Cd) 120 mg PO ONETIME ONE Stop: 09/07/20 09:43 Last Admin: 09/07/20 10:27 Dose: 120 mg Documented by: Diltiazem HCl (Cardizem Cd) 240 mg PO DAILY [facility] Last Admin: 09/10/20 09:20 Dose: 240 mg Documented by: Fentanyl (Sublimaze) Confirm Administered Dose 100 mcg .ROUTE .STK-MED ONE Stop: 09/09/20 07:21 Furosemide (Lasix) 20 mg PO BIDDIURETIC [facility] Last Admin: 09/09/20 14:32 Dose: 20 mg Documented by: Sodium Chloride (Normal Saline) 1,000 mls @ 75 mls/hr IV ASDIRECTED [facility] Last Admin: 09/06/20 07:15 Dose: 75 mls/hr Documented by: Cefepime HCl 1 gm/ Sodium (Chloride) 50 mls @ 100 mls/hr IV Q8H [facility] Stop: 09/08/20 10:00 Last Admin: 09/08/20 08:35 Dose: 100 mls/hr Documented by: Albumin Human (Albumin 25%) 25 gm in 100 mls @ 25 mls/hr IV Q6H [facility] Stop: 09/06/20 15:59 Last Admin: 09/06/20 11:49 Dose: 25 mls/hr Documented by: Albumin Human (Albumin 25%) 25 gm in 100 mls @ 25 mls/hr IV Q8H [facility] Stop: 09/11/20 06:59 Last Admin: 09/11/20 02:32 Dose: 25 mls/hr Documented by: Influenza Virus Vaccine (Fluzone High-Dose Quad ) 240 mcg IM .ONCE ONE Stop: 09/07/20 09:01 Last Admin: 09/07/20 10:51 Dose: 240 mcg Documented by: Lactulose (Chronulac) 10 gm PO ONETIME ONE Stop: 09/10/20 10:46 Last Admin: 09/10/20 10:53 Dose: 10 gm Documented by: Metronidazole (Metronidazole) 500 mg PO Q8H [facility] Last Admin: 09/10/20 06:15 Dose: 500 mg Documented by: Pantoprazole Sodium (Protonix Iv) 40 mg IV Q12H [facility] Last Admin: 09/06/20 05:29 Dose: 40 mg Documented by: Prednisolone (Orapred 15 Mg/5ml Soln) 15 mg PO DAILY [facility] Last Admin: 09/10/20 09:19 Dose: 15 mg Documented by: Propofol (Diprivan 20 Ml) Confirm Administered Dose 200 mg .ROUTE .STK-MED ONE Stop: 09/09/20 07:21 Spironolactone (Aldactone) 25 mg PO BIDDIURETIC [facility] Last Admin: 09/09/20 14:32 Dose: 25 mg Documented by: - Exam General: Alert, Oriented, Cooperative, Mild Distress Lungs: Clear to Auscultation, Normal Respiratory Effort Cardiovascular: Regular Rate, Regular Rhythm, No Murmurs GI/Abdominal Exam: Soft, Non-Tender, No Organomegaly, No Distention Extremities: Non-Tender, Pedal Edema Sepsis Event Note - Evaluation Sepsis Screening Result: Severe Sepsis Risk - Focused Exam Vital Signs: Vital Signs Temp Pulse Pulse Resp BP BP Pulse Ox 09/11/20 11:06 54 L 91/53 L 09/11/20 10:43 52 L 88/53 L 09/11/20 10:33 52 L 90/53 L 09/11/20 10:17 56 L 85/50 L 09/11/20 10:00 53 L 12 89/51 L 98 09/11/20 07:53 95.6 F L 57 L 10 L 82/49 L 99 09/11/20 06:00 51 L 12 70/43 L 95 09/11/20 04:00 96.8 F L 51 L 10 L 81/50 L 96 09/11/20 02:00 50 L 11 L 70/37 L 96 - Problem List Review Problem List Initiated/Reviewed/Updated: Yes - My Orders Last 24 Hours: My Active Orders 09/11/20 08:30 Norepinephrine [Levophed] 4 mg Dextrose 5% in Water 246 ml IV TITRATE 09/11/20 09:00 Albumin Human [Albumin 25%] 25 gm in 100 ml IV ONETIME 09/11/20 10:26 Central Venous Line Insertion [OM.PC] Routine 09/11/20 12:30 Albumin Human [Albumin 25%] 25 gm in 100 ml IV Q8H 09/12/20 05:00 CBC WITH AUTO DIFF [HEME] Timed COMPREHENSIVE METABOLIC PN,CMP [CHEM] Timed INR,PT,PROTHROMBIN TIME [COAG] Timed - Plan Plan:: ASSESSMENT AND PLAN - Alcoholic hepatitis/hepatic cirrhosis with ascites-bilirubin stable but not improving much. Symptomatically he is slowly improving. Tolerating steroid taper. -Saline lock IV -Symptomatic management of pain and/or nausea -Discontinue steroids with no significant improvement after more than 2 weeks -Absolute abstinence from alcohol Postprandial and generalized abdominal pain-seemed to be 2 different components. Generalized pain resolved after paracentesis. EGD 09/09 revealed a gastric bezoar That was pushed into the stomach. No fevers. No strong evidence to support active infection -Low residue diet -Discontinue antibiotics -Follow-up cultures -Pain control Atrial fibrillation with rapid ventricular response-he is now back in a sinus rhythm with a normal rate. -Hold diltiazem because of hypotension -Continue metoprolol -Hold diuretics with lower blood pressures Acute kidney injury-concern for developing hepatorenal syndrome. He has had ongoing difficulty with hypotension likely related to medication effect for control of his atrial fibrillation. -Hold diuretics -Hold diltiazem as above -Albumin 25 g IV every 8 hours for 2 days -Norepinephrine to maintain adequate blood pressure for kidney perfusion -Albumin as below Hepatic cirrhosis-secondary to longstanding alcohol use. Complicated by coag ulopathy and ascites. Volume status appears appropriate at this time and only minimal lower extremity edema. -Albumin every 8 hours for 3 doses and reassess tomorrow -Holding diuretics with low normal blood pressures. Maintenance issues - - DVT prophylaxis -mechanical - GI prophylaxis -PPI - Nutrition -low residue Disposition - I would anticipate discharge home in the next couple of days Primary care physician -Randolph Juárez NP
--- NOTE | 2020-09-11 15:26 | OR ---
DATE OF PROCEDURE: 09/05/2020 SURGEON: Alex Goldman MD PREOPERATIVE DIAGNOSIS: Recurrent tense ascites. POSTOPERATIVE DIAGNOSIS: Recurrent tense ascites. OPERATIVE PROCEDURE: Ultrasound-guided paracentesis. ANESTHESIA: Local. INDICATIONS FOR PROCEDURE: The patient presents with hepatic cirrhosis related ascites, which has become quite tense. Plan is to proceed with a paracentesis. This will be partly diagnostic in terms of we will obtain some additional blood cultures as well as therapeutic. His creatinine is somewhat up, so we will be somewhat modest in terms of the amount of fluid to be taken out from the system, planning something around 3 L. Potential risks of the procedure otherwise including bleeding, infection, injury to underlying viscera were reviewed, and the patient wishes to proceed. DETAILS OF PROCEDURE: In the intensive care unit, the patient's right subcostal area was anesthetized with 1% lidocaine mixed with Marcaine after being premarked with ultrasound. That area was then cannulated with a paracentesis catheter. 3 L of bilious containing fluid was then removed and this was sent for both blood cultures, both Gram strain and routine C and S. The procedure then concluded with placement of a pursestring stitch of 2-0 Prolene stitch around the catheter site to avoid postoperative leakage. The patient tolerated the procedure well. Alex Goldman MD /[id number]
[2020-09-11] MEDS: Melatonin 3 MG Tab PO SCH (21:16)
[2020-09-12] MEDS: Pantoprazole 40 MG Tab.CR PO SCH ×2 (07:38→16:39)
[2020-09-12] MEDS: Insulin Lispro 100 Unit/ML 3 ML KwikPen SUBCUT SCH ×4 (07:41→21:25)
[2020-09-12] MEDS: Norepinephrine 4 MG in Dextrose 5% in Water 246 ML IV SCH ×2 (07:45)
[2020-09-12] MEDS: Metoprolol Tartrate 25 MG Tab PO SCH (11:11)
[2020-09-12] MEDS: Lactobacillus Rhamnosus GG (Probiotic) Cap PO SCH ×2 (11:13→21:41)
[2020-09-12] MEDS: Aspirin 325 MG Tab.EC PO SCH (11:13)
[2020-09-12] MEDS: Azithromycin 250 MG Tab PO SCH (11:13)
--- NOTE | 2020-09-12 14:18 | PCM.PN ---
- General Info Date of Service: 09/12/20 Subjective Update: Mr. Dubois presents to improve blood pressures over the last 24 hours with use of norepinephrine and albumin infusion. Unfortunately despite these interventions creatinine did increase again from 2.3-2.6. He denies significant shortness of breath and has been somewhat more alert and interactive. Appetite seems to be improved over the past few days and he has been taking in some nutritional supplements. Functional Status: Reports: Ambulating, Urinating - Review of Systems General: Reports: Weakness, Fatigue. Denies: Fever, Chills Pulmonary: Reports: No Symptoms Cardiovascular: Reports: No Symptoms Gastrointestinal: Reports: No Symptoms - Patient Data Vitals - Most Recent: Last Vital Signs Temp 97.9 F 09/12/20 07:54 Pulse 67 09/12/20 12:00 Resp 18 09/12/20 12:00 BP 105/65 09/12/20 12:00 Pulse Ox 98 09/12/20 12:00 Weight - Most Recent: 182 lb 3.2 oz I&O - Last 24 Hours: Intake & Output 09/11/20 09/12/20 09/12/20 22:59 06:59 14:59 Intake Total 193 403 Output Total 275 175 200 Balance -82 228 -200 Lab Results Last 24 Hours: Laboratory Results - last 24 hr 09/12/20 09/12/20 09/12/20 Range/Units 04:10 04:10 04:10 WBC 17.2 H (4.5-11.0) K/uL RBC 3.05 L (4.30-5.90) M/uL Hgb 10.6 L (12.0-15.0) g/dL Hct 32.8 L (40.0-54.0) % MCV 108 H (80-98) fL MCH 35 H (27-31) pg MCHC 32 (32-36) % Plt Count 179 (150-400) K/uL Neut % (Auto) 86 H (36-66) % Lymph % (Auto) 4 L (24-44) % [place] % (Auto) 9 H (2-6) % Eos % (Auto) 2 (2-4) % Baso % (Auto) 0 (0-1) % PT 18.2 H (9.5-12.0) sec INR 1.69 H (0.80-1.20) Sodium 134 L (140-148) mmol/L Potassium 4.0 (3.6-5.2) mmol/L Chloride 102 (100-108) mmol/L Carbon Dioxide 18 L (21-32) mmol/L Anion Gap 18.0 H (5.0-14.0) mmol/L BUN 60 H (7-18) mg/dL Creatinine 2.6 H (0.8-1.3) mg/dL Est Cr Clr Drug Dosing 26.05 mL/min Estimated GFR (MDRD) 25 L (>60) Glucose 152 H (74-106) mg/dL Calcium 8.3 L (8.5-10.1) mg/dL Total Bilirubin 11.3 H (0.2-1.0) mg/dL AST 114 H D (15-37) U/L ALT 56 (12-78) U/L Alkaline Phosphatase 112 (46-116) U/L Total Protein 5.3 L (6.4-8.2) g/dL Albumin 3.5 (3.4-5.0) g/dL Globulin 1.8 L (2.3-3.5) g/dL Albumin/Globulin Ratio 1.9 (1.2-2.2) [place] Results Last 24 Hours: Microbiology 09/06/20 07:19 Gram Stain - Final Ascities Fluid Body Fluid Culture - Final Med Orders - Current: Current Medications Acetaminophen (Tylenol) 650 mg PO Q4H PRN PRN Reason: Pain (Mild 1-3)/fever Aspirin (Ecotrin) 325 mg PO DAILY [facility] Last Admin: 09/12/20 11:13 Dose: 325 mg Documented by: Azithromycin (Zithromax) 125 mg PO DAILY [facility] Last Admin: 09/12/20 11:13 Dose: 125 mg Documented by: Norepinephrine Bitartrate 4 mg (/ Dextrose/Water) 250 mls @ 7.5 mls/hr IV TITRATE [facility]; Protocol Last Titration: 09/12/20 11:11 Dose: 2 mcg/min, 7.5 mls/hr Documented by: Albumin Human (Albumin 25%) 25 gm in 100 mls @ 25 mls/hr IV Q8H [facility] Stop: 09/13/20 11:59 Last Admin: 09/12/20 07:38 Dose: 25 mls/hr Documented by: Insulin Human Lispro (Humalog) 0 unit SUBCUT QIDACANDBED [facility]; Protocol Last Admin: 09/12/20 11:16 Dose: Not Given Documented by: Lactobacillus Rhamnosus (Culturelle) 1 cap PO BID [facility] Last Admin: 09/12/20 11:13 Dose: 1 cap Documented by: Lorazepam (Ativan) 0.5 mg IVPUSH Q4H PRN PRN Reason: Nausea/Vomiting Melatonin (Melatonin) 9 mg PO BEDTIME [facility] Last Admin: 09/11/20 21:16 Dose: 9 mg Documented by: Metoprolol Tartrate (Lopressor) 50 mg PO BID [facility] Morphine Sulfate (Morphine) 2 mg IVPUSH Q2H PRN PRN Reason: Pain (severe 7-10) Last Admin: 09/10/20 22:58 Dose: 2 mg Documented by: Morphine Sulfate (Morphine) 15 mg PO Q4H PRN PRN Reason: Pain (moderate 4-6) Last Admin: 09/11/20 11:32 Dose: 15 mg Documented by: Ondansetron HCl (Zofran Odt) 4 mg PO Q6H PRN PRN Reason: Nausea able to take PO Ondansetron HCl (Zofran) 4 mg IV Q6H PRN PRN Reason: Nausea/Vomiting [facility] Last Admin: 09/12/20 07:38 Dose: 40 mg Documented by: Discontinued Medications Ciprofloxacin (Ciprofloxacin Hcl) 500 mg PO BID [facility] Last Admin: 09/10/20 09:19 Dose: 500 mg Documented by: Diltiazem HCl (Cardizem Cd) 180 mg PO DAILY [facility] Last Admin: 09/08/20 08:01 Dose: 180 mg Documented by: Diltiazem HCl (Cardizem Cd) 120 mg PO ONETIME ONE Stop: 09/07/20 09:43 Last Admin: 09/07/20 10:27 Dose: 120 mg Documented by: Diltiazem HCl (Cardizem Cd) 240 mg PO DAILY [facility] Last Admin: 09/10/20 09:20 Dose: 240 mg Documented by: Fentanyl (Sublimaze) Confirm Administered Dose 100 mcg .ROUTE .STK-MED ONE Stop: 09/09/20 07:21 Furosemide (Lasix) 20 mg PO BIDDIURETIC [facility] Last Admin: 09/09/20 14:32 Dose: 20 mg Documented by: Sodium Chloride (Normal Saline) 1,000 mls @ 75 mls/hr IV ASDIRECTED [facility] Last Admin: 09/06/20 07:15 Dose: 75 mls/hr Documented by: Cefepime HCl 1 gm/ Sodium (Chloride) 50 mls @ 100 mls/hr IV Q8H [facility] Stop: 09/08/20 10:00 Last Admin: 09/08/20 08:35 Dose: 100 mls/hr Documented by: Albumin Human (Albumin 25%) 25 gm in 100 mls @ 25 mls/hr IV Q6H [facility] Stop: 09/06/20 15:59 Last Admin: 09/06/20 11:49 Dose: 25 mls/hr Documented by: Albumin Human (Albumin 25%) 25 gm in 100 mls @ 25 mls/hr IV Q8H [facility] Stop: 09/11/20 06:59 Last Admin: 09/11/20 02:32 Dose: 25 mls/hr Documented by: Albumin Human (Albumin 25%) 25 gm in 100 mls @ 25 mls/hr IV ONETIME ONE Stop: 09/11/20 12:59 Last Admin: 09/11/20 09:34 Dose: 25 mls/hr Documented by: Influenza Virus Vaccine (Fluzone High-Dose Quad ) 240 mcg IM .ONCE ONE Stop: 09/07/20 09:01 Last Admin: 09/07/20 10:51 Dose: 240 mcg Documented by: Lactulose (Chronulac) 10 gm PO ONETIME ONE Stop: 09/10/20 10:46 Last Admin: 09/10/20 10:53 Dose: 10 gm Documented by: Metoprolol Tartrate (Lopressor) 75 mg PO BID [facility] Last Admin: 09/12/20 11:11 Dose: Not Given Documented by: Metronidazole (Metronidazole) 500 mg PO Q8H [facility] Last Admin: 09/10/20 06:15 Dose: 500 mg Documented by: Pantoprazole Sodium (Protonix Iv) 40 mg IV Q12H [facility] Last Admin: 09/06/20 05:29 Dose: 40 mg Documented by: Prednisolone (Orapred 15 Mg/5ml Soln) 15 mg PO DAILY [facility] Last Admin: 09/10/20 09:19 Dose: 15 mg Documented by: Propofol (Diprivan 20 Ml) Confirm Administered Dose 200 mg .ROUTE .STK-MED ONE Stop: 09/09/20 07:21 Spironolactone (Aldactone) 25 mg PO BIDDIURETIC [facility] Last Admin: 09/09/20 14:32 Dose: 25 mg Documented by: - Exam Quality Assessment: DVT Prophylaxis General: Alert, Oriented, Cooperative, Moderate Distress Lungs: Clear to Auscultation, Normal Respiratory Effort Cardiovascular: Regular Rate, Regular Rhythm, Murmurs GI/Abdominal Exam: Soft, Non-Tender, No Organomegaly, Distended Extremities: Non-Tender, Pedal Edema Sepsis Event Note - Evaluation Sepsis Screening Result: No Definite Risk - Focused Exam Vital Signs: Vital Signs Temp Temp Pulse Resp BP Pulse Ox 09/12/20 12:00 67 18 105/65 98 09/12/20 10:00 73 15 103/61 98 09/12/20 07:54 97.9 F 63 11 L 98/58 L 96 09/12/20 06:00 61 12 90/55 L 97 09/12/20 05:00 97.3 F 60 12 95/59 L 96 09/12/20 04:00 62 15 99/56 L 93 L 09/12/20 03:00 65 14 98/61 97 - Problem List Review Problem List Initiated/Reviewed/Updated: Yes - My Orders Last 24 Hours: My Active Orders 09/11/20 16:00 Albumin Human [Albumin 25%] 25 gm in 100 ml IV Q8H 09/12/20 21:00 Metoprolol Tartrate [Lopressor] 50 mg PO BID 09/13/20 05:00 CBC WITH AUTO DIFF [HEME] Timed COMPREHENSIVE METABOLIC PN,CMP [CHEM] Timed INR,PT,PROTHROMBIN TIME [COAG] Timed MAGNESIUM [CHEM] Timed - Plan Plan:: ASSESSMENT AND PLAN - Alcoholic hepatitis/hepatic cirrhosis with ascites-bilirubin stable but not improving much. Symptomatically he is slowly improving. -Saline lock IV -Symptomatic management of pain and/or nausea -Absolute abstinence from alcohol -Hold diuretics with worsening renal function and hypotension Postprandial and generalized abdominal pain-resolved -Low residue diet -Pain control Atrial fibrillation with rapid ventricular response-he is now back in a sinus rhythm with a normal rate. -Hold diltiazem because of hypotension -Continue metoprolol -Hold diuretics with lower blood pressures Acute kidney injury-concern for developing hepatorenal syndrome. He has had ongoing difficulty with hypotension likely related to medication effect for control of his atrial fibrillation. -Hold diuretics -Hold diltiazem as above -Albumin 25 g IV every 8 hours for 2 days -Norepinephrine to maintain adequate blood pressure for kidney perfusion Maintenance issues - - DVT prophylaxis -mechanical - GI prophylaxis -PPI - Nutrition -low residue Disposition - I would anticipate discharge home after his hospital stay Primary care physician -Randolph Juárez [employer]
[2020-09-12] MEDS ORDERED: Diltiazem 25 MG/5 ML SDV IVPUSH ONE (17:00)
[2020-09-12] MEDS ORDERED: Diltiazem 100 MG in Sodium Chloride 0.9% 100 ML IV SCH (17:00)
[2020-09-12] MEDS: Metoprolol Tartrate 50 MG Tab PO SCH (21:41)
[2020-09-12] MEDS: Melatonin 3 MG Tab PO SCH (21:42)
[2020-09-13] MEDS: Morphine 2 MG/ML SYRINGE IVPUSH PRN ×3 (06:19→23:05)
[2020-09-13] MEDS: Insulin Lispro 100 Unit/ML 3 ML KwikPen SUBCUT SCH ×4 (08:47→20:59)
[2020-09-13] MEDS: Norepinephrine 4 MG in Dextrose 5% in Water 246 ML IV SCH ×2 (09:38)
[2020-09-13] MEDS: Aspirin 325 MG Tab.EC PO SCH (09:45)
[2020-09-13] MEDS: Azithromycin 250 MG Tab PO SCH (09:45)
[2020-09-13] MEDS: Lactobacillus Rhamnosus GG (Probiotic) Cap PO SCH ×2 (09:45→21:01)
[2020-09-13] MEDS: Pantoprazole 40 MG Tab.CR PO SCH ×2 (09:45→18:02)
[2020-09-13] MEDS: Metoprolol Tartrate 50 MG Tab PO SCH (09:45)
[2020-09-13] MEDS: Diltiazem IR 30 MG Tab PO SCH ×2 (11:30→18:02)
--- NOTE | 2020-09-13 18:45 | PCM.PN ---
- General Info Date of Service: 09/13/20 Subjective Update: Mr. Dubois is very weak and lethargic. He is remained in atrial fibrillation with rapid ventricular response. Use of IV diltiazem did result in good control, followed by episodes of pauses of up to 6 seconds. IV diltiazem was discontinued and he has been started on a lower dose of oral diltiazem, heart rate remains elevated. He is not a candidate for use of amiodarone because of his severe liver dysfunction. Renal function appears to have stabilized over the last 24 hours. He is experiencing increased abdominal pain secondary to increased ascites. Functional Status: Reports: Tolerating Diet, Ambulating, Urinating - Review of Systems General: Reports: Weakness, Fatigue. Denies: Fever, Chills Pulmonary: Reports: No Symptoms Cardiovascular: Reports: No Symptoms Gastrointestinal: Reports: Abdominal Pain, Decreased Appetite. Denies: Diarrhea, Difficulty Swallowing, Nausea, Vomiting Genitourinary: Reports: No Symptoms - Patient Data Vitals - Most Recent: Last Vital Signs Temp 97.6 F 09/13/20 09:00 Pulse 122 H 09/13/20 18:00 Resp 11 L 09/13/20 18:00 BP 122/76 09/13/20 18:00 Pulse Ox 96 09/13/20 13:00 Weight - Most Recent: 180 lb 8 oz I&O - Last 24 Hours: Intake & Output 09/13/20 09/13/20 09/13/20 06:59 14:59 22:59 Intake Total 324 100 216 Output Total 150 300 Balance 174 100 -84 Lab Results Last 24 Hours: Laboratory Results - last 24 hr 09/13/20 09/13/20 09/13/20 Range/Units 05:56 05:56 05:56 WBC 12.7 H (4.5-11.0) K/uL RBC 3.30 L (4.30-5.90) M/uL Hgb 11.3 L (12.0-15.0) g/dL Hct 35.1 L (40.0-54.0) % MCV 106 H (80-98) fL MCH 34 H (27-31) pg MCHC 32 (32-36) % Plt Count 167 (150-400) K/uL Neut % (Auto) 81 H (36-66) % Lymph % (Auto) 6 L (24-44) % [place] % (Auto) 10 H (2-6) % Eos % (Auto) 2 (2-4) % Baso % (Auto) 0 (0-1) % PT 20.7 H (9.5-12.0) sec INR 1.92 H (0.80-1.20) Sodium 135 L (140-148) mmol/L Potassium 3.9 (3.6-5.2) mmol/L Chloride 104 (100-108) mmol/L Carbon Dioxide 17 L (21-32) mmol/L Anion Gap 17.9 H (5.0-14.0) mmol/L BUN 61 H (7-18) mg/dL Creatinine 2.6 H (0.8-1.3) mg/dL Est Cr Clr Drug Dosing 26.05 mL/min Estimated GFR (MDRD) 25 L (>60) Glucose 168 H (74-106) mg/dL Calcium 8.2 L (8.5-10.1) mg/dL Magnesium 2.3 (1.8-2.4) mg/dL Total Bilirubin 11.7 H (0.2-1.0) mg/dL AST 101 H (15-37) U/L ALT 65 (12-78) U/L Alkaline Phosphatase 117 H (46-116) U/L Total Protein 5.2 L (6.4-8.2) g/dL Albumin 3.6 (3.4-5.0) g/dL Globulin 1.6 L (2.3-3.5) g/dL Albumin/Globulin Ratio 2.3 H (1.2-2.2) Med Orders - Current: Current Medications Acetaminophen (Tylenol) 650 mg PO Q4H PRN PRN Reason: Pain (Mild 1-3)/fever Aspirin (Ecotrin) 325 mg PO DAILY [facility] Last Admin: 09/13/20 09:45 Dose: 325 mg Documented by: Azithromycin (Zithromax) 125 mg PO DAILY [facility] Last Admin: 09/13/20 09:45 Dose: 125 mg Documented by: Diltiazem HCl (Cardizem) 60 mg PO Q6H [facility] Norepinephrine Bitartrate 4 mg (/ Dextrose/Water) 250 mls @ 7.5 mls/hr IV TITRATE [facility]; Protocol Last Admin: 09/13/20 09:38 Dose: 3 mcg/min, 11.25 mls/hr Documented by: Diltiazem HCl 100 mg/ Sodium (Chloride) 100 mls @ 5 mls/hr IV TITRATE [facility]; Protocol Last Titration: 09/13/20 01:19 Dose: 0 mg/hr, 0 mls/hr Documented by: Albumin Human (Albumin 25%) 25 gm in 100 mls @ 25 mls/hr IV ONETIME ONE Stop: 09/13/20 20:59 Last Admin: 09/13/20 17:12 Dose: 25 mls/hr Documented by: Albumin Human (Albumin 25%) 25 gm in 100 mls @ 25 mls/hr IV ONETIME ONE Stop: 09/14/20 07:59 Insulin Human Lispro (Humalog) 0 unit SUBCUT QIDACANDBED [facility]; Protocol Last Admin: 09/13/20 18:02 Dose: Not Given Documented by: Lactobacillus Rhamnosus (Culturelle) 1 cap PO BID [facility] Last Admin: 09/13/20 09:45 Dose: 1 cap Documented by: Lorazepam (Ativan) 0.5 mg IVPUSH Q4H PRN PRN Reason: Nausea/Vomiting Melatonin (Melatonin) 9 mg PO BEDTIME [facility] Last Admin: 09/12/20 21:42 Dose: 9 mg Documented by: Metoprolol Tartrate (Lopressor) 75 mg PO BID [facility] Morphine Sulfate (Morphine) 2 mg IVPUSH Q2H PRN PRN Reason: Pain (severe 7-10) Last Admin: 09/13/20 15:59 Dose: 2 mg Documented by: Morphine Sulfate (Morphine) 15 mg PO Q4H PRN PRN Reason: Pain (moderate 4-6) Last Admin: 09/11/20 11:32 Dose: 15 mg Documented by: Ondansetron HCl (Zofran Odt) 4 mg PO Q6H PRN PRN Reason: Nausea able to take PO Ondansetron HCl (Zofran) 4 mg IV Q6H PRN PRN Reason: Nausea/Vomiting Pantoprazole Sodium (Protonix) 40 mg PO BIDAC [facility] Last Admin: 09/13/20 18:02 Dose: 40 mg Documented by: Discontinued Medications Ciprofloxacin (Ciprofloxacin Hcl) 500 mg PO BID [facility] Last Admin: 09/10/20 09:19 Dose: 500 mg Documented by: Diltiazem HCl (Cardizem Cd) 180 mg PO DAILY [facility] Last Admin: 09/08/20 08:01 Dose: 180 mg Documented by: Diltiazem HCl (Cardizem Cd) 120 mg PO ONETIME ONE Stop: 09/07/20 09:43 Last Admin: 09/07/20 10:27 Dose: 120 mg Documented by: Diltiazem HCl (Cardizem Cd) 240 mg PO DAILY [facility] Last Admin: 09/10/20 09:20 Dose: 240 mg Documented by: Diltiazem HCl (Diltiazem) 10 mg IVPUSH ONETIME ONE Stop: 09/12/20 17:01 Last Admin: 09/12/20 16:59 Dose: 10 mg Documented by: Diltiazem HCl (Cardizem) 30 mg PO Q6H [facility] Last Admin: 09/13/20 18:02 Dose: 30 mg Documented by: Fentanyl (Sublimaze) Confirm Administered Dose 100 mcg .ROUTE .STK-MED ONE Stop: 09/09/20 07:21 Furosemide (Lasix) 20 mg PO BIDDIURETIC [facility] Last Admin: 09/09/20 14:32 Dose: 20 mg Documented by: Sodium Chloride (Normal Saline) 1,000 mls @ 75 mls/hr IV ASDIRECTED [facility] Last Admin: 09/06/20 07:15 Dose: 75 mls/hr Documented by: Cefepime HCl 1 gm/ Sodium (Chloride) 50 mls @ 100 mls/hr IV Q8H [facility] Stop: 09/08/20 10:00 Last Admin: 09/08/20 08:35 Dose: 100 mls/hr Documented by: Albumin Human (Albumin 25%) 25 gm in 100 mls @ 25 mls/hr IV Q6H [facility] Stop: 09/06/20 15:59 Last Admin: 09/06/20 11:49 Dose: 25 mls/hr Documented by: Albumin Human (Albumin 25%) 25 gm in 100 mls @ 25 mls/hr IV Q8H [facility] Stop: 09/11/20 06:59 Last Admin: 09/11/20 02:32 Dose: 25 mls/hr Documented by: Albumin Human (Albumin 25%) 25 gm in 100 mls @ 25 mls/hr IV ONETIME ONE Stop: 09/11/20 12:59 Last Admin: 09/11/20 09:34 Dose: 25 mls/hr Documented by: Albumin Human (Albumin 25%) 25 gm in 100 mls @ 25 mls/hr IV Q8H [facility] Stop: 09/13/20 11:59 Last Admin: 09/13/20 09:41 Dose: 25 mls/hr Documented by: Influenza Virus Vaccine (Fluzone High-Dose Quad ) 240 mcg IM .ONCE [facility] Stop: 09/07/20 09:01 Last Admin: 09/07/20 10:51 Dose: 240 mcg Documented by: Lactulose (Chronulac) 10 gm PO ONETIME ONE Stop: 09/10/20 10:46 Last Admin: 09/10/20 10:53 Dose: 10 gm Documented by: Metoprolol Tartrate (Lopressor) 75 mg PO BID [facility] Last Admin: 09/12/20 11:11 Dose: Not Given Documented by: Metoprolol Tartrate (Lopressor) 50 mg PO BID [facility] Last Admin: 09/13/20 09:45 Dose: 50 mg Documented by: Metronidazole (Metronidazole) 500 mg PO Q8H [facility] Last Admin: 09/10/20 06:15 Dose: 500 mg Documented by: Pantoprazole Sodium (Protonix Iv) 40 mg IV Q12H [facility] Last Admin: 09/06/20 05:29 Dose: 40 mg Documented by: Prednisolone (Orapred 15 Mg/5ml Soln) 15 mg PO DAILY [facility] Last Admin: 09/10/20 09:19 Dose: 15 mg Documented by: Propofol (Diprivan 20 Ml) Confirm Administered Dose 200 mg .ROUTE .STK-MED ONE Stop: 09/09/20 07:21 Spironolactone (Aldactone) 25 mg PO BIDDIURETIC [facility] Last Admin: 09/09/20 14:32 Dose: 25 mg Documented by: - Exam Quality Assessment: DVT Prophylaxis General: Oriented, Cooperative, Moderate Distress, Lethargic Lungs: Clear to Auscultation, Normal Respiratory Effort Cardiovascular: No Murmurs, Irregular Rhythm, Tachycardia GI/Abdominal Exam: Soft, No Organomegaly, Distended, Tender. No: Guarding, Rigid, Rebound Extremities: Non-Tender, Pedal Edema Sepsis Event Note - Evaluation Sepsis Screening Result: Severe Sepsis Risk - Focused Exam Vital Signs: Vital Signs Temp Pulse Pulse Resp BP BP Pulse Ox 09/13/20 18:00 122 H 11 L 122/76 09/13/20 17:00 138 H 11 L 122/76 09/13/20 16:00 121 H 15 122/78 09/13/20 15:00 125 H 17 111/78 09/13/20 14:00 104 H 13 107/68 09/13/20 13:00 123 H 13 111/76 96 09/13/20 12:00 124 H 11 L 113/75 95 09/13/20 11:00 120 H 16 115/78 97 09/13/20 10:00 138 H 24 H 116/79 98 09/13/20 09:45 119 H 104/78 09/13/20 09:00 97.6 F 141 H 16 104/78 97 09/13/20 07:00 126 H 105/73 - Problem List Review Problem List Initiated/Reviewed/Updated: Yes - My Orders Last 24 Hours: My Active Orders 09/13/20 17:00 Albumin Human [Albumin 25%] 25 gm in 100 ml IV ONETIME 09/13/20 21:00 Metoprolol Tartrate [Lopressor] 75 mg PO BID 09/14/20 00:00 Diltiazem IR [Cardizem] 60 mg PO Q6H 09/14/20 04:00 Albumin Human [Albumin 25%] 25 gm in 100 ml IV ONETIME 09/14/20 05:00 CBC WITH AUTO DIFF [HEME] Timed COMPREHENSIVE METABOLIC PN,CMP [CHEM] Timed INR,PT,PROTHROMBIN TIME [COAG] Timed - Plan Plan:: ASSESSMENT AND PLAN - Alcoholic hepatitis/hepatic cirrhosis with ascites-bilirubin stable but not improving much. Recent abdominal pain secondary to abdominal distention and increase in ascites -Consult Dr. Goldman for paracentesis -Saline lock IV -Symptomatic management of pain and/or nausea -Absolute abstinence from alcohol -Hold diuretics with worsening renal function and hypotension Atrial fibrillation with rapid ventricular response-is redeveloped atrial fibrillation with rapid ventricular response. IV diltiazem did result in good rate control without significant hypotension because of ongoing use of norepinephrine. Unfortunately he did develop pauses of up to 6 seconds so IV diltiazem has been held. -Diltiazem 30 mg p.o. every 6 hours -Continue metoprolol -Hold diuretics with lower blood pressures Acute kidney injury-concern for developing hepatorenal syndrome. He has had ongoing difficulty with hypotension likely related to medication effect for control of his atrial fibrillation. He has completed a course of IV albumin 1 g/kg daily over 2 days. -Hold diuretics -Norepinephrine to maintain adequate blood pressure for kidney perfusion Maintenance issues - - DVT prophylaxis -mechanical - GI prophylaxis -PPI - Nutrition -low residue Disposition - I would anticipate discharge home after his hospital stay Primary care physician -Randolph Juárez [employer]
[2020-09-13] MEDS: Metoprolol Tartrate 25 MG Tab PO SCH (21:01)
[2020-09-13] MEDS: Melatonin 3 MG Tab PO SCH (21:01)
[2020-09-14] MEDS: Diltiazem IR 30 MG Tab PO SCH ×5 (00:37→23:16)
[2020-09-14] MEDS: Norepinephrine 4 MG in Dextrose 5% in Water 246 ML IV SCH ×2 (08:47)
[2020-09-14] MEDS: Metoprolol Tartrate 25 MG Tab PO SCH ×2 (08:50→21:31)
[2020-09-14] MEDS: Insulin Lispro 100 Unit/ML 3 ML KwikPen SUBCUT SCH ×4 (08:51→19:38)
[2020-09-14] MEDS: Lactobacillus Rhamnosus GG (Probiotic) Cap PO SCH ×2 (08:52→21:30)
[2020-09-14] MEDS: Pantoprazole 40 MG Tab.CR PO SCH ×2 (08:53→19:15)
[2020-09-14] MEDS: Azithromycin 250 MG Tab PO SCH (08:53)
[2020-09-14] MEDS: Aspirin 325 MG Tab.EC PO SCH (08:53)
[2020-09-14] MEDS: Morphine 2 MG/ML SYRINGE IVPUSH PRN (15:55)
[2020-09-14] MEDS: Melatonin 3 MG Tab PO SCH (21:30)
--- NOTE | 2020-09-14 23:39 | PCM.PN ---
- General Info Date of Service: 09/14/20 Subjective Update: Mr. Dubois has felt somewhat improved today following 2 L paracentesis earlier this morning. Renal function stable since yesterday but not significantly improved. Rate control has been somewhat better with ongoing oral diltiazem. Appetite remains fairly poor and he is generally very weak. Bilirubin increased modestly from yesterday, INR stable Functional Status: Reports: Urinating. Denies: Tolerating Diet - Review of Systems General: Reports: Weakness, Fatigue. Denies: Fever, Chills Pulmonary: Reports: No Symptoms Cardiovascular: Reports: No Symptoms Gastrointestinal: Reports: No Symptoms - Patient Data Vitals - Most Recent: Last Vital Signs Temp 97.0 F 09/14/20 19:00 Pulse 112 H 09/14/20 22:00 Resp 14 09/14/20 22:00 BP 109/68 09/14/20 22:00 Pulse Ox 97 09/14/20 22:00 Weight - Most Recent: 173 lb 8 oz I&O - Last 24 Hours: Intake & Output 09/14/20 09/14/20 09/15/20 14:59 22:59 06:59 Intake Total 802 Output Total 275 Balance 527 Lab Results Last 24 Hours: Laboratory Results - last 24 hr 09/14/20 09/14/20 09/14/20 Range/Units 05:23 05:23 05:23 WBC 13.9 H (4.5-11.0) K/uL RBC 3.44 L (4.30-5.90) M/uL Hgb 11.7 L (12.0-15.0) g/dL Hct 37.0 L (40.0-54.0) % MCV 108 H (80-98) fL MCH 34 H (27-31) pg MCHC 32 (32-36) % Plt Count 165 (150-400) K/uL Neut % (Auto) 84 H (36-66) % Lymph % (Auto) 6 L (24-44) % [place] % (Auto) 9 H (2-6) % Eos % (Auto) 2 (2-4) % Baso % (Auto) 0 (0-1) % PT 20.2 H (9.5-12.0) sec INR 1.88 H (0.80-1.20) Sodium 139 L (140-148) mmol/L Potassium 3.9 (3.6-5.2) mmol/L Chloride 106 (100-108) mmol/L Carbon Dioxide 17 L (21-32) mmol/L Anion Gap 19.9 H (5.0-14.0) mmol/L BUN 60 H (7-18) mg/dL Creatinine 2.5 H (0.8-1.3) mg/dL Est Cr Clr Drug Dosing 27.10 mL/min Estimated GFR (MDRD) 26 L (>60) Glucose 143 H (74-106) mg/dL Calcium 8.4 L (8.5-10.1) mg/dL Total Bilirubin 12.4 H (0.2-1.0) mg/dL AST 82 H (15-37) U/L ALT 62 (12-78) U/L Alkaline Phosphatase 122 H (46-116) U/L Total Protein 5.2 L (6.4-8.2) g/dL Albumin 3.6 (3.4-5.0) g/dL Globulin 1.6 L (2.3-3.5) g/dL Albumin/Globulin Ratio 2.3 H (1.2-2.2) [place] Results Last 24 Hours: Microbiology 09/14/20 07:00 JOHANN Preparation - Final Other - Peritoneal 09/14/20 07:07 Gram Stain - Final Peritoneal Fluid Med Orders - Current: Current Medications Acetaminophen (Tylenol) 650 mg PO Q4H PRN PRN Reason: Pain (Mild 1-3)/fever Aspirin (Ecotrin) 325 mg PO DAILY COUNTS INCLUDE 234 BEDS AT THE [facility] Last Admin: 09/14/20 08:53 Dose: 325 mg Documented by: Azithromycin (Zithromax) 125 mg PO DAILY COUNTS INCLUDE 234 BEDS AT THE [facility] Last Admin: 09/14/20 08:53 Dose: 125 mg Documented by: Diltiazem HCl (Cardizem) 60 mg PO Q6H COUNTS INCLUDE 234 BEDS AT THE [facility] Last Admin: 09/14/20 23:16 Dose: 60 mg Documented by: Norepinephrine Bitartrate 4 mg (/ Dextrose/Water) 250 mls @ 7.5 mls/hr IV TITRATE COUNTS INCLUDE 234 BEDS AT THE [facility]; Protocol Last Admin: 09/14/20 08:47 Dose: 3 mcg/min, 11.25 mls/hr Documented by: Insulin Human Lispro (Humalog) 0 unit SUBCUT QIDACANDBED COUNTS INCLUDE 234 BEDS AT THE [facility]; Protocol Last Admin: 09/14/20 19:38 Dose: Not Given Documented by: Lactobacillus Rhamnosus (Culturelle) 1 cap PO BID COUNTS INCLUDE 234 BEDS AT THE [facility] Last Admin: 09/14/20 21:30 Dose: 1 cap Documented by: Lorazepam (Ativan) 0.5 mg IVPUSH Q4H PRN PRN Reason: Nausea/Vomiting Melatonin (Melatonin) 9 mg PO BEDTIME COUNTS INCLUDE 234 BEDS AT THE [facility] Last Admin: 09/14/20 21:30 Dose: 9 mg Documented by: Metoprolol Tartrate (Lopressor) 75 mg PO BID COUNTS INCLUDE 234 BEDS AT THE [facility] Last Admin: 09/14/20 21:31 Dose: 75 mg Documented by: Morphine Sulfate (Morphine) 2 mg IVPUSH Q2H PRN PRN Reason: Pain (severe 7-10) Last Admin: 09/14/20 15:55 Dose: 2 mg Documented by: Morphine Sulfate (Morphine) 15 mg PO Q4H PRN PRN Reason: Pain (moderate 4-6) Last Admin: 09/11/20 11:32 Dose: 15 mg Documented by: Ondansetron HCl (Zofran Odt) 4 mg PO Q6H PRN PRN Reason: Nausea able to take PO Ondansetron HCl (Zofran) 4 mg IV Q6H PRN PRN Reason: Nausea/Vomiting [facility]op[facility]) [facility] Last Admin: 09/14/20 19:15 Dose: Not Given Documented by: Discontinued Medications Ciprofloxacin (Ciprofloxacin Hcl) 500 mg PO BID COUNTS INCLUDE 234 BEDS AT THE [facility] Last Admin: 09/10/20 09:19 Dose: 500 mg Documented by: Diltiazem HCl (Cardizem Cd) 180 mg PO DAILY COUNTS INCLUDE 234 BEDS AT THE [facility] Last Admin: 09/08/20 08:01 Dose: 180 mg Documented by: Diltiazem HCl (Cardizem Cd) 120 mg PO ONETIME ONE Stop: 09/07/20 09:43 Last Admin: 09/07/20 10:27 Dose: 120 mg Documented by: Diltiazem HCl (Cardizem Cd) 240 mg PO DAILY COUNTS INCLUDE 234 BEDS AT THE [facility] Last Admin: 09/10/20 09:20 Dose: 240 mg Documented by: Diltiazem HCl (Diltiazem) 10 mg IVPUSH ONETIME ONE Stop: 09/12/20 17:01 Last Admin: 09/12/20 16:59 Dose: 10 mg Documented by: Diltiazem HCl (Cardizem) 30 mg PO Q6H [facility] Last Admin: 09/13/20 18:02 Dose: 30 mg Documented by: Fentanyl (Sublimaze) Confirm Administered Dose 100 mcg .ROUTE .STK-MED ONE Stop: 09/09/20 07:21 Furosemide (Lasix) 20 mg PO BIDDIURETIC COUNTS INCLUDE 234 BEDS AT THE [facility] Last Admin: 09/09/20 14:32 Dose: 20 mg Documented by: Sodium Chloride (Normal Saline) 1,000 mls @ 75 mls/hr IV ASDIRECTED COUNTS INCLUDE 234 BEDS AT THE [facility] Last Admin: 09/06/20 07:15 Dose: 75 mls/hr Documented by: Cefepime HCl 1 gm/ Sodium (Chloride) 50 mls @ 100 mls/hr IV Q8H COUNTS INCLUDE 234 BEDS AT THE [facility] Stop: 09/08/20 10:00 Last Admin: 09/08/20 08:35 Dose: 100 mls/hr Documented by: Albumin Human (Albumin 25%) 25 gm in 100 mls @ 25 mls/hr IV Q6H COUNTS INCLUDE 234 BEDS AT THE [facility] Stop: 09/06/20 15:59 Last Admin: 09/06/20 11:49 Dose: 25 mls/hr Documented by: Albumin Human (Albumin 25%) 25 gm in 100 mls @ 25 mls/hr IV Q8H COUNTS INCLUDE 234 BEDS AT THE [facility] Stop: 09/11/20 06:59 Last Admin: 09/11/20 02:32 Dose: 25 mls/hr Documented by: Albumin Human (Albumin 25%) 25 gm in 100 mls @ 25 mls/hr IV ONETIME ONE Stop: 09/11/20 12:59 Last Admin: 09/11/20 09:34 Dose: 25 mls/hr Documented by: Albumin Human (Albumin 25%) 25 gm in 100 mls @ 25 mls/hr IV Q8H COUNTS INCLUDE 234 BEDS AT THE [facility] Stop: 09/13/20 11:59 Last Admin: 09/13/20 09:41 Dose: 25 mls/hr Documented by: Diltiazem HCl 100 mg/ Sodium (Chloride) 100 mls @ 5 mls/hr IV TITRATE COUNTS INCLUDE 234 BEDS AT THE [facility]; Protocol Last Titration: 09/13/20 01:19 Dose: 0 mg/hr, 0 mls/hr Documented by: Albumin Human (Albumin 25%) 25 gm in 100 mls @ 25 mls/hr IV ONETIME ONE Stop: 09/13/20 20:59 Last Admin: 09/13/20 17:12 Dose: 25 mls/hr Documented by: Albumin Human (Albumin 25%) 25 gm in 100 mls @ 25 mls/hr IV ONETIME ONE Stop: 09/14/20 07:59 Last Admin: 09/14/20 03:42 Dose: 25 mls/hr Documented by: Influenza Virus Vaccine (Fluzone High-Dose Quad ) 240 mcg IM .ONCE ONE Stop: 09/07/20 09:01 Last Admin: 09/07/20 10:51 Dose: 240 mcg Documented by: Lactulose (Chronulac) 10 gm PO ONETIME ONE Stop: 09/10/20 10:46 Last Admin: 09/10/20 10:53 Dose: 10 gm Documented by: Metoprolol Tartrate (Lopressor) 75 mg PO BID COUNTS INCLUDE 234 BEDS AT THE [facility] Last Admin: 09/12/20 11:11 Dose: Not Given Documented by: Metoprolol Tartrate (Lopressor) 50 mg PO BID COUNTS INCLUDE 234 BEDS AT [facility] Last Admin: 09/13/20 09:45 Dose: 50 mg Documented by: Metronidazole (Metronidazole) 500 mg PO Q8H COUNTS INCLUDE 234 BEDS AT [facility] Last Admin: 09/10/20 06:15 Dose: 500 mg Documented by: Pantoprazole Sodium (Protonix Iv) 40 mg IV Q12H COUNTS INCLUDE 234 BEDS AT [facility] Last Admin: 09/06/20 05:29 Dose: 40 mg Documented by: Prednisolone (Orapred 15 Mg/5ml Soln) 15 mg PO DAILY COUNTS INCLUDE 234 BEDS AT [facility] Last Admin: 09/10/20 09:19 Dose: 15 mg Documented by: Propofol (Diprivan 20 Ml) Confirm Administered Dose 200 mg .ROUTE .STK-MED ONE Stop: 09/09/20 07:21 Spironolactone (Aldactone) 25 mg PO BIDDIURETIC COUNTS INCLUDE 234 BEDS AT [facility] Last Admin: 09/09/20 14:32 Dose: 25 mg Documented by: - Exam Quality Assessment: DVT Prophylaxis General: Alert, Oriented, Cooperative, Moderate Distress Lungs: Clear to Auscultation, Normal Respiratory Effort Cardiovascular: No Murmurs, Irregular Rhythm, Tachycardia GI/Abdominal Exam: Soft, No Organomegaly, Distended, Tender. No: Guarding, Rigid, Rebound Extremities: Non-Tender, Pedal Edema Sepsis Event Note - Evaluation Sepsis Screening Result: Severe Sepsis Risk - Focused Exam Vital Signs: Vital Signs Temp Temp Pulse Pulse Resp BP BP 09/14/20 22:00 112 H 14 109/68 09/14/20 21:31 103 H 109/68 09/14/20 21:00 124 H 13 105/82 09/14/20 20:00 135 H 20 105/82 09/14/20 19:00 97.0 F 113 H 12 107/75 09/14/20 18:00 16 108/78 09/14/20 17:00 122 H 15 101/61 09/14/20 15:59 111 H 14 102/81 09/14/20 15:00 93 17 120/81 09/14/20 14:00 97.3 F 90 15 104/71 09/14/20 13:00 92 16 110/55 L 09/14/20 12:00 90 15 109/73 Pulse Ox 09/14/20 22:00 97 09/14/20 21:31 09/14/20 21:00 96 09/14/20 20:00 99 09/14/20 19:00 99 09/14/20 18:00 95 09/14/20 17:00 94 L 09/14/20 15:59 96 09/14/20 15:00 95 09/14/20 14:00 96 09/14/20 13:00 96 09/14/20 12:00 94 L - Problem List Review Problem List Initiated/Reviewed/Updated: Yes - My Orders Last 24 Hours: My Active Orders 09/14/20 00:00 Diltiazem IR [Cardizem] 60 mg PO Q6H 09/14/20 07:00 AFB ID+SUSCEPTIBILITIES Routine CULTURE FUNGAL [MYC] Routine 09/14/20 07:07 CULTURE BODY FLUID + SMEAR [RM] Routine 09/15/20 05:00 CBC WITH AUTO DIFF [HEME] Timed COMPREHENSIVE METABOLIC PN,CMP [CHEM] Timed INR,PT,PROTHROMBIN TIME [COAG] Timed - Plan Plan:: ASSESSMENT AND PLAN - Alcoholic hepatitis/hepatic cirrhosis with ascites-bilirubin mildly increased from yesterday. No pain improved following paracentesis earlier today. -Saline lock IV -Symptomatic management of pain and/or nausea -Absolute abstinence from alcohol -Hold diuretics with worsening renal function and hypotension Atrial fibrillation with rapid ventricular response- redeveloped atrial fibrillation with rapid ventricular response. Control has improved but not yet within desired range. -Diltiazem 60 mg p.o. every 6 hours -Continue metoprolol -Hold diuretics with lower blood pressures Acute kidney injury-concern for developing hepatorenal syndrome. He has had ongoing difficulty with hypotension likely related to medication effect for control of his atrial fibrillation. -Hold diuretics -Norepinephrine to maintain adequate blood pressure for kidney perfusion Maintenance issues - - DVT prophylaxis -mechanical - GI prophylaxis -PPI - Nutrition -low residue Disposition - I would anticipate discharge home after his hospital stay Primary care physician -Randolph Juárez [employer]
[2020-09-15] MEDS: Norepinephrine 4 MG in Dextrose 5% in Water 246 ML IV SCH ×2 (07:06)
[2020-09-15] MEDS: Insulin Lispro 100 Unit/ML 3 ML KwikPen SUBCUT SCH ×4 (08:36→21:39)
[2020-09-15] MEDS: Diltiazem IR 30 MG Tab PO SCH ×4 (08:36→23:34)
[2020-09-15] MEDS: Pantoprazole 40 MG Tab.CR PO SCH ×2 (08:37→16:11)
[2020-09-15] MEDS: Azithromycin 250 MG Tab PO SCH (08:37)
[2020-09-15] MEDS: Metoprolol Tartrate 25 MG Tab PO SCH ×2 (08:37→21:28)
[2020-09-15] MEDS: Aspirin 325 MG Tab.EC PO SCH (08:37)
[2020-09-15] MEDS: Lactobacillus Rhamnosus GG (Probiotic) Cap PO SCH ×2 (08:37→21:27)
--- NOTE | 2020-09-15 13:59 | PCM.PN ---
- General Info Date of Service: 09/15/20 Subjective Update: Mr Dubois is essentially unchanged over the past 24 hours. Continues to require IV norepinephrine to maintain adequate blood pressures. Renal function is stable over the past few days, but not improving. Bilirubin and INR not substantially changed over the past few days. He remains very weak with poor appetite. Heart rate controlled modestly improved, at rest he is 90-100. Functional Status: Reports: Tolerating Diet, Ambulating, Urinating - Review of Systems General: Reports: Weakness, Fatigue. Denies: Fever, Chills Pulmonary: Reports: No Symptoms Cardiovascular: Reports: No Symptoms Gastrointestinal: Reports: No Symptoms - Patient Data Vitals - Most Recent: Last Vital Signs Temp 97 F 09/15/20 12:00 Pulse 110 H 09/15/20 13:00 Resp 15 09/15/20 13:00 BP 88/55 L 09/15/20 13:00 Pulse Ox 98 09/15/20 13:00 Weight - Most Recent: 176 lb I&O - Last 24 Hours: Intake & Output 09/14/20 09/15/20 09/15/20 22:59 06:59 14:59 Intake Total 802 136 Output Total 275 125 100 Balance 527 11 -100 Lab Results Last 24 Hours: Laboratory Results - last 24 hr 09/15/20 09/15/20 09/15/20 Range/Units 04:25 04:25 04:25 WBC 14.4 H (4.5-11.0) K/uL RBC 3.42 L (4.30-5.90) M/uL Hgb 12.0 (12.0-15.0) g/dL Hct 36.3 L (40.0-54.0) % MCV 106 H (80-98) fL MCH 35 H (27-31) pg MCHC 33 (32-36) % Plt Count 162 (150-400) K/uL Neut % (Auto) 82 H (36-66) % Lymph % (Auto) 6 L (24-44) % [place] % (Auto) 9 H (2-6) % Eos % (Auto) 3 (2-4) % Baso % (Auto) 0 (0-1) % PT 20.6 H (9.5-12.0) sec INR 1.91 H (0.80-1.20) Sodium 142 (140-148) mmol/L Potassium 3.9 (3.6-5.2) mmol/L Chloride 109 H (100-108) mmol/L Carbon Dioxide 16 L (21-32) mmol/L Anion Gap 20.9 H (5.0-14.0) mmol/L BUN 60 H (7-18) mg/dL Creatinine 2.6 H (0.8-1.3) mg/dL Est Cr Clr Drug Dosing 26.05 mL/min Estimated GFR (MDRD) 25 L (>60) Glucose 145 H (74-106) mg/dL Calcium 8.3 L (8.5-10.1) mg/dL Total Bilirubin 12.1 H (0.2-1.0) mg/dL AST 68 H (15-37) U/L ALT 58 (12-78) U/L Alkaline Phosphatase 119 H (46-116) U/L Total Protein 4.8 L (6.4-8.2) g/dL Albumin 3.1 L (3.4-5.0) g/dL Globulin 1.7 L (2.3-3.5) g/dL Albumin/Globulin Ratio 1.8 (1.2-2.2) [place] Results Last 24 Hours: Microbiology 09/14/20 07:07 Gram Stain - Final Peritoneal Fluid Body Fluid Culture - Preliminary NO GROWTH AFTER 1 DAY Med Orders - Current: Current Medications Acetaminophen (Tylenol) 650 mg PO Q4H PRN PRN Reason: Pain (Mild 1-3)/fever Aspirin (Ecotrin) 325 mg PO DAILY [facility] Last Admin: 09/15/20 08:37 Dose: 325 mg Documented by: Azithromycin (Zithromax) 125 mg PO DAILY [facility] Last Admin: 09/15/20 08:37 Dose: 125 mg Documented by: Diltiazem HCl (Cardizem) 60 mg PO Q6H [facility] Last Admin: 09/15/20 08:36 Dose: 60 mg Documented by: Hydrocortisone (Hydrocortisone 1% Crm) 0 gm TOP TID [facility] Norepinephrine Bitartrate 4 mg (/ Dextrose/Water) 250 mls @ 7.5 mls/hr IV TITRATE [facility]; Protocol Last Titration: 09/15/20 10:22 Dose: 3 mcg/min, 11.25 mls/hr Documented by: Insulin Human Lispro (Humalog) 0 unit SUBCUT QIDACANDBED [facility]; Protocol Last Admin: 09/15/20 08:36 Dose: Not Given Documented by: Lactobacillus Rhamnosus (Culturelle) 1 cap PO BID [facility] Last Admin: 09/15/20 08:37 Dose: 1 cap Documented by: Lorazepam (Ativan) 0.5 mg IVPUSH Q4H PRN PRN Reason: Nausea/Vomiting Melatonin (Melatonin) 9 mg PO BEDTIME [facility] Last Admin: 09/14/20 21:30 Dose: 9 mg Documented by: Metoprolol Tartrate (Lopressor) 75 mg PO BID [facility] Last Admin: 09/15/20 08:37 Dose: 75 mg Documented by: Morphine Sulfate (Morphine) 2 mg IVPUSH Q2H PRN PRN Reason: Pain (severe 7-10) Last Admin: 09/14/20 15:55 Dose: 2 mg Documented by: Morphine Sulfate (Morphine) 15 mg PO Q4H PRN PRN Reason: Pain (moderate 4-6) Last Admin: 09/11/20 11:32 Dose: 15 mg Documented by: Ondansetron HCl (Zofran Odt) 4 mg PO Q6H PRN PRN Reason: Nausea able to take PO Ondansetron HCl (Zofran) 4 mg IV Q6H PRN PRN Reason: Nausea/Vomiting [facility]op[facility]) [facility] Last Admin: 09/15/20 08:37 Dose: 40 mg Documented by: Discontinued Medications Ciprofloxacin (Ciprofloxacin Hcl) 500 mg PO BID [facility] Last Admin: 09/10/20 09:19 Dose: 500 mg Documented by: Diltiazem HCl (Cardizem Cd) 180 mg PO DAILY [facility] Last Admin: 09/08/20 08:01 Dose: 180 mg Documented by: Diltiazem HCl (Cardizem Cd) 120 mg PO ONETIME ONE Stop: 09/07/20 09:43 Last Admin: 09/07/20 10:27 Dose: 120 mg Documented by: Diltiazem HCl (Cardizem Cd) 240 mg PO DAILY [facility] Last Admin: 09/10/20 09:20 Dose: 240 mg Documented by: Diltiazem HCl (Diltiazem) 10 mg IVPUSH ONETIME ONE Stop: 09/12/20 17:01 Last Admin: 10/27/20 16:59 Dose: 10 mg Documented by: Diltiazem HCl (Cardizem) 30 mg PO Q6H [facility] Last Admin: 09/13/20 18:02 Dose: 30 mg Documented by: Fentanyl (Sublimaze) Confirm Administered Dose 100 mcg .ROUTE .STK-MED ONE Stop: 09/09/20 07:21 Furosemide (Lasix) 20 mg PO BIDDIURETIC [facility] Last Admin: 09/09/20 14:32 Dose: 20 mg Documented by: Sodium Chloride (Normal Saline) 1,000 mls @ 75 mls/hr IV ASDIRECTED [facility] Last Admin: 09/06/20 07:15 Dose: 75 mls/hr Documented by: Cefepime HCl 1 gm/ Sodium (Chloride) 50 mls @ 100 mls/hr IV Q8H [facility] Stop: 09/08/20 10:00 Last Admin: 09/08/20 08:35 Dose: 100 mls/hr Documented by: Albumin Human (Albumin 25%) 25 gm in 100 mls @ 25 mls/hr IV Q6H [facility] Stop: 09/06/20 15:59 Last Admin: 09/06/20 11:49 Dose: 25 mls/hr Documented by: Albumin Human (Albumin 25%) 25 gm in 100 mls @ 25 mls/hr IV Q8H [facility] Stop: 09/11/20 06:59 Last Admin: 09/11/20 02:32 Dose: 25 mls/hr Documented by: Albumin Human (Albumin 25%) 25 gm in 100 mls @ 25 mls/hr IV ONETIME ONE Stop: 09/11/20 12:59 Last Admin: 09/11/20 09:34 Dose: 25 mls/hr Documented by: Albumin Human (Albumin 25%) 25 gm in 100 mls @ 25 mls/hr IV Q8H [facility] Stop: 09/13/20 11:59 Last Admin: 09/13/20 09:41 Dose: 25 mls/hr Documented by: Diltiazem HCl 100 mg/ Sodium (Chloride) 100 mls @ 5 mls/hr IV TITRATE [facility]; Protocol Last Titration: 09/13/20 01:19 Dose: 0 mg/hr, 0 mls/hr Documented by: Albumin Human (Albumin 25%) 25 gm in 100 mls @ 25 mls/hr IV ONETIME ONE Stop: 09/13/20 20:59 Last Admin: 09/13/20 17:12 Dose: 25 mls/hr Documented by: Albumin Human (Albumin 25%) 25 gm in 100 mls @ 25 mls/hr IV ONETIME ONE Stop: 09/14/20 07:59 Last Admin: 09/14/20 03:42 Dose: 25 mls/hr Documented by: Influenza Virus Vaccine (Fluzone High-Dose Quad ) 240 mcg IM .ONCE ONE Stop: 09/07/20 09:01 Last Admin: 09/07/20 10:51 Dose: 240 mcg Documented by: Lactulose (Chronulac) 10 gm PO ONETIME ONE Stop: 09/10/20 10:46 Last Admin: 09/10/20 10:53 Dose: 10 gm Documented by: Metoprolol Tartrate (Lopressor) 75 mg PO BID [facility] Last Admin: 09/12/20 11:11 Dose: Not Given Documented by: Metoprolol Tartrate (Lopressor) 50 mg PO BID [facility] Last Admin: 09/13/20 09:45 Dose: 50 mg Documented by: Metronidazole (Metronidazole) 500 mg PO Q8H [facility] Last Admin: 09/10/20 06:15 Dose: 500 mg Documented by: Pantoprazole Sodium (Protonix Iv) 40 mg IV Q12H [facility] Last Admin: 09/06/20 05:29 Dose: 40 mg Documented by: Prednisolone (Orapred 15 Mg/5ml Soln) 15 mg PO DAILY [facility] Last Admin: 09/10/20 09:19 Dose: 15 mg Documented by: Propofol (Diprivan 20 Ml) Confirm Administered Dose 200 mg .ROUTE .STK-MED ONE Stop: 09/09/20 07:21 Spironolactone (Aldactone) 25 mg PO BIDDIURETIC [facility] Last Admin: 09/09/20 14:32 Dose: 25 mg Documented by: - Exam Quality Assessment: DVT Prophylaxis General: Alert, Oriented, Cooperative, Moderate Distress Lungs: Clear to Auscultation, Normal Respiratory Effort Cardiovascular: Regular Rate, Regular Rhythm, No Murmurs GI/Abdominal Exam: Soft, No Organomegaly, Distended, Tender. No: Guarding, Rigid, Rebound Extremities: Non-Tender, Pedal Edema Sepsis Event Note - Evaluation Sepsis Screening Result: Severe Sepsis Risk - Focused Exam Vital Signs: Vital Signs Temp Pulse Pulse Resp BP BP Pulse Ox 10/30/20 13:00 110 H 15 88/55 L 98 09/15/20 12:00 97 F 112 H 16 87/58 L 97 09/15/20 11:00 111 H 15 90/64 95 09/15/20 10:00 110 H 18 79/61 L 97 09/15/20 09:00 115 H 83/58 L 09/15/20 08:37 122 H 111/75 09/15/20 08:00 122 H 15 111/75 09/15/20 07:00 134 H 15 103/79 99 09/15/20 06:00 120 H 19 102/72 97 09/15/20 05:00 107 H 16 105/73 94 L 09/15/20 04:00 82 12 115/97 H 97 09/15/20 03:00 89 17 102/65 95 09/15/20 02:00 88 14 84/52 L 97 - Problem List Review Problem List Initiated/Reviewed/Updated: Yes - My Orders Last 24 Hours: My Active Orders 09/15/20 14:00 Hydrocortisone [Hydrocortisone 1% Crm] See Dose Instructions TOP TID - Plan Plan:: ASSESSMENT AND PLAN Alcoholic hepatitis/hepatic cirrhosis with ascites-bilirubin stable from yesterday. Pain improved following paracentesis. -Saline lock IV -Symptomatic management of pain and/or nausea -Absolute abstinence from alcohol -Hold diuretics with worsening renal function and hypotension Atrial fibrillation with rapid ventricular response- redeveloped atrial fibrillation with rapid ventricular response. Control has improved but not yet within desired range. -Diltiazem 60 mg p.o. every 6 hours -Continue metoprolol -Hold diuretics with lower blood pressures Acute kidney injury-concern for developing hepatorenal syndrome. He has had ongoing difficulty with hypotension likely related to medication effect for control of his atrial fibrillation. Renal function elevated but stable over the past few days, no significant improvement yet. -Hold diuretics -Norepinephrine to maintain adequate blood pressure for kidney perfusion Maintenance issues - - DVT prophylaxis -mechanical - GI prophylaxis -PPI - Nutrition -low residue Disposition - I would anticipate discharge home after his hospital stay Primary care physician -Randolph Juárez [employer]
[2020-09-15] MEDS: Hydrocortisone 1% Crm 30 GM Tube TOP SCH ×2 (15:11→21:27)
[2020-09-15] MEDS: Melatonin 3 MG Tab PO SCH (21:28)
[2020-09-15] MEDS: Morphine 2 MG/ML SYRINGE IVPUSH PRN (21:30)
[2020-09-16] MEDS: Diltiazem IR 30 MG Tab PO SCH ×4 (05:24→23:32)
[2020-09-16] MEDS: Norepinephrine 4 MG in Dextrose 5% in Water 246 ML IV SCH ×4 (05:55→22:51)
[2020-09-16] MEDS: Pantoprazole 40 MG Tab.CR PO SCH ×2 (09:30→16:25)
[2020-09-16] MEDS: Aspirin 325 MG Tab.EC PO SCH (09:30)
[2020-09-16] MEDS: Lactobacillus Rhamnosus GG (Probiotic) Cap PO SCH ×2 (09:33→20:14)
[2020-09-16] MEDS: Azithromycin 250 MG Tab PO SCH (09:33)
[2020-09-16] MEDS: Insulin Lispro 100 Unit/ML 3 ML KwikPen SUBCUT SCH ×4 (09:41→20:12)
[2020-09-16] MEDS: Metoprolol Tartrate 25 MG Tab PO SCH ×2 (10:16→20:14)
[2020-09-16] MEDS: Hydrocortisone 1% Crm 30 GM Tube TOP SCH ×3 (10:20→20:14)
[2020-09-16] MEDS ORDERED: Vancomycin 1 GM SDV IV SCH (11:00)
[2020-09-16] MEDS: cefTRIAXone 1 GM in Sodium Chloride 0.9% 50 ML IV SCH (11:06)
[2020-09-16] MEDS ORDERED: Vancomycin 1.6 GM in Sodium Chloride 0.9% 250 ML IV ONE (11:30)
[2020-09-16] MEDS ORDERED: prednisoLONE 15 MG/5 ML Soln UD Cup PO SCH (15:45)
--- NOTE | 2020-09-16 15:45 | PCM.PN ---
- General Info Date of Service: 09/16/20 Subjective Update: Mr. Dubois has unfortunately shown evidence of further deterioration over the last 24 hours. Bilirubin level is increased from yesterday and creatinine has also increased with some decrease in urine output. Remains in atrial fibrillation rate control has been variable. Typically rate is fairly well controlled when he is at rest but increases with activity. He has become more confused consistent with hepatic encephalopathy White blood cell count is increa sed and his procalcitonin is significantly elevated suggesting underlying bacterial infection. All cultures from peritoneal fluid have remained negative. I have had further discussions with his concerning his current state and not only lack of improvement but evidence of worsening. They have been interested over the past few days in transfer to the [facility] in [place] for another opinion concerning this. I have now contacted the [facility] twice and they have no bed availability at this time or in the foreseeable future. I have also discussed the current situation with the wardrobe stylist on-call in [place], she did not feel it would be of benefit to transfer there as there is really no additional interventions that would be available and helpful. She did recommend that we consider any transfer to a tertiary care center with the ability to do liver transplants. She also stated that it is unlikely that he would be a candidate for transplant because he has only been abstinent from alcohol for 1 month. He is confused at this time and likely experiencing hepatic encephalopathy, ammonia level is pending. He is unable to provide a meaningful history concerning symptoms or review of systems. Functional Status: Reports: Urinating - Patient Data Vitals - Most Recent: Last Vital Signs Temp 96.9 F 09/16/20 12:00 Pulse 96 09/16/20 15:00 Resp 12 09/16/20 14:00 BP 107/58 L 09/16/20 15:00 Pulse Ox 97 09/16/20 14:00 Weight - Most Recent: 176 lb I&O - Last 24 Hours: Intake & Output 09/16/20 09/16/20 09/16/20 06:59 14:59 22:59 Intake Total 50 Output Total 150 Balance -150 50 Lab Results Last 24 Hours: Laboratory Results - last 24 hr 09/16/20 09/16/20 09/16/20 Range/Units 08:30 08:38 08:38 WBC 19.7 H (4.5-11.0) K/uL RBC 4.08 L (4.30-5.90) M/uL Hgb 14.1 D (12.0-15.0) g/dL Hct 43.6 (40.0-54.0) % MCV 107 H (80-98) fL MCH 35 H (27-31) pg MCHC 32 (32-36) % Plt Count 206 (150-400) K/uL Neut % (Auto) 79 H (36-66) % Lymph % (Auto) 8 L (24-44) % Hart % (Auto) 10 H (2-6) % Eos % (Auto) 3 (2-4) % Baso % (Auto) 0 (0-1) % PT (9.5-12.0) sec INR (0.80-1.20) Sodium 142 (140-148) mmol/L Potassium 3.9 (3.6-5.2) mmol/L Chloride 108 (100-108) mmol/L Carbon Dioxide 17 L (21-32) mmol/L Anion Gap 20.9 H (5.0-14.0) mmol/L BUN 63 H (7-18) mg/dL Creatinine 2.8 H (0.8-1.3) mg/dL Est Cr Clr Drug Dosing 24.19 mL/min Estimated GFR (MDRD) 23 L (>60) Glucose 151 H (74-106) mg/dL Lactic Acid (0.4-2.0) mmol/L Calcium 8.9 (8.5-10.1) mg/dL Total Bilirubin 13.5 H (0.2-1.0) mg/dL AST 72 H (15-37) U/L ALT 69 (12-78) U/L Alkaline Phosphatase 167 H (46-116) U/L Ammonia 77 H (11-32) mmol/L C-Reactive Protein (0.0-0.3) mg/dL Total Protein 5.5 L (6.4-8.2) g/dL Albumin 3.3 L (3.4-5.0) g/dL Globulin 2.2 L (2.3-3.5) g/dL Albumin/Globulin Ratio 1.5 (1.2-2.2) Procalcitonin ng/mL Urine Color (YELLOW) Urine Appearance (CLEAR) Urine pH (5.0-8.0) Ur Specific Truxton (1.008-1.030) Urine Protein (NEGATIVE) mg/dL Urine Glucose (UA) (NEGATIVE) mg/dL Urine Ketones (NEGATIVE) mg/dL Urine Occult Blood (NEGATIVE) Urine Nitrite (NEGATIVE) Urine Bilirubin (NEGATIVE) Urine Urobilinogen (0.2-1.0) EU/dL Ur Leukocyte Esterase (NEGATIVE) Urine RBC (0-5) Urine WBC (0-5) Ur Epithelial Cells Amorphous Sediment Urine Bacteria Urine Mucus Urine Other 09/16/20 09/16/20 09/16/20 Range/Units 08:38 10:27 10:34 WBC (4.5-11.0) K/uL RBC (4.30-5.90) M/uL Hgb (12.0-15.0) g/dL Hct (40.0-54.0) % MCV (80-98) fL MCH (27-31) pg MCHC (32-36) % Plt Count (150-400) K/uL Neut % (Auto) (36-66) % Lymph % (Auto) (24-44) % Hart % (Auto) (2-6) % Eos % (Auto) (2-4) % Baso % (Auto) (0-1) % PT 18.6 H (9.5-12.0) sec INR 1.72 H (0.80-1.20) Sodium (140-148) mmol/L Potassium (3.6-5.2) mmol/L Chloride (100-108) mmol/L Carbon Dioxide (21-32) mmol/L Anion Gap (5.0-14.0) mmol/L BUN (7-18) mg/dL Creatinine (0.8-1.3) mg/dL Est Cr Clr Drug Dosing mL/min Estimated GFR (MDRD) (>60) Glucose (74-106) mg/dL Lactic Acid 2.8 H (0.4-2.0) mmol/L Calcium (8.5-10.1) mg/dL Total Bilirubin (0.2-1.0) mg/dL AST (15-37) U/L ALT (12-78) U/L Alkaline Phosphatase (46-116) U/L Ammonia (11-32) mmol/L C-Reactive Protein (0.0-0.3) mg/dL Total Protein (6.4-8.2) g/dL Albumin (3.4-5.0) g/dL Globulin (2.3-3.5) g/dL Albumin/Globulin Ratio (1.2-2.2) Procalcitonin ng/mL Urine Color Brown A (YELLOW) Urine Appearance Slightly cloudy A (CLEAR) Urine pH 5.5 (5.0-8.0) Ur Specific Truxton 1.020 (1.008-1.030) Urine Protein 30 H (NEGATIVE) mg/dL Urine Glucose (UA) Negative (NEGATIVE) mg/dL Urine Ketones Negative (NEGATIVE) mg/dL Urine Occult Blood Negative (NEGATIVE) Urine Nitrite Negative (NEGATIVE) Urine Bilirubin Moderate H (NEGATIVE) Urine Urobilinogen 0.2 (0.2-1.0) EU/dL Ur Leukocyte Esterase Negative (NEGATIVE) Urine RBC Not seen (0-5) Urine WBC 0-5 (0-5) Ur Epithelial Cells Not seen Amorphous Sediment Many Urine Bacteria Not seen Urine Mucus Not seen Urine Other See note 09/16/20 09/16/20 Range/Units 10:34 10:34 WBC (4.5-11.0) K/uL RBC (4.30-5.90) M/uL Hgb (12.0-15.0) g/dL Hct (40.0-54.0) % MCV (80-98) fL MCH (27-31) pg MCHC (32-36) % Plt Count (150-400) K/uL Neut % (Auto) (36-66) % Lymph % (Auto) (24-44) % Hart % (Auto) (2-6) % Eos % (Auto) (2-4) % Baso % (Auto) (0-1) % PT (9.5-12.0) sec INR (0.80-1.20) Sodium (140-148) mmol/L Potassium (3.6-5.2) mmol/L Chloride (100-108) mmol/L Carbon Dioxide (21-32) mmol/L Anion Gap (5.0-14.0) mmol/L BUN (7-18) mg/dL Creatinine (0.8-1.3) mg/dL Est Cr Clr Drug Dosing mL/min Estimated GFR (MDRD) (>60) Glucose (74-106) mg/dL Lactic Acid (0.4-2.0) mmol/L Calcium (8.5-10.1) mg/dL Total Bilirubin (0.2-1.0) mg/dL AST (15-37) U/L ALT (12-78) U/L Alkaline Phosphatase (46-116) U/L Ammonia (11-32) mmol/L C-Reactive Protein 6.76 H (0.0-0.3) mg/dL Total Protein (6.4-8.2) g/dL Albumin (3.4-5.0) g/dL Globulin (2.3-3.5) g/dL Albumin/Globulin Ratio (1.2-2.2) Procalcitonin 2.42 H* ng/mL Urine Color (YELLOW) Urine Appearance (CLEAR) Urine pH (5.0-8.0) Ur Specific Truxton (1.008-1.030) Urine Protein (NEGATIVE) mg/dL Urine Glucose (UA) (NEGATIVE) mg/dL Urine Ketones (NEGATIVE) mg/dL Urine Occult Blood (NEGATIVE) Urine Nitrite (NEGATIVE) Urine Bilirubin (NEGATIVE) Urine Urobilinogen (0.2-1.0) EU/dL Ur Leukocyte Esterase (NEGATIVE) Urine RBC (0-5) Urine WBC (0-5) Ur Epithelial Cells Amorphous Sediment Urine Bacteria Urine Mucus Urine Other [place] Results Last 24 Hours: Microbiology 09/14/20 07:07 Gram Stain - Final Peritoneal Fluid Body Fluid Culture - Preliminary NO GROWTH AFTER 2 DAYS Med Orders - Current: Current Medications Acetaminophen (Tylenol) 650 mg PO Q4H PRN PRN Reason: Pain (Mild 1-3)/fever Aspirin (Ecotrin) 325 mg PO DAILY [facility] Last Admin: 09/16/20 09:30 Dose: 325 mg Documented by: Azithromycin (Zithromax) 125 mg PO DAILY [facility] Last Admin: 09/16/20 09:33 Dose: 125 mg Documented by: Diltiazem HCl (Cardizem) 60 mg PO Q6H [facility] Last Admin: 09/16/20 12:33 Dose: 60 mg Documented by: Hydrocortisone (Hydrocortisone 1% Crm) 0 gm TOP TID [facility] Last Admin: 09/16/20 10:20 Dose: 1 applic Documented by: Norepinephrine Bitartrate 4 mg (/ Dextrose/Water) 250 mls @ 7.5 mls/hr IV TITRATE [facility]; Protocol Last Titration: 09/16/20 07:36 Dose: 4 mcg/min, 15 mls/hr Documented by: Ceftriaxone Sodium 1 gm/ (Sodium Chloride) 50 mls @ 100 mls/hr IV Q24H [facility] Last Admin: 09/16/20 11:06 Dose: 100 mls/hr Documented by: Vancomycin HCl 1.2 gm/ Sodium (Chloride) 250 mls @ 167 mls/hr IV Q24H [facility] Sodium Chloride (Normal Saline) 1,000 mls @ 100 mls/hr IV ASDIRECTED [facility] Insulin Human Lispro (Humalog) 0 unit SUBCUT QIDACANDBED [facility]; Protocol Last Admin: 09/16/20 11:50 Dose: Not Given Documented by: Lactobacillus Rhamnosus (Culturelle) 1 cap PO BID [facility] Last Admin: 09/16/20 09:33 Dose: 1 cap Documented by: Lactulose (Chronulac) 10 gm PO TID [facility] Lorazepam (Ativan) 0.5 mg IVPUSH Q4H PRN PRN Reason: Nausea/Vomiting Melatonin (Melatonin) 9 mg PO BEDTIME [facility] Last Admin: 09/15/20 21:28 Dose: 9 mg Documented by: Metoprolol Tartrate (Lopressor) 75 mg PO BID [facility] Last Admin: 09/16/20 10:16 Dose: 75 mg Documented by: Morphine Sulfate (Morphine) 2 mg IVPUSH Q2H PRN PRN Reason: Pain (severe 7-10) Last Admin: 09/15/20 21:30 Dose: 2 mg Documented by: Morphine Sulfate (Morphine) 15 mg PO Q4H PRN PRN Reason: Pain (moderate 4-6) Last Admin: 09/11/20 11:32 Dose: 15 mg Documented by: Ondansetron HCl (Zofran Odt) 4 mg PO Q6H PRN PRN Reason: Nausea able to take PO Ondansetron HCl (Zofran) 4 mg IV Q6H PRN PRN Reason: Nausea/Vomiting Pantoprazole Sodium (Protonix) 40 mg PO BIDAC [facility] Last Admin: 09/16/20 09:30 Dose: 40 mg Documented by: Pentoxifylline (Trental) 400 mg PO TIDMEALS [facility] Prednisolone (Orapred 15 Mg/5ml Soln) 40 mg PO DAILY [facility] Discontinued Medications Ciprofloxacin (Ciprofloxacin Hcl) 500 mg PO BID [facility] Last Admin: 09/10/20 09:19 Dose: 500 mg Documented by: Diltiazem HCl (Cardizem Cd) 180 mg PO DAILY [facility] Last Admin: 09/08/20 08:01 Dose: 180 mg Documented by: Diltiazem HCl (Cardizem Cd) 120 mg PO ONETIME ONE Stop: 09/07/20 09:43 Last Admin: 09/07/20 10:27 Dose: 120 mg Documented by: Diltiazem HCl (Cardizem Cd) 240 mg PO DAILY [facility] Last Admin: 09/10/20 09:20 Dose: 240 mg Documented by: Diltiazem HCl (Diltiazem) 10 mg IVPUSH ONETIME ONE Stop: 09/12/20 17:01 Last Admin: 09/12/20 16:59 Dose: 10 mg Documented by: Diltiazem HCl (Cardizem) 30 mg PO Q6H [facility] Last Admin: 09/13/20 18:02 Dose: 30 mg Documented by: Fentanyl (Sublimaze) Confirm Administered Dose 100 mcg .ROUTE .STK-MED ONE Stop: 09/09/20 07:21 Furosemide (Lasix) 20 mg PO BIDDIURETIC [facility] Last Admin: 09/09/20 14:32 Dose: 20 mg Documented by: Sodium Chloride (Normal Saline) 1,000 mls @ 75 mls/hr IV ASDIRECTED [facility] Last Admin: 09/06/20 07:15 Dose: 75 mls/hr Documented by: Cefepime HCl 1 gm/ Sodium (Chloride) 50 mls @ 100 mls/hr IV Q8H [facility] Stop: 09/08/20 10:00 Last Admin: 09/08/20 08:35 Dose: 100 mls/hr Documented by: Albumin Human (Albumin 25%) 25 gm in 100 mls @ 25 mls/hr IV Q6H [facility] Stop: 09/06/20 15:59 Last Admin: 09/06/20 11:49 Dose: 25 mls/hr Documented by: Albumin Human (Albumin 25%) 25 gm in 100 mls @ 25 mls/hr IV Q8H [facility] Stop: 09/11/20 06:59 Last Admin: 09/11/20 02:32 Dose: 25 mls/hr Documented by: Albumin Human (Albumin 25%) 25 gm in 100 mls @ 25 mls/hr IV ONETIME ONE Stop: 09/11/20 12:59 Last Admin: 09/11/20 09:34 Dose: 25 mls/hr Documented by: Albumin Human (Albumin 25%) 25 gm in 100 mls @ 25 mls/hr IV Q8H [facility] Stop: 09/13/20 11:59 Last Admin: 09/13/20 09:41 Dose: 25 mls/hr Documented by: Diltiazem HCl 100 mg/ Sodium (Chloride) 100 mls @ 5 mls/hr IV TITRATE [facility]; Protocol Last Titration: 09/13/20 01:19 Dose: 0 mg/hr, 0 mls/hr Documented by: Albumin Human (Albumin 25%) 25 gm in 100 mls @ 25 mls/hr IV ONETIME ONE Stop: 09/13/20 20:59 Last Admin: 09/13/20 17:12 Dose: 25 mls/hr Documented by: Albumin Human (Albumin 25%) 25 gm in 100 mls @ 25 mls/hr IV ONETIME ONE Stop: 09/14/20 07:59 Last Admin: 09/14/20 03:42 Dose: 25 mls/hr Documented by: Albumin Human (Albumin 25%) 25 gm in 100 mls @ 25 mls/hr IV ONETIME ONE Stop: 09/16/20 14:59 Last Admin: 09/16/20 11:10 Dose: 25 mls/hr Documented by: Vancomycin HCl 1.6 gm/ Sodium (Chloride) 250 mls @ 167 mls/hr IV ONETIME ONE Stop: 09/16/20 12:59 Last Admin: 09/16/20 12:33 Dose: 167 mls/hr Documented by: Influenza Virus Vaccine (Fluzone High-Dose Quad 2020-) 240 mcg IM .ONCE ONE Stop: 09/07/20 09:01 Last Admin: 09/07/20 10:51 Dose: 240 mcg Documented by: Lactulose (Chronulac) 10 gm PO ONETIME ONE Stop: 09/10/20 10:46 Last Admin: 09/10/20 10:53 Dose: 10 gm Documented by: Metoprolol Tartrate (Lopressor) 75 mg PO BID [facility] Last Admin: 09/12/20 11:11 Dose: Not Given Documented by: Metoprolol Tartrate (Lopressor) 50 mg PO BID [facility] Last Admin: 09/13/20 09:45 Dose: 50 mg Documented by: Metronidazole (Metronidazole) 500 mg PO Q8H [facility] Last Admin: 09/10/20 06:15 Dose: 500 mg Documented by: Pantoprazole Sodium (Protonix Iv) 40 mg IV Q12H [facility] Last Admin: 09/06/20 05:29 Dose: 40 mg Documented by: Prednisolone (Orapred 15 Mg/5ml Soln) 15 mg PO DAILY [facility] Last Admin: 09/10/20 09:19 Dose: 15 mg Documented by: Propofol (Diprivan 20 Ml) Confirm Administered Dose 200 mg .ROUTE .STK-MED ONE Stop: 09/09/20 07:21 Spironolactone (Aldactone) 25 mg PO BIDDIURETIC [facility] Last Admin: 09/09/20 14:32 Dose: 25 mg Documented by: - Exam Quality Assessment: DVT Prophylaxis General: Mild Distress, Lethargic Lungs: Clear to Auscultation, Normal Respiratory Effort Cardiovascular: No Murmurs, Irregular Rhythm, Tachycardia GI/Abdominal Exam: Soft, Non-Tender, No Organomegaly, Distended Extremities: Non-Tender, Pedal Edema Skin: Other (Jaundice) Sepsis Event Note - Evaluation Sepsis Screening Result: Severe Sepsis Risk - Focused Exam Vital Signs: Vital Signs Temp Temp Pulse Pulse Resp BP BP 09/16/20 15:00 96 107/58 L 09/16/20 14:00 93 12 95/53 L 09/16/20 13:00 107 H 16 116/84 09/16/20 12:00 96.9 F 98 14 89/50 L 09/16/20 11:00 95 12 105/72 09/16/20 10:16 98 109/69 09/16/20 10:00 59 L 13 99/75 09/16/20 09:30 95.7 F L 121 H 16 97/76 09/16/20 08:00 113 H 93/67 09/16/20 07:00 85 86/54 L 09/16/20 06:00 77 92/62 09/16/20 05:00 116 H 13 131/107 H 09/16/20 04:00 123 H 14 109/60 Pulse Ox 09/16/20 15:00 09/16/20 14:00 97 09/16/20 13:00 97 09/16/20 12:00 98 09/16/20 11:00 09/16/20 10:16 09/16/20 10:00 99 09/16/20 09:30 97 09/16/20 08:00 09/16/20 07:00 09/16/20 06:00 09/16/20 05:00 94 L 09/16/20 04:00 95 - Problem List Review Problem List Initiated/Reviewed/Updated: Yes - My Orders Last 24 Hours: My Active Orders 09/16/20 10:26 Chest 1V Frontal [CR] Stat Blood Culture x2 Reflex Set [OM.PC] Urgent 09/16/20 10:42 CULTURE BLOOD [BC] Stat 09/16/20 10:44 CULTURE BLOOD [BC] Stat 09/16/20 11:00 cefTRIAXone [Rocephin] 1 gm Sodium Chloride 0.9% [Normal Saline] 50 ml IV Q24H 09/16/20 14:25 UA W/MICROSCOPIC [URIN] Routine 09/16/20 15:45 Sodium Chloride 0.9% [Normal Saline] 1,000 ml IV ASDIRECTED prednisoLONE [OraPred 15 MG/5ML Soln] 40 mg PO DAILY 09/16/20 16:00 Lactulose [Chronulac] 10 gm PO TID 09/16/20 17:00 Pentoxifylline [TRENtal] 400 mg PO TIDMEALS 09/17/20 05:00 CBC WITH AUTO DIFF [HEME] Timed COMPREHENSIVE METABOLIC PN,CMP [CHEM] Timed INR,PT,PROTHROMBIN TIME [COAG] Timed MAGNESIUM [CHEM] Timed 09/17/20 05:11 AMMONIA VENOUS [CHEM] AM 09/17/20 11:30 Vancomycin 1.2 gm Sodium Chloride 0.9% [Normal Saline] 250 ml IV Q24H - Plan Plan:: ASSESSMENT AND PLAN Alcoholic hepatitis/hepatic cirrhosis with ascites-bilirubin increased over the last 24 hours. Developed probable hepatic encephalopathy and likely underlying infection. Viewed current management with gastroenterology on-call in [place]. Transfer to [facility] in [place] is not an option because of their very limited bed status. Marketer communications superintendent suggested a trial of pentoxifylline and to reinstitute prednisolone. -Saline lock IV -Pentoxifylline 400 mg p.o. 3 times daily -Prednisolone 40 mg p.o. daily -Symptomatic management of pain and/or nausea -Absolute abstinence from alcohol -Hold diuretics with worsening renal function and hypotension Hepatic encephalopathy -Ammonia level pending now and in a.m. -Lactulose 10 mg p.o. 3 times daily Infection-no significant temperature elevation, but white blood cell count is significantly increased over the past 24 hours and he has become encephalopathic. There has been some worsening of his liver and renal function over the last 24 hours. Chest x-ray shows no obvious infiltrates and urinalysis is clear. No obvious skin infections identified on examination. To this point there is been no evidence of peritonitis, all cultures have been negative -Repeat blood cultures -Empiric IV antibiotic therapy vancomycin and ceftriaxone Atrial fibrillation with rapid ventricular response- redeveloped atrial fibrillation with rapid ventricular response. Control has improved but not yet within desired range. -Diltiazem 60 mg p.o. every 6 hours -Continue metoprolol -Hold diuretics with lower blood pressures Acute kidney injury-concern for developing hepatorenal syndrome. He has had ongoing difficulty with hypotension likely related to medication effect for control of his atrial fibrillation. Renal function worse over the last 24 hours -Albumin 25 g IV today -Short trial of IV fluids normal saline 100 cc/h, reassess in a.m. -Hold diuretics -Norepinephrine to maintain adequate blood pressure for kidney perfusion Maintenance issues - - DVT prophylaxis -mechanical - GI prophylaxis -PPI - Nutrition -low residue Disposition - I would anticipate discharge home after his hospital stay Primary care physician -Randolph Juárez NP
[2020-09-16] MEDS: Pentoxifylline 400 MG Tab.ER PO SCH (16:25)
[2020-09-16] MEDS: Lactulose Soln 10 GM/15 ML 15 ML UD Cup PO SCH ×2 (16:26→20:17)
[2020-09-16] MEDS: Sodium Chloride 0.9% 1,000 ML IV SCH (18:18)
[2020-09-16] MEDS: Melatonin 3 MG Tab PO SCH (20:14)
[2020-09-17] MEDS: Morphine 2 MG/ML SYRINGE IVPUSH PRN (03:13)
[2020-09-17] MEDS: Sodium Chloride 0.9% 1,000 ML IV SCH ×2 (05:10→17:25)
[2020-09-17] MEDS: Diltiazem IR 30 MG Tab PO SCH ×4 (05:10→21:21)
[2020-09-17] MEDS: Insulin Lispro 100 Unit/ML 3 ML KwikPen SUBCUT SCH ×4 (08:03→21:16)
[2020-09-17] MEDS: Azithromycin 250 MG Tab PO SCH (08:06)
[2020-09-17] MEDS: Pantoprazole 40 MG Tab.CR PO SCH ×2 (08:07→17:44)
[2020-09-17] MEDS: Aspirin 325 MG Tab.EC PO SCH (08:08)
[2020-09-17] MEDS: Metoprolol Tartrate 25 MG Tab PO SCH ×2 (08:08→21:21)
[2020-09-17] MEDS: Lactobacillus Rhamnosus GG (Probiotic) Cap PO SCH ×2 (08:08→21:22)
[2020-09-17] MEDS: Pentoxifylline 400 MG Tab.ER PO SCH ×3 (08:21→17:44)
[2020-09-17] MEDS: prednisoLONE 15 MG/5 ML Soln UD Cup PO SCH (08:21)
[2020-09-17] MEDS: Lactulose Soln 10 GM/15 ML 15 ML UD Cup PO SCH ×3 (09:47→21:22)
[2020-09-17] MEDS: Hydrocortisone 1% Crm 30 GM Tube TOP SCH ×3 (09:49→21:22)
[2020-09-17] MEDS: cefTRIAXone 1 GM in Sodium Chloride 0.9% 50 ML IV SCH (11:18)
[2020-09-17] MEDS: Vancomycin 1.2 GM in Sodium Chloride 0.9% 250 ML IV SCH (11:57)
[2020-09-17] MEDS: Morphine 15 MG Tab PO PRN (13:36)
[2020-09-17] MEDS: Norepinephrine 4 MG in Dextrose 5% in Water 246 ML IV SCH ×2 (14:14)
--- NOTE | 2020-09-17 18:40 | PCM.PN ---
- General Info Date of Service: 09/17/20 Subjective Update: Mr. Dubois has experienced some improvement over the last 24 hours. Renal function and liver function are modestly improved and he is less confused. Earlier today he converted to sinus rhythm and has remained in sinus rhythm over the past several hours. Blood pressures have been more stable and they are in the process of working on tapering off of the norepinephrine. Functional Status: Reports: Urinating - Review of Systems General: Reports: Weakness, Fatigue. Denies: Fever, Chills Pulmonary: Reports: No Symptoms Cardiovascular: Reports: No Symptoms Gastrointestinal: Reports: Abdominal Pain (Distention). Denies: Constipation, Diarrhea, Difficulty Swallowing, Nausea, Vomiting Genitourinary: Reports: No Symptoms - Patient Data Vitals - Most Recent: Last Vital Signs Temp 96.5 F L 09/17/20 11:00 Pulse 63 09/17/20 17:00 Resp 9 L 09/17/20 17:00 BP 119/77 09/17/20 17:00 Pulse Ox 97 09/17/20 17:00 Weight - Most Recent: 179 lb 11.2 oz I&O - Last 24 Hours: Intake & Output 09/17/20 09/17/20 09/17/20 06:59 14:59 22:59 Intake Total 1000 1700 Output Total 100 Balance 1000 1600 Lab Results Last 24 Hours: Laboratory Results - last 24 hr 09/17/20 09/17/20 09/17/20 Range/Units 04:10 04:10 04:10 WBC 16.1 H (4.5-11.0) K/uL RBC 3.75 L (4.30-5.90) M/uL Hgb 12.9 (12.0-15.0) g/dL Hct 40.2 (40.0-54.0) % MCV 107 H (80-98) fL MCH 34 H (27-31) pg MCHC 32 (32-36) % Plt Count 180 (150-400) K/uL Neut % (Auto) 92 H (36-66) % Lymph % (Auto) 3 L (24-44) % [place] % (Auto) 5 (2-6) % Eos % (Auto) 0 L (2-4) % Baso % (Auto) 0 (0-1) % PT 21.6 H (9.5-12.0) sec INR 2.01 H (0.80-1.20) Sodium 141 (140-148) mmol/L Potassium 4.0 (3.6-5.2) mmol/L Chloride 109 H (100-108) mmol/L Carbon Dioxide 15 L (21-32) mmol/L Anion Gap 21.0 H (5.0-14.0) mmol/L BUN 58 H (7-18) mg/dL Creatinine 2.5 H (0.8-1.3) mg/dL Est Cr Clr Drug Dosing 27.10 mL/min Estimated GFR (MDRD) 26 L (>60) Glucose 188 H (74-106) mg/dL Calcium 8.0 L (8.5-10.1) mg/dL Magnesium 2.2 (1.8-2.4) mg/dL Total Bilirubin 10.9 H (0.2-1.0) mg/dL AST 48 H (15-37) U/L ALT 55 (12-78) U/L Alkaline Phosphatase 143 H (46-116) U/L Ammonia (11-32) mmol/L Total Protein 5.0 L (6.4-8.2) g/dL Albumin 3.0 L (3.4-5.0) g/dL Globulin 2.0 L (2.3-3.5) g/dL Albumin/Globulin Ratio 1.5 (1.2-2.2) 09/17/20 Range/Units 04:10 WBC (4.5-11.0) K/uL RBC (4.30-5.90) M/uL Hgb (12.0-15.0) g/dL Hct (40.0-54.0) % MCV (80-98) fL MCH (27-31) pg MCHC (32-36) % Plt Count (150-400) K/uL Neut % (Auto) (36-66) % Lymph % (Auto) (24-44) % [place] % (Auto) (2-6) % Eos % (Auto) (2-4) % Baso % (Auto) (0-1) % PT (9.5-12.0) sec INR (0.80-1.20) Sodium (140-148) mmol/L Potassium (3.6-5.2) mmol/L Chloride (100-108) mmol/L Carbon Dioxide (21-32) mmol/L Anion Gap (5.0-14.0) mmol/L BUN (7-18) mg/dL Creatinine (0.8-1.3) mg/dL Est Cr Clr Drug Dosing mL/min Estimated GFR (MDRD) (>60) Glucose (74-106) mg/dL Calcium (8.5-10.1) mg/dL Magnesium (1.8-2.4) mg/dL Total Bilirubin (0.2-1.0) mg/dL AST (15-37) U/L ALT (12-78) U/L Alkaline Phosphatase (46-116) U/L Ammonia < 10 L (11-32) mmol/L Total Protein (6.4-8.2) g/dL Albumin (3.4-5.0) g/dL Globulin (2.3-3.5) g/dL Albumin/Globulin Ratio (1.2-2.2) [place] Results Last 24 Hours: Microbiology 09/16/20 10:44 Aerobic Blood Culture - Preliminary Blood NO GROWTH AFTER 1 DAY Anaerobic Blood Culture - Preliminary NO GROWTH AFTER 1 DAY 09/16/20 10:42 Aerobic Blood Culture - Preliminary Blood - Arm, Left NO GROWTH AFTER 1 DAY Anaerobic Blood Culture - Preliminary NO GROWTH AFTER 1 DAY Med Orders - Current: Current Medications Acetaminophen (Tylenol) 650 mg PO Q4H PRN PRN Reason: Pain (Mild 1-3)/fever Aspirin (Ecotrin) 325 mg PO DAILY [facility] Last Admin: 09/17/20 08:08 Dose: 325 mg Documented by: Azithromycin (Zithromax) 125 mg PO DAILY [facility] Last Admin: 09/17/20 08:06 Dose: 125 mg Documented by: Diltiazem HCl (Cardizem Cd) 180 mg PO DAILY [facility] Hydrocortisone (Hydrocortisone 1% Crm) 0 gm TOP TID [facility] Last Admin: 09/17/20 14:19 Dose: Not Given Documented by: Norepinephrine Bitartrate 4 mg (/ Dextrose/Water) 250 mls @ 7.5 mls/hr IV TITRATE [facility]; Protocol Last Titration: 09/17/20 18:14 Dose: 2 mcg/min, 7.5 mls/hr Documented by: Ceftriaxone Sodium 1 gm/ (Sodium Chloride) 50 mls @ 100 mls/hr IV Q24H [facility] Last Admin: 09/17/20 11:18 Dose: 100 mls/hr Documented by: Vancomycin HCl 1.2 gm/ Sodium (Chloride) 250 mls @ 167 mls/hr IV Q24H [facility] Last Admin: 09/17/20 11:57 Dose: 167 mls/hr Documented by: Albumin Human (Albumin 25%) 25 gm in 100 mls @ 25 mls/hr IV ONETIME ONE Stop: 09/17/20 22:24 Insulin Human Lispro (Humalog) 0 unit SUBCUT QIDACANDBED [facility]; Protocol Last Admin: 09/17/20 17:42 Dose: 2 units Documented by: Lactobacillus Rhamnosus (Culturelle) 1 cap PO BID [facility] Last Admin: 09/17/20 08:08 Dose: 1 cap Documented by: Lactulose (Chronulac) 10 gm PO TID [facility] Last Admin: 09/17/20 13:33 Dose: 10 gm Documented by: Lorazepam (Ativan) 0.5 mg IVPUSH Q4H PRN PRN Reason: Nausea/Vomiting Melatonin (Melatonin) 9 mg PO BEDTIME [facility] Last Admin: 09/16/20 20:14 Dose: 9 mg Documented by: Metoprolol Tartrate (Lopressor) 50 mg PO BID [facility] Morphine Sulfate (Morphine) 2 mg IVPUSH Q2H PRN PRN Reason: Pain (severe 7-10) Last Admin: 09/17/20 03:13 Dose: 2 mg Documented by: Morphine Sulfate (Morphine) 15 mg PO Q4H PRN PRN Reason: Pain (moderate 4-6) Last Admin: 09/17/20 13:36 Dose: 15 mg Documented by: Ondansetron HCl (Zofran Odt) 4 mg PO Q6H PRN PRN Reason: Nausea able to take PO Ondansetron HCl (Zofran) 4 mg IV Q6H PRN PRN Reason: Nausea/Vomiting Pantoprazole Sodium (Protonix) 40 mg PO BIDAC [facility] Last Admin: 09/17/20 17:44 Dose: 40 mg Documented by: Pentoxifylline (Trental) 400 mg PO TIDMEALS [facility] Last Admin: 09/17/20 17:44 Dose: 400 mg Documented by: Prednisolone (Orapred 15 Mg/5ml Soln) 40 mg PO DAILY [facility] Last Admin: 09/17/20 08:21 Dose: 40 mg Documented by: Discontinued Medications Ciprofloxacin (Ciprofloxacin Hcl) 500 mg PO BID [facility] Last Admin: 09/10/20 09:19 Dose: 500 mg Documented by: Diltiazem HCl (Cardizem Cd) 180 mg PO DAILY [facility] Last Admin: 09/08/20 08:01 Dose: 180 mg Documented by: Diltiazem HCl (Cardizem Cd) 120 mg PO ONETIME ONE Stop: 09/07/20 09:43 Last Admin: 09/07/20 10:27 Dose: 120 mg Documented by: Diltiazem HCl (Cardizem Cd) 240 mg PO DAILY [facility] Last Admin: 09/10/20 09:20 Dose: 240 mg Documented by: Diltiazem HCl (Diltiazem) 10 mg IVPUSH ONETIME ONE Stop: 09/12/20 17:01 Last Admin: 09/12/20 16:59 Dose: 10 mg Documented by: Diltiazem HCl (Cardizem) 30 mg PO Q6H [facility] Last Admin: 09/13/20 18:02 Dose: 30 mg Documented by: Diltiazem HCl (Cardizem) 60 mg PO Q6H [facility] Last Admin: 09/17/20 17:44 Dose: 60 mg Documented by: Fentanyl (Sublimaze) Confirm Administered Dose 100 mcg .ROUTE .STK-MED ONE Stop: 09/09/20 07:21 Furosemide (Lasix) 20 mg PO BIDDIURETIC [facility] Last Admin: 09/09/20 14:32 Dose: 20 mg Documented by: Sodium Chloride (Normal Saline) 1,000 mls @ 75 mls/hr IV ASDIRECTED [facility] Last Admin: 09/06/20 07:15 Dose: 75 mls/hr Documented by: Cefepime HCl 1 gm/ Sodium (Chloride) 50 mls @ 100 mls/hr IV Q8H [facility] Stop: 09/08/20 10:00 Last Admin: 09/08/20 08:35 Dose: 100 mls/hr Documented by: Albumin Human (Albumin 25%) 25 gm in 100 mls @ 25 mls/hr IV Q6H [facility] Stop: 09/06/20 15:59 Last Admin: 09/06/20 11:49 Dose: 25 mls/hr Documented by: Albumin Human (Albumin 25%) 25 gm in 100 mls @ 25 mls/hr IV Q8H [facility] Stop: 09/11/20 06:59 Last Admin: 09/11/20 02:32 Dose: 25 mls/hr Documented by: Albumin Human (Albumin 25%) 25 gm in 100 mls @ 25 mls/hr IV ONETIME ONE Stop: 09/11/20 12:59 Last Admin: 09/11/20 09:34 Dose: 25 mls/hr Documented by: Albumin Human (Albumin 25%) 25 gm in 100 mls @ 25 mls/hr IV Q8H [facility] Stop: 09/13/20 11:59 Last Admin: 09/13/20 09:41 Dose: 25 mls/hr Documented by: Diltiazem HCl 100 mg/ Sodium (Chloride) 100 mls @ 5 mls/hr IV TITRATE [facility]; Protocol Last Titration: 09/13/20 01:19 Dose: 0 mg/hr, 0 mls/hr Documented by: Albumin Human (Albumin 25%) 25 gm in 100 mls @ 25 mls/hr IV ONETIME ONE Stop: 09/13/20 20:59 Last Admin: 09/13/20 17:12 Dose: 25 mls/hr Documented by: Albumin Human (Albumin 25%) 25 gm in 100 mls @ 25 mls/hr IV ONETIME ONE Stop: 09/14/20 07:59 Last Admin: 09/14/20 03:42 Dose: 25 mls/hr Documented by: Albumin Human (Albumin 25%) 25 gm in 100 mls @ 25 mls/hr IV ONETIME ONE Stop: 09/16/20 14:59 Last Admin: 09/16/20 11:10 Dose: 25 mls/hr Documented by: Vancomycin HCl 1.6 gm/ Sodium (Chloride) 250 mls @ 167 mls/hr IV ONETIME ONE Stop: 09/16/20 12:59 Last Admin: 09/16/20 12:33 Dose: 167 mls/hr Documented by: Sodium Chloride (Normal Saline) 1,000 mls @ 100 mls/hr IV ASDIRECTED [facility] Last Admin: 09/17/20 17:25 Dose: 100 mls/hr Documented by: Influenza Virus Vaccine (Fluzone High-Dose Quad 2019-) 240 mcg IM .ONCE ONE Stop: 09/07/20 09:01 Last Admin: 09/07/20 10:51 Dose: 240 mcg Documented by: Lactulose (Chronulac) 10 gm PO ONETIME ONE Stop: 09/10/20 10:46 Last Admin: 09/10/20 10:53 Dose: 10 gm Documented by: Metoprolol Tartrate (Lopressor) 75 mg PO BID [facility] Last Admin: 09/12/20 11:11 Dose: Not Given Documented by: Metoprolol Tartrate (Lopressor) 50 mg PO BID [facility] Last Admin: 09/13/20 09:45 Dose: 50 mg Documented by: Metoprolol Tartrate (Lopressor) 75 mg PO BID [facility] Last Admin: 09/17/20 08:08 Dose: 75 mg Documented by: Metronidazole (Metronidazole) 500 mg PO Q8H [facility] Last Admin: 09/10/20 06:15 Dose: 500 mg Documented by: Pantoprazole Sodium (Protonix Iv) 40 mg IV Q12H [facility] Last Admin: 09/06/20 05:29 Dose: 40 mg Documented by: Prednisolone (Orapred 15 Mg/5ml Soln) 15 mg PO DAILY [facility] Last Admin: 09/10/20 09:19 Dose: 15 mg Documented by: Prednisolone (Orapred 15 Mg/5ml Soln) 40 mg PO DAILY [facility] Last Admin: 09/16/20 16:26 Dose: 40 mg Documented by: Propofol (Diprivan 20 Ml) Confirm Administered Dose 200 mg .ROUTE .STK-MED ONE Stop: 09/09/20 07:21 Spironolactone (Aldactone) 25 mg PO BIDDIURETIC [facility] Last Admin: 09/09/20 14:32 Dose: 25 mg Documented by: - Exam Quality Assessment: DVT Prophylaxis General: Moderate Distress, Other (Intermittently confused) Lungs: Clear to Auscultation, Normal Respiratory Effort Cardiovascular: Regular Rate, Regular Rhythm, No Murmurs GI/Abdominal Exam: Soft, No Organomegaly, Distended, Tender. No: Guarding, Rigid, Rebound Extremities: Non-Tender, Pedal Edema Skin: Warm, Dry Sepsis Event Note - Evaluation Sepsis Screening Result: Severe Sepsis Risk - Focused Exam Vital Signs: Vital Signs Temp Pulse Pulse Resp BP BP Pulse Ox 09/17/20 17:00 63 9 L 119/77 97 09/17/20 16:00 59 L 13 90/49 L 97 09/17/20 15:15 60 12 115/83 97 09/17/20 14:00 126 H 13 122/89 98 09/17/20 13:00 115 H 11 L 116/77 98 09/17/20 12:00 123 H 12 107/84 99 09/17/20 11:00 96.5 F L 93 15 105/75 99 09/17/20 10:00 108 H 11 L 114/74 99 09/17/20 09:00 127 H 11 L 108/86 100 09/17/20 08:08 145 H 124/77 09/17/20 08:00 96.2 F L 144 H 15 124/77 99 09/17/20 07:00 111 H 17 114/78 98 - Problem List Review Problem List Initiated/Reviewed/Updated: Yes - My Orders Last 24 Hours: My Active Orders 09/17/20 09:00 prednisoLONE [OraPred 15 MG/5ML Soln] 40 mg PO DAILY 09/17/20 11:30 Vancomycin 1.2 gm Sodium Chloride 0.9% [Normal Saline] 250 ml IV Q24H 09/17/20 17:54 Convert IV to Saline Lock [OM.PC] Routine 09/17/20 18:25 Albumin 25 GM/100 ML IVPB @ 25 MLS/HR Albumin Human [Albumin 25%] 25 gm in 100 ml IV ONETIME 09/17/20 21:00 Metoprolol Tartrate [Lopressor] 50 mg PO BID 09/18/20 05:00 CBC WITH AUTO DIFF [HEME] Timed COMPREHENSIVE METABOLIC PN,CMP [CHEM] Timed INR,PT,PROTHROMBIN TIME [COAG] Timed 09/18/20 09:00 Diltiazem [Cardizem CD] 180 mg PO DAILY - Plan Plan:: ASSESSMENT AND PLAN Alcoholic hepatitis/hepatic cirrhosis with ascites-modest improvement in bilirubin over the last 24 hours. I have had several discussions with the patient and his about very poor prognosis given the lack of improvement. I have reviewed current levels and findings with gastroenterology on-call in [place]. They recommended that if he were to be transferred he should be transferred to a tertiary care center with liver transplant capability, but then added that he is likely not a candidate for liver transplant as he is not been off of alcohol long enough. I have contacted both the [facility] in [place] and the [facility] in [place], they currently do not have available bed to accept him in transfer -Saline lock IV -Pentoxifylline 400 mg p.o. 3 times daily -Prednisolone 40 mg p.o. daily -Symptomatic management of pain and/or nausea -Absolute abstinence from alcohol -Hold diuretics with worsening renal function and hypotension Hepatic encephalopathy-still intermittently confused, ammonia level now within normal range -Lactulose 10 mg p.o. 3 times daily -Ammonia level in a.m. Elevated anion gap metabolic acidosis-likely secondary to acute kidney injury Infection-evaluation is negative for source of possible infection. White blood cell count has improved over the last 24 hours and he has remained afebrile. -Repeat blood cultures pending -Empiric IV antibiotic therapy vancomycin and ceftriaxone Atrial fibrillation with rapid ventricular response-he is now converted to sinus rhythm earlier today -Diltiazem CD milligrams p.o. daily -Continue metoprolol 50 mg p.o. twice daily -Hold diuretics with lower blood pressures Acute kidney injury-concern for developing hepatorenal syndrome. Last improvement in creatinine over the last 24 hours -Albumin 25 g IV today -Saline lock IV -Hold diuretics -Norepinephrine to maintain adequate blood pressure for kidney perfusion, attempt to taper off overnight Maintenance issues - - DVT prophylaxis -mechanical - GI prophylaxis -PPI - Nutrition -low residue Disposition - I would anticipate discharge home after his hospital stay Primary care physician -Randolph Juárez NP
[2020-09-17] MEDS ORDERED: Metoprolol Tartrate 25 MG Tab PO SCH (21:00)
[2020-09-17] MEDS: Melatonin 3 MG Tab PO SCH (21:21)
[2020-09-18] MEDS: Diltiazem IR 30 MG Tab PO SCH ×4 (04:19→16:00)
[2020-09-18] MEDS: Insulin Lispro 100 Unit/ML 3 ML KwikPen SUBCUT SCH ×4 (07:59→20:34)
[2020-09-18] MEDS: Pantoprazole 40 MG Tab.CR PO SCH ×2 (08:08→17:17)
[2020-09-18] MEDS: Aspirin 325 MG Tab.EC PO SCH (08:08)
[2020-09-18] MEDS: Pentoxifylline 400 MG Tab.ER PO SCH ×3 (08:09→17:17)
[2020-09-18] MEDS: Metoprolol Tartrate 25 MG Tab PO SCH (08:09)
[2020-09-18] MEDS: Lactulose Soln 10 GM/15 ML 15 ML UD Cup PO SCH ×3 (08:10→20:11)
[2020-09-18] MEDS: Hydrocortisone 1% Crm 30 GM Tube TOP SCH ×3 (08:10→22:03)
[2020-09-18] MEDS: Lactobacillus Rhamnosus GG (Probiotic) Cap PO SCH ×2 (08:10→20:00)
[2020-09-18] MEDS: Azithromycin 250 MG Tab PO SCH (08:11)
[2020-09-18] MEDS: prednisoLONE 15 MG/5 ML Soln UD Cup PO SCH (08:11)
[2020-09-18] MEDS ORDERED: Diltiazem 180 MG Cap.CD PO SCH (09:00)
--- NOTE | 2020-09-18 09:47 | CR ---
CHEST: Portable 09/16/2020 11:07 AM CLINICAL HISTORY:Leukocytosis COMPARISON:2014 FINDINGS: There is less than optimal inspiration which exaggerates the lung markings. The heart size, pulmonary vascularity and hilar structures are normal. No infiltrate effusion or pneumothorax is seen. There is some streaky density in the right upper lobe likely scarring. IMPRESSION: Limited study with less than optimal inspiration Right upper lobe scarring No acute cardiopulmonary process.
--- NOTE | 2020-09-18 10:41 | PCM.PN ---
- General Info Date of Service: 09/18/20 Admission Dx/Problem (Free Text): 1. Severe ascites 2. Atrial fibrillation with rapid ventricular response 3. Severe alcoholic hepatitis/cirrhosis Subjective Update: Patient seen with in the room. Patient somewhat lethargic this AM. Refusing AM meds until he "gets dinner". The patient and family are still hoping to get the patient down to [facility]. However, the bed situation in [place] is quite tight right now due to COVID 19. As a result the patient is not able to transfer down to [place]. We will explore beds in the [facility], [place], and/or [place]. Functional Status: Reports: New Symptoms (Lethargy, continued confusion) - Review of Systems General: Reports: Malaise HEENT: Reports: No Symptoms Pulmonary: Reports: No Symptoms Cardiovascular: Reports: No Symptoms Gastrointestinal: Reports: Other (Increasing ascites) Musculoskeletal: Reports: No Symptoms Skin: Reports: No Symptoms Neurological: Reports: No Symptoms Psychiatric: Reports: Confusion - Patient Data Vitals - Most Recent: Last Vital Signs Temp 97.1 F 09/18/20 07:00 Pulse 137 H 09/18/20 10:00 Resp 8 L 09/18/20 10:00 BP 111/62 09/18/20 10:00 Pulse Ox 98 09/18/20 10:00 Weight - Most Recent: 179 lb 11.2 oz I&O - Last 24 Hours: Intake & Output 09/17/20 09/18/20 09/18/20 22:59 06:59 14:59 Intake Total 2152 369 Output Total 100 50 Balance 2052 319 Lab Results Last 24 Hours: Laboratory Results - last 24 hr 09/18/20 09/18/20 09/18/20 Range/Units 05:00 05:00 05:00 WBC 22.9 H (4.5-11.0) K/uL RBC 3.74 L (4.30-5.90) M/uL Hgb 12.8 (12.0-15.0) g/dL Hct 40.6 (40.0-54.0) % MCV 109 H (80-98) fL MCH 34 H (27-31) pg MCHC 32 (32-36) % Plt Count 204 (150-400) K/uL Neut % (Auto) 88 H (36-66) % Lymph % (Auto) 4 L (24-44) % [place] % (Auto) 8 H (2-6) % Eos % (Auto) 0 L (2-4) % Baso % (Auto) 0 (0-1) % PT 22.1 H (9.5-12.0) sec INR 2.06 H (0.80-1.20) Sodium 142 (140-148) mmol/L Potassium 3.7 (3.6-5.2) mmol/L Chloride 111 H (100-108) mmol/L Carbon Dioxide 13 L (21-32) mmol/L Anion Gap 21.7 H (5.0-14.0) mmol/L BUN 59 H (7-18) mg/dL Creatinine 2.6 H (0.8-1.3) mg/dL Est Cr Clr Drug Dosing 26.05 mL/min Estimated GFR (MDRD) 25 L (>60) Glucose 158 H (74-106) mg/dL Calcium 8.1 L (8.5-10.1) mg/dL Total Bilirubin 10.0 H (0.2-1.0) mg/dL AST 45 H (15-37) U/L ALT 57 (12-78) U/L Alkaline Phosphatase 146 H (46-116) U/L Ammonia (11-32) mmol/L Total Protein 5.6 L (6.4-8.2) g/dL Albumin 3.4 (3.4-5.0) g/dL Globulin 2.2 L (2.3-3.5) g/dL Albumin/Globulin Ratio 1.6 (1.2-2.2) 09/18/20 Range/Units 05:00 WBC (4.5-11.0) K/uL RBC (4.30-5.90) M/uL Hgb (12.0-15.0) g/dL Hct (40.0-54.0) % MCV (80-98) fL MCH (27-31) pg MCHC (32-36) % Plt Count (150-400) K/uL Neut % (Auto) (36-66) % Lymph % (Auto) (24-44) % [place] % (Auto) (2-6) % Eos % (Auto) (2-4) % Baso % (Auto) (0-1) % PT (9.5-12.0) sec INR (0.80-1.20) Sodium (140-148) mmol/L Potassium (3.6-5.2) mmol/L Chloride (100-108) mmol/L Carbon Dioxide (21-32) mmol/L Anion Gap (5.0-14.0) mmol/L BUN (7-18) mg/dL Creatinine (0.8-1.3) mg/dL Est Cr Clr Drug Dosing mL/min Estimated GFR (MDRD) (>60) Glucose (74-106) mg/dL Calcium (8.5-10.1) mg/dL Total Bilirubin (0.2-1.0) mg/dL AST (15-37) U/L ALT (12-78) U/L Alkaline Phosphatase (46-116) U/L Ammonia 25 (11-32) mmol/L Total Protein (6.4-8.2) g/dL Albumin (3.4-5.0) g/dL Globulin (2.3-3.5) g/dL Albumin/Globulin Ratio (1.2-2.2) [place] Results Last 24 Hours: Microbiology 09/14/20 07:00 Fungal Culture - Preliminary Peritoneal NO FUNGAL GROWTH AT 1 WEEK 09/16/20 10:44 Aerobic Blood Culture - Preliminary Blood NO GROWTH AFTER 1 DAY Anaerobic Blood Culture - Preliminary NO GROWTH AFTER 1 DAY 09/16/20 10:42 Aerobic Blood Culture - Preliminary Blood - Arm, Left NO GROWTH AFTER 1 DAY Anaerobic Blood Culture - Preliminary NO GROWTH AFTER 1 DAY Med Orders - Current: Current Medications Acetaminophen (Tylenol) 650 mg PO Q4H PRN PRN Reason: Pain (Mild 1-3)/fever Aspirin (Ecotrin) 325 mg PO DAILY [facility] Last Admin: 09/18/20 08:08 Dose: 325 mg Documented by: Azithromycin (Zithromax) 125 mg PO DAILY [facility] Last Admin: 09/18/20 08:11 Dose: 125 mg Documented by: Diltiazem HCl (Cardizem) 60 mg PO Q6H [facility] Last Admin: 09/18/20 10:14 Dose: 60 mg Documented by: Hydrocortisone (Hydrocortisone 1% Crm) 0 gm TOP TID [facility] Last Admin: 09/18/20 08:10 Dose: Not Given Documented by: Norepinephrine Bitartrate 4 mg (/ Dextrose/Water) 250 mls @ 7.5 mls/hr IV TITRATE [facility]; Protocol Last Titration: 09/17/20 19:26 Dose: 1 mcg/min, 3.75 mls/hr Documented by: Ceftriaxone Sodium 1 gm/ (Sodium Chloride) 50 mls @ 100 mls/hr IV Q24H [facility] Last Admin: 09/17/20 11:18 Dose: 100 mls/hr Documented by: Vancomycin HCl 1.2 gm/ Sodium (Chloride) 250 mls @ 167 mls/hr IV Q24H [facility] Last Admin: 09/17/20 11:57 Dose: 167 mls/hr Documented by: Insulin Human Lispro (Humalog) 0 unit SUBCUT QIDACANDBED [facility]; Protocol Last Admin: 09/18/20 07:59 Dose: Not Given Documented by: Lactobacillus Rhamnosus (Culturelle) 1 cap PO BID [facility] Last Admin: 09/18/20 08:10 Dose: 1 cap Documented by: Lactulose (Chronulac) 10 gm PO TID [facility] Last Admin: 09/18/20 08:10 Dose: 10 gm Documented by: Lorazepam (Ativan) 0.5 mg IVPUSH Q4H PRN PRN Reason: Nausea/Vomiting Melatonin (Melatonin) 9 mg PO BEDTIME [facility] Last Admin: 09/17/20 21:21 Dose: 9 mg Documented by: Metoprolol Tartrate (Lopressor) 75 mg PO Q12H [facility] Last Admin: 09/18/20 08:09 Dose: 75 mg Documented by: Morphine Sulfate (Morphine) 2 mg IVPUSH Q2H PRN PRN Reason: Pain (severe 7-10) Last Admin: 09/17/20 03:13 Dose: 2 mg Documented by: Morphine Sulfate (Morphine) 15 mg PO Q4H PRN PRN Reason: Pain (moderate 4-6) Last Admin: 09/17/20 13:36 Dose: 15 mg Documented by: Ondansetron HCl (Zofran Odt) 4 mg PO Q6H PRN PRN Reason: Nausea able to take PO Ondansetron HCl (Zofran) 4 mg IV Q6H PRN PRN Reason: Nausea/Vomiting Last Admin: 09/18/20 10:14 Dose: 4 mg Documented by: Pantoprazole Sodium (Protonix) 40 mg PO BIDAC [facility] Last Admin: 09/18/20 08:08 Dose: 40 mg Documented by: Pentoxifylline (Trental) 400 mg PO TIDMEALS [facility] Last Admin: 09/18/20 08:09 Dose: 400 mg Documented by: Prednisolone (Orapred 15 Mg/5ml Soln) 40 mg PO DAILY [facility] Last Admin: 09/18/20 08:11 Dose: 40 mg Documented by: Discontinued Medications Ciprofloxacin (Ciprofloxacin Hcl) 500 mg PO BID [facility] Last Admin: 09/10/20 09:19 Dose: 500 mg Documented by: Diltiazem HCl (Cardizem Cd) 180 mg PO DAILY [facility] Last Admin: 09/08/20 08:01 Dose: 180 mg Documented by: Diltiazem HCl (Cardizem Cd) 120 mg PO ONETIME ONE Stop: 09/07/20 09:43 Last Admin: 09/07/20 10:27 Dose: 120 mg Documented by: Diltiazem HCl (Cardizem Cd) 240 mg PO DAILY [facility] Last Admin: 09/10/20 09:20 Dose: 240 mg Documented by: Diltiazem HCl (Diltiazem) 10 mg IVPUSH ONETIME ONE Stop: 09/12/20 17:01 Last Admin: 09/12/20 16:59 Dose: 10 mg Documented by: Diltiazem HCl (Cardizem) 30 mg PO Q6H [facility] Last Admin: 09/13/20 18:02 Dose: 30 mg Documented by: Diltiazem HCl (Cardizem) 60 mg PO Q6H [facility] Last Admin: 09/17/20 17:44 Dose: 60 mg Documented by: Diltiazem HCl (Cardizem Cd) 180 mg PO DAILY [facility] Fentanyl (Sublimaze) Confirm Administered Dose 100 mcg .ROUTE .STK-MED ONE Stop: 09/09/20 07:21 Furosemide (Lasix) 20 mg PO BIDDIURETIC [facility] Last Admin: 09/09/20 14:32 Dose: 20 mg Documented by: Sodium Chloride (Normal Saline) 1,000 mls @ 75 mls/hr IV ASDIRECTED [facility] Last Admin: 09/06/20 07:15 Dose: 75 mls/hr Documented by: Cefepime HCl 1 gm/ Sodium (Chloride) 50 mls @ 100 mls/hr IV Q8H [facility] Stop: 09/08/20 10:00 Last Admin: 09/08/20 08:35 Dose: 100 mls/hr Documented by: Albumin Human (Albumin 25%) 25 gm in 100 mls @ 25 mls/hr IV Q6H [facility] Stop: 09/06/20 15:59 Last Admin: 09/06/20 11:49 Dose: 25 mls/hr Documented by: Albumin Human (Albumin 25%) 25 gm in 100 mls @ 25 mls/hr IV Q8H [facility] Stop: 09/11/20 06:59 Last Admin: 09/11/20 02:32 Dose: 25 mls/hr Documented by: Albumin Human (Albumin 25%) 25 gm in 100 mls @ 25 mls/hr IV ONETIME ONE Stop: 09/11/20 12:59 Last Admin: 09/11/20 09:34 Dose: 25 mls/hr Documented by: Albumin Human (Albumin 25%) 25 gm in 100 mls @ 25 mls/hr IV Q8H [facility] Stop: 09/13/20 11:59 Last Admin: 09/13/20 09:41 Dose: 25 mls/hr Documented by: Diltiazem HCl 100 mg/ Sodium (Chloride) 100 mls @ 5 mls/hr IV TITRATE [facility]; Protocol Last Titration: 09/13/20 01:19 Dose: 0 mg/hr, 0 mls/hr Documented by: Albumin Human (Albumin 25%) 25 gm in 100 mls @ 25 mls/hr IV ONETIME ONE Stop: 09/13/20 20:59 Last Admin: 09/13/20 17:12 Dose: 25 mls/hr Documented by: Albumin Human (Albumin 25%) 25 gm in 100 mls @ 25 mls/hr IV ONETIME ONE Stop: 09/14/20 07:59 Last Admin: 09/14/20 03:42 Dose: 25 mls/hr Documented by: Albumin Human (Albumin 25%) 25 gm in 100 mls @ 25 mls/hr IV ONETIME ONE Stop: 09/16/20 14:59 Last Admin: 09/16/20 11:10 Dose: 25 mls/hr Documented by: Vancomycin HCl 1.6 gm/ Sodium (Chloride) 250 mls @ 167 mls/hr IV ONETIME ONE Stop: 09/16/20 12:59 Last Admin: 09/16/20 12:33 Dose: 167 mls/hr Documented by: Sodium Chloride (Normal Saline) 1,000 mls @ 100 mls/hr IV ASDIRECTED [facility] Last Admin: 09/17/20 17:25 Dose: 100 mls/hr Documented by: Albumin Human (Albumin 25%) 25 gm in 100 mls @ 25 mls/hr IV ONETIME ONE Stop: 09/17/20 22:24 Last Admin: 09/17/20 19:25 Dose: 25 mls/hr Documented by: Influenza Virus Vaccine (Fluzone High-Dose Quad ) 240 mcg IM .ONCE ONE Stop: 09/07/20 09:01 Last Admin: 09/07/20 10:51 Dose: 240 mcg Documented by: Lactulose (Chronulac) 10 gm PO ONETIME ONE Stop: 09/10/20 10:46 Last Admin: 09/10/20 10:53 Dose: 10 gm Documented by: Metoprolol Tartrate (Lopressor) 75 mg PO BID [facility] Last Admin: 09/12/20 11:11 Dose: Not Given Documented by: Metoprolol Tartrate (Lopressor) 50 mg PO BID [facility] Last Admin: 09/13/20 09:45 Dose: 50 mg Documented by: Metoprolol Tartrate (Lopressor) 75 mg PO BID [facility] Last Admin: 09/17/20 08:08 Dose: 75 mg Documented by: Metoprolol Tartrate (Lopressor) 50 mg PO BID [facility] Metronidazole (Metronidazole) 500 mg PO Q8H [facility] Last Admin: 09/10/20 06:15 Dose: 500 mg Documented by: Pantoprazole Sodium (Protonix Iv) 40 mg IV Q12H [facility] Last Admin: 09/06/20 05:29 Dose: 40 mg Documented by: Prednisolone (Orapred 15 Mg/5ml Soln) 15 mg PO DAILY [facility] Last Admin: 09/10/20 09:19 Dose: 15 mg Documented by: Prednisolone (Orapred 15 Mg/5ml Soln) 40 mg PO DAILY [facility] Last Admin: 09/16/20 16:26 Dose: 40 mg Documented by: Propofol (Diprivan 20 Ml) Confirm Administered Dose 200 mg .ROUTE .STK-MED ONE Stop: 09/09/20 07:21 Spironolactone (Aldactone) 25 mg PO BIDDIURETIC [facility] Last Admin: 09/09/20 14:32 Dose: 25 mg Documented by: - Exam General: Cooperative, No Acute Distress, Lethargic HEENT: Scleral Icterus Lungs: Crackles Cardiovascular: Irregular Rhythm. No: Regular Rate, Regular Rhythm GI/Abdominal Exam: Normal Bowel Sounds, Distended, Tender, Hepatomegaly, Splenomegaly Sepsis Event Note - Evaluation Sepsis Screening Result: Severe Sepsis Risk - Focused Exam Vital Signs: Vital Signs Temp Temp Pulse Pulse Resp BP BP 09/18/20 10:00 137 H 8 L 111/62 09/18/20 09:00 129 H 11 L 108/71 09/18/20 08:09 150 H 111/70 09/18/20 08:00 138 H 13 104/79 09/18/20 07:00 97.1 F 145 H 11 L 111/70 09/18/20 06:00 8 L 111/68 09/18/20 05:00 97 F 9 L 112/86 09/18/20 04:00 8 L 93/67 09/18/20 03:00 8 L 96/73 09/18/20 02:00 9 L 95/75 09/18/20 01:00 10 L 107/83 09/18/20 00:00 12 112/78 09/17/20 23:00 12 104/80 Pulse Ox 09/18/20 10:00 98 09/18/20 09:00 98 09/18/20 08:09 09/18/20 08:00 98 09/18/20 07:00 97 09/18/20 06:00 96 09/18/20 05:00 09/18/20 04:00 09/18/20 03:00 09/18/20 02:00 95 09/18/20 01:00 95 09/18/20 00:00 98 09/17/20 23:00 98 - Problem List Review Problem List Initiated/Reviewed/Updated: Yes - My Orders Last 24 Hours: My Active Orders 09/19/20 05:00 CBC WITH AUTO DIFF [HEME] DAILY COMPREHENSIVE METABOLIC PN,CMP [CHEM] DAILY INR,PT,PROTHROMBIN TIME [COAG] DAILY 09/20/20 05:00 CBC WITH AUTO DIFF [HEME] DAILY COMPREHENSIVE METABOLIC PN,CMP [CHEM] DAILY INR,PT,PROTHROMBIN TIME [COAG] DAILY 09/21/20 05:00 CBC WITH AUTO DIFF [HEME] DAILY COMPREHENSIVE METABOLIC PN,CMP [CHEM] DAILY INR,PT,PROTHROMBIN TIME [COAG] DAILY 09/22/20 05:00 CBC WITH AUTO DIFF [HEME] DAILY COMPREHENSIVE METABOLIC PN,CMP [CHEM] DAILY INR,PT,PROTHROMBIN TIME [COAG] DAILY 09/23/20 05:00 CBC WITH AUTO DIFF [HEME] DAILY COMPREHENSIVE METABOLIC PN,CMP [CHEM] DAILY INR,PT,PROTHROMBIN TIME [COAG] DAILY 09/24/20 05:00 COMPREHENSIVE METABOLIC PN,CMP [CHEM] DAILY - Plan Plan:: ASSESSMENT AND PLAN Alcoholic hepatitis/hepatic cirrhosis with ascites-modest improvement in bilirubin over the last 24 hours. I have had several discussions with the patient and his about very poor prognosis given the lack of improvement. I have reviewed current levels and findings with gastroenterology on-call in [place]. They recommended that if he were to be transferred he should be transferred to a tertiary care center with liver transplant capability, but then added that he is likely not a candidate for liver transplant as he is not been off of alcohol long enough. I have contacted both the [facility] in [place] and the [facility] in [place], they currently do not have available bed to accept him in transfer -Saline lock IV -Pentoxifylline 400 mg p.o. 3 times daily -Prednisolone 40 mg p.o. daily -Symptomatic management of pain and/or nausea -Absolute abstinence from alcohol -Hold diuretics with worsening renal function and hypotension - Would hold diuretics - I suspect they may have pulled a fair bit out during the paracentesis Hepatic encephalopathy-still intermittently confused, ammonia level now within normal range -Lactulose 10 mg p.o. 3 times daily -Ammonia level in a.m. Elevated anion gap metabolic acidosis-likely secondary to acute kidney injury Infection-evaluation is negative for source of possible infection. White blood cell count has improved over the last 24 hours and he has remained afebrile. -Repeat blood cultures pending -Empiric IV antibiotic therapy vancomycin and ceftriaxone - Continue Atbx - Follow WBC but suspect is d/t prednisolone as above Atrial fibrillation with rapid ventricular response-he is now converted to sinus rhythm earlier today -Diltiazem CD milligrams p.o. daily -Increase metoprolol from 75 mg po bid to 100 mg po bid - Discussed with Cardiology in [place] - Could consider digoxin or amiodarone -Hold diuretics with lower blood pressures Acute kidney injury-concern for developing hepatorenal syndrome. Last improvement in creatinine over the last 24 hours -Albumin 25 g IV today -Saline lock IV -Hold diuretics -Norepinephrine to maintain adequate blood pressure for kidney perfusion, attempt to taper off overnight Maintenance issues - - DVT prophylaxis -mechanical - GI prophylaxis -PPI - Nutrition -low residue Disposition - Looking for transfer to higher level of care with Hepatology, interventionalist for TIPS as stopgap to hepatic transplant. Primary care physician -Randolph Juárez [employer]
[2020-09-18] MEDS: cefTRIAXone 1 GM in Sodium Chloride 0.9% 50 ML IV SCH (10:46)
[2020-09-18] MEDS: Vancomycin 1.2 GM in Sodium Chloride 0.9% 250 ML IV SCH (11:18)
[2020-09-18] MEDS: Melatonin 3 MG Tab PO SCH (20:00)
[2020-09-18] MEDS: Metoprolol Tartrate 50 MG Tab PO SCH (20:12)
[2020-09-18] MEDS: LORazepam 2 MG/ML SDV IVPUSH SCH (21:55)
[2020-09-19] MEDS: Diltiazem IR 30 MG Tab PO SCH ×5 (01:16→21:15)
[2020-09-19] MEDS: LORazepam 2 MG/ML SDV IVPUSH PRN ×4 (02:02→20:29)
[2020-09-19] MEDS: Insulin Lispro 100 Unit/ML 3 ML KwikPen SUBCUT SCH ×4 (08:35→20:06)
[2020-09-19] MEDS: Azithromycin 250 MG Tab PO SCH (09:00)
[2020-09-19] MEDS: Metoprolol Tartrate 50 MG Tab PO SCH ×2 (09:38→20:34)
[2020-09-19] MEDS: Pentoxifylline 400 MG Tab.ER PO SCH ×3 (09:41→17:34)
[2020-09-19] MEDS: prednisoLONE 15 MG/5 ML Soln UD Cup PO SCH (09:50)
[2020-09-19] MEDS: Lactulose Soln 10 GM/15 ML 15 ML UD Cup PO SCH ×3 (09:50→20:33)
[2020-09-19] MEDS: Pantoprazole 40 MG Tab.CR PO SCH ×2 (09:50→17:34)
[2020-09-19] MEDS: Aspirin 325 MG Tab.EC PO SCH (09:50)
[2020-09-19] MEDS: Morphine 2 MG/ML SYRINGE IVPUSH PRN ×3 (09:53→21:52)
[2020-09-19] MEDS: cefTRIAXone 1 GM in Sodium Chloride 0.9% 50 ML IV SCH (10:01)
[2020-09-19] MEDS: LORazepam 2 MG/ML SDV IVPUSH SCH (10:44)
--- NOTE | 2020-09-19 11:08 | PCM.PN ---
- General Info Date of Service: 09/19/20 Admission Dx/Problem (Free Text): 1. End stage hepatic failure 2. Metabolic Hepatic Encephalopathy 3. Refractory atrial fibrillation with rapid ventricular response Subjective Update: Patient cycling between lethargy and agitation. He is quite fidgety in bed. patient is not coherent at this time. Discussed with , patient sister. [facility] has declined patient due to capacity issues. Otherwise tenuous/stable Functional Status: Reports: Pain Controlled - Review of Systems General: Reports: Weakness, Fatigue, Malaise HEENT: Reports: No Symptoms Pulmonary: Reports: No Symptoms Cardiovascular: Reports: No Symptoms Gastrointestinal: Reports: Abdominal Pain, Nausea Neurological: Reports: Confusion Psychiatric: Reports: Confusion, Agitation - Patient Data Vitals - Most Recent: Last Vital Signs Temp 97 F 09/19/20 07:12 Pulse 120 H 09/19/20 09:38 Resp 15 09/19/20 10:00 BP 132/71 09/19/20 10:00 Pulse Ox 96 09/19/20 10:00 Weight - Most Recent: 180 lb I&O - Last 24 Hours: Intake & Output 09/18/20 09/19/20 09/19/20 22:59 06:59 14:59 Intake Total 100 Output Total 100 175 Balance -100 -75 Lab Results Last 24 Hours: Laboratory Results - last 24 hr 09/19/20 09/19/20 09/19/20 Range/Units 04:55 04:55 04:55 WBC 20.2 H (4.5-11.0) K/uL RBC 3.56 L (4.30-5.90) M/uL Hgb 12.3 (12.0-15.0) g/dL Hct 38.3 L (40.0-54.0) % MCV 108 H (80-98) fL MCH 35 H (27-31) pg MCHC 32 (32-36) % Plt Count 208 (150-400) K/uL Neut % (Auto) 89 H (36-66) % Lymph % (Auto) 4 L (24-44) % [place] % (Auto) 7 H (2-6) % Eos % (Auto) 0 L (2-4) % Baso % (Auto) 0 (0-1) % PT 22.5 H (9.5-12.0) sec INR 2.09 H (0.80-1.20) Sodium 146 (140-148) mmol/L Potassium 3.6 (3.6-5.2) mmol/L Chloride 114 H (100-108) mmol/L Carbon Dioxide 17 L (21-32) mmol/L Anion Gap 18.6 H (5.0-14.0) mmol/L BUN 63 H (7-18) mg/dL Creatinine 2.8 H (0.8-1.3) mg/dL Est Cr Clr Drug Dosing 24.19 mL/min Estimated GFR (MDRD) 23 L (>60) Glucose 142 H (74-106) mg/dL Calcium 8.0 L (8.5-10.1) mg/dL Total Bilirubin 9.3 H (0.2-1.0) mg/dL AST 55 H (15-37) U/L ALT 69 (12-78) U/L Alkaline Phosphatase 131 H (46-116) U/L Ammonia (11-32) mmol/L Total Protein 5.0 L (6.4-8.2) g/dL Albumin 3.0 L (3.4-5.0) g/dL Globulin 2.0 L (2.3-3.5) g/dL Albumin/Globulin Ratio 1.5 (1.2-2.2) Vancomycin Trough (10.0-20.0) ug/mL 09/19/20 09/19/20 Range/Units 04:55 10:15 WBC (4.5-11.0) K/uL RBC (4.30-5.90) M/uL Hgb (12.0-15.0) g/dL Hct (40.0-54.0) % MCV (80-98) fL MCH (27-31) pg MCHC (32-36) % Plt Count (150-400) K/uL Neut % (Auto) (36-66) % Lymph % (Auto) (24-44) % [place] % (Auto) (2-6) % Eos % (Auto) (2-4) % Baso % (Auto) (0-1) % PT (9.5-12.0) sec INR (0.80-1.20) Sodium (140-148) mmol/L Potassium (3.6-5.2) mmol/L Chloride (100-108) mmol/L Carbon Dioxide (21-32) mmol/L Anion Gap (5.0-14.0) mmol/L BUN (7-18) mg/dL Creatinine (0.8-1.3) mg/dL Est Cr Clr Drug Dosing mL/min Estimated GFR (MDRD) (>60) Glucose (74-106) mg/dL Calcium (8.5-10.1) mg/dL Total Bilirubin (0.2-1.0) mg/dL AST (15-37) U/L ALT (12-78) U/L Alkaline Phosphatase (46-116) U/L Ammonia 50 H (11-32) mmol/L Total Protein (6.4-8.2) g/dL Albumin (3.4-5.0) g/dL Globulin (2.3-3.5) g/dL Albumin/Globulin Ratio (1.2-2.2) Vancomycin Trough 27.1 H (10.0-20.0) ug/mL [place] Results Last 24 Hours: Microbiology 09/16/20 10:42 Aerobic Blood Culture - Preliminary Blood - Arm, Left NO GROWTH AFTER 3 DAYS Anaerobic Blood Culture - Preliminary NO GROWTH AFTER 3 DAYS 09/16/20 10:44 Aerobic Blood Culture - Preliminary Blood NO GROWTH AFTER 3 DAYS Anaerobic Blood Culture - Preliminary NO GROWTH AFTER 3 DAYS 09/14/20 07:07 Gram Stain - Final Peritoneal Fluid Body Fluid Culture - Final NO GROWTH AFTER 3 DAYS 09/14/20 07:00 Fungal Culture - Preliminary Peritoneal NO FUNGAL GROWTH AT 1 WEEK Med Orders - Current: Current Medications Acetaminophen (Tylenol) 650 mg PO Q4H PRN PRN Reason: Pain (Mild 1-3)/fever Aspirin (Ecotrin) 325 mg PO DAILY [facility] Last Admin: 09/19/20 09:50 Dose: 325 mg Documented by: Azithromycin (Zithromax) 125 mg PO DAILY [facility] Last Admin: 09/18/20 08:11 Dose: 125 mg Documented by: Diltiazem HCl (Cardizem) 60 mg PO Q6H [facility] Last Admin: 09/19/20 09:38 Dose: 60 mg Documented by: Hydrocortisone (Hydrocortisone 1% Crm) 0 gm TOP TID [facility] Last Admin: 09/18/20 22:03 Dose: Not Given Documented by: Norepinephrine Bitartrate 4 mg (/ Dextrose/Water) 250 mls @ 7.5 mls/hr IV TITRATE [facility]; Protocol Last Titration: 09/17/20 19:26 Dose: 1 mcg/min, 3.75 mls/hr Documented by: Ceftriaxone Sodium 1 gm/ (Sodium Chloride) 50 mls @ 100 mls/hr IV Q24H [facility] Last Admin: 09/19/20 10:01 Dose: 100 mls/hr Documented by: Vancomycin HCl 1.2 gm/ Sodium (Chloride) 250 mls @ 167 mls/hr IV Q24H [facility] Last Admin: 09/18/20 11:18 Dose: 167 mls/hr Documented by: Albumin Human (Albumin 25%) 25 gm in 100 mls @ 25 mls/hr IV ONETIME ONE Stop: 09/19/20 12:59 Last Admin: 09/19/20 11:00 Dose: 25 mls/hr Documented by: Insulin Human Lispro (Humalog) 0 unit SUBCUT QIDACANDBED [facility]; Protocol Last Admin: 09/19/20 08:35 Dose: Not Given Documented by: Lactobacillus Rhamnosus (Culturelle) 1 cap PO BID [facility] Last Admin: 09/18/20 20:00 Dose: 1 cap Documented by: Lactulose (Chronulac) 10 gm PO TID [facility] Last Admin: 09/19/20 09:50 Dose: 10 gm Documented by: Lorazepam (Ativan) 0.5 mg IVPUSH ONETIME [facility] Last Admin: 09/19/20 10:44 Dose: 0.5 mg Documented by: Lorazepam (Ativan) 1 mg IVPUSH Q4H PRN PRN Reason: Agitation Last Admin: 09/19/20 02:02 Dose: 1 mg Documented by: Melatonin (Melatonin) 9 mg PO BEDTIME [facility] Last Admin: 09/18/20 20:00 Dose: 9 mg Documented by: Metoprolol Tartrate (Lopressor) 100 mg PO BID [facility] Last Admin: 09/19/20 09:38 Dose: 100 mg Documented by: Morphine Sulfate (Morphine) 2 mg IVPUSH Q2H PRN PRN Reason: Pain (severe 7-10) Last Admin: 09/19/20 09:53 Dose: 2 mg Documented by: Morphine Sulfate (Morphine) 15 mg PO Q4H PRN PRN Reason: Pain (moderate 4-6) Last Admin: 09/17/20 13:36 Dose: 15 mg Documented by: Ondansetron HCl (Zofran Odt) 4 mg PO Q6H PRN PRN Reason: Nausea able to take PO Ondansetron HCl (Zofran) 4 mg IV Q6H PRN PRN Reason: Nausea/Vomiting Last Admin: 09/18/20 10:14 Dose: 4 mg Documented by: Pantoprazole Sodium (Protonix) 40 mg PO BIDAC [facility] Last Admin: 09/19/20 09:50 Dose: 40 mg Documented by: Pentoxifylline (Trental) 400 mg PO TIDMEALS [facility] Last Admin: 09/19/20 09:41 Dose: 400 mg Documented by: Prednisolone (Orapred 15 Mg/5ml Soln) 40 mg PO DAILY [facility] Last Admin: 09/19/20 09:50 Dose: 40 mg Documented by: Discontinued Medications Ciprofloxacin (Ciprofloxacin Hcl) 500 mg PO BID [facility] Last Admin: 09/10/20 09:19 Dose: 500 mg Documented by: Diltiazem HCl (Cardizem Cd) 180 mg PO DAILY [facility] Last Admin: 09/08/20 08:01 Dose: 180 mg Documented by: Diltiazem HCl (Cardizem Cd) 120 mg PO ONETIME ONE Stop: 09/07/20 09:43 Last Admin: 09/07/20 10:27 Dose: 120 mg Documented by: Diltiazem HCl (Cardizem Cd) 240 mg PO DAILY [facility] Last Admin: 09/10/20 09:20 Dose: 240 mg Documented by: Diltiazem HCl (Diltiazem) 10 mg IVPUSH ONETIME ONE Stop: 09/12/20 17:01 Last Admin: 09/12/20 16:59 Dose: 10 mg Documented by: Diltiazem HCl (Cardizem) 30 mg PO Q6H [facility] Last Admin: 09/13/20 18:02 Dose: 30 mg Documented by: Diltiazem HCl (Cardizem) 60 mg PO Q6H [facility] Last Admin: 09/17/20 17:44 Dose: 60 mg Documented by: Diltiazem HCl (Cardizem Cd) 180 mg PO DAILY [facility] Fentanyl (Sublimaze) Confirm Administered Dose 100 mcg .ROUTE .STK-MED ONE Stop: 09/09/20 07:21 Furosemide (Lasix) 20 mg PO BIDDIURETIC [facility] Last Admin: 09/09/20 14:32 Dose: 20 mg Documented by: Sodium Chloride (Normal Saline) 1,000 mls @ 75 mls/hr IV ASDIRECTED [facility] Last Admin: 09/06/20 07:15 Dose: 75 mls/hr Documented by: Cefepime HCl 1 gm/ Sodium (Chloride) 50 mls @ 100 mls/hr IV Q8H [facility] Stop: 09/08/20 10:00 Last Admin: 09/08/20 08:35 Dose: 100 mls/hr Documented by: Albumin Human (Albumin 25%) 25 gm in 100 mls @ 25 mls/hr IV Q6H [facility] Stop: 09/06/20 15:59 Last Admin: 09/06/20 11:49 Dose: 25 mls/hr Documented by: Albumin Human (Albumin 25%) 25 gm in 100 mls @ 25 mls/hr IV Q8H [facility] Stop: 09/11/20 06:59 Last Admin: 09/11/20 02:32 Dose: 25 mls/hr Documented by: Albumin Human (Albumin 25%) 25 gm in 100 mls @ 25 mls/hr IV ONETIME ONE Stop: 09/11/20 12:59 Last Admin: 09/11/20 09:34 Dose: 25 mls/hr Documented by: Albumin Human (Albumin 25%) 25 gm in 100 mls @ 25 mls/hr IV Q8H [facility] Stop: 09/13/20 11:59 Last Admin: 09/13/20 09:41 Dose: 25 mls/hr Documented by: Diltiazem HCl 100 mg/ Sodium (Chloride) 100 mls @ 5 mls/hr IV TITRATE [facility]; Protocol Last Titration: 09/13/20 01:19 Dose: 0 mg/hr, 0 mls/hr Documented by: Albumin Human (Albumin 25%) 25 gm in 100 mls @ 25 mls/hr IV ONETIME ONE Stop: 09/13/20 20:59 Last Admin: 09/13/20 17:12 Dose: 25 mls/hr Documented by: Albumin Human (Albumin 25%) 25 gm in 100 mls @ 25 mls/hr IV ONETIME ONE Stop: 09/14/20 07:59 Last Admin: 09/14/20 03:42 Dose: 25 mls/hr Documented by: Albumin Human (Albumin 25%) 25 gm in 100 mls @ 25 mls/hr IV ONETIME ONE Stop: 09/16/20 14:59 Last Admin: 09/16/20 11:10 Dose: 25 mls/hr Documented by: Vancomycin HCl 1.6 gm/ Sodium (Chloride) 250 mls @ 167 mls/hr IV ONETIME ONE Stop: 09/16/20 12:59 Last Admin: 09/16/20 12:33 Dose: 167 mls/hr Documented by: Sodium Chloride (Normal Saline) 1,000 mls @ 100 mls/hr IV ASDIRECTED [facility] Last Admin: 09/17/20 17:25 Dose: 100 mls/hr Documented by: Albumin Human (Albumin 25%) 25 gm in 100 mls @ 25 mls/hr IV ONETIME ONE Stop: 09/17/20 22:24 Last Admin: 09/17/20 19:25 Dose: 25 mls/hr Documented by: Influenza Virus Vaccine (Fluzone High-Dose Quad ) 240 mcg IM .ONCE ONE Stop: 09/07/20 09:01 Last Admin: 09/07/20 10:51 Dose: 240 mcg Documented by: Lactulose (Chronulac) 10 gm PO ONETIME ONE Stop: 09/10/20 10:46 Last Admin: 09/10/20 10:53 Dose: 10 gm Documented by: Lorazepam (Ativan) 0.5 mg IVPUSH Q4H PRN PRN Reason: Nausea/Vomiting Last Admin: 09/18/20 20:11 Dose: 0.5 mg Documented by: Metoprolol Tartrate (Lopressor) 75 mg PO BID [facility] Last Admin: 09/12/20 11:11 Dose: Not Given Documented by: Metoprolol Tartrate (Lopressor) 50 mg PO BID [facility] Last Admin: 09/13/20 09:45 Dose: 50 mg Documented by: Metoprolol Tartrate (Lopressor) 75 mg PO BID [facility] Last Admin: 09/17/20 08:08 Dose: 75 mg Documented by: Metoprolol Tartrate (Lopressor) 50 mg PO BID [facility] Metoprolol Tartrate (Lopressor) 75 mg PO Q12H [facility] Last Admin: 09/18/20 08:09 Dose: 75 mg Documented by: Metronidazole (Metronidazole) 500 mg PO Q8H [facility] Last Admin: 09/10/20 06:15 Dose: 500 mg Documented by: Pantoprazole Sodium (Protonix Iv) 40 mg IV Q12H [facility] Last Admin: 09/06/20 05:29 Dose: 40 mg Documented by: Prednisolone (Orapred 15 Mg/5ml Soln) 15 mg PO DAILY [facility] Last Admin: 09/10/20 09:19 Dose: 15 mg Documented by: Prednisolone (Orapred 15 Mg/5ml Soln) 40 mg PO DAILY [facility] Last Admin: 09/16/20 16:26 Dose: 40 mg Documented by: Propofol (Diprivan 20 Ml) Confirm Administered Dose 200 mg .ROUTE .STK-MED ONE Stop: 09/09/20 07:21 Spironolactone (Aldactone) 25 mg PO BIDDIURETIC [facility] Last Admin: 09/09/20 14:32 Dose: 25 mg Documented by: - Exam Quality Assessment: Supplemental Oxygen, DVT Prophylaxis General: No Acute Distress, Severe Distress, Lethargic. No: Alert, Oriented, Cooperative HEENT: Scleral Icterus Lungs: Crackles Cardiovascular: Irregular Rhythm, Tachycardia GI/Abdominal Exam: Normal Bowel Sounds, Distended, Tender Psy/Mental Status: Agitated. No: Alert, Normal Affect, Normal Mood Sepsis Event Note - Evaluation Sepsis Screening Result: Severe Sepsis Risk - Focused Exam Vital Signs: Vital Signs Temp Pulse Pulse Resp BP BP Pulse Ox 09/19/20 10:00 15 132/71 96 09/19/20 09:38 120 H 123/58 L 09/19/20 08:59 123 H 15 124/58 L 95 09/19/20 07:12 97 F 128 H 16 124/80 95 09/19/20 06:00 12 114/76 98 09/19/20 05:00 96.8 F L 8 L 102/74 96 09/19/20 04:00 8 L 94/76 94 L 09/19/20 03:00 9 L 94/71 94 L 09/19/20 02:00 9 L 105/84 97 09/19/20 01:00 8 L 120/75 09/19/20 00:00 96 F L 14 111/82 99 - Problem List Review Problem List Initiated/Reviewed/Updated: Yes - My Orders Last 24 Hours: My Active Orders 09/18/20 21:00 Metoprolol Tartrate [Lopressor] 100 mg PO BID 09/18/20 21:44 LORazepam [Ativan] 1 mg IVPUSH Q4H PRN 09/18/20 21:45 LORazepam [Ativan] 0.5 mg IVPUSH ONETIME 09/19/20 09:00 Albumin Human [Albumin 25%] 25 gm in 100 ml IV ONETIME 09/20/20 05:00 AMMONIA VENOUS [CHEM] DAILY CBC WITH AUTO DIFF [HEME] DAILY COMPREHENSIVE METABOLIC PN,CMP [CHEM] DAILY INR,PT,PROTHROMBIN TIME [COAG] DAILY 09/21/20 05:00 AMMONIA VENOUS [CHEM] DAILY CBC WITH AUTO DIFF [HEME] DAILY COMPREHENSIVE METABOLIC PN,CMP [CHEM] DAILY INR,PT,PROTHROMBIN TIME [COAG] DAILY 09/22/20 05:00 AMMONIA VENOUS [CHEM] DAILY CBC WITH AUTO DIFF [HEME] DAILY COMPREHENSIVE METABOLIC PN,CMP [CHEM] DAILY INR,PT,PROTHROMBIN TIME [COAG] DAILY 09/23/20 05:00 AMMONIA VENOUS [CHEM] DAILY CBC WITH AUTO DIFF [HEME] DAILY COMPREHENSIVE METABOLIC PN,CMP [CHEM] DAILY INR,PT,PROTHROMBIN TIME [COAG] DAILY 09/24/20 05:00 COMPREHENSIVE METABOLIC PN,CMP [CHEM] DAILY - Plan Plan:: ASSESSMENT AND PLAN Alcoholic hepatitis/hepatic cirrhosis with ascites-modest improvement in bilirubin over the last 24 hours. I have had several discussions with the patient and his about very poor prognosis given the lack of improvement. I have reviewed current levels and findings with gastroenterology on-call in [place]. They recommended that if he were to be transferred he should be transferred to a tertiary care center with liver transplant capability, but then added that he is likely not a candidate for liver transplant as he is not been off of alcohol long enough. I have contacted both the [facility] in [place] and the [facility] in [place], they currently do not have available bed to accept him in transfer. Today, 19 September 2020, we will explore possible referral to the [facility] for evaluation by hepatology, cardiology, possible procedural intervention as bridge to buy time to transplantation. -Saline lock IV -Pentoxifylline 400 mg p.o. 3 times daily -Prednisolone 40 mg p.o. daily -Symptomatic management of pain and/or nausea -Absolute abstinence from alcohol -Hold diuretics with worsening renal function and hypotension - Would hold diuretics - I suspect they may have pulled a fair bit out during the paracentesis Hepatic encephalopathy-still intermittently confused, ammonia level now within normal range. This normal level was likely d/t compromised sample. Patient now with ammonia of 50. -Lactulose 10 mg p.o. 3 times daily -Ammonia level in a.m. Elevated anion gap metabolic acidosis-likely secondary to acute kidney injury Infection-evaluation is negative for source of possible infection. White blood cell count has improved over the last 24 hours and he has remained afebrile. -Repeat blood cultures pending -Empiric IV antibiotic therapy vancomycin and ceftriaxone - Continue Atbx - Follow WBC but suspect is d/t prednisolone as above Atrial fibrillation with rapid ventricular response-he is now converted to sinus rhythm earlier today -Diltiazem CD milligrams p.o. daily -Increase metoprolol from 75 mg po bid to 100 mg po bid - Discussed with Cardiology in [place] - Could consider digoxin or amiodarone -Hold diuretics with lower blood pressures Acute kidney injury-concern for developing hepatorenal syndrome. Last improvem ent in creatinine over the last 24 hours -Albumin 25 g IV today -Saline lock IV -Hold diuretics -Norepinephrine to maintain adequate blood pressure for kidney perfusion, attempt to taper off overnight Maintenance issues - - DVT prophylaxis -mechanical - GI prophylaxis -PPI - Nutrition -low residue Disposition - Looking for transfer to higher level of care with Hepatology, interventionalist for TIPS as stopgap to hepatic transplant. Primary care physician -Randolph Askew M.D. 19 September 2020
[2020-09-19] MEDS ORDERED: Sodium Chloride 0.9% 500 ML IV ONE (11:22)
[2020-09-19] MEDS: Vancomycin 1.2 GM in Sodium Chloride 0.9% 250 ML IV SCH (11:44)
[2020-09-19] MEDS: Hydrocortisone 1% Crm 30 GM Tube TOP SCH ×3 (14:23→20:34)
[2020-09-19] MEDS: Lactobacillus Rhamnosus GG (Probiotic) Cap PO SCH ×2 (14:27→20:33)
--- NOTE | 2020-09-19 16:12 | OR ---
DATE OF PROCEDURE: 09/08/2020 SURGEON: Alex Goldman MD PREOPERATIVE DIAGNOSES: 1. Advanced hepatic cirrhosis. 2. Epigastric discomfort. POSTOPERATIVE DIAGNOSES: 1. Advanced hepatic cirrhosis with associated moderate-sized esophageal varices, but with minimal esophageal inflammation and no stricturing. 2. Large gastric bezoar (probable source of the patient's symptoms). OPERATIVE PROCEDURE: Esophagogastroduodenoscopy with biopsies of the antrum for CLOtest. ANESTHESIA: IV sedation. INDICATIONS FOR PROCEDURE: This is a 65-year-old admitted with advanced hepatic cirrhosis with some ongoing epigastric discomfort. The plan is to proceed with upper GI endoscopy to assess the status of the esophageal and/or gastric varices along with the potential pathology. Potential risks including bleeding and perforation were discussed, and the patient wishes to proceed. DETAILS OF PROCEDURE: The patient was taken to the operating room and placed in a left lateral decubitus position. IV sedation was administered, after which the upper GI endoscope was passed orally through the length of the esophagus into the stomach with retroflexion view of the fundus, and thereafter, through the pyloric channel and into the proximal duodenum. Findings included the esophagus with some scattered moderately enlarged varices. The esophageal mucosa, however, was not significantly inflamed grossly, and there was no stricturing. Within the stomach, there was a large gastric bezoar consisting gastric food present with some redness around the edges where the bezoar lay along with some patchy redness in the antrum. There were some minor gastric varices in the area just below the esophagogastric junction and in the area of the gastric cardia. Otherwise, the pyloric channel and the visualized portions of the duodenum were unremarkable. At this point, biopsies were obtained from the antrum and sent for CLOtest for H pylori. We elected not to biopsy the area around the esophageal varices so to avoid bleeding risk. The procedure then concluded. The patient was taken to the recovery room in satisfactory condition. Alex Goldman MD /[id number]
[2020-09-19] MEDS: Melatonin 3 MG Tab PO SCH (20:34)
[2020-09-20] MEDS ORDERED: Vancomycin 1.2 GM in Sodium Chloride 0.9% 250 ML IV SCH ×2 (02:00→10:00)
[2020-09-20] MEDS: Morphine 2 MG/ML SYRINGE IVPUSH PRN ×3 (02:04→10:20)
[2020-09-20] MEDS: Diltiazem IR 30 MG Tab PO SCH ×4 (04:57→22:35)
[2020-09-20] MEDS: Insulin Lispro 100 Unit/ML 3 ML KwikPen SUBCUT SCH ×4 (07:32→20:40)
[2020-09-20] MEDS: LORazepam 2 MG/ML SDV IVPUSH PRN (10:23)
[2020-09-20] MEDS: Pantoprazole 40 MG Tab.CR PO SCH ×2 (10:28→15:34)
[2020-09-20] MEDS: Pentoxifylline 400 MG Tab.ER PO SCH ×3 (10:28→16:18)
[2020-09-20] MEDS: Lactobacillus Rhamnosus GG (Probiotic) Cap PO SCH ×2 (10:28→20:10)
[2020-09-20] MEDS: Lactulose Soln 10 GM/15 ML 15 ML UD Cup PO SCH ×3 (10:28→20:10)
[2020-09-20] MEDS: Hydrocortisone 1% Crm 30 GM Tube TOP SCH ×3 (10:28→20:10)
[2020-09-20] MEDS: Aspirin 325 MG Tab.EC PO SCH (10:28)
[2020-09-20] MEDS: prednisoLONE 15 MG/5 ML Soln UD Cup PO SCH (10:29)
[2020-09-20] MEDS: Azithromycin 250 MG Tab PO SCH (10:29)
[2020-09-20] MEDS: Metoprolol Tartrate 50 MG Tab PO SCH ×2 (10:29→20:10)
--- NOTE | 2020-09-20 10:49 | PCM.PN ---
- General Info Date of Service: 09/20/20 Subjective Update: Mr. Dubois is unfortunately shown evidence of further deterioration. Worsening of hepatic encephalopathy to the point that he is now unable to take medications. No significant improvement in liver function and progressive decline in his renal function. I have reviewed all of this with his today, she does not think that he would like to go on in this condition. Status will be changed to comfort cares only and she would like to take him home on hospice. Because of his encephalopathy is unable to provide meaningful information concerning symptoms or review of systems. - Patient Data Vitals - Most Recent: Last Vital Signs Temp 97.6 F 09/20/20 07:00 Pulse 80 09/20/20 10:00 Resp 14 09/20/20 10:00 BP 129/84 09/20/20 10:00 Pulse Ox 97 09/20/20 07:00 Weight - Most Recent: 178 lb 1.6 oz Lab Results Last 24 Hours: Laboratory Results - last 24 hr 09/19/20 09/20/20 09/20/20 Range/Units 10:15 05:55 05:55 WBC 22.1 H (4.5-11.0) K/uL RBC 3.66 L (4.30-5.90) M/uL Hgb 12.6 (12.0-15.0) g/dL Hct 39.5 L (40.0-54.0) % MCV 108 H (80-98) fL MCH 34 H (27-31) pg MCHC 32 (32-36) % Plt Count 228 (150-400) K/uL Neut % (Auto) 90 H (36-66) % Lymph % (Auto) 4 L (24-44) % Duval % (Auto) 5 (2-6) % Eos % (Auto) 0 L (2-4) % Baso % (Auto) 0 (0-1) % PT (9.5-12.0) sec INR (0.80-1.20) Sodium 147 (140-148) mmol/L Potassium 4.0 (3.6-5.2) mmol/L Chloride 114 H (100-108) mmol/L Carbon Dioxide 13 L (21-32) mmol/L Anion Gap 24.0 H (5.0-14.0) mmol/L BUN 67 H (7-18) mg/dL Creatinine 2.8 H (0.8-1.3) mg/dL Est Cr Clr Drug Dosing 24.19 mL/min Estimated GFR (MDRD) 23 L (>60) Glucose 172 H (74-106) mg/dL Calcium 8.3 L (8.5-10.1) mg/dL Total Bilirubin 10.0 H (0.2-1.0) mg/dL AST 59 H (15-37) U/L ALT 77 (12-78) U/L Alkaline Phosphatase 140 H (46-116) U/L Ammonia (11-32) mmol/L Total Protein 5.4 L (6.4-8.2) g/dL Albumin 3.4 (3.4-5.0) g/dL Globulin 2.0 L (2.3-3.5) g/dL Albumin/Globulin Ratio 1.7 (1.2-2.2) Vancomycin Trough 27.1 H (10.0-20.0) ug/mL 09/20/20 09/20/20 Range/Units 05:55 05:55 WBC (4.5-11.0) K/uL RBC (4.30-5.90) M/uL Hgb (12.0-15.0) g/dL Hct (40.0-54.0) % MCV (80-98) fL MCH (27-31) pg MCHC (32-36) % Plt Count (150-400) K/uL Neut % (Auto) (36-66) % Lymph % (Auto) (24-44) % Duval % (Auto) (2-6) % Eos % (Auto) (2-4) % Baso % (Auto) (0-1) % PT 23.5 H (9.5-12.0) sec INR 2.19 H (0.80-1.20) Sodium (140-148) mmol/L Potassium (3.6-5.2) mmol/L Chloride (100-108) mmol/L Carbon Dioxide (21-32) mmol/L Anion Gap (5.0-14.0) mmol/L BUN (7-18) mg/dL Creatinine (0.8-1.3) mg/dL Est Cr Clr Drug Dosing mL/min Estimated GFR (MDRD) (>60) Glucose (74-106) mg/dL Calcium (8.5-10.1) mg/dL Total Bilirubin (0.2-1.0) mg/dL AST (15-37) U/L ALT (12-78) U/L Alkaline Phosphatase (46-116) U/L Ammonia 68 H (11-32) mmol/L Total Protein (6.4-8.2) g/dL Albumin (3.4-5.0) g/dL Globulin (2.3-3.5) g/dL Albumin/Globulin Ratio (1.2-2.2) Vancomycin Trough (10.0-20.0) ug/mL [facility] Results Last 24 Hours: Microbiology 09/16/20 10:42 Aerobic Blood Culture - Preliminary Blood - Arm, Left NO GROWTH AFTER 3 DAYS Anaerobic Blood Culture - Preliminary NO GROWTH AFTER 3 DAYS 09/16/20 10:44 Aerobic Blood Culture - Preliminary Blood NO GROWTH AFTER 3 DAYS Anaerobic Blood Culture - Preliminary NO GROWTH AFTER 3 DAYS 09/14/20 07:07 Gram Stain - Final Peritoneal Fluid Body Fluid Culture - Final NO GROWTH AFTER 3 DAYS Med Orders - Current: Current Medications Acetaminophen (Tylenol) 650 mg PO Q4H PRN PRN Reason: Pain (Mild 1-3)/fever Aspirin (Ecotrin) 325 mg PO DAILY [facility] Last Admin: 09/20/20 10:28 Dose: Not Given Documented by: Diltiazem HCl (Cardizem) 60 mg PO Q6H [facility] Last Admin: 09/20/20 10:29 Dose: Not Given Documented by: Hydrocortisone (Hydrocortisone 1% Crm) 0 gm TOP TID [facility] Last Admin: 09/20/20 10:28 Dose: Not Given Documented by: Insulin Human Lispro (Humalog) 0 unit SUBCUT QIDACANDBED [facility]; Protocol Last Admin: 09/20/20 07:32 Dose: 2 units Documented by: Lactobacillus Rhamnosus (Culturelle) 1 cap PO BID [facility] Last Admin: 09/20/20 10:28 Dose: Not Given Documented by: Lactulose (Chronulac) 20 gm PO TID [facility] Last Admin: 09/20/20 10:28 Dose: Not Given Documented by: Lorazepam (Ativan) 0.5 mg IVPUSH ONETIME [facility] Last Admin: 09/18/20 21:55 Dose: 0.5 mg Documented by: Lorazepam (Ativan Oral Concentrate 1mg/0.5 Ml U/D) 0.5 mg BUCCAL Q2H PRN PRN Reason: Agitation Melatonin (Melatonin) 9 mg PO BEDTIME [facility] Last Admin: 09/19/20 20:34 Dose: Not Given Documented by: Metoprolol Tartrate (Lopressor) 100 mg PO BID [facility] Last Admin: 09/20/20 10:29 Dose: Not Given Documented by: Morphine Sulfate (Morphine) 15 mg PO Q4H PRN PRN Reason: Pain (moderate 4-6) Last Admin: 09/17/20 13:36 Dose: 15 mg Documented by: Morphine Sulfate (Morphine 10 Mg/0.5 Ml Oral Syringe) 5 mg BUCCAL Q1H PRN PRN Reason: Pain Ondansetron HCl (Zofran Odt) 4 mg PO Q6H PRN PRN Reason: Nausea able to take PO Ondansetron HCl (Zofran) 4 mg IV Q6H PRN PRN Reason: Nausea/Vomiting Last Admin: 09/18/20 10:14 Dose: 4 mg Documented by: Pantoprazole Sodium (Protonix) 40 mg PO BIDAC [facility] Last Admin: 09/20/20 10:28 Dose: Not Given Documented by: Pentoxifylline (Trental) 400 mg PO TIDMEALS [facility] Last Admin: 09/20/20 10:28 Dose: Not Given Documented by: Prednisolone (Orapred 15 Mg/5ml Soln) 40 mg PO DAILY [facility] Last Admin: 09/20/20 10:29 Dose: Not Given Documented by: Discontinued Medications Azithromycin (Zithromax) 125 mg PO DAILY [facility] Last Admin: 09/20/20 10:29 Dose: Not Given Documented by: Ciprofloxacin (Ciprofloxacin Hcl) 500 mg PO BID [facility] Last Admin: 09/10/20 09:19 Dose: 500 mg Documented by: Diltiazem HCl (Cardizem Cd) 180 mg PO DAILY [facility] Last Admin: 09/08/20 08:01 Dose: 180 mg Documented by: Diltiazem HCl (Cardizem Cd) 120 mg PO ONETIME ONE Stop: 09/07/20 09:43 Last Admin: 09/07/20 10:27 Dose: 120 mg Documented by: Diltiazem HCl (Cardizem Cd) 240 mg PO DAILY [facility] Last Admin: 09/10/20 09:20 Dose: 240 mg Documented by: Diltiazem HCl (Diltiazem) 10 mg IVPUSH ONETIME ONE Stop: 09/12/20 17:01 Last Admin: 09/12/20 16:59 Dose: 10 mg Documented by: Diltiazem HCl (Cardizem) 30 mg PO Q6H [facility] Last Admin: 09/13/20 18:02 Dose: 30 mg Documented by: Diltiazem HCl (Cardizem) 60 mg PO Q6H [facility] Last Admin: 09/17/20 17:44 Dose: 60 mg Documented by: Diltiazem HCl (Cardizem Cd) 180 mg PO DAILY [facility] Fentanyl (Sublimaze) Confirm Administered Dose 100 mcg .ROUTE .STK-MED ONE Stop: 09/09/20 07:21 Furosemide (Lasix) 20 mg PO BIDDIURETIC [facility] Last Admin: 09/09/20 14:32 Dose: 20 mg Documented by: Sodium Chloride (Normal Saline) 1,000 mls @ 75 mls/hr IV ASDIRECTED [facility] Last Admin: 09/06/20 07:15 Dose: 75 mls/hr Documented by: Cefepime HCl 1 gm/ Sodium (Chloride) 50 mls @ 100 mls/hr IV Q8H [facility] Stop: 09/08/20 10:00 Last Admin: 09/08/20 08:35 Dose: 100 mls/hr Documented by: Albumin Human (Albumin 25%) 25 gm in 100 mls @ 25 mls/hr IV Q6H [facility] Stop: 09/06/20 15:59 Last Admin: 09/06/20 11:49 Dose: 25 mls/hr Documented by: Albumin Human (Albumin 25%) 25 gm in 100 mls @ 25 mls/hr IV Q8H [facility] Stop: 09/11/20 06:59 Last Admin: 09/11/20 02:32 Dose: 25 mls/hr Documented by: Albumin Human (Albumin 25%) 25 gm in 100 mls @ 25 mls/hr IV ONETIME ONE Stop: 09/11/20 12:59 Last Admin: 09/11/20 09:34 Dose: 25 mls/hr Documented by: Norepinephrine Bitartrate 4 mg (/ Dextrose/Water) 250 mls @ 7.5 mls/hr IV TITRATE [facility]; Protocol Last Titration: 09/17/20 19:26 Dose: 1 mcg/min, 3.75 mls/hr Documented by: Albumin Human (Albumin 25%) 25 gm in 100 mls @ 25 mls/hr IV Q8H [facility] Stop: 09/13/20 11:59 Last Admin: 09/13/20 09:41 Dose: 25 mls/hr Documented by: Diltiazem HCl 100 mg/ Sodium (Chloride) 100 mls @ 5 mls/hr IV TITRATE [facility]; Protocol Last Titration: 09/13/20 01:19 Dose: 0 mg/hr, 0 mls/hr Documented by: Albumin Human (Albumin 25%) 25 gm in 100 mls @ 25 mls/hr IV ONETIME ONE Stop: 09/13/20 20:59 Last Admin: 09/13/20 17:12 Dose: 25 mls/hr Documented by: Albumin Human (Albumin 25%) 25 gm in 100 mls @ 25 mls/hr IV ONETIME ONE Stop: 09/14/20 07:59 Last Admin: 09/14/20 03:42 Dose: 25 mls/hr Documented by: Ceftriaxone Sodium 1 gm/ (Sodium Chloride) 50 mls @ 100 mls/hr IV Q24H [facility] Last Admin: 09/19/20 10:01 Dose: 100 mls/hr Documented by: Albumin Human (Albumin 25%) 25 gm in 100 mls @ 25 mls/hr IV ONETIME ONE Stop: 09/16/20 14:59 Last Admin: 09/16/20 11:10 Dose: 25 mls/hr Documented by: Vancomycin HCl 1.6 gm/ Sodium (Chloride) 250 mls @ 167 mls/hr IV ONETIME ONE Stop: 09/16/20 12:59 Last Admin: 09/16/20 12:33 Dose: 167 mls/hr Documented by: Vancomycin HCl 1.2 gm/ Sodium (Chloride) 250 mls @ 167 mls/hr IV Q24H [facility] Last Admin: 09/19/20 11:44 Dose: Not Given Documented by: Sodium Chloride (Normal Saline) 1,000 mls @ 100 mls/hr IV ASDIRECTED [facility] Last Admin: 09/17/20 17:25 Dose: 100 mls/hr Documented by: Albumin Human (Albumin 25%) 25 gm in 100 mls @ 25 mls/hr IV ONETIME ONE Stop: 09/17/20 22:24 Last Admin: 09/17/20 19:25 Dose: 25 mls/hr Documented by: Albumin Human (Albumin 25%) 25 gm in 100 mls @ 25 mls/hr IV ONETIME ONE Stop: 09/19/20 12:59 Last Admin: 09/19/20 11:00 Dose: 25 mls/hr Documented by: Sodium Chloride (Normal Saline) 500 mls @ 125 mls/hr IV .BOLUS ONE Stop: 09/19/20 15:21 Last Admin: 09/19/20 11:00 Dose: 125 mls/hr Documented by: Vancomycin HCl 1.2 gm/ Sodium (Chloride) 250 mls @ 167 mls/hr IV Q48H [facility] Influenza Virus Vaccine (Fluzone High-Dose Quad ) 240 mcg IM .ONCE ONE Stop: 09/07/20 09:01 Last Admin: 09/07/20 10:51 Dose: 240 mcg Documented by: Lactulose (Chronulac) 10 gm PO ONETIME ONE Stop: 09/10/20 10:46 Last Admin: 09/10/20 10:53 Dose: 10 gm Documented by: Lactulose (Chronulac) 10 gm PO TID [facility] Last Admin: 09/19/20 20:33 Dose: Not Given Documented by: Lorazepam (Ativan) 0.5 mg IVPUSH Q4H PRN PRN Reason: Nausea/Vomiting Last Admin: 09/18/20 20:11 Dose: 0.5 mg Documented by: Lorazepam (Ativan) 1 mg IVPUSH Q4H PRN PRN Reason: Agitation Last Admin: 09/20/20 10:23 Dose: 1 mg Documented by: Metoprolol Tartrate (Lopressor) 75 mg PO BID [facility] Last Admin: 09/12/20 11:11 Dose: Not Given Documented by: Metoprolol Tartrate (Lopressor) 50 mg PO BID [facility] Last Admin: 09/13/20 09:45 Dose: 50 mg Documented by: Metoprolol Tartrate (Lopressor) 75 mg PO BID [facility] Last Admin: 09/17/20 08:08 Dose: 75 mg Documented by: Metoprolol Tartrate (Lopressor) 50 mg PO BID [facility] Last Admin: 09/20/20 09:51 Dose: Not Given Documented by: Metoprolol Tartrate (Lopressor) 75 mg PO Q12H [facility] Last Admin: 09/18/20 08:09 Dose: 75 mg Documented by: Metronidazole (Metronidazole) 500 mg PO Q8H [facility] Last Admin: 09/10/20 06:15 Dose: 500 mg Documented by: Morphine Sulfate (Morphine) 2 mg IVPUSH Q2H PRN PRN Reason: Pain (severe 7-10) Last Admin: 09/20/20 10:20 Dose: 2 mg Documented by: Pantoprazole Sodium (Protonix Iv) 40 mg IV Q12H [facility] Last Admin: 09/06/20 05:29 Dose: 40 mg Documented by: Prednisolone (Orapred 15 Mg/5ml Soln) 15 mg PO DAILY [facility] Last Admin: 09/10/20 09:19 Dose: 15 mg Documented by: Prednisolone (Orapred 15 Mg/5ml Soln) 40 mg PO DAILY [facility] Last Admin: 09/16/20 16:26 Dose: 40 mg Documented by: Propofol (Diprivan 20 Ml) Confirm Administered Dose 200 mg .ROUTE .[facility]-MED ONE Stop: 09/09/20 07:21 Spironolactone (Aldactone) 25 mg PO BIDDIURETIC [facility] Last Admin: 09/09/20 14:32 Dose: 25 mg Documented by: - Exam General: Moderate Distress, Lethargic Lungs: Clear to Auscultation, Normal Respiratory Effort, Decreased Breath Sounds Cardiovascular: Regular Rate, Regular Rhythm, No Murmurs GI/Abdominal Exam: Soft, No Organomegaly, Distended. No: Guarding, Rigid, Rebound, Tender Extremities: Non-Tender, Pedal Edema Sepsis Event Note - Evaluation Sepsis Screening Result: No Definite Risk - Focused Exam Vital Signs: Vital Signs Temp Pulse Resp BP Pulse Ox 09/20/20 10:00 80 14 129/84 09/20/20 09:00 78 12 104/51 L 09/20/20 08:00 69 8 L 135/77 09/20/20 07:00 97.6 F 77 13 153/81 H 97 09/20/20 06:00 96.8 F L 80 15 153/81 H 100 09/20/20 05:00 78 18 146/97 H 99 09/20/20 04:11 81 11 L 155/77 H 99 09/20/20 02:00 72 11 L 121/91 H 98 09/20/20 01:00 69 11 L 117/72 95 09/20/20 00:00 65 10 L 114/69 93 L 09/19/20 23:00 66 10 L 112/64 93 L - Problem List Review Problem List Initiated/Reviewed/Updated: Yes - My Orders Last 24 Hours: My Active Orders 09/20/20 09:00 Lactulose [Chronulac] 20 gm PO TID 09/20/20 10:37 LORazepam [Ativan ORAL Concentrate 1MG/0.5 ML U/D] 0.5 mg [facility] Q2H PRN 09/20/20 10:37 Morphine [Morphine 10 MG/0.5 ML Oral Syringe] 5 mg BUCCAL Q1H PRN 09/20/20 10:39 Consult to Hospice [CONS] Routine - Plan Plan:: ASSESSMENT AND PLAN Palliative care-his has decided to proceed with comfort cares only. She would like hospice consult and probable discharged home with hospice. -Hospice consult -Potential discharged home tomorrow with hospice Alcoholic hepatitis/hepatic cirrhosis with ascites-further deterioration over the last 48 hours. Likelihood of survival given current condition and findings is very poor -Saline lock IV -Pentoxifylline 400 mg p.o. 3 times daily -Prednisolone 40 mg p.o. daily Hepatic encephalopathy-very confused and lethargic, ammonia level has increased and he is no longer able to take lactulose -Lactulose 10 mg p.o. 3 times daily Elevated anion gap metabolic acidosis-likely secondary to acute kidney injury Infection-evaluation is negative for source of possible infection. Atrial fibrillation with rapid ventricular response -Diltiazem CD milligrams p.o. daily -Increase metoprolol from 75 mg po bid to 100 mg po bid -Hold diuretics with lower blood pressures Acute kidney injury-concern for developing hepatorenal syndrome. -Saline lock IV -Hold diuretics Maintenance issues - - DVT prophylaxis -mechanical - GI prophylaxis -PPI - Nutrition -low residue Disposition - Looking for transfer to higher level of care with Hepatology, interventionalist for TIPS as stopgap to hepatic transplant. Primary care physician -Randolph Juárez NP
[2020-09-20] MEDS: Morphine 10 MG/0.5 ML Oral Syringe BUCCAL PRN ×7 (15:09→22:07)
[2020-09-20] MEDS: LORazepam ORAL Concentrate 1MG/0.5ML U/D BUCCAL PRN ×4 (15:24→21:00)
--- NOTE | 2020-09-20 15:28 | PCM.DCSUM1 ---
Discharge Summary - Hospital Course Brief History: is a 65-year-old gentleman who is admitted as a direct admission from the clinic with severe weakness secondary to alcoholic hepatitis and hepatorenal syndrome - Discharge Data Discharge Date: 09/21/20 Discharge Disposition: DC/Tfer to Hospice - Home 50 Condition: Poor - Referral to Home Health Primary Care Physician: Randolph Juárez NP - Discharge Diagnosis/Problem(s) (1) Hepatorenal syndrome SNOMED Code(s): 06272598 ICD Code: K76.7 - HEPATORENAL SYNDROME Status: Acute Current Visit: Yes (2) Alcoholic hepatitis with ascites SNOMED Code(s): 0570841049224024 ICD Code: K70.11 - ALCOHOLIC HEPATITIS WITH ASCITES Status: Acute Current Visit: No (3) Acute kidney injury SNOMED Code(s): 04004767, 84046192 ICD Code: N17.9 - ACUTE KIDNEY FAILURE, UNSPECIFIED Status: Acute Current Visit: No (4) Atrial fibrillation with rapid ventricular response SNOMED Code(s): 197251624754776 ICD Code: I48.91 - UNSPECIFIED ATRIAL FIBRILLATION Status: Acute Current Visit: No (5) Hepatic cirrhosis SNOMED Code(s): 05217275 ICD Code: K74.60 - UNSPECIFIED CIRRHOSIS OF LIVER Status: Acute Current Visit: No Qualifiers: Hepatic cirrhosis type: alcoholic cirrhosis Ascites presence: with ascites Qualified Code(s): K70.31 - Alcoholic cirrhosis of liver with ascites (6) Palliative care status SNOMED Code(s): 911235244 ICD Code: Z51.5 - ENCOUNTER FOR PALLIATIVE CARE Status: Acute Current Visit: Yes - Patient Summary/Data Consults: Consultations 09/05/20 18:22 Consult to Physician [CONS] Routine Consulting Provider: Alex Goldman Courtesy Call Completed to Consulting Physician: Yes Reason for Consult: ascites, abd pain Person Notified: LAYNE Date Notified: 09/05/20 Special Instructions: paracentesis in the morning, Diagnostic and therapeutic 09/20/20 10:39 Consult to Hospice [CONS] Routine Comment: Physician Instructions: Reason for Consult: ETOH hepatitis, hepatorenal syndrome Hospital Course: Mr. Dubois initially presented to the clinic for follow-up of his liver disease. There were concerns about hypotension, his reaccumulation of ascites as well as profound weakness that prompted a direct admission. Orestes reports that initially after his most recent hospital discharge he was feeling somewhat better. Over the past 4 days prior to admission, he has had a steady decline. He has lost his appetite as well as his strength. He has had very poor oral intake. He has had increasing abdominal pain as well as abdominal distention. He describes 2 different types of abdominal pain. One is a severe pain in the epigastric area that happens after he tries to eat or drink anything more than just a very small quantity. This pain does not radiate. It last for several minutes after trying to swallow and then slowly dissipates. The pain is not there if he is fasting. He also describes a moderate 6-7 out of 10 pain that radiates throughout his abdomen. This is a constant dull ache that he describes as a chronic pain. This started about 4 days ago and has been slowly worsening. He has not taken anything at home to try to make it better. Laying down does seem to help a little bit. Any sort of movement makes the pain worse. He does not think he has had any fevers but did feel warm 1 day. He has nausea but has not had any vomiting. He does not feel short of breath. He has been having bowel movements. His urine is orange but he does not have dysuria. He says he has been taking his diuretics and steroids as prescribed. Work-up in the clinic revealed persistent leukocytosis with a white blood cell count of 27,000. Bilirubin is still elevated at 13 but this is a little better than a week ago. His creatinine was up to 1.7 with a baseline of about 1.3. His blood pressures in the clinic were in the 80s systolic. He was weak and confused so he was sent for admission. With the hypotension he was admitted to the intensive care unit. On admission there was concern for infection, blood cultures were obtained. There was no evidence of pneumonia or significant urinary tract infection. Some of his pain was felt to be secondary to ascites with abdominal distention. Dr. Goldman did perform a paracentesis for therapeutic and diagnostic purposes. He was started on empiric IV antibiotic therapy pending culture results. He was continued on the prednisolone for management of alcoholic hepatitis. He was given fluids as well as albumin for management of his hypotension and diuretic therapy was held. After admission he did develop atrial fibrillation with rapid ventricular response complicating management. He was initially placed on IV diltiazem and continued on his oral metoprolol. Blood pressure was borderline with these interventions. With the first episode of atrial fibrillation he converted spontaneously and when he was transitioned to oral diltiazem and continued on the metoprolol. Hospital course was further complicated by ongoing hypotension and he was started on low-dose IV norepinephrine to maintain better blood pressures and manage he is developing and worsening hepatorenal syndrome with rising creatinine. He was also treated with a 2-day course of albumin 1 g/kg/day. Progressive renal insufficiency stabilized with this but never really improved during the rest of his hospital course. Following this he was intermittently treated with IV albumin on almost a daily basis. He redeveloped atrial fibrillation with rapid ventricular response and was placed back on IV diltiazem. Norepinephrine was continued during this period of time to maintain adequate blood pressures. Antibiotics were discontinued after cultures were negative from blood and peritoneal fluid. Prednisolone was discontinued as he had shown no significant improvement over several weeks while on this medication. Patient and family had requested consideration of transfer to a tertiary care center for further subspecialty evaluation and management. Situation was reviewed with gastroenterology in [place], they recommended restarting prednisolone. They did not feel transfer to [place] was appropriate given his severe condition and recommended that he be transferred to a tertiary care center with liver transplant capability. [facility] in [place] was contracted on 3 different occasions and they had no available beds to accept the patient in transfer. [facility] was contacted initially they felt they had no available beds. On a second call they did agree to accept him in transfer and placed him on a long waiting list. Renal function had stabilized for some time but showed further evidence of deterioration. He also developed hepatic encephalopathy which improved transiently when the dose of lactulose was increased. Despite this intervention he developed worsening hepatic encephalopathy with decreased level of consciousness to the point where he was unable to take medications. His white count did improve off of prednisolone when it was discontinued initially but then ok even off of prednisone raising the concern that there was recurrent infection. He was again evaluated for potential source of infection with blood cultures. Chest x-ray continued to show no evidence of infiltrate and urinalysis was clear. A second paracentesis was performed and showed no growth or evidence of active infection. He was empirically started on IV antibiotic therapy again with vancomycin and ceftriaxone. White count improved modestly but he showed no clinical improvement overall. Situation was reviewed with his again including very poor prognosis given his progressive renal failure and no significant improvement in his liver function. She did not feel that he would want to continue given his current state and requested that we switch to comfort cares only. On the day prior to admission hospice staff did come by and talk with patient's as well as his sister who were present and they decided to proceed with hospice admission and discharged home the following day. He will be discharged home and admitted to hospice after discharge. Activity will be as tolerated and he will be on a regular diet as he is able to tolerate. Almost all of his medications will be discontinued except those as needed for comfort and he will be prescribed liquid morphine and lorazepam for ongoing comfort management at home. - Patient Instructions Diet: Usual Diet as Tolerated Activity: As Tolerated Other/Special Instructions: Discharge to home, with hospice admission at home - Discharge Plan *PRESCRIPTION DRUG MONITORING PROGRAM REVIEWED*: Not Applicable *COPY OF PRESCRIPTION DRUG MONITORING REPORT IN PATIENT JHONY: Not Applicable Prescriptions/Med Rec: LORazepam [Ativan ORAL Concentrate 1MG/0.5 ML U/D] 0.5 mg BUCCAL Q2H PRN #30 ml PRN Reason: Agitation Morphine [Morphine 10 MG/0.5 ML Oral Syringe] 5 mg BUCCAL Q1H PRN #30 ml PRN Reason: Pain Home Medications: Home Meds LORazepam [Ativan ORAL Concentrate 1MG/0.5 ML U/D] 0.5 mg BUCCAL Q2H PRN #30 ml 09/20/20 [Rx] Morphine [Morphine 10 MG/0.5 ML Oral Syringe] 5 mg BUCCAL Q1H PRN #30 ml 09/20/20 [Rx] - Discharge Summary/Plan Comment DC Time >30 min.: No - Patient Data Vitals - Most Recent: Last Vital Signs Temp 97.6 F 09/20/20 07:00 Pulse 84 09/20/20 14:00 Resp 13 09/20/20 14:00 BP 137/79 09/20/20 14:00 Pulse Ox 97 09/20/20 07:00 Weight - Most Recent: 178 lb 1.6 oz Lab Results - Last 24 hrs: Laboratory Results - last 24 hr 09/20/20 09/20/20 09/20/20 Range/Units 05:55 05:55 05:55 WBC 22.1 H (4.5-11.0) K/uL RBC 3.66 L (4.30-5.90) M/uL Hgb 12.6 (12.0-15.0) g/dL Hct 39.5 L (40.0-54.0) % MCV 108 H (80-98) fL MCH 34 H (27-31) pg MCHC 32 (32-36) % Plt Count 228 (150-400) K/uL Neut % (Auto) 90 H (36-66) % Lymph % (Auto) 4 L (24-44) % [place] % (Auto) 5 (2-6) % Eos % (Auto) 0 L (2-4) % Baso % (Auto) 0 (0-1) % PT 23.5 H (9.5-12.0) sec INR 2.19 H (0.80-1.20) Sodium 147 (140-148) mmol/L Potassium 4.0 (3.6-5.2) mmol/L Chloride 114 H (100-108) mmol/L Carbon Dioxide 13 L (21-32) mmol/L Anion Gap 24.0 H (5.0-14.0) mmol/L BUN 67 H (7-18) mg/dL Creatinine 2.8 H (0.8-1.3) mg/dL Est Cr Clr Drug Dosing 24.19 mL/min Estimated GFR (MDRD) 23 L (>60) Glucose 172 H (74-106) mg/dL Calcium 8.3 L (8.5-10.1) mg/dL Total Bilirubin 10.0 H (0.2-1.0) mg/dL AST 59 H (15-37) U/L ALT 77 (12-78) U/L Alkaline Phosphatase 140 H (46-116) U/L Ammonia (11-32) mmol/L Total Protein 5.4 L (6.4-8.2) g/dL Albumin 3.4 (3.4-5.0) g/dL Globulin 2.0 L (2.3-3.5) g/dL Albumin/Globulin Ratio 1.7 (1.2-2.2) 09/20/20 Range/Units 05:55 WBC (4.5-11.0) K/uL RBC (4.30-5.90) M/uL Hgb (12.0-15.0) g/dL Hct (40.0-54.0) % MCV (80-98) fL MCH (27-31) pg MCHC (32-36) % Plt Count (150-400) K/uL Neut % (Auto) (36-66) % Lymph % (Auto) (24-44) % [place] % (Auto) (2-6) % Eos % (Auto) (2-4) % Baso % (Auto) (0-1) % PT (9.5-12.0) sec INR (0.80-1.20) Sodium (140-148) mmol/L Potassium (3.6-5.2) mmol/L Chloride (100-108) mmol/L Carbon Dioxide (21-32) mmol/L Anion Gap (5.0-14.0) mmol/L BUN (7-18) mg/dL Creatinine (0.8-1.3) mg/dL Est Cr Clr Drug Dosing mL/min Estimated GFR (MDRD) (>60) Glucose (74-106) mg/dL Calcium (8.5-10.1) mg/dL Total Bilirubin (0.2-1.0) mg/dL AST (15-37) U/L ALT (12-78) U/L Alkaline Phosphatase (46-116) U/L Ammonia 68 H (11-32) mmol/L Total Protein (6.4-8.2) g/dL Albumin (3.4-5.0) g/dL Globulin (2.3-3.5) g/dL Albumin/Globulin Ratio (1.2-2.2) BLAIR Results - Last 24 hrs: Microbiology 09/16/20 10:42 Aerobic Blood Culture - Preliminary Blood - Arm, Left NO GROWTH AFTER 4 DAYS Anaerobic Blood Culture - Preliminary NO GROWTH AFTER 4 DAYS 09/16/20 10:44 Aerobic Blood Culture - Preliminary Blood NO GROWTH AFTER 4 DAYS Anaerobic Blood Culture - Preliminary NO GROWTH AFTER 4 DAYS Med Orders - Current: Current Medications Acetaminophen (Tylenol) 650 mg PO Q4H PRN PRN Reason: Pain (Mild 1-3)/fever Aspirin (Ecotrin) 325 mg PO DAILY [facility] Last Admin: 09/20/20 10:28 Dose: Not Given Documented by: Diltiazem HCl (Cardizem) 60 mg PO Q6H [facility] Last Admin: 09/20/20 15:10 Dose: Not Given Documented by: Hydrocortisone (Hydrocortisone 1% Crm) 0 gm TOP TID [facility] Last Admin: 09/20/20 13:37 Dose: Not Given Documented by: Insulin Human Lispro (Humalog) 0 unit SUBCUT QIDACANDBED [facility]; Protocol Last Admin: 09/20/20 11:15 Dose: 2 units Documented by: Lactobacillus Rhamnosus (Culturelle) 1 cap PO BID [facility] Last Admin: 09/20/20 10:28 Dose: Not Given Documented by: Lactulose (Chronulac) 20 gm PO TID [facility] Last Admin: 09/20/20 13:37 Dose: Not Given Documented by: Lorazepam (Ativan) 0.5 mg IVPUSH ONETIME [facility] Last Admin: 09/18/20 21:55 Dose: 0.5 mg Documented by: Lorazepam (Ativan Oral Concentrate 1mg/0.5 Ml U/D) 0.5 mg BUCCAL Q2H PRN PRN Reason: Agitation Melatonin (Melatonin) 9 mg PO BEDTIME [facility] Last Admin: 09/19/20 20:34 Dose: Not Given Documented by: Metoprolol Tartrate (Lopressor) 100 mg PO BID [facility] Last Admin: 09/20/20 10:29 Dose: Not Given Documented by: Morphine Sulfate (Morphine) 15 mg PO Q4H PRN PRN Reason: Pain (moderate 4-6) Last Admin: 09/17/20 13:36 Dose: 15 mg Documented by: Morphine Sulfate (Morphine 10 Mg/0.5 Ml Oral Syringe) 5 mg BUCCAL Q1H PRN PRN Reason: Pain Last Admin: 09/20/20 15:09 Dose: 5 mg Documented by: Ondansetron HCl (Zofran Odt) 4 mg PO Q6H PRN PRN Reason: Nausea able to take PO Ondansetron HCl (Zofran) 4 mg IV Q6H PRN PRN Reason: Nausea/Vomiting Last Admin: 09/18/20 10:14 Dose: 4 mg Documented by: Pantoprazole Sodium (Protonix) 40 mg PO BIDAC [facility] Last Admin: 09/20/20 10:28 Dose: Not Given Documented by: Pentoxifylline (Trental) 400 mg PO TIDMEALS [facility] Last Admin: 09/20/20 13:37 Dose: Not Given Documented by: Prednisolone (Orapred 15 Mg/5ml Soln) 40 mg PO DAILY [facility] Last Admin: 09/20/20 10:29 Dose: Not Given Documented by: Discontinued Medications Azithromycin (Zithromax) 125 mg PO DAILY [facility] Last Admin: 09/20/20 10:29 Dose: Not Given Documented by: Ciprofloxacin (Ciprofloxacin Hcl) 500 mg PO BID [facility] Last Admin: 09/10/20 09:19 Dose: 500 mg Documented by: Diltiazem HCl (Cardizem Cd) 180 mg PO DAILY [facility] Last Admin: 09/08/20 08:01 Dose: 180 mg Documented by: Diltiazem HCl (Cardizem Cd) 120 mg PO ONETIME ONE Stop: 09/07/20 09:43 Last Admin: 09/07/20 10:27 Dose: 120 mg Documented by: Diltiazem HCl (Cardizem Cd) 240 mg PO DAILY [facility] Last Admin: 09/10/20 09:20 Dose: 240 mg Documented by: Diltiazem HCl (Diltiazem) 10 mg IVPUSH ONETIME ONE Stop: 09/12/20 17:01 Last Admin: 09/12/20 16:59 Dose: 10 mg Documented by: Diltiazem HCl (Cardizem) 30 mg PO Q6H [facility] Last Admin: 09/13/20 18:02 Dose: 30 mg Documented by: Diltiazem HCl (Cardizem) 60 mg PO Q6H [facility] Last Admin: 09/17/20 17:44 Dose: 60 mg Documented by: Diltiazem HCl (Cardizem Cd) 180 mg PO DAILY [facility] Fentanyl ([place]) Confirm Administered Dose 100 mcg .ROUTE .STK-MED ONE Stop: 09/09/20 07:21 Furosemide (Lasix) 20 mg PO BIDDIURETIC [facility] Last Admin: 09/09/20 14:32 Dose: 20 mg Documented by: Sodium Chloride (Normal Saline) 1,000 mls @ 75 mls/hr IV ASDIRECTED [facility] Last Admin: 09/06/20 07:15 Dose: 75 mls/hr Documented by: Cefepime HCl 1 gm/ Sodium (Chloride) 50 mls @ 100 mls/hr IV Q8H [facility] Stop: 09/08/20 10:00 Last Admin: 09/08/20 08:35 Dose: 100 mls/hr Documented by: Albumin Human (Albumin 25%) 25 gm in 100 mls @ 25 mls/hr IV Q6H [facility] Stop: 09/06/20 15:59 Last Admin: 09/06/20 11:49 Dose: 25 mls/hr Documented by: Albumin Human (Albumin 25%) 25 gm in 100 mls @ 25 mls/hr IV Q8H [facility] Stop: 09/11/20 06:59 Last Admin: 09/11/20 02:32 Dose: 25 mls/hr Documented by: Albumin Human (Albumin 25%) 25 gm in 100 mls @ 25 mls/hr IV ONETIME ONE Stop: 09/11/20 12:59 Last Admin: 09/11/20 09:34 Dose: 25 mls/hr Documented by: Norepinephrine Bitartrate 4 mg (/ Dextrose/Water) 250 mls @ 7.5 mls/hr IV TITRATE [facility]; Protocol Last Titration: 09/17/20 19:26 Dose: 1 mcg/min, 3.75 mls/hr Documented by: Albumin Human (Albumin 25%) 25 gm in 100 mls @ 25 mls/hr IV Q8H [facility] Stop: 09/13/20 11:59 Last Admin: 09/13/20 09:41 Dose: 25 mls/hr Documented by: Diltiazem HCl 100 mg/ Sodium (Chloride) 100 mls @ 5 mls/hr IV TITRATE [facility]; Protocol Last Titration: 09/13/20 01:19 Dose: 0 mg/hr, 0 mls/hr Documented by: Albumin Human (Albumin 25%) 25 gm in 100 mls @ 25 mls/hr IV ONETIME ONE Stop: 09/13/20 20:59 Last Admin: 09/13/20 17:12 Dose: 25 mls/hr Documented by: Albumin Human (Albumin 25%) 25 gm in 100 mls @ 25 mls/hr IV ONETIME ONE Stop: 09/14/20 07:59 Last Admin: 09/14/20 03:42 Dose: 25 mls/hr Documented by: Ceftriaxone Sodium 1 gm/ (Sodium Chloride) 50 mls @ 100 mls/hr IV Q24H [facility] Last Admin: 09/19/20 10:01 Dose: 100 mls/hr Documented by: Albumin Human (Albumin 25%) 25 gm in 100 mls @ 25 mls/hr IV ONETIME ONE Stop: 09/16/20 14:59 Last Admin: 09/16/20 11:10 Dose: 25 mls/hr Documented by: Vancomycin HCl 1.6 gm/ Sodium (Chloride) 250 mls @ 167 mls/hr IV ONETIME ONE Stop: 09/16/20 12:59 Last Admin: 09/16/20 12:33 Dose: 167 mls/hr Documented by: Vancomycin HCl 1.2 gm/ Sodium (Chloride) 250 mls @ 167 mls/hr IV Q24H [facility] Last Admin: 09/19/20 11:44 Dose: Not Given Documented by: Sodium Chloride (Normal Saline) 1,000 mls @ 100 mls/hr IV ASDIRECTED [facility] Last Admin: 09/17/20 17:25 Dose: 100 mls/hr Documented by: Albumin Human (Albumin 25%) 25 gm in 100 mls @ 25 mls/hr IV ONETIME ONE Stop: 09/17/20 22:24 Last Admin: 09/17/20 19:25 Dose: 25 mls/hr Documented by: Albumin Human (Albumin 25%) 25 gm in 100 mls @ 25 mls/hr IV ONETIME ONE Stop: 09/19/20 12:59 Last Admin: 09/19/20 11:00 Dose: 25 mls/hr Documented by: Sodium Chloride (Normal Saline) 500 mls @ 125 mls/hr IV .BOLUS ONE Stop: 09/19/20 15:21 Last Admin: 09/19/20 11:00 Dose: 125 mls/hr Documented by: Vancomycin HCl 1.2 gm/ Sodium (Chloride) 250 mls @ 167 mls/hr IV Q48H [facility] Last Admin: 09/20/20 15:02 Dose: Not Given Documented by: Influenza Virus Vaccine (Fluzone High-Dose Quad ) 240 mcg IM .ONCE ONE Stop: 09/07/20 09:01 Last Admin: 09/07/20 10:51 Dose: 240 mcg Documented by: Lactulose (Chronulac) 10 gm PO ONETIME ONE Stop: 09/10/20 10:46 Last Admin: 09/10/20 10:53 Dose: 10 gm Documented by: Lactulose (Chronulac) 10 gm PO TID [facility] Last Admin: 09/19/20 20:33 Dose: Not Given Documented by: Lorazepam (Ativan) 0.5 mg IVPUSH Q4H PRN PRN Reason: Nausea/Vomiting Last Admin: 09/18/20 20:11 Dose: 0.5 mg Documented by: Lorazepam (Ativan) 1 mg IVPUSH Q4H PRN PRN Reason: Agitation Last Admin: 09/20/20 10:23 Dose: 1 mg Documented by: Metoprolol Tartrate (Lopressor) 75 mg PO BID [facility] Last Admin: 09/12/20 11:11 Dose: Not Given Documented by: Metoprolol Tartrate (Lopressor) 50 mg PO BID [facility] Last Admin: 09/13/20 09:45 Dose: 50 mg Documented by: Metoprolol Tartrate (Lopressor) 75 mg PO BID [facility] Last Admin: 09/17/20 08:08 Dose: 75 mg Documented by: Metoprolol Tartrate (Lopressor) 50 mg PO BID [facility] Last Admin: 09/20/20 09:51 Dose: Not Given Documented by: Metoprolol Tartrate (Lopressor) 75 mg PO Q12H [facility] Last Admin: 09/18/20 08:09 Dose: 75 mg Documented by: Metronidazole (Metronidazole) 500 mg PO Q8H [facility] Last Admin: 09/10/20 06:15 Dose: 500 mg Documented by: Morphine Sulfate (Morphine) 2 mg IVPUSH Q2H PRN PRN Reason: Pain (severe 7-10) Last Admin: 09/20/20 10:20 Dose: 2 mg Documented by: Pantoprazole Sodium (Protonix Iv) 40 mg IV Q12H [facility] Last Admin: 09/06/20 05:29 Dose: 40 mg Documented by: Prednisolone (Orapred 15 Mg/5ml Soln) 15 mg PO DAILY [facility] Last Admin: 09/10/20 09:19 Dose: 15 mg Documented by: Prednisolone (Orapred 15 Mg/5ml Soln) 40 mg PO DAILY [facility] Last Admin: 09/16/20 16:26 Dose: 40 mg Documented by: Propofol (Diprivan 20 Ml) Confirm Administered Dose 200 mg .ROUTE .STK-MED ONE Stop: 09/09/20 07:21 Spironolactone (Aldactone) 25 mg PO BIDDIURETIC [facility] Last Admin: 09/09/20 14:32 Dose: 25 mg Documented by: - Exam General: Reports: Lethargic Lungs: Reports: Clear to Auscultation, Normal Respiratory Effort Cardiovascular: Reports: Regular Rate, No Murmurs, Irregular Rhythm GI/Abdominal Exam: Soft, No Organomegaly, Distended, Tender. No: Guarding, Rigid, Rebound Extremities: Non-Tender, Pedal Edema Skin: Reports: Other (Jaundice)
[2020-09-20] MEDS: Melatonin 3 MG Tab PO SCH (20:10)
[2020-09-21] MEDS: Diltiazem IR 30 MG Tab PO SCH (03:04)
[2020-09-21 07:41] VITALS: BP 107/79; PULSE 115
[2020-09-21] MEDS: Pantoprazole 40 MG Tab.CR PO SCH (08:14)
[2020-09-21] MEDS: Insulin Lispro 100 Unit/ML 3 ML KwikPen SUBCUT SCH (08:14)
[2020-09-21] MEDS: Pentoxifylline 400 MG Tab.ER PO SCH (08:14)
[2020-09-21] MEDS: Aspirin 325 MG Tab.EC PO SCH (08:15)
[2020-09-21] MEDS: Lactulose Soln 10 GM/15 ML 15 ML UD Cup PO SCH (08:15)
[2020-09-21] MEDS: Lactobacillus Rhamnosus GG (Probiotic) Cap PO SCH (08:15)
[2020-09-21] MEDS: prednisoLONE 15 MG/5 ML Soln UD Cup PO SCH (08:15)
[2020-09-21] MEDS: Metoprolol Tartrate 50 MG Tab PO SCH (08:15)
[2020-09-21] MEDS: Hydrocortisone 1% Crm 30 GM Tube TOP SCH (08:15)
[2020-09-21] MEDS: Morphine 10 MG/0.5 ML Oral Syringe BUCCAL PRN (09:27)
== END 2020-09-21 09:30 | disposition hospice, home (50) | DRG 432 ==
LOC: JP.ICU 16:21
PROVIDERS: ADMIT Internal Medicine; ATTEND Hospitalist
PROC: 0W9G30Z Drainage of Peritoneal Cavity with Drainage Device, Percutaneous Approach (ICD-10-PCS; principal; 2020-09-05)
PROC: 0DB68ZX Excision of Stomach, Via Natural or Artificial Opening Endoscopic, Diagnostic (ICD-10-PCS; 2020-09-08)
PROC: 3E033XZ Introduction of Vasopressor into Peripheral Vein, Percutaneous Approach (ICD-10-PCS; 2020-09-11)
DX: K70.11 Alcoholic hepatitis with ascites (principal); K76.7 Hepatorenal syndrome; N17.9 Acute kidney failure, unspecified; I85.10 Secondary esophageal varices without bleeding; I48.91 Unspecified atrial fibrillation; K70.31 Alcoholic cirrhosis of liver with ascites; Z51.5 Encounter for palliative care; Z20.828 Contact with and (suspected) exposure to other viral communicable diseases; T18.2XXA Foreign body in stomach, initial encounter; N18.30 Chronic kidney disease, stage 3 unspecified; K70.40 Alcoholic hepatic failure without coma; I95.9 Hypotension, unspecified; H54.7 Unspecified visual loss; I12.9 Hypertensive chronic kidney disease with stage 1 through stage 4 chronic kidney disease, or unspecified chronic kidney disease; K21.9 Gastro-esophageal reflux disease without esophagitis; K44.9 Diaphragmatic hernia without obstruction or gangrene; M19.90 Unspecified osteoarthritis, unspecified site; Z79.82 Long term (current) use of aspirin; Z79.52 Long term (current) use of systemic steroids; Z85.46 Personal history of malignant neoplasm of prostate
CPT/HCPCS: 36415; 36569; 71045; 71045-26; 74176; 80053; 80202; 81001; 82140; 82962; 83605; 83690; 83735; 84145; 85025; 85027; 85060; 85610; 86140; 87040; 87070; 87081; 87102; 87205; 87220; 88112; 88305; 90662; 97110-GP; 97162-GP; 97530-GP; 97535-GP; A9270-GY; C1751; C9113; J0692; J0696; J1815; J2060; J2270; J2405; J2704; J3010; J3370; J3490; J7030; J7040; J7050; J7060; P9047; U0002